=== PATIENT | female | born 1945 | race Caucasian/White ===

== ENCOUNTER 2021-01-12 16:28 | Outpatient (RCR) | payer MEDICARE, SELFPAY | END 2021-01-12 23:59 | LOC: IMMUN 16:28 | PROVIDERS: PCP Internal Medicine; Visit Provider Family Medicine | DX: Z23 Encounter for immunization (principal) | CPT/HCPCS: 0011A; 0012A ==

== ENCOUNTER 2022-02-02 10:30 | Outpatient (RCR) | payer MEDICARE, SELFPAY ==
--- NOTE | 2022-01-05 12:20 | HP.PTEVAL_ITS ---
Patient's Visit Information REGI BARILLAS is a 76 year old F referred to Physical Therapy by Dr. Brittney Kothari MD with a diagnosis of Lumbar Pain. Date of Evaluation: 01/05/22 Physical Therapist: Vandana Kahn DPT - Visit Plan Frequency: 2x /Week Duration: 4 Weeks Plan: Aquatic Therapy- focus on LE and core strength/stabilization - Subjective Patient reports that her MD wants her to come to PT. Her back has been bothering her for a long time- Herniated discs and arthritis. Has had x-rays and MRI. Declined injections- has had PT- aquatic therapy helped for a little while- did not keep up on the exercises- that was about a year ago. Patient reports that her back aches. If she does housework the pain is more burning. Pain is located in the lower spine and radiates to the middle of the back- no radiating pain down either lower extremity. Describes the upper back as more burning and lower back is more sharp. Agg: sitting to long, housework, walking long distances. Eases: sitting down takes a few min then goes away. Worst: 8/10 Best: 0/10. Has been to pain mgmt and they suggested PT- has not been back to see them. Sleep: not disturbed- back and side sleeper- has a knee pillow that she uses on her side. No loss or change in bowel or bladder. She feels the pain in her back is staying the same just gets really annoying. Work: doesn't work- lives in an apt so she is not very active. [place] not exercise. PMHx/Meds: no changes- see scanned in chart. - Objective Posture: poor throughout- FH, RS- can correct but is unable to maintain. Gait: no deviation noted- good arm swing and trunk rotation. HR/TR: able with UE A. SLS: weight shift but unable to SLS. ROM: Lumbar: flexion: diminished by 50%, Extn: neutral, SB: decreased by 50% bilateral Rotation: WFL does report pain in all directions. Hip: WFL in all planes. Strength: Core: poor, Hip: 4/5 throughout, Knee: 4+/5, Ankle: 5/5. Flex: HS: severe, Gastroc: moderate. Special Test: Pelvic Alignment: WFL, LLD: negative - Special Tests L/S Slump test right side: Positive L/S Left Straight Leg Raise: Positive L/S Right Straight Leg Raise: Positive R Hip Scour: Negative R Hip Quadrant - Intraarticular Pathology: Negative R Hip ROMY - Intraarticular Pathology: Negative R Hip FADDIR - Labrum: Negative L Hip Scour: Negative L Hip Quadrant - Intraarticular Pathology: Negative L Hip ROMY - Intraarticular Pathology: Negative L Hip FADDIR - Labrum: Negative - Balance/Special Test Scores Oswestry Low Back Score: 12 - Goals Goal 1:: Patient will be I with HEP and progression Goal Time Frame: 4-6 Weeks Goal 2:: Patient will maintain proper posture t/o tx session Goal Time Frame: 4-6 Weeks Goal 3:: Patient will report 80% improvement in symptoms Goal Time Frame: 4-6 Weeks - Rehabilitation Potential Physical Therapy Diagnosis: Patient presents with hypomobility- she had decreased LE and core strength/stabilization and muscular endurance due to inactivity leading to poor posture and increased pain. Rehabilitation Potential: Fair - Anticipated Interventions Patient/Client Instruction: Educate patient on: Benefits of Fitness Program Therapeutic Exercise to Include: Strength training, Endurance training, Balance training, Coordination, Agility training, Body mechanics, Postural training, Flexibilty training, Gait and locomotor training, Neuromotor development, In an aquatic setting, Dynamic Lumbar Stabilization, Scapular Strength/Stabilization For the Purpose of:: To improve muscle performance and motor function Thank you for the opportunity to evaluate your patient. For Medicare and Medicare HMO plans, please review the plan of care and approve it. It will need to be FAXED BACK to us at [phone] for Medicare purposes. For Medicare only, by signing this I certify the plan of care. Please let me know if there are questions or concerns regarding this plan of care. Physician Signature: Date:
--- NOTE | 2022-02-02 11:01 | HP.PTDCSUM ---
It has been my pleasure to treat REGI BARILLAS referred by Dr. Brittney Kothari MD, with the diagnosis of Lumbar Pain for a total of 9 visit(s). Discharge Date: Please see the following information for a summary of their discharge status. Subjective: She feels that the pain comes and goes. The PT has helped her with less pain in the lumbar spine- and she is more aware of what she needs to do. She feels that she would like to continue exercises indep, and come back to therapy if she needs. She usually is around a 6/10- if she does housework than the back hurts and she sits (10 min) and then can go again. Lumbar Spine Pain Intensity (Out of 10): 6 Thoracic Spine Pain Intensity (Out of 10): 6 LLE Pain Intensity (Out of 10): 7 % Improvement: 70 Objective/Function: Posture: fair throughout in hard back chair. Gait: no deviation noted- good arm swing and trunk rotation. HR/TR: able with UE A. SLS: 3 sec. ROM: Lumbar: flexion: hands to toes with bent knees, Extn: neutral, SB: decreased by 50% pain to the right Rotation: WFL does report pain in all directions. Hip: WFL in all planes. Strength: Core: fair, Hip: 4+/5 throughout, Knee: 5/5, Ankle: 5/5. Flex: HS: severe, Gastroc: moderate. Special Test: Pelvic Alignment: WFL, LLD: negative. - Special Tests. L/S Slump test right side: Positive. L/S Left Straight Leg Raise: Positive. L/S Right Straight Leg Raise: Positive. R Hip Scour: Negative. R Hip Quadrant - Intraarticular Pathology: Negative. R Hip ROMY - Intraarticular Pathology: Negative. R Hip FADDIR - Labrum: Negative. L Hip Scour: Negative. L Hip Quadrant - Intraarticular Pathology: Negative. L Hip ROMY - Intraarticular Pathology: Negative. L Hip FADDIR - Labrum: Negative Goal 1:: Patient will be I with HEP and progression Goal Progress: Goal Met Goal 2:: Patient will maintain proper posture t/o tx session Goal Progress: Progressing Goal 3:: Patient will report 80% improvement in symptoms Goal Progress: Progressing Plan: 02/02/22: Discharge to home exercise program per pt request. Encouraged her to continue HEP. *f/u with supervising PT next. Would recommend either: 1. Continued AT or 2. Progression to I pool program at facility of choice. Aquatic Therapy- focus on LE and core strength/stabilization If there are questions or concerns regarding this patient's physical therapy, please feel free to call me at [phone]. Thank you for the referral of this patient. Sincerely, Vandana Kahn, DPT Balance/Gait/Functional tests - Balance/Special Test Scores Oswestry Low Back Score: 10
== END 2022-02-02 11:05 | disposition home or self-care (01) ==
LOC: PT 10:30
PROVIDERS: PCP Internal Medicine; Referring Provider Internal Medicine; Visit Provider Internal Medicine
DX: M51.26 Other intervertebral disc displacement, lumbar region (principal); M54.50 Low back pain, unspecified
CPT/HCPCS: 97113; 97162; 97164

== ENCOUNTER → 2025-08-13 | Outpatient (CLI) | payer MEDICARE, SELFPAY ==
--- OUTSIDE RECORDS SUMMARY | 2025-07-30 14:56 | XMS RPT_ITS ---
Author Name Auto Generated Organization [facility] Support Name Relationship Address Phone NONE Next of Kin Unknown Unavailable JULIETH ESCOBEDO Next of Kin Unknown [phone] NONE Next of Kin Unknown Unavailable JULIETH ESCOBEDO Next of Kin Unknown [phone] NONE Next of Kin Unknown Unavailable JULIETH ESCOBEDO Next of Kin Unknown [phone] NONE Next of Kin Unknown Unavailable JULIETH ESCOBEDO Next of Kin Unknown [phone] NONE Next of Kin Unknown Unavailable JULIETH ESCOBEDO Next of Kin Unknown [phone] NONE Next of Kin Unknown Unavailable JULIETH ESCOBEDO Next of Kin Unknown [phone] NONE Next of Kin Unknown Unavailable JULIETH ESCOBEDO Next of Kin Unknown [phone] NONE Next of Kin Unknown Unavailable JULIETH ESCOBEDO Next of Kin Unknown [phone] NONE Next of Kin Unknown Unavailable TODD ESCOBEDOTI Next of Kin Unknown [phone] NONE Next of Kin Unknown Unavailable JULIETH ESCOBEDO Next of Kin Unknown [phone] NONE Next of Kin Unknown Unavailable JULIETH ESCOBEDO Next of Kin Unknown [phone] NONE Next of Kin Unknown Unavailable TODD ESCOBEDOTI Next of Kin Unknown [phone] NONE Next of Kin Unknown Unavailable JULIETH ESCOBEDO Next of Kin Unknown [phone] Care Team Providers Care Extrusion Manager Name Role Phone RAVINDER MANTILLA S Attending Unavailable ROYAL, RAVINDER S Referring Unavailable ROYAL, RAVINDER S Primary Care Unavailable MAAME GARNER Attending Unavailable ROYAL, RAVINDER S Primary Care Unavailable ROYAL, RAVINDER S Attending Unavailable ROYAL, RAVINDER S Referring Unavailable ROYAL, RAVINDER S Primary Care Unavailable ROYAL, RAVINDER S Attending Unavailable ROYAL, RAVINDER S Primary Care Unavailable ROYAL, RAVINDER S Referring Unavailable ROYAL, RAVINDER S Primary Care Unavailable ROYAL, RAVINDER S Primary Care Unavailable FRANCIS ARCINIEGA Consulting Unava NBA Villarreal Admitting Unavailable PANTHAM, HEIDE T Attending Unavailable ROYAL, RAVINDER S Referring Unavailable ROYAL, RAVINDER S Primary Care Unavailable PANTHAM, HEIDE T Referring Unavailable ROYAL, RAVINDER S Primary Care Unavailable PANTHAM, HEIDE T Referring Unavailable ROYAL, RAVINDER S Primary Care Unavailable PANTHAM, HEIDE T Referring Unavailable ROYAL, RAVINDER S Primary Care Unavailable PANTHAM, HEIDE T Referring Unavailable ROYAL, RAVINDER S Primary Care Unavailable PANTHAM, HEIDE T Referring Unavailable ROYAL, RAVINDER S Primary Care Unavailable PANTHAM, HEIDE T Referring Unavailable ROYAL, RAVINDER S Primary Care Unavailable PROBLEMS DATE TYPE CONDITION / CODE ATTENDING STATUS [facility] 07/16/2025 Admitting Diagnosis Paroxysmal atrial fibrillation (Multi) / I48.0(ICD-10) [facility] 07/16/2025 Admitting Diagnosis Hypo-osmolality and hyponatremia / E87.1(ICD-10) [facility] 07/01/2025 Admitting Diagnosis Unspecified atrial fibrillation (Multi) / I48.91(ICD-10) [facility] 07/01/2025 Admitting Diagnosis Abnormal electrocardiogram (ECG) (EKG) / R94.31(ICD-10) [facility] Admitting Diagnosis Other constipation / K59.09(ICD-10) [facility] 06/27/2025 Admitting Diagnosis Palpitations / R00.2(ICD-10) [facility] 06/27/2025 Admitting Diagnosis Encounter for general adult medical examination without abnormal findings / Z00.00(ICD-10) [facility] 06/28/2023 Admitting Diagnosis Vitamin D deficiency, unspecified / E55.9(ICD-10) [facility] 06/28/2023 Admitting Diagnosis 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) MAAME GARNER [facility] 06/26/2024 Admitting Diagnosis Essential (primary) hypertension / I10(ICD-10) [facility] 06/28/2023 Admitting Diagnosis Hyperglycemia, unspecified / R73.9(ICD-10) [facility] 06/28/2023 Admitting Diagnosis Other specified hypothyroidism / E03.8(ICD-10) [facility] 06/28/2023 Admitting Diagnosis Mixed hyperlipidemia / E78.2(ICD-10) [facility] 06/28/2023 Admitting Diagnosis Low back pain, unspecified / M54.50(ICD-10) [facility] 06/28/2023 Admitting Diagnosis Other chronic pain / G89.29(ICD-10) [facility] PROCEDURES No Procedure Records Found RESULTS BASIC METABOLIC PANEL WITH ANION GAP Collected: 07/17/2025 9:56 AM Status: F Source: [employer] Order Comment: FASTING:YES FASTING: YES TYPE CODE TESTS RESULT OUT OF RANGE REFERENCE UNITS LAB [id number] GLUCOSE 102 High 65-99 mg/dL Result Comment: Fasting reference interval For someone without known diabetes, a glucose value between 100 and 125 mg/dL is consistent with prediabetes and should be confirmed with a follow-up test. LAB [id number] UREA NITROGEN (BUN) 10 Normal 7-25 mg/dL LAB 05603582 CREATININE 0.59 Low 0.60-0.95 mg/dL LAB 81330683 EGFR 91 Normal > OR = 60 mL/min/1 .73m2 LAB 71335132 BUN/CREATININE RATIO 17 Normal 6-22 (calc) LAB 77489360 SODIUM 135 Normal 135-146 mmol/L LAB 77468363 POTASSIUM 4.5 Normal 3.5-5.3 mmol/L LAB 43926141 CHLORIDE 100 Normal 98-110 mmol/L LAB 44556478 CARBON DIOXIDE 26 Normal 20-32 mmol/L LAB 80380957 ELECTROLYTE BALANCE 9 Normal 7-17 mmol/L (calc) LAB 09311302 CALCIUM 9.3 Normal 8.6-10.4 mg/dL Performed By: #### [id number] ### # [employer] [address], [address] [place] [address] Dianeticist: Joe Braga MD COAGULATION TISSUE FACTOR INDUCED Collected: 07/02/2025 2:02 PM Status: F Source: [facility] TYPE CODE TESTS RESULT OUT OF RANGE REFERENCE UNITS LAB 5902-2(LOINC) Coagulation tissue factor induced 20.1 High 9.8-12.4 seconds LAB 6301-6(LOINC) Coagulation tissue factor induced.INR 1.8 High 0.9-1.1 NA Performed By: #### 5902-2 ## ## ABDI MIKE ([id number]) [facility] ([facility]) [address] [place] [address] BASIC METABOLIC 2000 PANEL Collected: 0 07/02/2025 2:02 PM Status: F Source: [facility] TYPE CODE TESTS RESULT OUT OF RANGE REFERENCE UNITS LAB 2345-7(LOINC) Glucose 184 High 74-99 mg/dL LAB 2951-2(LOINC) Sodium 132 Low 136-145 mmol/L LAB 2823-3(LOINC) Potassium 4.1 3.5-5.3 mmol/L LAB 2075-0(LOINC) Chloride 101 98-107 mmol/L LAB 2028-9(LOINC) Carbon dioxide 22 21-32 mmo l/L LAB 71746-9(LOINC) Anion gap 13 10-20 mmol/L LAB 3094-0(LOINC) Urea nitrogen 13 6-23 mg/d L LAB 2160-0(LOINC) Creatinine 0.70 0.50-1.05 mg/dL LAB 38247-5(LOINC) Glomerular filtration rate 88 >60 mL/min/1 .73m*2 Result Comment: Calculations of estimated GFR are performed using the 2020 CKD- EPI Study Refit equation without the race variable for the IDMS-Traceable creatinine methods. https://jasn.asnjournals.org/content/early//ASN.6724471068 LAB 47601-9(LOINC) Calcium 8.9 8.6-10.3 mg/dL Performed By: #### 63943-3 # ### ABDI MIKE ([id number]) [facility] ([facility]) [address] [place] [address] ECG 12-LEAD Observed: 07/02/2025 10:51 AM Status: F Source: [facility]3] Ventricular Rate 64 Atrial Rate 64 P-R Interval 162 QRS Duration 86 Q-T Interval 378 QTC Calculation(Bazett) 389 P [place] 38 R [place] 107 T [place] 48 QRS Count 10 Q Onset 227 P Onset 146 P Offset 211 T Offset 416 QTC Fredericia 386 Diagnosis Normal sinus rhythm Rightward axis Low voltage QRS Cannot rule out Anterior infarct , age undetermined Abnormal ECG Confirmed by Francis Arciniega ([id number]) on 07/02/2025 12:11:14 PM BASIC METABOLIC 2000 PANEL Collected: 0 07/02/2025 4:29 AM Status: F Source: [facility] TYPE CODE TESTS RESULT OUT OF RANGE REFERENCE UNITS LAB 2345-7(LOINC) Glucose 110 High 74-99 mg/dL LAB 2951-2(LOINC) Sodium 137 136-145 mmol/L LAB 2823-3(LOINC) Potassium 3.4 Low 3.5-5.3 mmol/L LAB 2075-0(LOINC) Chloride 104 98-107 mmol/L LAB 2028-9(LOINC) Carbon dioxide 24 21-32 mmo l/L LAB 59362-9(LOINC) Anion gap 12 10-20 mmol/L LAB 3094-0(LOINC) Urea nitrogen 12 6-23 mg/d L LAB 2160-0(LOINC) Creatinine 0.71 0.50-1.05 mg/dL LAB 29133-5(LOINC) Glomerular filtration rate 86 >60 mL/min/1 .73m*2 Result Comment: Calculations of estimated GFR are performed using the 2020 CKD- EPI Study Refit equation without the race variable for the IDMS-Traceable creatinine methods. https://jasn.asnjournals.org/content///ASN.2207298733 LAB 74887-7(LOINC) Calcium 9.2 8.6-10.3 mg/dL Performed By: #### 65013-3 # ### PATTON CEE ([id number]) [facility] ([facility]) [address] [place] [address]96 MAGNESIUM Collected: 4:29 AM Status: F Source: [facility] TYPE CODE TESTS RESULT OUT OF RANGE REFERENCE UNITS LAB 37147-1(LOINC) Magnesium 2.04 1.60-2.40 mg/dL Performed By: #### 32121-8 # ### ABDI MIKE ([id number]) [facility] ([facility]) [address] [place] [address] COMPLETE BLOOD COUNT PANEL Collected: 07/02/2025 4:29 AM Status: F Source: [facility] TYPE CODE TESTS RESULT OUT OF RANGE REFERENCE UNITS LAB 6690-2(LOINC) Leukocytes 8.8 4.4-11.3 x10*3/ uL LAB 06620-5(LOINC) Erythrocytes.nuc leated/Leukocyte s 0.0 0.0-0.0 /100 WBCs LAB 789-8(LOINC) Erythrocytes 3.68 Low 4.00-5.20 x10* 6/uL LAB 718-7(LOINC) Hemoglobin 12.8 12.0-16.0 g/dL LAB 4544-3(LOINC) Erythrocyte/Bloo d 36.4 36.0-46.0 % LAB 787-2(LOINC) Observation 99 80-100 fL LAB 785-6(LOINC) Hemoglobin 34.8 High 26.0-34.0 pg LAB 786-4(LOINC) Hemoglobin 35.2 32.0-36.0 g/dL LAB 788-0(LOINC) Observation 13.2 11.5-14.5 % LAB 777-3(LOINC) Platelets 323 150-450 x10*3/uL Performed By: #### 38165-9 # ### ABDI MIKE ([id number]) [facility] ([facility]) [address] [place] [address] TRANSTHORACIC ECHO (TTE) COMPLETE Observed: 07/01/2025 1:25 PM Status: F Source: [place] [address] ext-2528, TRANSTHORACIC ECHOCARDIOGRAM REPORT Patient Name: REGI Wheeler Physician: [id number] Thony Waite MD Study Date: 07/01/2025 Ordering Provider: [id number] FRANCIS ZAMBRANO MRN/PID: [id number] Fellow: Nurse: Date of /Age: 11 1945 / 79 years Substation Operator Chief: Roman Fishman RDCS Gender Assigned at F Additional Staff: : Height: 152.40 cm Admit Date: Weight: 72.58 kg Admission Status: Inpatient - Routine BSA / BMI: 1.70 m2 / 31.25 [address] Blood Pressure: 130 /84 mmHg Study Type: TRANSTHORACIC ECHO (TTE) COMPLETE Diagnosis/ICD: Paroxysmal atrial fibrillation-I48.0 CPT Codes: Echo Complete w Full Doppler-67240 Study Detail: The following Echo studies were performed: 2D, M-Mode, Doppler and color flow. Definity used as a contrast agent for endocardial border definition. Total contrast used for this procedure was 2.50cc mL via IV push. PHYSICIAN INTERPRETATION: Left Ventricle: Left ventricular ejection fraction is normal by visual estimate at 65%. There are no regional wall motion abnormalities. The left ventricular cavity size is normal. There is mild increased septal and mildly increased posterior left ventricular wall thickness. There is left ventricular concentric remodeling. Spectral Doppler shows a Grade I (impaired relaxation pattern) of left ventricular diastolic filling with normal left atrial filling pressure. Left Atrium: The left atrial size is mildly dilated. Right Ventricle: The right ventricle is mildly enlarged. There is normal right ventricular global systolic function. Right Atrium: The right atrial size is normal. Aortic Valve: The aortic valve is trileaflet. The aortic valve area by VTI is 2.25 cm?? with a peak velocity of 1.02 m/s. The peak and mean gradients are 4 mmHg and 2 mmHg, respectively, with a dimensionless index of 0.79. There is no evidence of aortic valve regurgitation. Mitral Valve: The mitral valve is normal in structure. There is no evidence of mitral valve regurgitation. Tricuspid Valve: The tricuspid valve is structurally normal. No evidence of tricuspid regurgitation. Pulmonic Valve: The pulmonic valve is not well visualized. There is no indication of pulmonic valve regurgitation. Pericardium: No pericardial effusion noted. Aorta: The aortic root is normal. CONCLUSIONS: 1. Left ventricular ejection fraction is normal by visual estimate at 65%. 2. Spectral Doppler shows a Grade I (impaired relaxation pattern) of left ventricular diastolic filling with normal left atrial filling pressure. 3. Mildly enlarged right ventricle. QUANTITATIVE DATA SUMMARY: 2D MEASUREMENTS: Normal Ranges: Ao Root d: 3.00 cm (2.0-3.7cm) IVSd: 1.06 cm (0.6-1.1cm) LVPWd: 1.13 cm (0.6-1.1cm) LVIDd: 3.96 cm (3.9-5.9cm) LVIDs: 2.40 cm LV Mass Index: 83.9 g/m2 LVEDV Index: 34.65 ml/m2 LV % FS 39.4 % LEFT ATRIUM: Normal Ranges: LA Vol A4C: 24.1 ml (22+/-6mL/m2) LA Vol A2C: 20.8 ml LA Vol BP: 23.8 ml LA Vol Index A4C: 14.2ml/m2 LA Vol Index A2C: 12.3 ml/m2 LA Vol Index BP: 14.0 ml/m2 LA Area A4C: 12.0 cm2 LA Area A2C: 10.5 cm2 LA Major [place] A4C: 5.1 cm LA Major [place] A2C: 4.5 cm LA Volume Index: 16.2 ml/m2 LA Vol A4C: 27.6 ml LA Vol A2C: 20.1 ml LA Vol Index BSA: 14.0 ml/m2 LV SYSTOLIC FUNCTION: Normal Ranges: EF-A4C View: 61 % (>=55%) EF-A2C View: 50 % EF-Biplane: 55 % EF-Visual: 65 % LV EF Reported: 65 % AORTIC VALVE: Normal Ranges: AoV Vmax: 1.02 m/s (<=1.7m/s) AoV Peak P.2 mmHg (<20mmHg) AoV Mean P.0 mmHg (1.7-11.5mmHg) LVOT Max Jesse: 0.80 m/s (<=1.1m/s) AoV VTI: 19.50 cm (18-25cm) LVOT VTI: 15.50 cm LVOT Diameter: 1.90 cm (1.8-2.4cm) AoV Area, VTI: 2.25 cm2 (2.5-5.5cm2) AoV Area,Vmax: 2.23 cm2 (2.5-4.5cm2) AoV Dimensionless Index: 0.79 [id number] Thony Waite MD Electronically signed on 07/01/2025 at 4:03:44 PM Final LACTATE Collected: 12:28 PM Status: F Source: [facility] Order Comment: Venipuncture immediately after or during the administration of Metamizole may lead to falsely low results. Testing should be performed immediately prior to Metamizole dosing. TYPE CODE TESTS RESULT OUT OF RANGE REFERENCE UNITS LAB 2524-7(LOINC) Lactate 1.3 0.4-2.0 mmol/L Performed By: #### 2524-7 ## ## PATTON CEE ([id number]) [facility] ([facility]) [address] [place] [address] CT PRE WATCHMAN FULL CONTRAST Observed: 07/01/2025 12:27 PM Status: F Source: [facility] Interpreted By: Shaw Mckeon and Praful Thomas STUDY: CT PRE WATCHMAN FULL CONTRAST; 07/01/2025 1:34 pm INDICATION: Signs/Symptoms:AFib RVR - rule out thrombus. COMPARISON: CT abdomen and pelvis done on 07/25/2019, CT cardiac scoring done on 01/01/2019. ACCESSION NUMBER(S): [id number] ORDERING CLINICIAN: FRANCIS ZAMBRANO TECHNIQUE: Using multi-detector CT technology, axial, sequential imaging (at 45% phase of cardiac size) with prospective gating was performed of the chest following the intravenous administration of 70 ML Omnipaque 350. Additional delayed axial, sequential imaging with prospective gating of chest was performed for better evaluation of left atrial appendage thrombus. For optimization of anatomic evaluation, multiplanar reconstruction, maximum intensity projections, and advanced 3-D off-line postprocessing were performed on a dedicated stand-alone workstation under the direct supervision of the interpreting physician. FINDINGS: POTENTIAL STUDY LIMITATIONS: None CORONARY ARTERIES: CORONARY ANATOMY: There is normal origin of the coronary arteries. Right dominant system. Mild coronary artery calcifications are seen. Please note,the study is not optimized for evaluation of coronary arteries. CARDIAC CHAMBERS: The cardiac chambers demonstrate normal atrioventricular and ventriculoarterial concordance, and systemic and pulmonary venous return. LEFT ATRIUM: Normal (25-cm2). There is no evidence of left atrium or left atrial appendage thrombus. The left atrial appendage orifice is oval in shape, measuring 2.3 cm x 1.7 cm in orthogonal dimensions and with an area of 3.4 cm. sq. Left atrial appendage depth is 3.2 cm. RIGHT ATRIUM: Dilated (26-cm2) VENTRICLES: The left and right ventricles appear normal in appearance, although accurate size measurements are not possible on systolic phase imaging. INTERATRIAL SEPTUM: Intact. INTERVENTRICULAR SEPTUM: Intact. AORTIC VALVE: The aortic valve is trileaflet in morphology. No valvular thickening or calcifications. MITRAL VALVE: Mild mitral annular calcification. THORACIC AORTA: The thoracic aorta normal in course and caliber.There is no evidence for acute aortic pathology, such as dissection, intramural hematoma, or contained rupture. The aortic arch is not included on this examination. Mildly calcified and noncalcified aorta atherosclerosis. PERICARDIUM: There is no pericardial effusion seen. CHEST: The trachea and central airways are patent. No endobronchial lesion is seen. There is collapse consolidation of the left lower lobe. No evidence of lymphadenopathy within included mediastinum. Visualized esophagus appears within normal limits as seen. UPPER ABDOMEN: The visualized subdiaphragmatic structures demonstrate no remarkable findings. CHEST WALL AND OSSEOUS STRUCTURES: Visualized chest wall is within normal limits. No acute osseous pathology.There are no suspicious osseous lesions within included chest. IMPRESSION: 1. No definite evidence of left atrial/left atrial appendage thrombus. 2. Normal left atrial size. 3. Mild mitral annular calcification. 4. Mild coronary artery calcifications are seen. Please note,the study is not optimized for evaluation of coronary arteries. 5. Left lower lobe atelectasis/consolidation. Clinical correlation recommended. 6. MACRO: None Signed by: Tameka Mckeon 07/08/2025 1:30 AM Dictation workstation: [id number] TROPONIN I.CARDIAC PANEL Collected: 11:36 AM Status: F Source: [facility] Order Comment: Less than 99t h percentile of normal range cutoff- Female and children under 18 years old <14 ng/L; Male <21 ng/L: Negative Repeat testing should be performed if clinically indicated. Female and children under 18 years old 14-50 ng/L; Male 21-50 ng/L: Consistent with possible cardiac damage and possible increased clinical risk. Serial measurements may help to assess extent of myocardial damage. >50 ng/L: Consistent with cardiac damage, increased clinical risk and myocardial infarction. Serial measurements may help assess extent of myocardial damage. NOTE: Children less than 1 year old may have higher baseline troponin levels and results should be interpreted in conjunction with the overall clinical context. NOTE: Troponin I testing is performed using a different testing methodology at [facility] than at other [facility]. Direct result comparisons should only be made within the same method. TYPE CODE TESTS RESULT OUT OF RANGE REFERENCE UNITS LAB 71909-5(LOINC) Troponin I.cardiac panel 6 0-13 ng/L Performed By: #### 06235-1 # ### ABDI MIKE ([id number]) [facility] ([facility]) [address] [place] [address] URINALYSIS COMPLETE W REFLEX CULTURE PANEL Collected: 07/01/2025 10:31 AM Status: F Source: [facility] TYPE CODE TESTS RESULT OUT OF RANGE REFERENCE UNITS LAB 5778-6(LOINC) Observation Colorless Normal Ligh t-Yellow , Yellow, Dark-Yellow LAB 5767-9(LOINC) Observation Clear Clear LAB 76520-9(LOINC) Observation 1.007 1.005-1.035 LAB 06594-5(LOINC) pH 6.5 5.0, 5.5, 6.0, 6.5, 7.0, 7.5, 8.0 LAB 65657-5(LOINC) Protein NEGATIVE NEGAT KLEBER, 10 (TRACE), 20 (TRACE) mg/dL LAB 67842-8(LOINC) Glucose Normal Normal mg/dL LAB 64377-7(LOINC) Erythrocytes 0.03 (TRACE) Abnormal NEGATI VE mg/dL LAB 45988-3(LOINC) Ketones NEGATIVE NEGATIVE mg/dL LAB 23861-6(LOINC) Bilirubin NEGATIVE NEGATIVE mg/dL LAB 36727-8(LOINC) Urobilinogen Normal Normal mg/d L LAB 36925-8(LOINC) Nitrite NEGATIVE NEGATIVE LAB 86927-4(LOINC) Leukocyte esterase 250 Yancy/uL Abnormal NEGATIVE Performed By: #### 98933-2 # ### ABDI MIKE ([id number]) [facility] ([facility]) [address] [place], [place] [address] URINALYSIS MICROSCOPIC PANEL Collected: 07/01/2025 10:31 AM Status: F Source: [facility] TYPE CODE TESTS RESULT OUT OF RANGE REFERENCE UNITS LAB 38384-5(LOINC) Leukocytes 1-5 1-5, NONE /HPF LAB 51506-0(LOINC) Erythrocytes 3-5 NO NE, 1-2, 3-5 /HPF LAB 70483-2(LOINC) Bacteria 1+ Abnormal NONE SEEN /HPF LAB 64919-7(LOINC) Hyaline casts 1+ Abnormal NONE /L PF Performed By: #### 62518-1 # ### PATTON CEE ([id number]) [facility] ([facility]) [address] [place] [address] BACTERIA Observed: 07/01/2025 10:31 AM Status: F Source: [facility] Test: Urine Culture Specimen Source: Clean Catch/Voided Specimen Type: Urine Specimen Date: 07/01/2025 1031 Result Date: 07/03/2025 1011 Result Status: Final result Abnormal: Yes Resulting Lab: [facility] [address] [place] [id number] CULTURE >=100,000 CFU/mL Escherichia coli (Abnormal) SUSCEPTIBILITY Escherichia coli METHOD MICROSCAN AMPICILLIN <=8.000 ug/ml Susceptible CEFAZOLIN <=2 ug/ml Susceptible CEFAZOLIN (UNCOMPLICATED UTIS ONLY) <=2 ug/ml Susceptible CIPROFLOXACIN <=0.250 ug/ml Susceptible GENTAMICIN <=2.000 ug/ml Susceptible LEVOFLOXACIN <=0.500 ug/ml Susceptible NITROFURANTOIN <=32 ug/ml Susceptible PIPERACILLIN/TAZOBACTAM <=8.000 ug/ml Susceptible TRIMETHOPRIM/SULFAMETHOXAZOLE <=0.5/9.5 ug/ml Susceptible Performed By: #### 630-4 ### # KETURAH Jimenez ([id number]) [facility] ([facility]) [address] [place] [id number] COMPLETE BLOOD COUNT W AUTO DIFFERENTIAL PANEL Collected: 07/01/2025 10:27 AM Status: F Source: [facility] TYPE CODE TESTS RESULT OUT OF RANGE REFERENCE UNITS LAB 6690-2(LOINC) Leukocytes 9.1 4.4-11.3 x10*3/ uL LAB 06732-8(LOINC ) Erythrocytes.nu cleated/Leukocy johan 0.0 0.0-0.0 /100 WBCs LAB 789-8(LOINC) Erythrocytes 4.32 4.00-5.20 x10* 6/uL LAB 718-7(LOINC) Hemoglobin 13.7 12.0-16.0 g/dL LAB 4544-3(LOINC) Erythrocyte/Blo od 40.5 36.0-46.0 % LAB 787-2(LOINC) Observation 94 80-100 fL LAB 785-6(LOINC) Hemoglobin 31.7 26.0-34.0 pg LAB 786-4(LOINC) Hemoglobin 33.8 32.0-36.0 g/dL LAB 788-0(LOINC) Observation 12.9 11.5-14.5 % LAB 777-3(LOINC) Platelets 366 150-450 x10*3/uL LAB 770-8(LOINC) Neutrophils/Yancy kocytes 68.3 40.0-80.0 % LAB 75340-6(LOINC ) Granulocytes.im mature/Leukocyt es 0.4 0.0-0.9 % Result Comment: Immature Gra nulocyte Count (IG) includes promyelocytes, myelocytes and metamyelocytes but does not include bands. Percent differential counts (%) should be interpreted in the context of the absolute cell counts (cells/UL). LAB 736-9(LOINC) Lymphocytes/Yancy kocytes 21.8 13.0-44.0 % LAB 5905-5(LOINC) Monocytes/Leuko cytes 8.0 2.0-10.0 % LAB 713-8(LOINC) Eosinophils/Yancy kocytes 1.0 0.0-6.0 % LAB 706-2(LOINC) Basophils/Leuko cytes 0.5 0.0-2.0 % LAB 751-8(LOINC) Neutrophils 6.22 High 1.60-5.50 x10*3 /uL Result Comment: Percent diff erential counts (%) should be interpreted in the context of the absolute cell counts (cells/uL). LAB 65621-7(LOINC ) Granulocytes.im mature 0.04 0.00-0.50 x10*3/uL LAB 731-0(LOINC) Lymphocytes 1.99 0.80-3.00 x10*3 /uL LAB 742-7(LOINC) Monocytes 0.73 0.05-0.80 x10*3/u L LAB 711-2(LOINC) Eosinophils 0.09 0.00-0.40 x10*3 /uL LAB 704-7(LOINC) Basophils 0.05 0.00-0.10 x10*3/u L Performed By: #### 71036-6 # ### ABDI MIKE ([id number]) [facility] ([facility]) [address] [place] [address] LACTATE Collected: 10:27 AM Status: F Source: [facility] Order Comment: Venipuncture immediately after or during the administration of Metamizole may lead to falsely low results. Testing should be performed immediately prior to Metamizole dosing. TYPE CODE TESTS RESULT OUT OF RANGE REFERENCE UNITS LAB 2524-7(LOINC) Lactate 2.2 High 0.4-2.0 mmol/L Performed By: #### 2524-7 ## ## ABDI MIKE ([id number]) [facility] ([facility]) [address] [place], [place] [address] COMPREHENSIVE METABOLIC 2000 PANEL Collected: 07/01/2025 10:27 AM Status: F Source: [facility] TYPE CODE TESTS RESULT OUT OF RANGE REFERENCE UNITS LAB 2345-7(LOINC) Glucose 186 High 74-99 mg/dL LAB 2951-2(LOINC) Sodium 134 Low 136-145 mmol/L LAB 2823-3(LOINC) Potassium 3.7 3.5-5.3 mmol/L LAB 2075-0(LOINC) Chloride 99 98-107 mmol/L LAB 2028-9(LOINC) Carbon dioxide 25 21-32 mmo l/L LAB 28255-6(LOINC ) Anion gap 14 10-20 mmol/L LAB 3094-0(LOINC) Urea nitrogen 10 6-23 mg/d L LAB 2160-0(LOINC) Creatinine 0.69 0.50-1.05 mg/dL LAB 60253-5(LOINC ) Glomerular filtration rate 88 >60 mL/min/ 1.73m*2 Result Comment: Calculations of estimated GFR are performed using the 2020 CKD- EPI Study Refit equation without the race variable for the IDMS-Traceable creatinine methods. https://jasn.asnjournals.org/content/early//ASN.1310373770 LAB 53964-5(LOINC ) Calcium 9.9 8.6-10.3 mg/dL LAB 17455-8(LOINC ) Albumin 4.7 3.4-5.0 g/dL LAB 6768-6(LOINC) Alkaline phosphatase 74 33-136 U/L LAB 2885-2(LOINC) Protein 7.9 6.4-8.2 g/dL LAB 11144-9(LOINC ) Aspartate aminotransferase 18 9-39 U/L LAB 1975-2(LOINC) Bilirubin 0.7 0.0-1.2 mg/dL LAB 1743-4(LOINC) Alanine aminotransferase 16 7-45 U/L Result Comment: Patients juanpablo ated with Sulfasalazine may generate falsely decreased results for ALT. Performed By: #### 11508-9 # ### PATTON CEE ([id number]) [facility] ([facility]) [address] [place] [address] FIBRIN D-DIMER Collected: 5 10:27 AM Status: F Source: [facility] Order Comment: The VTE Exclu omi D-Dimer assay is reported in ng/mL Fibrinogen Equivalent Units (FEU). Per patient service technician pst's instructions for use, a value of less than 500 ng/mL (FEU) may help to exclude DVT or PE in outpatients when the assay is used with a clinical pretest probability assessment.(AEMR must utilize and document eCalc 'Wells Score Deep Vein Thrombosis Risk' for DVT exclusion only. Emergency Department should utilize [facility] Guidelines for Emergency Department Use of the VTE Exclusion D-Dimer and Clinical Pretest probability assessment model for DVT or PE exclusion.) TYPE CODE TESTS RESULT OUT OF RANGE REFERENCE UNITS LAB 89710-0(LOINC) Fibrin D-dimer 698 High <=500 ng/mL FEU Performed By: #### 73291-8 # ### ABDI MIKE ([id number]) [facility] ([facility]) [address] [place], [place] [address] TROPONIN I.CARDIAC PANEL Collected: 10:27 AM Status: F Source: [facility] Order Comment: Less than 99t h percentile of normal range cutoff- Female and children under 18 years old <14 ng/L; Male <21 ng/L: Negative Repeat testing should be performed if clinically indicated. Female and children under 18 years old 14-50 ng/L; Male 21-50 ng/L: Consistent with possible cardiac damage and possible increased clinical risk. Serial measurements may help to assess extent of myocardial damage. >50 ng/L: Consistent with cardiac damage, increased clinical risk and myocardial infarction. Serial measurements may help assess extent of myocardial damage. NOTE: Children less than 1 year old may have higher baseline troponin levels and results should be interpreted in conjunction with the overall clinical context. NOTE: Troponin I testing is performed using a different testing methodology at [facility] than at other [facility]. Direct result comparisons should only be made within the same method. TYPE CODE TESTS RESULT OUT OF RANGE REFERENCE UNITS LAB 34359-8(LOINC) Troponin I.cardiac panel 7 0-13 ng/L Performed By: #### 63297-4 # ### ABDI MIKE ([id number]) [facility] ([facility]) [address] [place] [address] THYROTROPIN Collected: 10:27 AM Status: F Source: [facility] Order Comment: TSH testing i s performed using different testing methodology at [facility] than at other [facility]. Direct result comparisons should only be made within the same method. TYPE CODE TESTS RESULT OUT OF RANGE REFERENCE UNITS LAB 3016-3(LOINC) Thyrotropin 1.25 0.44-3.98 mIU/ L Performed By: #### 3016-3 ## ## ABDI MIKE ([id number]) [facility] ([facility]) [address] [place] [id number] MAGNESIUM Collected: 10:27 AM Status: F Source: [facility] TYPE CODE TESTS RESULT OUT OF RANGE REFERENCE UNITS LAB 07170-9(INC) Magnesium 1.88 1.60-2.40 mg/dL Performed By: #### 15306-5 # ### PATTON ROBYNANGEL ([id number]) [facility] ([facility]) [facility] [place] [id number] XR CHEST 1 VIEW Observed: 07/01/2025 10:16 AM Status: F Source: [facility] Interpreted By: Jorge Neri, STUDY: XR CHEST 1 VIEW; 07/01/2025 10:30 am INDICATION: Signs/Symptoms:Palpitations. COMPARISON: CT scan abdomen and pelvis from 07/25/2019. Chest x-ray from 02/08/2012. ACCESSION NUMBER(S): [id number] ORDERING CLINICIAN: ALEXANDER MORILLO TECHNIQUE: Single AP portable view of the chest was obtained. FINDINGS: MEDIASTINUM/ LUNGS/ BERYL: Mild cardiomegaly, currently without vascular congestion, or pleural effusion. No abnormal opacity in either lung worrisome for tumor or pneumonia. No pneumothorax. No tracheal deviation. No abnormal hilar fullness or gross mass on either side. BONES: No lytic or blastic destructive bone lesion. There is vecd-il-xvqhxqeq disc space narrowing and endplate osteophytosis throughout the thoracic spine. UPPER ABDOMEN: Grossly intact. IMPRESSION: Thoracic spine DJD as described. Mild cardiomegaly. Currently without radiographic evidence of CHF or pneumonia. MACRO: None Signed by: Odin Neri 07/01/2025 10:34 AM Dictation workstation: [id number] ECG 12-LEAD Observed: 07/01/2025 10:13 AM Status: F Source: [facility]3] Ventricular Rate 123 QRS Duration 80 Q-T Interval 316 QTC Calculation(Bazett) 452 R [place] -21 T [place] 159 QRS Count 19 Q Onset 219 T Offset 377 QTC Fredericia 401 Diagnosis Atrial fibrillation with rapid ventricular response with premature ventricular or aberrantly conducted complexes Low voltage QRS Anterior infarct , age undetermined Abnormal ECG When compared with ECG of 01-JUL-2025 09:51, (unconfirmed) Anterior infarct is now Present No significant change was found See ED provider note for full interpretation and clinical correlation Confirmed by Ana Wheat ([id number]) on 07/05/2025 3:05:04 PM ECG 12-LEAD Observed: 07/01/2025 9:50 AM Status: F Source: [facility]3] Ventricular Rate 107 QRS Duration 86 Q-T Interval 322 QTC Calculation(Bazett) 429 R [place] -28 T [place] 79 QRS Count 18 Q Onset 216 T Offset 377 QTC Fredericia 390 Diagnosis Atrial fibrillation with rapid ventricular response with premature ventricular or aberrantly conducted complexes Inferior infarct , age undetermined Abnormal ECG When compared with ECG of 29-FEB-2000 13:15, Atrial fibrillation has replaced Sinus rhythm QRS axis Shifted left Inferior infarct is now Present Nonspecific T wave abnormality now evident in Lateral leads Confirmed by Francis Arciniega ([id number]) on 07/02/2025 10:28:27 AM TSH Collected: 11:09 AM Status: F Source: [facility] Order Comment: FASTING:NO FASTING: NO TYPE CODE TESTS RESULT OUT OF RANGE REFERENCE UNITS LAB [id number] TSH 1.15 Normal 0.40-4.50 mIU/L Performed By: #### 899 #### [facility] [address], [address] [place] [address] Dianeticist: Joe Braga MD LIPID PANEL, STANDARD Collected: 06/20/2025 9:39 AM Status: F Source: [facility] Order Comment: FASTING:YES FASTING: YES TYPE CODE TESTS RESULT OUT OF RANGE REFERENCE UNITS LAB 29446813 CHOLESTEROL, TOTAL 199 Normal <200 mg/dL LAB 19039693 HDL CHOLESTEROL 66 Normal > OR = 50 mg/dL LAB 20498642 TRIGLYCERIDES 103 Normal <150 mg/dL LAB 35235088 LDL-CHOLESTEROL 112 High mg/dL (calc) Result Comment: Reference ra nge: <100 Desirable range <100 mg/dL for primary prevention; <70 mg/dL for patients with CHD or diabetic patients with > or = 2 CHD risk factors. LDL-C is now calculated using the Mel calculation, which is a validated novel method providing better accuracy than the Friedewald equation in the estimation of LDL-C. Dexter CHÁVEZ et al. OSCAR. 2013;310(19): 2206-9194 (http://education.ShareWithU.BusyFlow/faq/UYS431) LAB 59955251 CHOL/HDLC RATIO 3.0 Normal <5.0 (calc) LAB 60441422 NON HDL CHOLESTEROL 133 High <130 mg/dL (calc) Result Comment: For patients with diabetes plus 1 major ASCVD risk factor, treating to a non-HDL-C goal of <100 mg/dL (LDL-C of <70 mg/dL) is considered a therapeutic option. Performed By: #### 05125, 00 254, 9291 #### [facility] [address] [facility], [address] [place] [address] Dianeticist: Joe Braga MD BASIC METABOLIC PANEL WITH ANION GAP Collected: 06/20/2025 9:39 AM Status: F Source: [employer] [facility] TYPE CODE TESTS RESULT OUT OF RANGE REFERENCE UNITS LAB 77781828 GLUCOSE 108 High 65-99 mg/dL Result Comment: Fasting reference interval For someone without known diabetes, a glucose value between 100 and 125 mg/dL is consistent with prediabetes and should be confirmed with a follow-up test. LAB 18596330 UREA NITROGEN (BUN) 11 Normal 7-25 mg/dL LAB 17709350 CREATININE 0.67 Normal 0.60-0.95 mg/dL LAB 45770922 EGFR 88 Normal > OR = 60 mL/min/1 .73m2 LAB 23426918 BUN/CREATININE RATIO SEE NOTE: 6-22 (calc) Result Comment: Not Reported : BUN and Creatinine are within reference range. LAB 42095423 SODIUM 136 Normal 135-146 mmol/L LAB 06837929 POTASSIUM 4.5 Normal 3.5-5.3 mmol/L LAB 04055853 CHLORIDE 99 Normal 98-110 mmol/L LAB 78974408 CARBON DIOXIDE 26 Normal 20-32 mmol/L LAB 83968981 ELECTROLYTE BALANCE 11 Normal 7-17 mmol/L (calc) LAB 56065856 CALCIUM 10.1 Normal 8.6-10.4 mg/dL Performed By: #### 29594, 47 692, 4281 #### [facility] [address] [facility], [address] [place] [address] Dianeticist: Joe Braga MD HEMOGLOBIN A1C WITH EAG Collected: 05/2025 9:39 AM Status: F Source: [email or web address] TYPE CODE TESTS RESULT OUT OF RANGE REFERENCE UNITS LAB 12455231 HEMOGLOBIN A1c 5.8 High <5.7 % Result Comment: For someone without known diabetes, a hemoglobin A1c value between 5.7% and 6.4% is consistent with prediabetes and should be confirmed with a follow-up test. For someone with known diabetes, a value <7% indicates that their diabetes is well controlled. A1c targets should be individualized based on duration of diabetes, age, comorbid conditions, and other considerations. This assay result is consistent with an increased risk of diabetes. Currently, no consensus exists regarding use of hemoglobin A1c for diagnosis of diabetes for children. LAB 51176140 eAG (mg/dL) 120 mg/dL LAB 19422117 eAG (mmol/L) 6.6 mmol/L Performed By: #### 72052, 92 498, 7600 #### [facility] [address], [address] [place] [address] Dianeticist: Joe Braga MD BASIC METABOLIC PANEL WITH ANION GAP Collected: 03/11/2025 12:56 PM Status: F Source: [facility] Order Comment: FASTING:YES FASTING: YES TYPE CODE TESTS RESULT OUT OF RANGE REFERENCE UNITS LAB 31184944 GLUCOSE 131 High 65-99 mg/dL Result Comment: Fasting reference interval For someone without known diabetes, a glucose value >125 mg/dL indicates that they may have diabetes and this should be confirmed with a follow-up test. LAB 56079009 UREA NITROGEN (BUN) 12 Normal 7-25 mg/dL LAB 53674595 CREATININE 0.78 Normal 0.60-0.95 mg/dL LAB 25292570 EGFR 77 Normal > OR = 60 mL/min/1 .73m2 LAB 44860564 BUN/CREATININE RATIO SEE NOTE: 6 (calc) Result Comment: Not Reported : BUN and Creatinine are within reference range. LAB 47144075 SODIUM 137 Normal 135-146 mmol/L LAB 22776469 POTASSIUM 4.7 Normal 3.5-5.3 mmol/L LAB 04645760 CHLORIDE 99 Normal 98-110 mmol/L LAB 11722286 CARBON DIOXIDE 23 Normal 20-32 mmol/L LAB 78904743 ELECTROLYTE BALANCE 15 Normal 7-17 mmol/L (calc) LAB 20193966 CALCIUM 9.8 Normal 8.6-10.4 mg/dL Performed By: #### 68742 ### # [facility] [address], [address] [place] [address] Dianeticist: Joe Braga MD BASIC METABOLIC PANEL WITH ANION GAP Collected: 12/17/2024 9:58 AM Status: F Source: [facility] Order Comment: FASTING:YES FASTING: YES TYPE CODE TESTS RESULT OUT OF RANGE REFERENCE UNITS LAB [id number] GLUCOSE 114 High 65-99 mg/dL Result Comment: Fasting reference interval For someone without known diabetes, a glucose value between 100 and 125 mg/dL is consistent with prediabetes and should be confirmed with a follow-up test. LAB 82102148 UREA NITROGEN (BUN) 8 Normal 7-25 mg/dL LAB 12023954 CREATININE 0.64 Normal 0.60-0.95 mg/dL LAB 88189584 EGFR 89 Normal > OR = 60 mL/min/1 .73m2 LAB 05442799 BUN/CREATININE RATIO SEE NOTE: 6 (calc) Result Comment: Not Reported : BUN and Creatinine are within reference range. LAB 39910617 SODIUM 136 Normal 135-146 mmol/L LAB 28323877 POTASSIUM 4.1 Normal 3.5-5.3 mmol/L LAB 06577862 CHLORIDE 100 Normal 98-110 mmol/L LAB 93508286 CARBON DIOXIDE 28 Normal 20-32 mmol/L LAB 32871978 ELECTROLYTE BALANCE 8 Normal 7-17 mmol/L (calc) LAB 15106145 CALCIUM 9.9 Normal 8.6-10.4 mg/dL Performed By: #### 63004, 17 306, 76756, 899 #### [facility] [address], [address] [place] [address] Dianeticist: Joe Braga MD TSH Collected: 9:58 AM Status: F Source: [facility] TYPE CODE TESTS RESULT OUT OF RANGE REFERENCE UNITS LAB 63490935 TSH 1.60 Normal 0.40-4.50 mIU/L Performed By: #### 04545, 17 306, 59350, 899 #### [facility] [address], [address] [place] [address] Dianeticist: Joe Braga MD VITAMIN D,25-OH,TOTAL,IA Collected: 01/2025 9:58 AM Status: F Source: [facility] TYPE CODE TESTS RESULT OUT OF RANGE REFERENCE UNITS LAB 16126898 VITAMIN D,25-OH,TOT AL,IA 70 Normal 30-100 ng/mL Result Comment: Vitamin D St atus 25-OH Vitamin D: Deficiency: <20 ng/mL Insufficiency: 20 - 29 ng/mL Optimal: > or = 30 ng/mL For 25-OH Vitamin D testing on patients on D2-supplementation and patients for whom quantitation of D2 and D3 fractions is required, the QuestAssure[facility](TM) 25-OH VIT D, (D2,D3), LC/MS/MS is recommended: order code 91201 (patients >2yrs). See Note 1 Note 1 For additional information, please refer to http://education.ELDR Media/faq/CWY566 (This link is being provided for informational/ educational purposes only.) Performed By: #### 36604, 17 306, 90943, 354 #### [facility] [address], [address] [place] [address] Dianeticist: Joe Braga MD HEMOGLOBIN A1C WITH EAG Collected: 01/2025 9:58 AM Status: F Source: [facility] TYPE CODE TESTS RESULT OUT OF RANGE REFERENCE UNITS LAB 13346618 HEMOGLOBIN A1c 5.9 High <5.7 % of total Hgb Result Comment: For someone without known diabetes, a hemoglobin A1c value between 5.7% and 6.4% is consistent with prediabetes and should be confirmed with a follow-up test. For someone with known diabetes, a value <7% indicates that their diabetes is well controlled. A1c targets should be individualized based on duration of diabetes, age, comorbid conditions, and other considerations. This assay result is consistent with an increased risk of diabetes. Currently, no consensus exists regarding use of hemoglobin A1c for diagnosis of diabetes for children. LAB 98264010 eAG (mg/dL) 123 mg/dL LAB 49840913 eAG (mmol/L) 6.8 mmol/L Performed By: #### 76551, 17 306, 68508, 899 #### [facility] [address], [address] [place], [place] [address] Dianeticist: Joe Braga MD ALLERGIES DATE TYPE / CODE NAME / CODE REACTION SEVERITY SOURCE SYSTEMIC/[id number]( SNOMED CT) NO KNOWN ALLERGIES [facility] Ambulatory ENCOUNTERS ADMIT/DISCHARGE ACCOUNT NUMBER ADMITTING ENCOUNTER CLASS LOCATION SOURCE 07/30/2025/07/30/20 [id number] Ambulatory Building:[address] 07/16/2025/07/16/20 [id number] Ambulatory Building:[facility] [id number] Ambulatory 07/16/2025/07/16/20 [id number] Ambulatory Building:[address] 07/10/2025/07/10/20 [id number] Ambulatory Building:[address] 07/08/2025/07/08/20 [id number] Ambulatory Building:[address] 07/05/2025/07/05/20 [id number] Ambulatory Building:[address] 07/02/2025/07/02/20 [id number] Ambulatory Building:[address] 07/01/2025/07/02/20 25 [id number] NBA SAXENA Ambulatory Building:[facility] ICURoom: [id number] : 332-A [facility] 07/01/2025/07/01/20 25 [id number] Ambulatory Building:[address] 07/01/2025/07/01/20 25 [id number] Ambulatory Building:[address] 06/27/2025/06/27/20 25 [id number] Ambulatory Building:[facility] [id number] Ambulatory 03/20/2025/03/20/20 25 [id number] Ambulatory Building:[facility] [id number] [facility] Ambulatory 12/27/2024/12/27/19 [id number] Ambulatory Building:[facility] [id number] Ambulatory PAYERS ENCOUNTER GUARANTOR PAYER SUBSCRIBER SOURCE 07/30/2025 REGI GARNETT: [id number], [place] [address]Knu: () Primary Insurance:MEDICAR EPolicy Number: [id number] kleber Date:2011-05-14 REGI E TIMARDOB: [id number], [place] [address]Ioo: () [facility] 07/16/2025 REGI E TIMARDOB: [id number], [place] [address]Znr: () Primary Insurance:MEDICAR EPolicy Number: [id number] kleber Date:2011-05-14 REGI E TIMARDOB: [id number], [place] [address]Ley: () [facility] 07/16/2025 REGI E TIMARDOB: [id number], [place] [address]Ria: () Primary Insurance:MEDICAR EPolicy Number: [id number] kleber Date:2011-05-14 REGI E TIMARDOB: [id number], [place] [address]Bjv: () [facility] 07/10/2025 REGI E TIMARDOB: [id number], [place] [address]Mvd: () Primary Insurance:MEDICAR EPolicy Number: [id number] kleber Date:2011-05-14 REGI E TIMARDOB: [id number], [place] [address]Ptt: () [facility] 07/08/2025 REGI E TIMARDOB: [id number], [place] [address]Tst: () Primary Insurance:MEDICAR EPolicy Number: [id number] kleber Date:2011-05-14 REGI E TIMARDOB: [id number], [place] [address]Vet: () [facility] 07/05/2025 REGI E TIMARDOB: [id number], [place] [address]Oyw: () Primary Insurance:MEDICAR EPolicy Number: [id number] kleber Date:2011-05-14 REGI E TIMARDOB: [id number], [place] [address]Cwm: () [facility] 07/02/2025 REGI E TIMARDOB: [id number], [place] [address]Tay: () Primary Insurance:MEDICAR EPolicy Number: [id number] kleber Date:2011-05-14 REGI E TIMARDOB: [id number], [place] [address]Zwq: () [facility] 07/01/2025 REGI E TIMARDOB: [id number], [place] [address]Dkp: () Primary Insurance:MEDICAR EPolicy Number: [id number] kleber Date:2011-05-14 REGI E TIMARDOB: [id number] [id number], [place] [address]Kkp: () [facility] 07/01/2025 REGI E TIMARDOB: [address]EPRMEPG, [place] [address]Ssh: () Primary Insurance:MEDICAR EPolicy Number: [id number] kleber Date:2011-05-14 REGI E TIMARDOB: [id number]ZOCVHOW, [place] [address]Jdd: (HP) [facility] 07/01/2025 REGI E TIMARDOB: [id number], [place] [address]Sxx: () Primary Insurance:MEDICAR EPolicy Number: [id number] kleber Date:2011-05-14 REGI E TIMARDOB: [id number], [place] [address]Spg: () [facility] 06/27/2025 REGI E TIMARDOB: [id number], [place] [address]Fie: () Primary Insurance:MEDICAR EPolicy Number: [id number] kleber Date:2011-05-14 REGI E TIMARDOB: [id number], [place] [address]Jso: () [facility] 03/20/2025 REGI E TIMARDOB: [id number], [place] [address]Vaw: () Primary Insurance:MEDICAR EPolicy Number: [id number] kleber Date:2011-05-14 REGI E TIMARDOB: [id number]IFQ[place], [place] [address]Akl: () [facility] 12/27/2024 REGI GARNETT: [id number] [facility] [id number], [place] [address]Iui: () Primary Insurance:MEDICAR EPolicy Number: [id number] kleber Date:2011-05-14 REGI GARNETT: [id number] [address] [facility] [address] [place] [address]Rmi: () [facility]
[2025-08-13 14:28] LABS: Prothrombin Time (Protime)PT. 18.8 SECONDS (11.7-14.9)
== END | disposition home or self-care (01) ==
LOC: LAB 13:17
PROVIDERS: PCP Internal Medicine; Referring Provider Internal Medicine Cardiovascular Disease; Visit Provider Internal Medicine Cardiovascular Disease
DX: I48.0 Paroxysmal atrial fibrillation (principal)
CPT/HCPCS: 36415; 85610

== ENCOUNTER 2025-09-03 12:17 | Outpatient (RCR) | payer MEDICARE, SELFPAY ==
[2025-08-20 10:18] LABS: Prothrombin Time (Protime)PT. 23.1 SECONDS (11.7-14.9)
[2025-09-03 13:16] LABS: Prothrombin Time (Protime)PT. 25.5 SECONDS (11.7-14.9)
== END 2025-09-03 18:00 | disposition home or self-care (01) ==
LOC: LAB 12:17
PROVIDERS: PCP Internal Medicine; Referring Provider Internal Medicine Cardiovascular Disease; Visit Provider Internal Medicine Cardiovascular Disease
DX: I48.0 Paroxysmal atrial fibrillation (principal)
CPT/HCPCS: 36415; 85610

== ENCOUNTER → 2025-09-04 | Outpatient (CLI) | payer MEDICARE, SELFPAY ==
--- OUTSIDE RECORDS SUMMARY | 2025-09-04 06:02 | XMS RPT_ITS | CCD ---
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 Name Role Phone FAITH MAYS Unavailable Unavailable YoungDc Unavailable Unavailable [place], Brittney Unavailable Unavailable [place], Brittney S Unavailable Unavailable Young Johanna Unavailable Unavailable [place], Brittney S Unavailable Unavailable Unavailable [place] DO, Brittney S Primary Care Provider [phone] [place] DO, Brittney S Unavailable [phone] ROYAL, BRITTNEY S Primary Care Unavailable ROYAL, BRITTNEY S Primary Care Unavailable ROYAL, BRITTNEY S Primary Care Unavailable [place] DO, Brittney S Primary Care Provider [place] DO, Brittney S Unavailable [phone] [place] DO, Brittney S Unavailable Marilyn Garcia LPN Unavailable ROYAL, BRITTNEY S Attending Unavailable ROYAL, BRITTNEY S Referring Unavailable ROYAL, BRITTNEY S Primary Care Unavailable ROYAL, BRITTNEY S Attending Unavailable ROYAL, BRITTNEY S Primary Care Unavailable ROYAL, BRITTNEY S Attending Unavailable ROYAL, BRITTNEY S Referring Unavailable ROYAL, BRITTNEY S Primary Care Unavailable JOHANNA GARNER Attending Unavailable ROYAL, BRITTNEY S Primary Care Unavailable ROYAL, BRITTNEY S Referring Unavailable ROYAL, BRITTNEY S Primary Care Unavailable ROYAL, BRITTNEY S Primary Care Unavailable FRANCIS MARTINS Consulting Unava ilNBA Kumar Admitting Unavailable PANTHAM, HEIDE T Attending Unavailable ROYAL, BRITTNEY S Referring Unavailable ROYAL, BRITTNEY S Primary Care Unavailable PANTHAM, HEIDE T Referring Unavailable ROYAL, BRITTNEY S Primary Care Unavailable PANTHAM, HEIDE T Referring Unavailable ROYAL, BRITTNEY S Primary Care Unavailable PANTHAM, HEIDE T Referring Unavailable BRITTNEY KOTHARI S Primary Care Unavailable PANTHAM, HEIDE T Referring Unavailable BRITTNEY KOTHARI S Primary Care Unavailable PANTHAM, HEIDE T Referring Unavailable BRITTNEY KOTHARI S Primary Care Unavailable PANTHAM, HEIDE T Referring Unavailable BRITTNEY KOTHARI S Primary Care Unavailable Royal JAIME, Dr. Lugo Primary Care Physician [phone] Dr. Brittney Kothari MD Referring Provider Larry JAIME, Dr. Saenz Attending Physician Dr. Dany Juarez MD Referring Provider Dany Juarez Attending Unavailable Brittney Kothari Referring Unavailable Brittney Kothari Primary Care Unavailable LarryDany Referring Unavailable LarryDany loaiza Attending Unavailable Brittney Kothari Primary Care Unavailable LarryDany loaiza Referring Unavailable LarryDany loaiza Attending Unavailable Brittney Kothari Primary Care Unavailable LarryDany Referring Unavailable LarryDany loaiza Attending Unavailable Brittney Kothari Primary Care Unavailable Medications Current Medications Medication Drug Class(es) Dates Sig (Normalized) Sig (Original) Acetaminophen (1 source) Start: 07-01-2025 take 1 tablet by mouth every four hours as needed acetaminophen (Tylenol) tablet 650 mg cholecalciferol 0.075 mg oral tablet (20 sources) Vitamin D Start: 08-13-2025 take 1 tablet by mouth once daily Start: 07-01-2025 take 75 ug by mouth once daily 75 mcg, oral, Daily, First dose on Tue07/01/25 at 1430 take 3 tablets by mo ut once daily cholecalciferol (Vitamin D-3) 25 MCG (1000 UT) tablet Take 3 tablets (75 mcg) by mouth once daily. Active flecainide acetate 50 mg oral tablet (5 sources) Antiarrhythmic Start: 07-22-2025 take 1 tablet by ele th twice daily Start: 07-02-2025 End: 08-01-2025 take 1 tablet by mouth every twelve hours in the evening flecainide (Tambocor) 50 mg tablet Indications: Paroxysmal atrial fibrillation (Multi) Take 1 tablet (50 mg) by mouth every 12 hours. 60 tablet 2 07/02/2025 4:13 PM EDT 07/02/2025 08/01/2025 Active levothyroxine sodium 0.088 m g oral capsule (20 sources) l-Thyroxine Start: 07-22-2025 take 1 capsule by mo uth once daily in the morning Start: 06-26-2024 End: 06-27-2026 take 1 tablet by mouth once daily in the morning levothyroxine (Synthroid, Levoxyl) 88 mcg tablet Indications: Secondary hypothyroidism Take 1 tablet (88 mcg) by mouth early in the morning.. Take on an empty stomach at the same time each day, either 30 to 60 minutes prior to breakfast 100 tablet 1 06/27/2025 06/27/2026 Active Start: 12-27-2023 End: 06-26-2024 levothyroxine (Synthroid, Le voxyl) 75 mcg tablet Indications: Other specified hypothyroidism TAKE 1 TABLET BY MOUTH EVERY DAY EXCEPT ON SUNDAYS TAKE 2 TABLETS 102 tablet 1 12/27/2023 06/26/2024 Discontinued (Ineffective) Start: 03-18-2020 Levothyroxine Sodium 75 MCG Oral Tablet TAKE 1 TABLET BY MOUTH EVERY DAYEXCEPT ON SUNDAYS TAKE 2 Quantity: 102 Refills: 1 Ordered: 28-Dec-2022 Brittney Kothari DO Start : 18-Mar-2020 Active losartan potassium 100 mg oral tablet (20 sources) Angiotensin 2 Receptor Amado Start: 07-22-2025 take 1 tablet by mouth once daily Start: 12-27-2023 End: 06-27-2025 take 1 tablet by mouth once daily losartan (Cozaar) 100 mg tablet Indications: Essential (primary) hypertension Take 1 tablet (100 mg) by mouth once daily. 100 tablet 1 06/27/2025 Active Start: 11-03-2021 take 1 tablet by ele once daily Losartan Potassium 100 MG Oral Tablet TAKE 1 TABLET BY MOUTH DAILY Quantity: 90 Refills: 3 Ordered: 27-Oct-2022 Dc Garner DO Start : 03-Nov-2021 Active melatonin 5 mg oral tablet (1 source) Start: 07-01-2025 metoprolol tartrate 50 mg oral tablet (20 sources) beta-Adrenergic Amado Start: 08-13-2025 take 1 tablet by mouth twice daily Start: 07-22-2025 End: 08-13-2025 take 1 tablet by mouth twice daily Metoprolol Tartrate 100 mg tablet Discontinued 100 mg PO TWICE A DAY July 22, 2025 12:00am August 13, 2025 12:22pm Start: 07-02-2025 take 1 tablet by ele th twice daily in the evening metoprolol tartrate (Lopressor) 50 mg tablet Indications: Atrial fibrillation with RVR (Multi) Take 1 tablet by mouth 2 times a day. 60 tablet 2 07/02/2025 4:13 PM EDT 07/02/2025 Active Start: 12-27-2023 End: 07-02-2025 take 100 mg by mouth twice daily 100 mg, oral, 2 times daily, First dose on Tue07/01/25 at 1230 Start: 05-31-2023 take 1 tablet by ele th twice daily metoprolol tartrate (Lopressor) 100 mg tablet Indications: Hypertension, unspecified type Take 1 tablet (100 mg) by mouth 2 times a day. 180 tablet 0 05/31/2023 Active Start: 09-12-2019 take 1 tablet by ele th twice daily Metoprolol Tartrate 100 MG Oral Tablet TAKE 1 TABLET BY MOUTH TWICE DAILY. Quantity: 180 Refills: 1 Ordered: 06-Dec-2022 Royal SORENSON Brittney Start : 12-Sep-2019 Active 1 ml morphine sulfate 2 mg/ml prefilled syringe (1 source) Opioid Agonist Start: 07-01-2025 24 hr NIFEdipine 30 mg extended release oral tablet (20 sources) Dihydropyridine Calcium Channel Amado Start: 08-13-2025 take 1 tablet by mouth once daily Start: 07-22-2025 End: 08-13-2025 take 2 tablets by mouth once daily Nifedipine 30 mg tablet extended release Discontinued 60 mg PO daily July 22, 2025 12:00am August 13, 2025 12:27pm Start: 07-02-2025 take 60 mg by mouth once daily 60 mg, oral, Daily, First dose on Tue07/02/25 at 0900, Give on an empty stomach. Do not crush, chew, or split. Start: 12-27-2023 End: 06-27-2025 take 2 tablets by mouth once daily NIFEdipine ER (NIFEdipine CC) 30 mg 24 hr tablet Indications: Essential (primary) hypertension Take 2 tablets (60 mg) by mouth once daily. 200 tablet 1 06/27/2025 Active Start: 05-10-2022 take 2 tablets by mo [facility] once daily NIFEdipine ER 30 MG Oral Tablet Extended Release 24 Hour TAKE 2 TABLETS BY MOUTH DAILY Quantity: 180 Refills: 1 Ordered: 10-May-2023 Dc Garner DO Start : 10-May-2022 Active take 2 tablets by mo [facility] once daily NIFEdipine CC 30 mg 24 hr tablet Take 2 tablets (60 mg) by mouth once daily. 0 Active take 2 tablets by mo [facility] once daily NIFEdipine ER 30 MG Oral Tablet Extended Release 24 Hour TAKE 2 TABLET Daily Quantity: 180 Refills: 1 Ordered: 16-Nov-2021 Santhosh JIANG, AIRPLANE PATROLLER-[employer]URITY, Johanna Active take 1 tablet by ele once daily NIFEdipine ER 30 MG Oral Tablet Extended Release 24 Hour TAKE 1 TABLET DAILY. Quantity: 90 Refills: 3 Santhosh JIANG, AIRPLANE PATROLLER-W[employer] LAYER, Johanna Active 2 ml ondansetron 2 mg/ml injection (1 source) Serotonin-3 Receptor Antagonist Start: 07-01-2025 take 4 mg intravenously every eight hours as needed polyethylene glycol [id number] mg powder for oral solution (1 source) Osmotic Laxative Start: 07-01-2025 17 g, oral, Daily, First dose on Tue07/01/25 at 1445 psyllium 400 mg oral capsule (5 sources) Start: 08-13-2025 take 1 capsule by mouth once serena ly psyllium (Metamucil) 0.52 gram capsule Take 1 capsule (520 mg) by mouth once daily. Active simvastatin 20 mg oral tablet (20 sources) HMG-CoA Reductase Inhibitor Start: 08-13-2025 take 1 tablet by mouth at bedtime Start: 12-27-2023 End: 06-27-2025 take 1 tablet by mouth once daily at bedtime simvastatin (Zocor) 20 mg tablet Indications: Mixed hyperlipidemia Take 1 tablet (20 mg) by mouth once daily at bedtime. 100 tablet 1 12/27/2024 06/27/2025 Discontinued (Med List Cleanup) Start: 02-11-2020 take 1 tablet by ele once daily at bedtime simvastatin (Zocor) 20 mg tablet Take 1 tablet (20 mg) by mouth once daily at bedtime. 0 02/11/2020 Active warfarin sodium 5 mg oral tablet (5 sources) Vitamin K Antagonist Start: 08-13-2025 take 1 tablet by mouth once daily Start: 07-05-2025 End: 07-05-2026 take 1.5 tablets by mouth once daily warfarin (Coumadin) 5 mg tablet Indications: Paroxysmal atrial fibrillation (Multi) Take 1.5 tablets by mouth daily or as directed by INR. 45 tablet 5 07/06/2025 10:58 AM EDT 07/05/2025 07/05/2026 Active Start: 07-02-2025 End: 07-05-2025 warfarin (Coumadin) 5 mg tab let Indications: Paroxysmal atrial fibrillation (Multi) Take 1 tablet daily starting 07/03/2025. Check the INR on 07/05/2025, then follow dose as per coumadin clinic instructions. 7 tablet 07/02/2025 4:13 PM EDT 07/02/2025 Active Completed/Discontinued Medications Medication Drug Class(es) Dates Sig (Normalized) Sig (Original) apixaban 5 mg oral tablet (3 sources) Factor Xa Inhibitor Start: 07-01-2025 End: 07-02-2025 take 1 tablet by mouth twice daily apixaban (Eliquis) 5 mg tablet Indications: Paroxysmal atrial fibrillation (Multi) Take 1 tablet (5 mg) by mouth 2 times a day. 60 tablet 2 07/02/2025 07/02/2025 Discontinued (Cost of medication) Start: 07-01-2025 End: 07-01-2025 take 5 mg by mouth once 5 mg, oral, Once, On 06/14 at 1020, For 1 dose atorvastatin 20 mg oral tablet (7 sources) HMG-CoA Reductase Inhibitor Start: 06-27-2025 End: 08-01-2026 take 1 tablet by mouth once daily Atorvastatin (Lipitor) 20 mg tablet Discontinued 20 mg PO daily July 22, 2025 12:00am August 13, 2025 12:23pm betamethasone 0.5 mg/ml / clotrimazole 10 mg/ml topical cream (8 sources) Azole Antifungal, Corticosteroid Start: 07-01-2020 Clotrimazole-Betam ethasone 1-0.05 % External Cream APPLY SPARINGLY TO THE AFFECTED AREA(S) TWICE DAILY. Quantity: 1 Refills: 1 Ordered: 01-Jul-2020 Brittney Kothari DO Start : 01-Jul-2020 Active Start: 07-01-2020 Clotrimazole-B etamethasone 1-0.05 % External Cream APPLY SPARINGLY TO THE AFFECTED AREA(S) TWICE DAILY. Quantity: 1 Refills: 1 Brittney Kothari DO Start : 01-Jul-2020 Active 45 GM Tube 25 ml dilTIAZem hydrochloride 5 mg/ml injection (1 source) Calcium Channel Amado Start: 07-01-2025 End: 07-01-2025 10 mg, intravenous, Once, On Tue07/01/25 at 1020, For 1 dose furosemide 20 mg oral tablet (20 sources) Loop Diuretic Start: 07-22-2025 End: 08-13-2025 take 1 tablet by mouth once daily Furosemide (Lasix) 20 mg tablet Discontinued 20 mg PO daily July 22, 2025 12:00am August 13, 2025 12:25pm Start: 12-27-2023 End: 07-02-2025 take 1 tablet by mouth once daily furosemide (Lasix) 20 mg tablet Indications: Essential (primary) hypertension Take 1 tablet (20 mg) by mouth once daily. 100 tablet 1 06/27/2025 07/02/2025 Discontinued (Stop Taking at Discharge) Start: 11-17-2021 take 1 tablet by ele th once daily Furosemide 20 MG Oral Tablet TAKE 1 TALBET DAILY Quantity: 90 Refills: 3 Ordered: 22-Nov-2022 Dc Garner DO Start : 17-Nov-2021 Active iohexol (OMNIPaque) 350 mg iodine/mL solution 70 mL (1 source) Start: 07-01-2025 End: 07-01-2025 70 mL, intravenous, Once in imaging, Starting on Tue07/01/25 at 1259, For 1 dose perflutren lipid microsphere s (Definity) injection 2.5 mL of dilution (1 source) Start: 07-01-2025 End: 07-01-2025 2.5 mL of dilution, intravenous, Once in imaging, Starting on Tue07/01/25 at 1450, For 1 dose, Contrast - for use by imaging provider only. Prior to administration, Definity product must be activated. First, bring vial to room temperature. Then, shake vial for 45 seconds. Do not use if the 45 second activation cycle has not been completed. Following activation, the product will appear as a milky white suspension and may be used immediately. If not used within 5 minutes of activation, re-suspend by inverting and shaking the vial for 10 seconds. Discard unused product. Administration: Dilute 1.3 mL of activated DEFINITY with 8.7 mL of normal saline in a 10 mL syringe. Inject 0.5 mL of diluted DEFINITY when notified the images/film are unclear to enhance view of Left Ventricular borders. Repeat 0.5 mL of DEFINITY until clear images are obtained, not to exceed 10 mLs. Once images are obtained or limit of medication is reached, flush line with 10 mL of Normal Saline. microencapsulated potassium chloride 20 meq extended release oral tablet (20 sources) Start: 07-02-2025 End: 07-02-2025 40 mEq, oral, Once, On Tue07/02/25 at 1145, For 1 dose, Best given with food and plenty of water to minimize gastric irritation. Do not crush or chew. Start: 12-29-2021 End: 06-28-2023 take 1 tablet by mouth once daily potassium chloride CR (Klor-Con M20) 20 mEq ER tablet Indications: Essential (primary) hypertension TAKE 1 TABLET BY MOUTH EVERY DAY 90 tablet 1 06/20/2023 06/28/2023 Discontinued (Therapy completed) Start: 12-29-2021 take 1 tablet by ele th once daily Potassium Chloride Marjan ER 20 MEQ Oral Tablet Extended Release Take 1 tablet daily Quantity: 90 Refills: 1 Ordered: 29-Dec-2021 Brittney Kothari DO Start : 29-Dec-2021 Active Start: 10-05-2019 take 1 tablet by ele th once daily Klor-Con M20 20 MEQ Oral Tablet Extended Release Take 1 tablet daily Quantity: 90 Refills: 3 Ordered: 08-Jan-2021 Brittney oKthari DO Start : 05-Oct-2019 Active 1000 ml sodium chloride 9 mg/ml injection (1 source) Start: 07-01-2025 End: 07-01-2025 500 mL, intravenous, at 500 mL/hr, Administer over 1 Hours, Once, On Tue07/01/25 at 1250, For 1 dose Problems Active Problems Problem Classification Problem Date Documented Da te Episodic/Chronic Cardiac dysrhythmias (20 sources) Atrial fibrillation with rapid ventricular response; Translations: [Unspecified atrial fibrillation] Onset: 07-01-2025 Resolved: 07-16-2025 07-01-2025 Chronic Cardiac dysrhythmias (16 sources) Palpitations; Translations: [Palpitations] Onset: 06-27-2025 Resolved: 07-16-2025 06-27-2025 Episodic Coronary atherosclerosis and other heart disease (4 sources) Coronary arteriosclerosis; Translations: [Atherosclerotic heart disease of [place] coronary artery without angina pectoris] Onset: 08-13-2025 08-13-2025 Chronic Diabetes mellitus without complication (20 sources) Hyperglycemia; Translations: [Other abnormal glucose] Onset: 06-28-2023 06-28-2023 Episodic Disorders of lipid metabolism (20 sources) Mixed hyperlipidemia; Translations: [Mixed hyperlipidemia] Onset: 06-28-2023 06-28-2023 Chronic Essential hypertension (20 sources) Benign essential hypertension; Translations: [Benign essential hypertension] Onset: 06-28-2023 06-28-2023 Chronic Fluid and electrolyte disorders (12 sources) Hyponatremia; Translations: [Hyposmolality and/or hyponatremia] Onset: 07-16-2025 07-16-2025 Episodic Genitourinary symptoms and ill-defined conditions (5 sources) Dysuria; Translations: [Dysuria] Episodic Inflammation; infection of eye (except that caused by tuberculosis or sexually transmitteddisease) (20 sources) External hordeolum; Translations: [Hordeolum externum] Episodic Nutritional deficiencies (20 sources) Vitamin D deficiency; Translations: [Unspecified vitamin D deficiency] Onset: 06-28-2023 06-28-2023 Chronic Other aftercare (1 source) Long-term current use of anticoagulant; Translations: [extermination supervisor (current) use of anticoagulants] 08-13-2025 Episodic Other aftercare (1 source) extermination supervisor (current) use of anticoagulants; Translations: [nursing home (current) use of anticoagulants] Onset: 08-20-2025 Episodic Other connective tissue disease (20 sources) Other shoulder lesions, left shoulder; Translations: [Other enthesopathies, not elsewhere classified] Episodic Other endocrine disorders (20 sources) Syndrome of inappropriate vasopressin secretion; Translations: [Other disorders of neurohypophysis] Onset: 06-28-2023 06-28-2023 Chronic Other endocrine disorders (4 sources) Syndrome of inappropriate secretion of antidiuretic hormone; Translations: [Syndrome of inappropriate secretion of antidiuretic hormone (CMS/HCC)] Onset: 06-28-2023 Chronic Other gastrointestinal disorders (8 sources) Constipation; Translations: [Other constipation] Onset: 06-27-2025 06-27-2025 Episodic Other gastrointestinal disorders (1 source) Other constipation; Translations: [Other constipation] Onset: 06-27-2025 Episodic Other hereditary and degenerative nervous system conditions (20 sources) Restless legs; Translations: [Restless legs syndrome (RLS)] Onset: 06-28-2023 06-28-2023 Chronic Other nervous system disorders (2 sources) Other chronic pain; Translations: [Other chronic pain] Onset: 06-28-2023 Chronic Other non-traumatic joint disorders (15 sources) Shoulder pain; Translations: [Pain in joint, shoulder region] Episodic Other nutritional; endocrine; and metabolic disorders (20 sources) Body mass index 30+ - obesity; Translations: [Body Mass Index 32.0-32.9, adult] Chronic Other nutritional; endocrine; and metabolic disorders (20 sources) Obese class I; Translations: [Obesity, unspecified] Onset: 06-28-2023 06-28-2023 Chronic Other nutritional; endocrine; and metabolic disorders (20 sources) History of hypercholesterolemia ; Translations: [Personal history of other endocrine, metabolic, and immunity disorders] Episodic Other screening for suspected conditions (not mental disorders or infectious disease) (20 sources) Patient encounter status; Translations: [Breast screening, unspecified] Onset: 07-01-2025 07-01-2025 Episodic Residual codes; unclassified (20 sources) H/O: ; Translations: [Personal history of other genital system and obstetric disorders] Episodic Residual codes; unclassified (20 sources) History of clinical finding in subject; Translations: [Asymptomatic postmenopausal status (age-related) (natural)] Episodic Thyroid disorders (20 sources) Hypothyroidism; Translations: [Secondary hypothyroidism] Onset: 06-28-2023 06-28-2023 Chronic Unclassified (1 source) Low back pain, unspecified; Translations: [Low back pain, unspecified] Onset: 06-28-2023 Unclassified (1 source) R00.2 - Palpitations,I48.0 - Paroxysmal atrial fibrillation Urinary tract infections (5 sources) Urinary tract infectious disease; Translations: [UTI (urinary tract infection)] Episodic Past or Other Problems Problem Classification Problem Date Documented Date Episodic/Chronic Other ear and sense organ disorders (9 sources) Impacted cerumen in right ear; Translations: [Impacted cerumen, right ear] Onset: 06-26-2024 Resolved: 12-27-2024 06-26-2024 Episodic Other non-traumatic joint disorders (20 sources) Hip pain; Translations: [Pain in joint, pelvic region and thigh] Onset: 06-28-2023 Resolved: 12-27-2023 06-28-2023 Episodic Other skin disorders (17 sources) Inflammatory dermatosis; Translations: [Contact dermatitis and other eczema, unspecified cause] Onset: 12-27-2023 Resolved: 12-27-2023 12-27-2023 Episodic Spondylosis; intervertebral disc disorders; other back problems (20 sources) Prolapsed lumbar intervertebral disc; Translations: [Thoracic spondylosis] Onset: 06-28-2023 Resolved: 06-26-2024 06-28-2023 Chronic Spondylosis; intervertebral disc disorders; other back problems (20 sources) Disorder of lumbar disc; Translations: [Chronic low back pain] Onset: 06-28-2023 06-28-2023 Episodic Unclassified (6 sources) History of clinical finding in subject; Translations: [History of menopause] Unclassified (12 sources) Patient encounter status; Translations: [Screening for breast cancer] Unclassified (10 sources) Onset: 06-28-2023 Resolved: 07-16-2025 06-28-2023 Unclassified (1 source) Low back pain, unspecified; Translations: [Low back pain, unspecified] Onset: 12-27-2024 NEGATED: Highlighted row has not occurred!Residual codes; unclassified (20 sources) Disease Episodic Results Test Name Value Interpretation Reference Range Facility Prothrombin Time w/INRon INR Coag (PPP) [Relative time] 2.0 {INR} Normal [facility] Comment on above: Performed By: #### L [id number] #### [facility] [place], [address] PT Coag (PPP) [Time] 23.1 s High 11.7-14.9 [facility] Comment on above: Performed By: #### L [id number] #### [facility] [address] [place], [address] Cardiology Visit Reporton Cardiology Visit Report [facility] [address] [place] [address] OFFICE VISIT Date of Service: 08/13/25 MR#: [id number] Acct: [id number] Name: DIANA ALMONTE Rep #: [id number] : 1945 Provider: Dr. Dany Juarez MD Age/Sex: 79/F Location: [facility] [place] Status: Signed HPI HPI History of Present Illness Details: This lady with past medical history significant for hypertension and dyslipidemia was admitted to an outside hospital with atrial fibrillation with rapid ventricular response. She has had an echocardiogram done. It showed normal LV systolic function. With her paroxysms of atrial fibrillation, she was started on flecainide. Also started on anticoagulation with warfarin. She is here to establish cardiac care with us. Denies any chest pains or shortness of breath either at rest or with exertion. No palpitations since her hospitalization last month. Denies any lightheadedness or dizziness. No syncope or presyncope. No orthopnea or PND. No ankle edema. Patient has been tolerating her warfarin well and denies any abnormal bleeding. No history of CVA or TIA. Patient has had a CT scan of her chest done which showed coronary calcifications as an incidental finding. Intake Vital Signs 08/13/25 12:32 Height 4 ft 11 in Weight: 159 lb BMI 32.1 BP 130/83 H Blood Pressure Location Lt brachial Position Sitting Respiration 16 Pulse 54 L Pulse Source Monitor Intake Visit Reasons: AFIB, SOB, HI BP, LT HEADED Tax Analyst Required: No Accompanied by: Daughter Is patient in pain?: No Allergies No Known Allergies Allergy (Unverified 08/13/25 12:21) Medications ???Medication ???Instructions ???Recorded ???Confirmed ???Type flecainide 50 mg tablet 50 mg PO BID 07/22/25 08/13/25 His tory levothyroxine 88 mcg capsule 88 mcg PO QDAY 07/22/25 08/13/25 H istory losartan 100 mg tablet 100 mg PO QDAY 07/22/25 08/13/25 H istory cholecalciferol (vitamin D3) 75 75 mcg PO QDAY 08/13/25 08/13/25 H istory mcg (3,000 unit) tablet metoprolol tartrate 50 mg tablet 50 mg PO BID 08/13/25 08/13/25 His tory nifedipine 30 mg tablet,extended 30 mg PO QDAY 08/13/25 08/13/25 Hi story release psyllium husk 0.4 gram capsule 0.4 g PO QDAY 08/13/25 08/13/25 Hi story (Metamucil) simvastatin 20 mg tablet 20 mg PO QHS 08/13/25 08/13/25 His tory warfarin 5 mg tablet 2.5 mg PO QDAY 08/13/25 08/13/25 H istory Ejection fraction %: 65 Have you fallen in the past year?: No [facility] Medical History (Updated 08/13/25 @ 13:[address] Dany Juarez MD) Atrial fibrillation with RVR Hyperglycemia Vitamin D deficiency Mixed hyperlipidemia Secondary hypothyroidism Essential hypertension Constipation Palpitations Family History (Updated 08/13/25 @ 12:29 by Brittney Kaufman LPN) Father Myocardial infarction Brother Myocardial infarction Social History (Updated 08/13/25 @ 12:21 by Brittney Kaufman LPN) Smoking Status: Never smoker ROS Const Const: Negative for fatigue or weakness Eyes Eyes: Negative for change in vision ENT ENT: Negative for dizziness or balance problems Cardio Chest Pain: No Palpitations: Yes (history of feeling palpitations in june, has resolved) feels like its: irregular Edema: None Resp Respiratory: Negative for SOB with activity, SOB at rest or SOB orthopnea SOB lying down GI GI: Negative nausea or heartburn Musc Musc: Negative for balance problems Neuro Neuro: Negative for dizziness, lightheadedness, near syncope, syncope or weakness Endo Endo: Negative for fatigue Cardiology Exam Const Appearance: comfortable and no acute distress Nutritional Appearance: well nourished Neck Neck: no JVD Carotids: Negative bruit Chest Auscultation: Bilateral: Clear to Auscultation Cardio Rate: regular rate Rhythm: regular rhythm Heart sounds: S1 normal and S2 normal Neuro General: patient alert, patient awake and patient oriented x3 Extremities Lower Extremity Edema: None: Bilateral Supplemental Info Supplemental Information Past Visits: Cardiology Visit Today Assessment and Plan Assessment and Plan (1) Paroxysmal atrial fibrillation: Status: Acute Plan: CHADS2???VASc score is 4. Recommend continuing warfarin. Risks benefits explained to the patient in detail. She understands these and wishes to proceed. Enroll in the warfarin clinic. On flecainide. Sinus rhythm on ECG today. 4 beat run of NSVT noted on Holter monitoring. Ideally I would want her off flecainide. Refer to EP for consideration for A-fib ablation. (2) Coronary artery disease: Status: Chronic Plan: Coronary artery calcifications noted as incidental finding on CT of chest. Check Lexiscan stress Myoview to evaluate physiological significanc (more content not included)... Normal [facility] International normalized rat io (INR) calculationOrdered By: Dany Juarez on 08-13-2025 INR Coag (Bld) [Relative time] 1.5 {INR} [facility] Prothrombin Time w/INRon INR Coag (PPP) [Relative time] 1.5 {INR} Normal [facility] Comment on above: Order Comment: Commsilvia nts: STANDING ORDER: Fax to [phone] Performed By: #### L [id number] #### [facility] [address] [place], [address] PT Coag (PPP) [Time] 18.8 s High 11.7-14.9 [facility] Comment on above: Order Comment: Comme nts: STANDING ORDER: Fax to 0937 Performed By: #### L [id number] #### [facility] [address] [place], [address] Prothrombin timeOrdered By: Dany Juarez on 08-13-2025 PT Coag (PPP) [Time] 18.8 s High 11.7-14.9 [facility] BASIC METABOLIC PANEL WITH A NION GAPon 07-18-2025 Calcium [Mass/Vol] 9.3 mg/dL Normal 8.6-10.4 [facility] Comment on above: Order Comment: FASTI NG:YES FASTING: YES Performed By: #### 9 1328 #### [facility] [place] [address] Accountant Manager: Joe Braga MD Chloride [Moles/Vol] 100 mmol/L Normal 98-110 [facility] Comment on above: Order Comment: FASTI NG:YES FASTING: YES Performed By: #### 9 3528 #### [facility] [place] [address] Accountant Manager: Joe Braga MD CO2 [Moles/Vol] 26 mmol/L Normal 20-32 [facility] Comment on above: Order Comment: FASTI NG:YES FASTING: YES Performed By: #### 9 6668 #### [facility] [place] [address] Accountant Manager: Joe Braga MD Creatinine [Mass/Vol] 0.59 mg/dL Low 0.60-0.[address] [facility] Comment on above: Order Comment: FASTI NG:YES FASTING: YES Performed By: #### 9 3938 #### [facility] [place] [address] Accountant Manager: Joe Braga MD ELECTROLYTE BALANCE 9 mmol/L (calc) Normal 7-17 [facility] Comment on above: Order Comment: FASTI NG:YES FASTING: YES Performed By: #### 9 8978 #### [facility] [place] [address] Accountant Manager: Joe Braga MD GFR/1.73 sq M.predicted among non-blacks MDRD (S/P/Bld) [Vol rate/Area] 91 mL/min/{1.73_m2} Normal > OR = 60 [facility] Comment on above: Order Comment: FASTI NG:YES FASTING: YES Performed By: #### 9 6947 #### [facility] [place] [address] Accountant Manager: Joe Braga MD Glucose [Mass/Vol] 102 mg/dL High 65-99 [facility] Comment on above: Order Comment: FASTI NG:YES FASTING: YES Result Comment: Fasting reference interval For someone without known diabetes, a glucose value between 100 and 125 mg/dL is consistent with prediabetes and should be confirmed with a follow-up test. Performed By: #### 9 2498 #### [facility] [address], [address] [place] [address] Accountant Manager: Joe Braga MD Potassium [Moles/Vol] 4.5 mmol/L Normal 3.5-5.3 [facility] Comment on above: Order Comment: FASTI NG:YES FASTING: YES Performed By: #### 9 3808 #### [facility] [place] [address] Accountant Manager: Joe Braga MD Sodium [Moles/Vol] 135 mmol/L Normal 135-146 [facility] Comment on above: Order Comment: FASTI NG:YES FASTING: YES Performed By: #### 9 6668 #### [facility] [place] [address] Accountant Manager: Joe Braga MD Urea nitrogen [Mass/Vol] 10 mg/dL Normal 7-25 [facility] Comment on above: Order Comment: FASTI NG:YES FASTING: YES Performed By: #### 9 7878 #### [facility] [place] [address] Accountant Manager: Joe Braga MD Urea nitrogen/Creatinine [Mass ratio] 17 mg/mg Normal 6-22 [facility] Comment on above: Order Comment: FASTI NG:YES FASTING: YES Performed By: #### 9 3188 #### [facility] [place] [address] Accountant Manager: Joe Braga MD Basic metabolic 2000 panelon 07-02-2025 Anion gap [Moles/Vol] 13 mmol/L 10 - 2 0 mmol/L [facility] Calcium [Mass/Vol] 8.9 mg/dL 8.6 - 10. 3 mg/dL [facility] Chloride [Moles/Vol] 101 mmol/L 98 - 10 7 mmol/L [facility] CO2 [Moles/Vol] 22 mmol/L 21 - 32 mmol/L [facility] Creatinine [Mass/Vol] 0.70 mg/dL 0.50 - 1.05 mg/dL [facility] GFR/1.73 sq M.predicted among non-blacks MDRD (S/P/Bld) [Vol rate/Area] 88 mL/min/{1.73_m2} - PINF [facility] Comment on above: Calculations of teresa mated GFR are performed using the 2020 CKD-EPI Study Refit equation without the race variable for the IDMS-Traceable creatinine methods. https://jasn.asnjournals.org/content/early//ASN.914398 8734 Glucose [Mass/Vol] 184 mg/dL High 74 - 99 mg/dL [facility] Interpretation and review of laboratory results Abnormal [facility] Potassium [Moles/Vol] 4.1 mmol/L 3.5 - 5.3 mmol/L [facility] Sodium [Moles/Vol] 132 mmol/L Low 136 - 145 mmol/L [facility] Urea nitrogen [Mass/Vol] 13 mg/dL 6 - 23 mg/dL [facility] Anion gap [Moles/Vol] 13 mmol/L Normal 10-20 [facility] Comment on above: Performed By: #### 5 7021-8 #### ABDI MIKE ([id number]) [facility] ([facility]) [facility] [place] [address] Calcium [Mass/Vol] 8.9 mg/dL Normal 8.6-10.3 [facility] Comment on above: Performed By: #### 5 7021-8 #### ABDI MIKE ([id number]) [facility] ([facility]) [facility] [place] [address] Chloride [Moles/Vol] 101 mmol/L Normal 98-107 [facility] Comment on above: Performed By: #### 5 7021-8 #### ABDI MIKE ([id number]) [facility] ([facility]) [address] [place] [address] CO2 [Moles/Vol] 22 mmol/L Normal 21-32 [facility] Comment on above: Performed By: #### 5 7021-8 #### ABDI MIKE ([id number]) [facility] ([facility]) [facility] [place] [address] Creatinine [Mass/Vol] 0.70 mg/dL Normal 0.50-1.05 [facility] Comment on above: Performed By: #### 5 7021-8 #### ABDI MIKE ([id number]) [facility] ([facility]) [address] [place] [address] Glomerular filtration rate 88 mL/min/1.73m*2 Normal >60 [facility] Comment on above: Result Comment: Calc ulations of estimated GFR are performed using the 2020 CKD-EPI Study Refit equation without the race variable for the IDMS-Traceable creatinine methods. https://jasn.asnjournals.org/content/early//ASN.253053 2772 Performed By: #### 5 7021-8 #### ABDI MIKE ([id number]) [facility] ([facility]) [address] [place] [address] Glucose [Mass/Vol] 184 mg/dL High 74-99 [facility] Comment on above: Performed By: #### 5 7021-8 #### ABDI MIKE ([id number]) [facility] ([facility]) [address] [place] [address] Potassium [Moles/Vol] 4.1 mmol/L Normal 3.5-5.3 [facility] Comment on above: Performed By: #### 5 7021-8 #### ABDI MIKE ([id number]) [facility] ([facility]) [facility] [place] [address] Sodium [Moles/Vol] 132 mmol/L Low 136-145 [facility] Comment on above: Performed By: #### 5 7021-8 #### ABDI MIKE ([id number]) [facility] ([facility]) [facility] [place] [address] Urea nitrogen [Mass/Vol] 13 mg/dL Normal 6-23 [facility] Comment on above: Performed By: #### 5 7021-8 #### PATTON CEE ([id number]) [facility] ([facility]) [facility] [place] [address] Anion gap [Moles/Vol] 12 mmol/L 10 - 2 0 mmol/L [facility] Calcium [Mass/Vol] 9.2 mg/dL 8.6 - 10. 3 mg/dL [facility] Chloride [Moles/Vol] 104 mmol/L 98 - 10 7 mmol/L [facility] CO2 [Moles/Vol] 24 mmol/L 21 - 32 mmol/L [facility] Creatinine [Mass/Vol] 0.71 mg/dL 0.50 - 1.05 mg/dL [facility] GFR/1.73 sq M.predicted among non-blacks MDRD (S/P/Bld) [Vol rate/Area] 86 mL/min/{1.73_m2} - PINF [facility] Comment on above: Calculations of teresa mated GFR are performed using the 2020 CKD-EPI Study Refit equation without the race variable for the IDMS-Traceable creatinine methods. https://jasn.asnjournals.org/content//ASN.708674 7053 Glucose [Mass/Vol] 110 mg/dL High 74 - 99 mg/dL [facility] Interpretation and review of laboratory results Abnormal [facility] Potassium [Moles/Vol] 3.4 mmol/L Low 3.5 - 5.3 mmol/L [facility] Sodium [Moles/Vol] 137 mmol/L 136 - 145 mmol/L [facility] Urea nitrogen [Mass/Vol] 12 mg/dL 6 - 23 mg/dL [facility] Anion gap [Moles/Vol] 12 mmol/L Normal 10-20 [facility] Comment on above: Performed By: #### 5 7021-8 #### ABDI MIKE ([id number]) [facility] ([facility]) [facility] [place] [address] Calcium [Mass/Vol] 9.2 mg/dL Normal 8.6-10.3 [facility] Comment on above: Performed By: #### 5 7021-8 #### ABDI MIKE ([id number]) [facility] ([facility]) [address] [place] [address] Chloride [Moles/Vol] 104 mmol/L Normal 98-107 [facility] Comment on above: Performed By: #### 5 7021-8 #### ABDI MIKE ([id number]) [facility] ([facility]) [address] [place] [address] CO2 [Moles/Vol] 24 mmol/L Normal 21-32 [facility] Comment on above: Performed By: #### 5 7021-8 #### ABDI MIKE ([id number]) [facility] ([facility]) [address] [place] [address] Creatinine [Mass/Vol] 0.71 mg/dL Normal 0.50-1.05 [facility] Comment on above: Performed By: #### 5 7021-8 #### ABDI MIKE ([id number]) [facility] ([facility]) [address] [place] [address] Glomerular filtration rate 86 mL/min/1.73m*2 Normal >60 [facility] Comment on above: Result Comment: Calc ulations of estimated GFR are performed using the 2020 CKD-EPI Study Refit equation without the race variable for the IDMS-Traceable creatinine methods. https://jasn.asnjournals.org/content//ASN.430433 2762 Performed By: #### 5 7021-8 #### ABDI MIKE ([id number]) [facility] ([facility]) [address] [place] [address] Glucose [Mass/Vol] 110 mg/dL High 74-99 [facility] Comment on above: Performed By: #### 5 7021-8 #### ABDI MIKE ([id number]) [facility] ([facility]) [facility] [place] [address] Potassium [Moles/Vol] 3.4 mmol/L Low 3.5-5.3 [facility] Comment on above: Performed By: #### 5 7021-8 #### ABDI MIKE ([id number]) [facility] ([facility]) [address] [place] [address] Sodium [Moles/Vol] 137 mmol/L Normal 136-145 [facility] Comment on above: Performed By: #### 5 7021-8 #### ABDI MIKE ([id number]) [facility] ([facility]) [address] [place] [address] Urea nitrogen [Mass/Vol] 12 mg/dL Normal 6-23 [facility] Comment on above: Performed By: #### 5 7021-8 #### ABDI MIKE ([id number]) [facility] ([facility]) [address] [place] [address] CBC panel Auto (Bld)on 07-02 Erythrocyte distribution width (RBC) [Ratio] 13.2 % 11.5 - 14.5 % [facility] Hematocrit (Bld) [Volume fraction] 36.4 % 36.0 - 46.0 % [facility] Hemoglobin (Bld) [Mass/Vol] 12.8 g/dL 12.0 - 16.0 g/dL [facility] Interpretation and review of laboratory results Abnormal [facility] MCH (RBC) [Entitic mass] 34.8 pg High 26.0 - 34.0 pg [facility] MCHC (RBC) [Mass/Vol] 35.2 g/dL 32.0 - 36.0 g/dL [facility] MCV (RBC) [Entitic vol] 99 fL 80 - 100 fL [facility] Nucleated RBC/100 WBC (Bld) [Ratio] 0.0 % [facility] Platelets (Bld) [#/Vol] 323 10*3/uL [facility] RBC (Bld) [#/Vol] 3.68 10*6/uL [facility] WBC (Bld) [#/Vol] 8.8 10*3/uL [facility] Erythrocyte distribution width (RBC) [Ratio] 13.2 % Normal 11.5-14.5 [facility] Comment on above: Performed By: #### 5 7021-8 #### ABDI MIKE ([id number]) [facility] ([facility]) [address] [place] [address] Hematocrit (Bld) [Volume fraction] 36.4 % Normal 36.0-46.0 [facility] Comment on above: Performed By: #### 5 7021-8 #### ABDI MIKE ([id number]) [facility] ([facility]) [address] [place] [address] Hemoglobin (Bld) [Mass/Vol] 12.8 g/dL Normal 12.0-16.0 [facility] Comment on above: Performed By: #### 5 7021-8 #### ABDI MIKE ([id number]) [facility] ([facility]) [address] [place] [address] 99147 MCH (RBC) [Entitic mass] 34.8 pg High 26.0-34.0 [facility] Comment on above: Performed By: #### 5 7021-8 #### ABDI MIKE ([id number]) [facility] ([facility]) [address] [place] [address] 74551 MCHC (RBC) [Mass/Vol] 35.2 g/dL Normal 32.0-36.0 [facility] Comment on above: Performed By: #### 5 7021-8 #### ABDI MIKE ([id number]) [facility] ([facility]) [address] [place] [address] 15545 MCV (RBC) [Entitic vol] 99 fL Normal 80-100 [facility] Comment on above: Performed By: #### 5 7021-8 #### ABDI MIKE ([id number]) [facility] ([facility]) [address] [place] [address] 82414 Nucleated RBC/100 WBC (Bld) [Ratio] 0.0 /100 WBCs Normal 0.0-0.0 [facility] Comment on above: Performed By: #### 5 7021-8 #### ABDI MIKE ([id number]) [facility] ([facility]) [address] [place] [address]76 Platelets (Bld) [#/Vol] 323 x10*3/uL Normal 150-450 [facility] Comment on above: Performed By: #### 5 7021-8 #### ABDI MIKE ([id number]) [facility] ([facility]) [address] [place] [address]161 RBC (Bld) [#/Vol] 3.68 x10*6/uL Low 4.00-5.20 [facility] Comment on above: Performed By: #### 5 7021-8 #### ABDI MIKE ([id number]) [facility] ([facility]) [address] [place] [address]337 WBC (Bld) [#/Vol] 8.8 x10*3/uL Normal 4.4-11.3 [facility] Comment on above: Performed By: #### 5 7021-8 #### ABDI MIKE ([id number]) [facility] ([facility]) [address] [place] [address]806 Coagulation tissue factor in ducedon 07-02-2025 PT Coag (PPP) [Time] 20.1 s High 9.8-12.4 [facility] Comment on above: Performed By: #### 5 7021-8 #### ABDI MIKE ([id number]) [facility] ([facility]) [address] [place] [address] 62016 ECG 12 Leadon 07-02-2025 Atrial Rate 64 BPM [facility] Work Phone: P North 38 degrees [facility] Work Phone: P Offset 211 ms [facility] Work Phone: [phone] P Onset 146 ms [facility] Work Phone: [phone] GA Interval 162 ms [facility] Work Phone: [phone] Q Onset 227 ms [facility] Work Phone: [phone] QRS Count 10 beats [facility] Work Phone: [phone] QRS Duration 86 ms [facility] Work Phone: [phone] QT Interval 378 ms [facility] Work Phone: [phone] QTC Calculation(Bazett) 389 ms [facility] Work Phone: [phone] QTC Fredericia 386 ms [facility] Work Phone: [phone] R North 107 degrees [facility] Work Phone: [phone] T North 48 degrees [facility] Work Phone: [phone] T Offset 416 ms [facility] Work Phone: [phone] Ventricular Rate 64 BPM [facility] Work Phone: [phone] Normal sinus rhythm Rightward axis Low voltage QRS Cannot rule out Anterior infarct , age undetermined Abnormal ECG Confirmed by Francis Martins ([id number]) on 07/02/2025 12:11:14 PM Francis Johnson MD - 07/02/2025 Normal sinus rhythm Rightward axis Low voltage QRS Cannot rule out Anterior infarct , age undetermined Abnormal ECG Confirmed by Francis Martins ([id number]) on 07/02/2025 12:11:14 PM [facility] Work Phone: [phone] [facility] Work Phone: [phone] ECG 12-LEADon 07-02-2025 ECG 12-LEAD Ventricular Rate 64 Atrial Rate 64 P-R Interval 162 QRS Duration 86 Q-T Interval 378 QTC Calculation(Bazett) 389 P North 38 R North 107 T North 48 QRS Count 10 Q Onset 227 P Onset 146 P Offset 211 T Offset 416 QTC Fredericia 386 Diagnosis Normal sinus rhythm Rightward axis Low voltage QRS Cannot rule out Anterior infarct , age undetermined Abnormal ECG Confirmed by Francis Martins ([id number]) on 07/02/2025 12:11:14 PM Normal [facility] Extra Urine Frank TubeOrdered By: Roney Howard on 07-02-2025 Extra Tube [facility] Work Phone: [facility] Work Phone: Magnesiumon 07-02-2025 Magnesium [Mass/Vol] 2.04 mg/dL 1.60 - 2.40 mg/dL [facility] Magnesium [Mass/Vol] 2.04 mg/dL Normal 1.60-2.40 [facility] Comment on above: Performed By: #### 5 7021-8 #### ABDI MIKE ([id number]) [facility] ([facility]) [address] [place] [address] 03020 Magnesium [Mass/Vol] 1.88 mg/dL 1.60 - 2.40 mg/dL [facility] Magnesium [Mass/Vol]on 07-02 Interpretation and review of laboratory results Normal [facility] Interpretation and review of laboratory results Normal [facility] PT Coag (PPP) [Time]on 07-02 INR Coag (PPP) [Relative time] 1.8 {INR} High 0.9 - 1.1 [facility] Interpretation and review of laboratory results Abnormal [facility] INR Coag (PPP) [Relative time] 1.8 High 0.9-1.1 [facility] Comment on above: Performed By: #### 5 7021-8 #### ABDI MIKE ([id number]) [facility] ([facility]) [address] [place] [address]7095 Protime-INRon 07-02-2025 PT Coag (PPP) [Time] 20.1 s High [facility] SST TOPon 07-02-2025 Extra Tube Hold for add-ons. [facility] Work Phone: Comment on above: Auto resulted. [facility] Work Phone: Bacteriaon 07-01-2025 Bacteria identified Cx Nom (U) Test: Urine Culture Specimen Source: Clean Catch/Voided Specimen Type: Urine Specimen Date: 07/01/2025 1031 Result Date: 07/03/2025 1011 Result Status: Final result Abnormal: Yes Resulting Lab: [facility] [address] [place] [id number] CULTURE >=100,000 CFU/mL Escherichia coli (Abnormal) SUSCEPTIBILITY Escherichia coli METHOD MICROSCAN --- AMPICILLIN <=8.000 ug/ml Susceptible CEFAZOLIN <=2 ug/ml Susceptible CEFAZOLIN (UNCOMPLICATED UTIS ONLY) <=2 ug/ml Susceptible CIPROFLOXACIN <=0.250 ug/ml Susceptible GENTAMICIN <=2.000 ug/ml Susceptible LEVOFLOXACIN <=0.500 ug/ml Susceptible NITROFURANTOIN <=32 ug/ml Susceptible PIPERACILLIN/TAZOBACTAM <=8.000 ug/ml Susceptible TRIMETHOPRIM/SULFAMETHOXA ZOLE <=0.5/9.5 ug/ml Susceptible Abnormal [facility] Comment on above: Performed By: #### 5 7021-8 #### PATTON CEE ([id number]) [facility] ([facility]) [address] [place] [address] CBC W Auto Differential pane l (Bld)on 07-01-2025 Basophils (Bld) [#/Vol] 0.05 10*3/uL [facility] Basophils/100 WBC (Bld) 0.5 % 0.0 - 2.0 % [facility] Eosinophils (Bld) [#/Vol] 0.09 10*3/uL [facility] Eosinophils/100 WBC (Bld) 1.0 % 0.0 - 6.0 % [facility] Erythrocyte distribution width (RBC) [Ratio] 12.9 % 11.5 - 14.5 % [facility] Hematocrit (Bld) [Volume fraction] 40.5 % 36.0 - 46.0 % [facility] Hemoglobin (Bld) [Mass/Vol] 13.7 g/dL 12.0 - 16.0 g/dL [facility] Immature granulocytes (Bld) [#/Vol] 0.04 10*3/uL [facility] Immature granulocytes/100 WBC (Bld) 0.4 % 0.0 - 0.9 % [facility] Comment on above: Immature Granulocyte Count (IG) includes promyelocytes, myelocytes and metamyelocytes but does not include bands. Percent differential counts (%) should be interpreted in the context of the absolute cell counts (cells/UL). Interpretation and review of laboratory results Abnormal [facility] Lymphocytes (Bld) [#/Vol] 1.99 10*3/uL [facility] Lymphocytes/100 WBC (Bld) 21.8 % 13.0 - 44.0 % [facility] MCH (RBC) [Entitic mass] 31.7 pg 26.0 - 34.0 pg [facility] MCHC (RBC) [Mass/Vol] 33.8 g/dL 32.0 - 36.0 g/dL [facility] MCV (RBC) [Entitic vol] 94 fL 80 - 100 fL [facility] Monocytes (Bld) [#/Vol] 0.73 10*3/uL [facility] Monocytes/100 WBC (Bld) 8.0 % 2.0 - 10.0 % [facility] Neutrophils (Bld) [#/Vol] 6.22 10*3/uL High [facility] Comment on above: Percent differential counts (%) should be interpreted in the context of the absolute cell counts (cells/uL). Neutrophils/100 WBC (Bld) 68.3 % 40.0 - 80.0 % [facility] Nucleated RBC/100 WBC (Bld) [Ratio] 0.0 % [facility] Platelets (Bld) [#/Vol] 366 10*3/uL [facility] RBC (Bld) [#/Vol] 4.32 10*6/uL [facility] WBC (Bld) [#/Vol] 9.1 10*3/uL [facility] Basophils (Bld) [#/Vol] 0.05 x10*3/uL Normal 0.00-0.10 [facility] Comment on above: Performed By: #### 5 7021-8 #### ABDI MIKE ([id number]) [facility] ([facility]) [address] [place] [address]16 Basophils/100 WBC (Bld) 0.5 % Normal 0.0-2.0 [facility] Comment on above: Performed By: #### 7021-8 #### ABDI MIKE ([id number]) [facility] ([facility]) [address] [place] [address] 89585 Eosinophils (Bld) [#/Vol] 0.09 x10*3/uL Normal 0.00-0.40 [facility] Comment on above: Performed By: #### 7021-8 #### ABDI MIKE ([id number]) [facility] ([facility]) [address] [place] [address] 29285 Eosinophils/100 WBC (Bld) 1.0 % Normal 0.0-6.0 [facility] Comment on above: Performed By: #### 5 7021-8 #### ABDI MKIE ([id number]) [facility] ([facility]) [address] [place] [address] 97763 Erythrocyte distribution width (RBC) [Ratio] 12.9 % Normal 11.5-14.5 [facility] Comment on above: Performed By: #### 7021-8 #### ABDI MIKE ([id number]) [facility] ([facility]) [address] [place] [address] 83852 Hematocrit (Bld) [Volume fraction] 40.5 % Normal 36.0-46.0 [facility] Comment on above: Performed By: #### 5 7021-8 #### ABDI MIKE ([id number]) [facility] ([facility]) [facility] [place] [address] Hemoglobin (Bld) [Mass/Vol] 13.7 g/dL Normal 12.0-16.0 [facility] Comment on above: Performed By: #### 5 7021-8 #### ABDI MIKE ([id number]) [facility] ([facility]) [address] [place] [address] 49270 Immature granulocytes (Bld) [#/Vol] 0.04 x10*3/uL Normal 0.00-0.50 [facility] Comment on above: Performed By: #### 5 7021-8 #### ABDI MKIE ([id number]) [facility] ([facility]) [address] [place] [address] 96259 Immature granulocytes/100 WBC (Bld) 0.4 % Normal 0.0-0.9 [facility] Comment on above: Result Comment: Megan ture Granulocyte Count (IG) includes promyelocytes, myelocytes and metamyelocytes but does not include bands. Percent differential counts (%) should be interpreted in the context of the absolute cell counts (cells/UL). Performed By: #### 5 7021-8 #### ABDI MIKE ([id number]) [facility] ([facility]) [address] [place] [address] 66855 Lymphocytes (Bld) [#/Vol] 1.99 x10*3/uL Normal 0.80-3.00 [facility] Comment on above: Performed By: #### 5 7021-8 #### ABDI MIKE ([id number]) [facility] ([facility]) [address] [place] [address] 42793 Lymphocytes/100 WBC (Bld) 21.8 % Normal 13.0-44.0 [facility] Comment on above: Performed By: #### 5 7021-8 #### ABDI MIKE ([id number]) [facility] ([facility]) [address] [place] [address] 34753 MCH (RBC) [Entitic mass] 31.7 pg Normal 26.0-34.0 [facility] Comment on above: Performed By: #### 5 7021-8 #### ABDI MIKE ([id number]) [facility] ([facility]) [address] [place] [address] 38092 MCHC (RBC) [Mass/Vol] 33.8 g/dL Normal 32.0-36.0 [facility] Comment on above: Performed By: #### 5 7021-8 #### ABDI MIKE ([id number]) [facility] ([facility]) [address] [place] [address] 17602 MCV (RBC) [Entitic vol] 94 fL Normal 80-100 [facility] Comment on above: Performed By: #### 5 7021-8 #### ABDI MIKE ([id number]) [facility] ([facility]) [address] [place] [address] 53675 Monocytes (Bld) [#/Vol] 0.73 x10*3/uL Normal 0.05-0.80 [facility] Comment on above: Performed By: #### 5 7021-8 #### ABDI MIKE ([id number]) [facility] ([facility]) [address] [place] [address] 52622 Monocytes/100 WBC (Bld) 8.0 % Normal 2.0-10.0 [facility] Comment on above: Performed By: #### 5 7021-8 #### ABDI MIKE ([id number]) [facility] ([facility]) [address] [place] [address] 26061 Neutrophils (Bld) [#/Vol] 6.22 x10*3/uL High 1.60-5.50 [facility] Comment on above: Result Comment: Perc ent differential counts (%) should be interpreted in the context of the absolute cell counts (cells/uL). Performed By: #### 5 7021-8 #### ABDI MIKE ([id number]) [facility] ([facility]) [address] [place] [address] 37616 Neutrophils/100 WBC (Bld) 68.3 % Normal 40.0-80.0 [facility] Comment on above: Performed By: #### 5 7021-8 #### ABDI MIKE ([id number]) [facility] ([facility]) [address] [place] [address] 53974 Nucleated RBC/100 WBC (Bld) [Ratio] 0.0 /100 WBCs Normal 0.0-0.0 [facility] Comment on above: Performed By: #### 5 7021-8 #### ABDI MIKE ([id number]) [facility] ([facility]) [address] [place] [address] 91770 Platelets (Bld) [#/Vol] 366 x10*3/uL Normal 150-450 [facility] Comment on above: Performed By: #### 5 7021-8 #### ABDI MIKE ([id number]) [facility] ([facility]) [address] [place] [address] 31177 RBC (Bld) [#/Vol] 4.32 x10*6/uL Normal 4.00-5.20 [facility] Comment on above: Performed By: #### 5 7021-8 #### ABDI MIKE ([id number]) [facility] ([facility]) [address] [place] [address] 35105 WBC (Bld) [#/Vol] 9.1 x10*3/uL Normal 4.4-11.3 [facility] Comment on above: Performed By: #### 5 7021-8 #### ABDI MIKE ([id number]) [facility] ([facility]) [address] [place] [address] PRE WATCHMAN FULL CONTRAS Ton 07-01-2025 CT PRE WATCHMAN FULL CONTRAST Interpreted By: Tameka Mckeon and Amoah Joseph STUDY: CT PRE WATCHMAN FULL CONTRAST; 07/01/2025 1:34 pm INDICATION: Signs/Symptoms:AFib RVR - rule out thrombus. COMPARISON: CT abdomen and pelvis done on 07/25/2019, CT cardiac scoring done on 01/01/2019. ACCESSION NUMBER(S): [id number] ORDERING CLINICIAN: FRANCIS ZAMBRANO TECHNIQUE: Using multi-detector [...] of coronary arteries. 5. Left lower lobe atelectasis/consolidation . Clinical correlation recommended. 6. MACRO: None Signed by: Tameka Mckeon 07/08/2025 1:30 AM Dictation workstation: [id number] [facility] Comprehensive metabolic 2000 panelon 07-01-2025 Albumin BCP dye [Mass/Vol] 4.7 g/dL 3.4 - 5.0 g/dL [facility] ALP [Catalytic activity/Vol] 74 U/L 33 - 136 U/L [facility] ALT With P-5'-P [Catalytic activity/Vol] 16 U/L 7 - 45 U/L [facility] Comment on above: Patients treated wit h Sulfasalazine may generate falsely decreased results for ALT. Anion gap [Moles/Vol] 14 mmol/L 10 - 2 0 mmol/L [facility] AST With P-5'-P [Catalytic activity/Vol] 18 U/L 9 - 39 U/L [facility] Bilirubin [Mass/Vol] 0.7 mg/dL 0.0 - 1 .2 mg/dL [facility] Calcium [Mass/Vol] 9.9 mg/dL 8.6 - 10. 3 mg/dL [facility] Chloride [Moles/Vol] 99 mmol/L 98 - 10 7 mmol/L [facility] CO2 [Moles/Vol] 25 mmol/L 21 - 32 mmol/L [facility] Creatinine [Mass/Vol] 0.69 mg/dL 0.50 - 1.05 mg/dL [facility] GFR/1.73 sq M.predicted among non-blacks MDRD (S/P/Bld) [Vol rate/Area] 88 mL/min/{1.73_m2} - PINF [facility] Comment on above: Calculations of teresa mated GFR are performed using the 2020 CKD-EPI Study Refit equation without the race variable for the IDMS-Traceable creatinine methods. https://jasn.asnjournals.org/content//ASN.339333 9997 Glucose [Mass/Vol] 186 mg/dL High 74 - 99 mg/dL [facility] Potassium [Moles/Vol] 3.7 mmol/L 3.5 - 5.3 mmol/L [facility] Protein [Mass/Vol] 7.9 g/dL 6.4 - 8.2 g/dL [facility] Sodium [Moles/Vol] 134 mmol/L Low 136 - 145 mmol/L [facility] Urea nitrogen [Mass/Vol] 10 mg/dL 6 - 23 mg/dL [facility] Albumin BCP dye [Mass/Vol] 4.7 g/dL Normal 3.4-5.0 [facility] Comment on above: Performed By: #### 2 4323-8 #### ABDI MIKE ([id number]) [facility] ([facility]) [address] [place] [address] ALP [Catalytic activity/Vol] 74 U/L Normal 33-136 [facility] Comment on above: Performed By: #### 2 4323-8 #### ABDI MIKE ([id number]) [facility] ([facility]) [address] [place] [address] 23255 ALT With P-5'-P [Catalytic activity/Vol] 16 U/L Normal 7-45 [facility] Comment on above: Result Comment: Suzi ents treated with Sulfasalazine may generate falsely decreased results for ALT. Performed By: #### 2 4323-8 #### ABDI MIKE ([id number]) [facility] ([facility]) [address] [place] [address] 40763 Anion gap [Moles/Vol] 14 mmol/L Normal 10-20 [facility] Comment on above: Performed By: #### 2 4323-8 #### ABDI MIKE ([id number]) [facility] ([facility]) [address] [place] [address] 28299 AST With P-5'-P [Catalytic activity/Vol] 18 U/L Normal 9-39 [facility] Comment on above: Performed By: #### 2 4323-8 #### ABDI MIKE ([id number]) [facility] ([facility]) [address] [place] [address] 58906 Bilirubin [Mass/Vol] 0.7 mg/dL Normal 0.0-1.2 [facility] Comment on above: Performed By: #### 2 4323-8 #### ABDI MIKE ([id number]) [facility] ([facility]) [address] [place] [address] 78997 Calcium [Mass/Vol] 9.9 mg/dL Normal 8.6-10.3 [facility] Comment on above: Performed By: #### 2 4323-8 #### ABDI MIKE ([id number]) [facility] ([facility]) [address] [place] [address] 45887 Chloride [Moles/Vol] 99 mmol/L Normal 98-107 [facility] Comment on above: Performed By: #### 2 4323-8 #### ABDI MIKE ([id number]) [facility] ([facility]) [address] [place] [address] 88171 CO2 [Moles/Vol] 25 mmol/L Normal 21-32 [facility] Comment on above: Performed By: #### 2 4323-8 #### ABDI MIKE ([id number]) [facility] ([facility]) [address] [place] [address] 28254 Creatinine [Mass/Vol] 0.69 mg/dL Normal 0.50-1.05 [facility] Comment on above: Performed By: #### 2 4323-8 #### ABDI MIKE ([id number]) [facility] ([facility]) [address] [place] [address] 32262 Glomerular filtration rate 88 mL/min/1.73m*2 Normal >60 [facility] Comment on above: Result Comment: Calc ulations of estimated GFR are performed using the 2020 CKD-EPI Study Refit equation without the race variable for the IDMS-Traceable creatinine methods. https://jasn.asnjournals.org/content/early/ASN.839461 2983 Performed By: #### 2 4323-8 #### ABDI MIKE ([id number]) [facility] ([facility]) [address] [place] [address] Glucose [Mass/Vol] 186 mg/dL High 74-99 [facility] Comment on above: Performed By: #### 2 4323-8 #### ABDI MIKE ([id number]) [facility] ([facility]) [address] [place] [address] 36719 Potassium [Moles/Vol] 3.7 mmol/L Normal 3.5-5.3 [facility] Comment on above: Performed By: #### 2 4323-8 #### ABDI MIKE ([id number]) [facility] ([facility]) [address] [place] [address] 98978 Protein [Mass/Vol] 7.9 g/dL Normal 6.4-8.2 [facility] Comment on above: Performed By: #### 2 4323-8 #### ABDI MIKE ([id number]) [facility] ([facility]) [address] [place] [address] 15005 Sodium [Moles/Vol] 134 mmol/L Low 136-145 [facility] Comment on above: Performed By: #### 2 4323-8 #### ABDI MIKE ([id number]) [facility] ([facility]) [address] [place] [address] 25592 Urea nitrogen [Mass/Vol] 10 mg/dL Normal 6-23 [facility] Comment on above: Performed By: #### 2 4323-8 #### ABDI MIKE ([id number]) [facility] ([facility]) [address] [place] [address] 32110 D-Dimer, VTE Exclusionon Fibrin D-dimer FEU (PPP) [Mass/Vol] 698 High [facility] ECG 12-LEADon 07-01-2025 ECG 12-LEAD Ventricular Rate 123 QRS Duration 80 Q-T Interval 316 QTC Calculation(Bazett) 452 R North -21 T North 159 QRS Count 19 Q Onset 219 T Offset 377 QTC Fredericia 401 Diagnosis Atrial fibrillation with rapid ventricular response with premature ventricular or aberrantly conducted complexes Low voltage QRS Anterior infarct , age undetermined Abnormal ECG When compared with ECG of 18-AUG-2025 09:51, (unconfirmed) Anterior infarct is now Present No significant change was found See ED provider note for full interpretation and clinical correlation Confirmed by Ana Wheat ([id number]) on 07/05/2025 3:05:04 PM Normal [facility] ECG 12-LEAD Ventricular Rate 107 QRS Duration 86 Q-T Interval 322 QTC Calculation(Bazett) 429 R North -28 T North 79 QRS Count 18 Q Onset 216 [...] evident in Lateral leads Confirmed by Francis Martins ([id number]) on 07/02/2025 10:28:27 AM Normal [facility] Fibrin D-dimeron 07-01-2025 Fibrin D-dimer FEU (PPP) [Mass/Vol] 698 ng/mL FEU High <=500 [facility] Comment on above: Order Comment: The V TE Exclusion D-Dimer assay is reported in ng/mL Fibrinogen Equivalent Units (FEU). Per equipment cleaner's instructions for use, a value of less than 500 ng/mL (FEU) may help to exclude DVT or PE in outpatients when the assay is used with a clinical pretest probability assessment.(AEMR must utilize and document eCalc 'Wells Score Deep Vein Thrombosis Risk' for DVT exclusion only. Emergency Department should utilize Guidelines for Emergency Department Use of the VTE Exclusion D-Dimer and Clinical Pretest probability assessment model for DVT or PE exclusion.) Performed By: #### 4 8065-7 #### PATTON CEE ([id number]) [facility] ([facility]) [address] [place] [address] Fibrin D-dimer FEU (PPP) [Ma ss/Vol]on 07-01-2025 The VTE Exclusion D- Dimer assay is reported in ng/mL Fibrinogen Equivalent Units (FEU). Per equipment cleaner's instructions for use, a value of less than 500 ng/mL (FEU) may help to exclude DVT or PE in outpatients when the assay is used with a clinical pretest probability assessment.(AEMR must utilize and document eCalc 'Wells Score Deep Vein Thrombosis Risk' for DVT exclusion only. Emergency Department should utilize Guidelines for Emergency Department Use of the VTE Exclusion D-Dimer and Clinical Pretest probability assessment model for DVT or PE exclusion.) [facility] Lactateon 07-01-2025 Lactate [Moles/Vol] 1.3 mmol/L 0.4 - 2. 0 mmol/L [facility] Lactate [Moles/Vol] 1.3 mmol/L Normal 0.4-2.0 [facility] Comment on above: Order Comment: Venip uncture immediately after or during the administration of Metamizole may lead to falsely low results. Testing should be performed immediately prior to Metamizole dosing. Performed By: #### 5 7021-8 #### ABDI MIKE ([id number]) [facility] ([facility]) [address] [place] [address] 74966 Lactate [Moles/Vol] 2.2 mmol/L High 0.4 - 2. 0 mmol/L [facility] Lactate [Moles/Vol] 2.2 mmol/L High 0.4-2.0 [facility] Comment on above: Order Comment: Venip uncture immediately after or during the administration of Metamizole may lead to falsely low results. Testing should be performed immediately prior to Metamizole dosing. Performed By: #### 2 524-7 #### ABDI MIKE ([id number]) [facility] ([facility]) [address] [place] [address] 07881 Lactate [Moles/Vol]on 2024 Interpretation and review of laboratory results Normal [facility] Venipuncture immedia tely after or during the administration of Metamizole may lead to falsely low results. Testing should be performed immediately prior to Metamizole dosing. [facility] Interpretation and review of laboratory results Abnormal [facility] Venipuncture immedia tely after or during the administration of Metamizole may lead to falsely low results. Testing should be performed immediately prior to Metamizole dosing. [facility] Magnesiumon 07-01-2025 Magnesium [Mass/Vol] 1.88 mg/dL Normal 1.60-2.40 [facility] Comment on above: Performed By: #### 5 7021-8 #### PATTON CEE ([id number]) [facility] ([facility]) [address] [place] [address] No Panel Informationon 07-01 Interpretation and review of laboratory results Abnormal [facility] Interpretation and review of laboratory results Abnormal [facility] TRANSTHORACIC ECHO (TTE) COM PLETEon 07-01-2025 TRANSTHORACIC ECHO ([place]) [place] [address] ext-[phone], TRANSTHORACIC ECHOCARDIOGRAM REPORT Patient Name: DIANA Wheeler Physician: [id number] Thony Waite MD Study Date: 07/01/2025 Ordering Provider: [id number] FRANCIS ZAMBRANO MRN/PID: [id number] Fellow: Nurse: Date of /Age: 11 1945 / 79 years 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 Gender Assigned at F Additional Staff: : Height: 152.40 cm Admit Date: Weight: 72.58 kg Admission Status: Inpatient - Routine BSA / BMI: 1.70 m2 / 31.25 Department Location: [address]-ICU kg/m2 Blood Pressure: 130 /84 mmHg Study Type: TRANSTHORACIC ECHO (TTE) COMPLETE Diagnosis/ICD: Paroxysmal atrial fibrillation-I48.0 CPT Codes: Echo Complete w Full Doppler-65202 Study Detail: The following Echo studies were [...] LA Area A2C: 10.5 cm2 LA Major North A4C: 5.1 cm LA Major North A2C: 4.5 cm LA Volume Index: 16.2 [...] AoV Mean P.0 mmHg (1.7-11.5mmHg) LVOT Max Lauren: 0.80 m/s (<=1.1m/s) AoV VTI: 19.50 cm (18-25cm) LVOT VTI: 15.50 cm LVOT Diameter: 1.90 cm (1.8-2.4cm) AoV Area, VTI: 2.25 cm2 (2.5-5.5cm2) AoV Area,Vmax: 2.23 cm2 (2.5-4.5cm2) AoV Dimensionless Index: 0.79 [id number] Thony Waite MD Electronically signed on 07/01/2025 at 4:03:44 PM Final Normal [facility] TSH Qnon 07-01-2025 Interpretation and review of laboratory results Normal [facility] TSH testing is perfo rmed using different testing methodology at [facility] than at other system [facility]. Direct result comparisons should only be made within the same method. [facility] Thyroid Stimulating Hormoneo n 07-01-2025 TSH Qn 1.25 m[IU]/L [facility] Thyrotropinon 07-01-2025 TSH Qn 1.25 m[IU]/L Normal 0.44-3.98 [facility] Comment on above: Order Comment: TSH t esting is performed using different testing methodology at [facility] than at other system [facility]. Direct result comparisons should only be made within the same method. Performed By: #### 3 016-3 #### PATTON CEE ([id number]) [facility] ([facility]) [address] [place] [address] Tropinin I.cardiac panel Hig h sensitivity methodon 07-01-2025 Interpretation and review of laboratory results Normal [facility] Less than 99th perce ntile of normal range cutoff- Female and children [...] performed using a different testing methodology at [facility] than at other [facility]. Direct result comparisons should only be made within the same method. [facility] Interpretation and review of laboratory results Normal [facility] Less than 99th perce ntile of normal range cutoff- Female and children [...] performed using a different testing methodology at [facility] than at other [facility]. Direct result comparisons should only be made within the same method. [facility] Troponin I, High Sensitivity , Initialon 07-01-2025 Tropinin I.cardiac panel High sensitivity method 7 ng/L 0 - 13 ng/L [facility] Troponin I.cardiac panelon 0 07-01-2025 Tropinin I.cardiac panel High sensitivity method 6 ng/L Normal 0-13 [facility] Comment on above: Order Comment: Less than 99th percentile of normal range cutoff- Female and [...] performed using a different testing methodology at [facility] than at other [facility]. Direct result comparisons should only be made within the same method. Performed By: #### 8 9577-1 #### PATTON CEE ([id number]) [facility] ([facility]) [address] [place], [place] [address] Tropinin I.cardiac panel High sensitivity method 7 ng/L Normal 0-13 [facility] Comment on above: Order Comment: Less than 99th percentile of normal range cutoff- Female and [...] performed using a different testing methodology at [facility] than at other [facility]. Direct result comparisons should only be made within the same method. Performed By: #### 8 9577-1 #### PATTON CEE ([id number]) [facility] ([facility]) [address] [place], [place] [address] Troponin, High Sensitivity, 1 Houron 07-01-2025 Tropinin I.cardiac panel High sensitivity method 6 ng/L 0 - 13 ng/L [facility] US Heart TransthoracicOrdere d By: Thony Waite on 07-01-2025 Aortic Valve Area by Continuity of Peak Velocity 2.23 cm2 [facility] Work Phone: [phone] Aortic Valve Area by Continuity of VTI 2.25 cm2 [facility] Work Phone: [phone] AV mn grad 2 mmHg [facility] Work Phone: [phone] AV pk grad 4 mmHg [facility] Work Phone: [phone] AV pk aluren 1.02 m/s [facility] Work Phone: [phone] LA vol index A/L 14.0 ml/m2 [facility] Work Phone: [phone] LV A4C EF 60.8 [facility] Work Phone: [phone] LV Biplane EF 55 % [facility] Work Phone: [phone] LV EF 65 % [facility] Work Phone: [phone] LVIDd 3.96 cm [facility] Work Phone: [phone] LVOT diam 1.90 cm [facility] Work Phone: [phone] [facility] Work Phone: [phone] US [place] [address] ext-[phone], TRANSTHORACIC ECHOCARDIOGRAM REPORT Patient Name: DIANA Wheeler Physician: [id number] Thony Waite MD Study Date: 07/01/2025 Ordering Provider: [id number] FRANCIS ZAMBRANO MRN/PID: [id number] Fellow: Nurse: Date of /Age: 11 1945 / 79 years 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 [...] LA Area A2C: 10.5 cm2 LA Major North A4C: 5.1 cm LA Major North A2C: 4.5 cm LA Volume Index: 16.2 [...] AoV Mean P.0 mmHg (1.7-11.5mmHg) LVOT Max Lauren: 0.80 m/s (<=1.1m/s) AoV VTI: 19.50 cm (18-25cm) LVOT VTI: 15.50 cm LVOT Diameter: 1.90 cm (1.8-2.4cm) AoV Area, VTI: 2.25 cm2 (2.5-5.5cm2) AoV Area,Vmax: 2.23 cm2 (2.5-4.5cm2) AoV Dimensionless Index: 0.79 [id number] Thony Waite MD Electronically signed on 07/01/2025 at 4:03:44 PM Final Thony Reinoso MD - 07/01/2025 [place] [address] ext-[phone], TRANSTHORACIC ECHOCARDIOGRAM REPORT Patient Name: DIANA Wheeler Physician: [id number] Thony Waite MD Study Date: 07/01/2025 Ordering Provider: [id number] FRANCIS KENDRICKN/PID: [id number] Fellow: Nurse: Date of /Age: 11 1945 / 79 years 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 Gender Assigned at F Additional Staff: : Height: 152.40 cm Admit Date: Weight: 72.58 kg Admission Status: Inpatient - Routine BSA / BMI: 1.70 m2 / 31.25 [address] kg/m2 Blood Pressure: 130 /84 mmHg Study Type: TRANSTHORACIC ECHO (TTE) COMPLETE Diagnosis/ICD: Paroxysmal atrial fibrillation-I48.0 CPT Codes: Echo Complete w Full Doppler-24152 Study Detail: The following Echo studies were [...] aortic valve area by VTI is 2.25 cm with a peak velocity of 1.02 m/s. [...] LA Area A2C: 10.5 cm2 LA [place] A4C: 5.1 cm LA [place] A2C: 4.5 cm LA Volume Index: 16.2 [...] AoV Mean P.0 mmHg (1.7-11.5mmHg) LVOT Max Lauren: 0.80 m/s (<=1.1m/s) AoV VTI: 19.50 cm (18-25cm) LVOT VTI: 15.50 cm LVOT Diameter: 1.90 cm (1.8-2.4cm) AoV Area, VTI: 2.25 cm2 (2.5-5.5cm2) AoV Area,Vmax: 2.23 cm2 (2.5-4.5cm2) AoV Dimensionless Index: 0.79 [id number] Thony Waite MD Electronically signed on 07/01/2025 at 4:03:44 PM Final [facility] Work Phone: Urinalysis complete W Reflex Culture panel (U)on 07-01-2025 Appearance (U) Clear Clear [facility] Bilirubin (U) [Mass/Vol] Negative NEGATIVE mg/dL [facility] Color (U) Colorless Abnormal Light-Yellow , Yellow, Dark-Yellow [facility] Glucose Auto test strip (U) [Mass/Vol] Normal Normal mg/dL [facility] Ketones (U) [Mass/Vol] Negative NEGATIVE mg/dL [facility] Leukocyte esterase Auto test strip Ql (U) 250 Yancy/uL Abnormal NEGATIVE [facility] Nitrite Auto test strip Ql (U) Negative NEGATIVE [facility] pH (U) 6.5 [pH] 5.0, 5.5, 6.0, 6.5, 7.0, 7.5, 8.0 [facility] Protein (U) [Mass/Vol] Negative NEGATIVE, 10 (TRACE), 20 (TRACE) mg/dL [facility] RBC (U) [#/Vol] 0.03 (TRACE) Abnormal NEGATIVE mg/dL [facility] Specific gravity (U) [Rel density] 1.007 1.005 - 1.035 [facility] Urobilinogen (U) [Mass/Vol] Normal Normal mg/dL [facility] Appearance (U) Clear Normal Clear [facility] Comment on above: Performed By: #### 5 8077-9 #### ABDI MIKE ([id number]) [facility] ([facility]) [address] [place] [address] Bilirubin (U) [Mass/Vol] Negative Normal NEGATIVE [facility] Comment on above: Performed By: ###Fred 5 8077-9 #### ABDI MIKE ([id number]) [facility] ([facility]) [address] [place] [address] Color (U) Colorless Normal Light-Yellow , Yellow, Dark-Yellow [facility] Comment on above: Performed By: #### 5 8077-9 #### ABDI MIKE ([id number]) [facility] ([facility]) [address] [place] [address] Glucose Auto test strip (U) [Mass/Vol] Normal Normal Normal [facility] Comment on above: Performed By: #### 5 8077-9 #### ABDI MIKE ([id number]) [facility] ([facility]) [address] [place] [address]86 Ketones (U) [Mass/Vol] Negative Normal NEGATIVE [facility] Comment on above: Performed By: #### 5 8077-9 #### ABDI MIKE ([id number]) [facility] ([facility]) [address] [place] [address] Leukocyte esterase Auto test strip Ql (U) 250 Yancy/uL Abnormal NEGATIVE [facility] Comment on above: Performed By: #### 5 8077-9 #### ABDI MIKE ([id number]) [facility] ([facility]) [address] [place] [address] Nitrite Auto test strip Ql (U) Negative Normal NEGATIVE [facility] Comment on above: Performed By: #### 5 8077-9 #### ABDI MIKE ([id number]) [facility] ([facility]) [address] [place] [address]152 pH (U) 6.5 [pH] Normal 5.0, 5.5, 6.0, 6.5, 7.0, 7.5, 8.0 [facility] Comment on above: Performed By: #### 5 8077-9 #### ABDI MIKE ([id number]) [facility] ([facility]) [address] [place] [address]76 Protein (U) [Mass/Vol] Negative Normal NEGATIVE, 10 (TRACE), 20 (TRACE) [facility] Comment on above: Performed By: #### 5 8077-9 #### ABDI MIKE ([id number]) [facility] ([facility]) [address] [place] [address] 21741 RBC (U) [#/Vol] 0.03 (TRACE) Abnormal NEGATIVE [facility] Comment on above: Performed By: #### 5 8077-9 #### ABDI MIKE ([id number]) [facility] ([facility]) [address] [place] [address] Specific gravity (U) [Rel density] 1.007 Normal 1.005-1.035 [facility] Comment on above: Performed By: #### 5 8077-9 #### ABDI MIKE ([id number]) [facility] ([facility]) [address] [place] [address] Urobilinogen (U) [Mass/Vol] Normal Normal Normal [facility] Comment on above: Performed By: #### 5 8077-9 #### ABDI MIKE ([id number]) [facility] ([facility]) [address] [place] [address] Urinalysis microscopic panel Auto Ql (U)on 07-01-2025 Bacteria Auto (Urine sed) [#/Area] 1+ Abnormal NONE SEEN /HPF [facility] Hyaline casts Auto (Urine sed) [#/Area] 1+ Abnormal NONE /LPF [facility] RBC Auto (Urine sed) [#/Area] 3-5 NONE, 1-2, 3-5 /HPF [facility] WBC Auto (Urine sed) [#/Area] 1-5 1-5, NONE /HPF [facility] Bacteria Auto (Urine sed) [#/Area] 1+ /HPF Abnormal NONE SEEN [facility] Comment on above: Performed By: #### 5 3315-8 #### ABDI MIKE ([id number]) [facility] ([facility]) [address] [place] [address] Hyaline casts Auto (Urine sed) [#/Area] 1+ /LPF Abnormal NONE [facility] Comment on above: Performed By: #### 5 3315-8 #### ABDI MIKE ([id number]) [facility] ([facility]) [address] [place] [address] RBC Auto (Urine sed) [#/Area] 3-5 Normal NONE, 1-2, 3-5 [facility] Comment on above: Performed By: #### 5 3315-8 #### PATTON CEE ([id number]) [facility] ([facility]) [facility] [place] [address] WBC Auto (Urine sed) [#/Area] 1-5 Normal 1-5, NONE [facility] Comment on above: Performed By: #### 5 3315-8 #### PATTON ROBYNANGEL ([id number]) [facility] ([facility]) [address] [place], [place] [id number] XR CHEST 1 VIEWon 07-01-2025 XR CHEST 1 VIEW Interpreted By: Odin Agarwal, STUDY: XR CHEST 1 VIEW; 07/01/2025 10:30 am INDICATION: Signs/Symptoms:Palpitatio ns. COMPARISON: CT scan abdomen and pelvis from 07/25/2019. Chest x-ray from 02/08/2012. ACCESSION NUMBER(S): [id number] ORDERING CLINICIAN: ALEXANDER CUMMINGS TECHNIQUE: Single AP portable view of the chest was obtained. FINDINGS: MEDIASTINUM/ LUNGS/ BERYL: Mild cardiomegaly, currently without vascular congestion, or pleural effusion. No abnormal opacity in either lung worrisome for tumor or pneumonia. No pneumothorax. No tracheal deviation. No abnormal hilar fullness or gross mass on either side. BONES: No lytic or blastic destructive bone lesion. There is wzex-xx-qehuzkuu disc space narrowing and endplate osteophytosis throughout the thoracic spine. UPPER ABDOMEN: Grossly intact. IMPRESSION: Thoracic spine DJD as described. Mild cardiomegaly. Currently without radiographic evidence of CHF or pneumonia. MACRO: None Signed by: Odin Neri 07/01/2025 10:34 AM Dictation workstation: [id number] Normal [facility] XR Chest Single viewon 07-01 Thoracic spine DJD a s described. Mild cardiomegaly. Currently without radiographic evidence of CHF or pneumonia. MACRO: None Signed by: Odin Neri 07/01/2025 10:34 AM Dictation workstation: [id number] MMODAL Interpreted By: Odin Agarwal, STUDY: XR CHEST 1 VIEW; 07/01/2025 10:30 am INDICATION: Signs/Symptoms:Palpitatio ns. COMPARISON: CT scan abdomen and pelvis from 07/25/2019. Chest x-ray from 02/08/2012. ACCESSION NUMBER(S): [id number] ORDERING CLINICIAN: ALEXANDER CUMMINGS TECHNIQUE: Single AP portable view of the chest was obtained. FINDINGS: MEDIASTINUM/ LUNGS/ BERYL: Mild cardiomegaly, currently without vascular congestion, or pleural effusion. No abnormal opacity in either lung worrisome for tumor or pneumonia. No pneumothorax. No tracheal deviation. No abnormal hilar fullness or gross mass on either side. BONES: No lytic or blastic destructive bone lesion. There is gsdj-sq-lrbifrih disc space narrowing and endplate osteophytosis throughout the thoracic spine. UPPER ABDOMEN: Grossly intact. MMODAL Odin Neri MD - 07/01/2025 Interpreted By: Odin Neri, STUDY: XR CHEST 1 VIEW; 07/01/2025 10:30 am INDICATION: Signs/Symptoms:Palpitatio ns. COMPARISON: CT scan abdomen and pelvis from 07/25/2019. Chest x-ray from 02/08/2012. ACCESSION NUMBER(S): [id number] ORDERING CLINICIAN: ALEXANDER CUMMINGS TECHNIQUE: Single AP portable view of the chest was obtained. FINDINGS: MEDIASTINUM/ LUNGS/ BERYL: Mild cardiomegaly, currently without vascular congestion, or pleural effusion. No abnormal opacity in either lung worrisome for tumor or pneumonia. No pneumothorax. No tracheal deviation. No abnormal hilar fullness or gross mass on either side. BONES: No lytic or blastic destructive bone lesion. There is ffab-pf-alcqwzml disc space narrowing and endplate osteophytosis throughout the thoracic spine. UPPER ABDOMEN: Grossly intact. IMPRESSION: Thoracic spine DJD as described. Mild cardiomegaly. Currently without radiographic evidence of CHF or pneumonia. MACRO: None Signed by: Odin Neri 07/01/2025 10:34 AM Dictation workstation: [id number] [facility] Work Phone: Radiology Study observation (narrative) [facility] Work Phone: XR Chest Single viewOrdered By: Odin Neri on 07-01-2025 [facility] Work Phone: TSHon 06-28-2025 TSH Qn 1.15 m[IU]/L Normal 0.40-4.50 [facility] Comment on above: Order Comment: FASTI NG:NO FASTING: NO Performed By: #### 8 99 #### [facility] of [address], [address] [place] [address] Accountant Manager: Joe Braga MD BASIC METABOLIC PANEL WITH A NION GAPon 06-21-2025 BUN/CREATININE RATIO SEE NOTE: Normal 6-22 [facility] Comment on above: Result Comment: Not Reported: BUN and Creatinine are within reference range. Performed By: #### 1 6802, 75660, 7600 #### [facility] [address], [address] [place] [address] Accountant Manager: Joe Braga MD Calcium [Mass/Vol] 10.1 mg/dL Normal 8.6-10.4 [facility] Comment on above: Performed By: #### 1 6802, 75055, 7600 #### [facility] of [address], [address] [place] [address] Accountant Manager: Joe Braga MD Chloride [Moles/Vol] 99 mmol/L Normal 98-110 [facility] Comment on above: Performed By: #### 1 6802, 77508, 7600 #### [facility] [place] [address] Accountant Manager: Joe Braga MD CO2 [Moles/Vol] 26 mmol/L Normal 20-32 [facility] Comment on above: Performed By: #### 1 6802, 42637, 7600 #### [facility] of [address], [address] [place] [address] Accountant Manager: Joe Braga MD Creatinine [Mass/Vol] 0.67 mg/dL Normal 0.60-0.[address] [facility] [address] [facility] Comment on above: Performed By: #### 1 6802, 21581, 7600 #### [facility] [address], [address] [place] [address] Accountant Manager: Joe Braga MD ELECTROLYTE BALANCE 11 mmol/L (calc) Normal 7-17 [facility] Comment on above: Performed By: #### 1 6802, 50182, 7600 #### [facility] [place] [address] Accountant Manager: Joe Braga MD GFR/1.73 sq M.predicted among non-blacks MDRD (S/P/Bld) [Vol rate/Area] 88 mL/min/{1.73_m2} Normal > OR = 60 [facility] Comment on above: Performed By: #### 1 680, 03461, 7600 #### [facility] [place] [address] Accountant Manager: Joe Braga MD Glucose [Mass/Vol] 108 mg/dL High 65-99 [facility] Comment on above: Result Comment: Fasting reference interval For someone without known diabetes, a glucose value between 100 and 125 mg/dL is consistent with prediabetes and should be confirmed with a follow-up test. Performed By: #### 1 680, 11134, 7600 #### [facility] [address], [address] [place] [address] Accountant Manager: Joe Braga MD Potassium [Moles/Vol] 4.5 mmol/L Normal 3.5-5.[address] [facility] Comment on above: Performed By: #### 1 680, 33710, 7600 #### [facility] [place] [address] Accountant Manager: Joe Braag MD Sodium [Moles/Vol] 136 mmol/L Normal 135-146 [facility] Comment on above: Performed By: #### 1 6802, 07824, 7600 #### [facility] [place] [address] Accountant Manager: Joe Braga MD Urea nitrogen [Mass/Vol] 11 mg/dL Normal 7-25 [facility] Comment on above: Performed By: #### 1 6802, 44488, 7600 #### [facility] [address], [address] [place] [address] Accountant Manager: Joe Braga MD HEMOGLOBIN A1c WITH eAGon eAG (mmol/L) 6.6 mmol/L Normal [facility] Comment on above: Performed By: #### 1 6802, 73579, 7600 #### [facility] [address], [address] [place] [address] Accountant Manager: Joe Braga MD HbA1c (Bld) [Mass fraction] 5.8 % High <5.7 [facility] Comment on above: Result Comment: For someone without known diabetes, [...] A1c for diagnosis of diabetes for children. Performed By: #### 1 6802, 76140, 7600 #### [facility] [address], [address] [place] [address] Accountant Manager: Joe Braga MD Magnesium [Mass/Vol] 120 mg/dL Normal [facility] Comment on above: Performed By: #### 1 6802, 63184, 7600 #### [facility] [place] [address] Accountant Manager: Joe Braga MD LIPID PANEL, STANDARD Cholesterol [Mass/Vol] 199 mg/dL Normal <200 [facility] Comment on above: Order Comment: FASTI NG:YES FASTING: YES Performed By: #### 1 6802, 09527, 7600 #### [facility] [address], [address] [place] [address] Accountant Manager: Joe Braga MD Cholesterol in HDL [Mass/Vol] 66 mg/dL Normal > OR = 50 [facility] Comment on above: Order Comment: FASTI NG:YES FASTING: YES Performed By: #### 1 6802, 69016, 7600 #### [facility] [address], [address] [place] [address] Accountant Manager: Joe Braga MD Cholesterol in LDL [Mass/Vol] 112 mg/dL High [facility] Comment on above: Order Comment: FASTI NG:YES FASTING: YES Result Comment: Refe rence range: <100 Desirable range <100 mg/dL for primary prevention; <70 mg/dL for patients with CHD or diabetic patients with > or = 2 CHD risk factors. LDL-C is now calculated using the Mel calculation, which is a validated novel method providing better accuracy than the Friedewald equation in the estimation of LDL-C. Dexter CHÁVEZ et al. OSCAR. 2013;310(19): 3661-7884 (http://education.[employer].MePIN / [employer]/faq/IVC304) Performed By: #### 1 6802, 56540, 7600 #### [facility] [address], [address] [place] [address] Accountant Manager: Joe Braga MD Cholesterol.total/Cho lesterol in HDL [Mass ratio] 3.0 {ratio} Normal <5.0 [facility] Comment on above: Order Comment: FASTI NG:YES FASTING: YES Performed By: #### 1 6802, 22268, 7600 #### [facility] [address], [address] [place] [address] Accountant Manager: Joe Braga MD NON HDL CHOLESTEROL 133 mg/dL (calc) High <130 [facility] Comment on above: Order Comment: FASTI NG:YES FASTING: YES Result Comment: For patients with diabetes plus 1 major ASCVD risk factor, treating to a non-HDL-C goal of <100 mg/dL (LDL-C of <70 mg/dL) is considered a therapeutic option. Performed By: #### 1 6802, 65648, 7600 #### [facility] [address], [address] [place] [address] Accountant Manager: Joe Braga MD Triglyceride [Mass/Vol] 103 mg/dL Normal <150 [facility] Comment on above: Order Comment: FASTI NG:YES FASTING: YES Performed By: #### 1 5792, 62056, 1590 #### [facility] [address], [address] [place] [address] Accountant Manager: Joe Braga MD BASIC METABOLIC PANEL WITH A CORNELIUS GAPon 03-12-2025 BUN/CREATININE RATIO SEE NOTE: Normal - [facility] Comment on above: Order Comment: FASTI NG:YES FASTING: YES Result Comment: Not Reported: BUN and Creatinine are within reference range. Performed By: #### 9 5724 #### [facility] [place] [address] Accountant Manager: Joe Braga MD Calcium [Mass/Vol] 9.8 mg/dL Normal 8.6-10.4 [facility] Comment on above: Order Comment: FASTI NG:YES FASTING: YES Performed By: #### 9 2378 #### [facility] [address], [address] [place] [address] Accountant Manager: Joe Braga MD Chloride [Moles/Vol] 99 mmol/L Normal 98-110 [facility] Comment on above: Order Comment: FASTI NG:YES FASTING: YES Performed By: #### 9 1568 #### [facility] [place] [address] Accountant Manager: Joe Braga MD CO2 [Moles/Vol] 23 mmol/L Normal 20-32 [facility] Comment on above: Order Comment: FASTI NG:YES FASTING: YES Performed By: #### 9 9473 #### [facility] [place] [address] Accountant Manager: Joe Braga MD Creatinine [Mass/Vol] 0.78 mg/dL Normal 0.60-0.[address] [facility] [address] [facility] Comment on above: Order Comment: FASTI NG:YES FASTING: YES Performed By: #### 9 8019 #### [facility] [address] [place] [address] Accountant Manager: Joe Braga MD ELECTROLYTE BALANCE 15 mmol/L (calc) Normal 7-17 [facility] Comment on above: Order Comment: FASTI NG:YES FASTING: YES Performed By: #### 9 3528 #### [facility] [address], [address] [place] [address] Accountant Manager: Joe Braga MD GFR/1.73 sq M.predicted among non-blacks MDRD (S/P/Bld) [Vol rate/Area] 77 mL/min/{1.73_m2} Normal > OR = 60 [facility] Comment on above: Order Comment: FASTI NG:YES FASTING: YES Performed By: #### 9 3148 #### [facility] [address], [address] [place] [address] Accountant Manager: Joe Braga MD Glucose [Mass/Vol] 131 mg/dL High 65-99 [facility] Comment on above: Order Comment: FASTI NG:YES FASTING: YES Result Comment: Fasting reference interval For someone without known diabetes, a glucose value >125 mg/dL indicates that they may have diabetes and this should be confirmed with a follow-up test. Performed By: #### 9 9978 #### [facility] [address], [address] [place] [address] Accountant Manager: Joe Braga MD Potassium [Moles/Vol] 4.7 mmol/L Normal 3.5-5.[address] [facility] Comment on above: Order Comment: FASTI NG:YES FASTING: YES Performed By: #### 9 3208 #### [facility] [address], [address] [place] [address] Accountant Manager: Joe Braga MD Sodium [Moles/Vol] 137 mmol/L Normal 135-146 [facility] Comment on above: Order Comment: FASTI NG:YES FASTING: YES Performed By: #### 9 1888 #### [facility] [address], [address] [place] [address] Accountant Manager: Joe Braga MD Urea nitrogen [Mass/Vol] 12 mg/dL Normal 7-25 [facility] Comment on above: Order Comment: FASTI NG:YES FASTING: YES Performed By: #### 9 2498 #### [facility] [place] [address] Accountant Manager: Joe Braga MD BASIC METABOLIC PANEL WITH A CORNELIUS COYNEon 12-18-2024 BUN/CREATININE RATIO SEE NOTE: Normal 6-22 [facility] Comment on above: Order Comment: FASTI NG:YES FASTING: YES Result Comment: Not Reported: BUN and Creatinine are within reference range. Performed By: #### 1 6802, 09656, 05079, 899 #### [facility] [address], [address] [place] [address] Accountant Manager: Joe Braga MD Calcium [Mass/Vol] 9.9 mg/dL Normal 8.6-10.4 [facility] Comment on above: Order Comment: FASTI NG:YES FASTING: YES Performed By: #### 1 6802, 11360, 48308, 899 #### [facility] [address], [address] [place] [address] Accountant Manager: Joe Braga MD Chloride [Moles/Vol] 100 mmol/L Normal 98-110 [facility] Comment on above: Order Comment: FASTI NG:YES FASTING: YES Performed By: #### 1 6802, 93116, 34344, 899 #### [facility] [place] [address] Accountant Manager: Joe Braga MD CO2 [Moles/Vol] 28 mmol/L Normal 20-32 [facility] Comment on above: Order Comment: FASTI NG:YES FASTING: YES Performed By: #### 1 6802, 98371, 34609, 899 #### [facility] [place] [address] Accountant Manager: Joe Braga MD Creatinine [Mass/Vol] 0.64 mg/dL Normal 0.60-0.95 [facility] Comment on above: Order Comment: FASTI NG:YES FASTING: YES Performed By: #### 1 6802, 66627, 94452, 899 #### [facility] [address], [address] [place] [address] Accountant Manager: Joe Braga MD ELECTROLYTE BALANCE 8 mmol/L (calc) Normal 7-17 [facility] Comment on above: Order Comment: FASTI NG:YES FASTING: YES Performed By: #### 1 6802, 63742, 48833, 899 #### [facility] [address], [address] [place] [address] Accountant Manager: Joe Braga MD GFR/1.73 sq M.predicted among non-blacks MDRD (S/P/Bld) [Vol rate/Area] 89 mL/min/{1.73_m2} Normal > OR = 60 [facility] Comment on above: Order Comment: FASTI NG:YES FASTING: YES Performed By: #### 1 6802, 06502, 71458, 899 #### [email or web address] [address], [address] [place] [address] Accountant Manager: Joe Braga MD Glucose [Mass/Vol] 114 mg/dL High 65-99 [email or web address] Comment on above: Order Comment: FASTI NG:YES FASTING: YES Result Comment: Fasting reference interval For someone without known diabetes, a glucose value between 100 and 125 mg/dL is consistent with prediabetes and should be confirmed with a follow-up test. Performed By: #### 1 6802, 34820, 89841, 899 #### [facility] [address], [address] [place] [address] Accountant Manager: Joe Braga MD Potassium [Moles/Vol] 4.1 mmol/L Normal 3.5-5.[address] [facility] [address] [facility] Comment on above: Order Comment: FASTI NG:YES FASTING: YES Performed By: #### 1 6802, 78419, 07233, 899 #### [facility] [address], [address] [place] [address] Accountant Manager: Joe Braga MD Sodium [Moles/Vol] 136 mmol/L Normal 135-146 [facility] Comment on above: Order Comment: FASTI NG:YES FASTING: YES Performed By: #### 1 6802, 20792, 80810, 899 #### [facility] [address], [address] [place] [address] Accountant Manager: Joe Braga MD Urea nitrogen [Mass/Vol] 8 mg/dL Normal 7-25 [facility] Comment on above: Order Comment: FASTI NG:YES FASTING: YES Performed By: #### 1 6802, 94258, 40640, 899 #### [facility] [address], [address] [place] [address] Accountant Manager: Joe Braga MD HEMOGLOBIN A1c WITH eAGon eAG (mmol/L) 6.8 mmol/L Normal [facility] Comment on above: Performed By: #### 1 6802, 96958, 65166, 899 #### [facility] [address], [address] [place] [address] Accountant Manager: Joe Braga MD HEMOGLOBIN A1c 5.9 % of total Hgb High <5.7 [facility] Comment on above: Result Comment: For someone without known diabetes, [...] A1c for diagnosis of diabetes for children. Performed By: #### 1 6802, 13442, 01854, 899 #### [facility] [address], [address] [place] [address] Accountant Manager: Joe Braga MD Magnesium [Mass/Vol] 123 mg/dL Normal Ques [facility] Comment on above: Performed By: #### 1 6802, 13282, 53317, 899 #### [facility] [address] [place] [address] [address], [address] Accountant Manager: Joe Braga MD TSHon 12-18-2024 TSH Qn 1.60 m[IU]/L Normal 0.40-4.50 [facility] Comment on above: Performed By: #### 1 6802, 83891, 84077, 899 #### [facility] [address], [address] [place] [address] Accountant Manager: Joe Braga MD VITAMIN D,25-OH,TOTAL,IAon 0 12-18-2024 VITAMIN D,25-OH,TOTAL,IA 70 ng/mL Normal 30-100 [facility] Comment on above: Result Comment: Kitty min D Status 25-OH Vitamin D: Deficiency: <20 ng/mL Insufficiency: 20 - 29 ng/mL Optimal: > or = 30 ng/mL For 25-OH Vitamin D testing on patients on D2-supplementation and patients for whom quantitation of D2 and D3 fractions is required, the QuestAssureD(TM) 25-OH VIT D, (D2,D3), LC/MS/MS is recommended: order code 20259 (patients >2yrs). See Note 1 Note 1 For additional information, please refer to http://education.Simple Lifeforms/faq/FYQ949 (This link is being provided for informational/ educational purposes only.) Performed By: #### 1 6802, 37928, 25690, 899 #### [facility] [address], [address] [place] [address] Accountant Manager: Joe Braga MD Basic metabolic 2000 panelon 06-18-2024 Anion gap [Moles/Vol] 13 mmol/L Normal 10-20 [facility] Comment on above: Performed By: #### 2 4321-2 #### ABDI MIKE ([id number]) [facility] ([facility]) [address] [place] [address] Calcium [Mass/Vol] 9.7 mg/dL Normal 8.6-10.3 [facility] Comment on above: Performed By: #### 2 4321-2 #### ABDI MIKE ([id number]) [facility] ([facility]) [facility] [place] [address] Chloride [Moles/Vol] 98 mmol/L Normal 98-107 [facility] Comment on above: Performed By: #### 2 4321-2 #### ABDI MIKE ([id number]) [facility] ([facility]) [facility] [place] [address] CO2 [Moles/Vol] 28 mmol/L Normal 21-32 [facility] Comment on above: Performed By: #### 2 4321-2 #### ABDI MIKE ([id number]) [facility] ([facility]) [address] [place] [address]881 Creatinine [Mass/Vol] 0.67 mg/dL Normal 0.50-1.05 [facility] Comment on above: Performed By: #### 2 4320-2 #### ABDI MIKE ([id number]) [facility] ([facility]) [address] [place] [address] 20614 Glomerular filtration rate/1.73 sq M.predicted 89 mL/min/1.73m*2 Normal >60 [facility] Comment on above: Result Comment: Calc ulations of estimated GFR are performed using the 2020 CKD-EPI Study Refit equation without the race variable for the IDMS-Traceable creatinine methods. https://jasn.asnjournals.org/content//ASN.650946 6391 Performed By: #### 2 4321-2 #### ABDI MIKE ([id number]) [facility] ([facility]) [address] [place] [address] 91287 Glucose [Mass/Vol] 107 mg/dL High 74-99 [facility] Comment on above: Performed By: #### 2 4321-2 #### ABDI MIKE ([id number]) [facility] ([facility]) [address] [place] [address] 93957 Potassium [Moles/Vol] 4.4 mmol/L Normal 3.5-5.3 [facility] Comment on above: Performed By: #### 2 4321-2 #### ABDI MIKE ([id number]) [facility] ([facility]) [address] [place] [address] 12659 Sodium [Moles/Vol] 135 mmol/L Low 136-145 [facility] Comment on above: Performed By: #### 2 4321-2 #### ABDI MIKE ([id number]) [facility] ([facility]) [address] [place] [address] 69655 Urea nitrogen [Mass/Vol] 8 mg/dL Normal 6-23 [facility] Comment on above: Performed By: #### 2 4321-2 #### ABDI MIKE ([id number]) [facility] ([facility]) [address] [place] [address] 49940 HbA1c (Bld) [Mass fraction]o n 06-18-2024 Average glucose Estimated from glycated hemoglobin (Bld) [Mass/Vol] 111 mg/dL Normal Not Established [facility] Comment on above: Order Comment: Diagn osis of Diabetes-Adults Non-Diabetic: < or = 5.6% Increased risk for developing diabetes: 5.7-6.4% Diagnostic of diabetes: > or = 6.5% Performed By: #### 4 548-4 #### KETURAH Jimenez ([id number]) [facility] ([facility]) [address] [place], [place] [id number] Hemoglobin A1c/Hemoglobin.to divine 06-18-2024 HbA1c (Bld) [Mass fraction] 5.5 % Normal see below [facility] Comment on above: Order Comment: Diagn osis of Diabetes-Adults Non-Diabetic: < or = 5.6% Increased risk for developing diabetes: 5.7-6.4% Diagnostic of diabetes: > or = 6.5% Performed By: #### 4 548-4 #### KETURAH Jimenez ([id number]) [facility] ([facility]) [address] [place] [address] 47795 Lipid 1996 panelon Cholesterol [Mass/Vol] 189 mg/dL Normal 0-199 [facility] Comment on above: Result Comment: Age Desirable Borderline High High 0-19 Y 0 - 169 170 - 199 >/= 200 20-24 Y 0 - 189 190 - 224 >/= 225 >24 Y 0 - 199 200 - 239 >/= 240 All ranges are based on fasting samples. Specific therapeutic targets will vary based on patient-specific cardiac risk. Pediatric guidelines reference:Pediatrics 2011, 128(S5).Adult guidelines reference: NCEP ATPIII Guidelines,OSCAR 2001, 258:2486-97 Venipuncture immediately after or during the administration of Metamizole may lead to falsely low results. Testing should be performed immediately prior to Metamizole dosing. Performed By: #### 2 4331-1 #### ABDI MIKE ([id number]) [facility] ([facility]) [address] [place] [address] 88446 Cholesterol in HDL [Mass/Vol] 67.0 mg/dL Normal [facility] Comment on above: Result Comment: Age Very Low Low Normal High 0-19 Y < 35 < 40 40-45 ---- 20-24 Y ---- < 40 >45 ---- >24 Y ---- < 40 40-60 >60 Performed By: #### 2 4331-1 #### ABDI MIKE ([id number]) [facility] ([facility]) [address] [place] [address] 86396 Cholesterol in LDL [Mass/Vol] 97 mg/dL Normal <=99 [facility] Comment on above: Result Comment: Near Borderline AGE Desirable Optimal High High Very High 0-19 Y 0 - 109 --- 110-129 >/= 130 ---- 20-24 Y 0 - 119 --- 120-159 >/= 160 ---- >24 Y 0 - 99 100-129 130-159 160-189 >/=190 Performed By: #### 2 4331-1 #### ABDI MIKE ([id number]) [facility] ([facility]) [address] [place] [address] 06132 Cholesterol in VLDL [Mass/Vol] 25 mg/dL Normal 0-40 [facility] Comment on above: Performed By: #### 2 4331-1 #### ABDI MIKE ([id number]) [facility] ([facility]) [facility] [place] [address] CHOLESTEROL/HDL RATIO 2.8 Normal [facility] Comment on above: Result Comment: Ref Values Desirable < 3.4 High Risk > 5.0 Performed By: #### 2 4331-1 #### ABDI MIKE ([id number]) [facility] ([facility]) [address] [place] [address] 09048 NON HDL CHOLESTEROL 122 mg/dL Normal 0-149 [facility] Comment on above: Result Comment: Age Desirable Borderline High High Very High 0-19 Y 0 - 119 120 - 144 >/= 145 >/= 160 20-24 Y 0 - 149 150 - 189 >/= 190 ---- >24 Y 30 mg/dL above LDL Cholesterol goal Performed By: #### 2 4331-1 #### ABDI MIKE ([id number]) [facility] ([facility]) [address] [place] [address] 64388 Triglyceride [Mass/Vol] 127 mg/dL Normal 0-149 [facility] Comment on above: Result Comment: Age Desirable Borderline High High Very High 0 D-90 D 19 - 174 ---- ---- ---- 91 D- 9 Y 0 - 74 75 - 99 >/= 100 ---- 10-19 Y 0 - 89 90 - 129 >/= 130 ---- 20-24 Y 0 - 114 115 - 149 >/= 150 ---- >24 Y 0 - 149 150 - 199 200- 499 >/= 500 Venipuncture immediately after or during the administration of Metamizole may lead to falsely low results. Testing should be performed immediately prior to Metamizole dosing. Performed By: #### 2 4331-1 #### ABDI MIKE ([id number]) [facility] ([facility]) [address] [place] [address] 23745 Thyrotropinon 06-18-2024 TSH Qn 5.41 m[IU]/L High 0.44-3.98 [facility] Comment on above: Order Comment: TSH t esting is performed using different testing methodology at [facility] than at other [facility]. Direct result comparisons should only be made within the same method. Performed By: #### 3 016-3 #### ABDI MIKE ([id number]) [facility] ([facility]) [address] [place] [address] Comprehensive metabolic 2000 panelon 03-15-2024 Albumin BCP dye [Mass/Vol] 4.4 g/dL Normal 3.4-5.0 [facility] Comment on above: Performed By: #### 2 4323-8 #### ABDI MIKE ([id number]) [facility] ([facility]) [address] [place] [address] ALP [Catalytic activity/Vol] 72 U/L Normal 33-136 [facility] Comment on above: Performed By: #### 2 4323-8 #### ABDI MIKE ([id number]) [facility] ([facility]) [address] [place] [address] ALT With P-5'-P [Catalytic activity/Vol] 16 U/L Normal 7-45 [facility] Comment on above: Result Comment: Suzi ents treated with Sulfasalazine may generate falsely decreased results for ALT. Performed By: #### 2 4323-8 #### ABDI MIKE ([id number]) [facility] ([facility]) [address] [place] [address] 48149 Anion gap [Moles/Vol] 11 mmol/L Normal 10-20 [facility] Comment on above: Performed By: #### 2 4323-8 #### ABDI MIKE ([id number]) [facility] ([facility]) [address] [place] [address] 40842 AST With P-5'-P [Catalytic activity/Vol] 19 U/L Normal 9-39 [facility] Comment on above: Performed By: #### 2 4323-8 #### ABDI MIKE ([id number]) [facility] ([facility]) [address] [place] [address] Bilirubin [Mass/Vol] 0.7 mg/dL Normal 0.0-1.2 [facility] Comment on above: Performed By: #### 2 4323-8 #### ABDI MIKE ([id number]) [facility] ([facility]) [facility] [place] [address] Calcium [Mass/Vol] 9.8 mg/dL Normal 8.6-10.3 [facility] Comment on above: Performed By: #### 2 4323-8 #### ABDI MIKE ([id number]) [facility] ([facility]) [address] [place] [address] 86444 Chloride [Moles/Vol] 99 mmol/L Normal 98-107 [facility] Comment on above: Performed By: #### 2 4323-8 #### ABDI MIKE ([id number]) [facility] ([facility]) [address] [place] [address] 43679 CO2 [Moles/Vol] 28 mmol/L Normal 21-32 [facility] Comment on above: Performed By: #### 2 4323-8 #### ABDI MIKE ([id number]) [facility] ([facility]) [address] [place] [address] 55243 Creatinine [Mass/Vol] 0.64 mg/dL Normal 0.50-1.05 [facility] Comment on above: Performed By: #### 2 4323-8 #### ABDI MIKE ([id number]) [facility] ([facility]) [address] [place] [address] 49459 Glomerular filtration rate/1.73 sq M.predicted 90 mL/min/1.73m*2 Normal >60 [facility] Comment on above: Result Comment: Calc ulations of estimated GFR are performed using the 2020 CKD-EPI Study Refit equation without the race variable for the IDMS-Traceable creatinine methods. https://jasn.asnjournals.org/content/early//ASN.703159 4687 Performed By: #### 2 4323-8 #### ABDI MIKE ([id number]) [facility] ([facility]) [address] [place] [address] 98151 Glucose [Mass/Vol] 106 mg/dL High 74-99 [facility] Comment on above: Performed By: #### 2 4323-8 #### ABDI MIKE ([id number]) [facility] ([facility]) [address] [place] [address] 57447 Potassium [Moles/Vol] 4.2 mmol/L Normal 3.5-5.3 [facility] Comment on above: Performed By: #### 2 4322-8 #### ABDI MIKE ([id number]) [facility] ([facility]) [address] [place] [address] 52127 Protein [Mass/Vol] 7.3 g/dL Normal 6.4-8.2 [facility] Comment on above: Performed By: #### 2 3-8 #### ABDI MIKE ([id number]) [facility] ([facility]) [address] [place] [address] 49424 Sodium [Moles/Vol] 134 mmol/L Low 136-145 [facility] Comment on above: Performed By: #### 2 4322-8 #### ABDI MIKE ([id number]) [facility] ([facility]) [address] [place] [address] 35446 Urea nitrogen [Mass/Vol] 10 mg/dL Normal 6-23 [facility] Comment on above: Performed By: #### 2 4322-8 #### ABDI MIKE ([id number]) [facility] ([facility]) [address] [place] [address] 04839 Basic metabolic 2000 panelon 12-20-2023 Anion gap [Moles/Vol] 12 mmol/L Normal 10-20 [facility] Comment on above: Performed By: #### 2 1-2 #### ABDI MIKE ([id number]) [facility] ([facility]) [address] [place] [address] 05190 Calcium [Mass/Vol] 9.8 mg/dL Normal 8.6-10.3 [facility] Comment on above: Performed By: #### 2 1-2 #### ABDI MIKE ([id number]) [facility] ([facility]) [address] [place] [address] 78964 Chloride [Moles/Vol] 99 mmol/L Normal 98-107 [facility] Comment on above: Performed By: #### 2 4321-2 #### ABDI MIKE ([id number]) [facility] ([facility]) [address] [place] [address] 85598 CO2 [Moles/Vol] 30 mmol/L Normal 21-32 [facility] Comment on above: Performed By: #### 2 4321-2 #### ABDI MIKE ([id number]) [facility] ([facility]) [address] [place] [address] 81144 Creatinine [Mass/Vol] 0.72 mg/dL Normal 0.50-1.05 [facility] Comment on above: Performed By: #### 2 4321-2 #### ABDI MIKE ([id number]) [facility] ([facility]) [address] [place] [address] 77456 Glomerular filtration rate/1.73 sq M.predicted 85 mL/min/1.73m*2 Normal >60 [facility] Comment on above: Result Comment: Calc ulations of estimated GFR are performed using the 2020 CKD-EPI Study Refit equation without the race variable for the IDMS-Traceable creatinine methods. https://jasn.asnjournals.org/content//ASN.506502 5671 Performed By: #### 2 4321-2 #### ABDI MIKE ([id number]) [facility] ([facility]) [address] [place] [address] 96168 Glucose [Mass/Vol] 119 mg/dL High 74-99 [facility] Comment on above: Performed By: #### 2 4321-2 #### ABDI MIKE ([id number]) [facility] ([facility]) [address] [place] [address] 69817 Potassium [Moles/Vol] 4.1 mmol/L Normal 3.5-5.3 [facility] Comment on above: Performed By: #### 2 4321-2 #### ABDI MIKE ([id number]) [facility] ([facility]) [address] [place] [address] 69337 Sodium [Moles/Vol] 137 mmol/L Normal 136-145 [facility] Comment on above: Performed By: #### 2 4321-2 #### ABDI MIKE ([id number]) [facility] ([facility]) [facility] [place] [address] Urea nitrogen [Mass/Vol] 10 mg/dL Normal 6-23 [facility] Comment on above: Performed By: #### 2 4321-2 #### ABDI MIKE ([id number]) [facility] ([facility]) [address] [place] [address] 17270 HbA1c (Bld) [Mass fraction]o n 12-20-2023 Average glucose Estimated from glycated hemoglobin (Bld) [Mass/Vol] 114 mg/dL Normal Not Established [facility] Comment on above: Order Comment: Diagn osis of Diabetes-Adults Non-Diabetic: < or = 5.6% Increased risk for developing diabetes: 5.7-6.4% Diagnostic of diabetes: > or = 6.5% Monitoring of Diabetes Age (y)....................... Therapeutic Goal (%) Adults: >18.........................<7.0 Pediatrics: 13-18...................<7.5 Pediatrics: 7-12....................<8.0 Pediatrics: 0-6..................... 7.5-8.5 [place] [employer]. Diabetes Care 33(S1), Nov 2009 Performed By: #### 4 548-4 #### ABDI MIKE ([id number]) [facility] ([facility]) [address] [place] [address] 66134 Hemoglobin A1c/Hemoglobin.to divine 12-20-2023 HbA1c (Bld) [Mass fraction] 5.6 % Normal see below [facility] Comment on above: Order Comment: Diagn osis of Diabetes-Adults Non-Diabetic: < or = 5.6% Increased risk for developing diabetes: 5.7-6.4% Diagnostic of diabetes: > or = 6.5% Monitoring of Diabetes Age (y)....................... Therapeutic Goal (%) Adults: >18.........................<7.0 Pediatrics: 13-18...................<7.5 Pediatrics: 7-12....................<8.0 Pediatrics: 0-6..................... 7.5-8.5 [place] [employer]. Diabetes Care 33(S1), Nov 2009 Performed By: #### 4 548-4 #### ABDI MIKE ([id number]) [facility] ([facility]) [facility] [place] [address] Thyrotropinon 12-20-2023 TSH Qn 5.78 m[IU]/L High 0.44-3.98 [facility] Comment on above: Order Comment: TSH t esting is performed using different testing methodology at [facility] than at other [facility]. Direct result comparisons should only be made within the same method. Performed By: #### 3 016-3 #### ABDI MIKE ([id number]) 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 SIADH/hyponatremia her sodium level has decreased again and is down to 132, she is drinking a significant amount of fluid each day, she also has low protein intake, at this time she has agreed to 2 degree decrease to 6 cups of coffee per day from 8 and to decrease from 2 bottles of pop per day to 1, we will recheck her lab work in 2 weeks, at that time we will make further recommendations, I am hopeful that with decreasing her fluid her sodium will rise back to within normal limits 2. Hypertension-blood pressure is well controlled on her current medications including losartan, metoprolol, nifedipine 3. Vitamin D deficiency-on replacement No further changes are made at this time She will have repeat lab work in 2 weeks She will decrease her fluid intake She will follow-up in our office in 1 year Provider Impressions SIADH: Hypertension: On losartan, Nifedipine, and metoprolol-blood pressure increasing slightly Diverticulosis Hypothyroidism History of CHF Microscopic hematuria Vitamin D deficiency Hyperlipidemia Restless leg syndrome Low osmolar state Chief Complaint 1 YEAR FUV History of Present IllnessPatient being seen in follow-up for hyponatremia and SIADH Labs reviewed Glucose 109 Sodium 132, potassium 4.1, chloride 96, bicarb 29 Renal function with BUN of 10 and creatinine of 0.66 She is doing well She does not drink a significant amount of fluid each day She drinks approximately 8 cups of coffee every morning She also drinks 2 bottles of pop per day and she takes her pills with water She has no swelling Her blood pressure is well controlled She has no difficulties voiding She has had no confusion lightheadedness or dizziness Review of Systems Constitutional: no fever, no chills, no recent weight gain and no recent weight loss. Eyes: no blurred vision and no diplopia. ENT: no hearing loss, no earache, no sore throat, no swollen glands in the neck and no nasal discharge. Cardiovascular: no chest pain, no palpitations and no lower extremity edema. Respiratory: no shortness of breath, no chronic cough and no shortness of breath during exertion. Gastrointestinal: no abdominal pain, no constipation, no heartburn, no vomiting, no bloody stools and no change in bowel movements. Genitourinary: no dysuria and no hematuria. Musculoskeletal: no arthralgias and no myalgias. Skin: no rashes and no skin lesions. Neurological: no headaches and no dizziness. Psychiatric: no confusion, no depression and no anxiety. Endocrine: no heat intolerance, no cold intolerance, appetite not increased, no thyroid disorder, no increased urinary frequency and no dry skin. Hematologic/Lymphatic: does not bleed easily and does not bruise easily. All other systems have been reviewed and are negative for complaint. Active Problems Benign essential hypertension (401.1) (I10) BMI 32.0-32.9,adult (V85.32) (Z68.32) Bulging lumbar disc (722.52) (M51.36) Chronic low back pain (724.2,338.29) (M54.50,G89.29) Encounter for screening mammogram for malignant neoplasm of breast (V76.12) (Z12.31) Hip pain, left (719.45) (M25.552) Hyperglycemia (790.29) (R73.9) Lumbar herniated disc (722.10) (M51.26) Medicare annual wellness visit, subsequent (V70.0) (Z00.00) Mixed hyperlipidemia (272.2) (E78.2) Obesity (BMI 30.0-34.9) (278.00) (E66.9) Osteoarthritis of lumbar spine, unspecified spinal osteoarthritis complication status (721.3) (M47.816) Restless leg syndrome (333.94) (G25.81) Screening for breast cancer (V76.10) (Z12.39) 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) Thoracic spondylosis (721.2) (M47.814) Vitamin D deficiency (268.9) (E55.9) Past Medical History History of hypercholesterolemia (V12.29) (Z86.39) History of menopause (V49.81) (Z78.0) History of (V13.29) Surgical History History of Cholecystectomy History of Colonic polypectomy History of Colonoscopy History of Dilation and curettage History of Hernia repair Family History Family history of cardiac disorder (V17.49) (Z82.49) Family history of malignant neoplasm (V16.9) (Z80.9) Family history of liver disease (V18.59) (Z83.79) Family history of malignant neoplasm (V16.9) (Z80.9) Family history of malignant neoplasm of colon (V16.0) (Z80.0) Family history of malignant neoplasm of skin (V16.8) (Z80.8) Family history of cardiac disorder (V17.49) (Z82.49) Family history of kidney disease (V18.69) (Z84.1) Family history of lung c (more content not included)... Normal [facility] - Chemistry and C hemistry - challengeon 03-10-2023 Anion gap [Moles/Vol] 11 mmol/L 10 - 20 [facility]- Nephrolog [place] [address] DO Work Phone: Calcium [Mass/Vol] 9.3 mg/dL 8.6 - 10.3 [facility]-Nep [facility] [place] [address] DO Work Phone: Chloride [Moles/Vol] 96 mmol/L below low threshold 98 - 107 -Nephrolog [place] [address] DO Work Phone: CO2 [Moles/Vol] 29 mmol/L 21 - 32 [facility]-Nephro log [place] [address] DO Work Phone: Creatinine [Mass/Vol] 0.66 mg/dL See Below [facility] Nephrolog [place] [address] DO Work Phone: Comment on above: Reference Range: 0.5 0 - 1.05 Glucose [Mass/Vol] 109 mg/dL above high threshold 74 - 99 -Nephrolog [place] [address] DO Work Phone: Potassium [Moles/Vol] 4.1 mmol/L 3.5 - 5.3 - Nephrolog [place] [address] DO Work Phone: Sodium [Moles/Vol] 132 mmol/L below low threshold 136 - 145 -Nephrolog [place] [address] DO Work Phone: Urea nitrogen [Mass/Vol] 10 mg/dL 6 - [facility]-Nephrolog [facility] Yuri 3 DO Work Phone: No Panel Informationon 03-10 89 {mL/min/1.73m2} >90 [facility] Yuri 3 DO Work Phone: Comment on above: CALCULATIONS OF TERESA MATED GFR ARE PERFORMED USING THE 2020 CKD-EPI STUDY REFIT EQUATION WITHOUT THE RACE VARIABLE FOR THE IDMS-TRACEABLE CREATININE METHODS.https://jasn.asnjournals.org/content/early// N.2578776370 Office Visiton 12-28-2022 Follow-up visit Diagnoses/Problems Benign essential hypertension (401.1) (I10) Chronic low back pain (724.2,338.29) (M54.50,G89.29) SIADH (syndrome of inappropriate 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 As we discussed unfortunately the arthritis in your back is causing you some significant day-to-day impairment. Please remember that there are several options for treatment and I would recommend that you strongly consider doing a bout of physical therapy or we could refer you to the pain clinic. As we discussed please be careful with your back as far as lifting heavy objects and so forth. We also discussed [id number] options and I will list these for you here a. You can try topical liniments such as IcyHot or Bengay or a cream called capsaicin. Please follow the directions b. Because Voltaren gel is an NSAID you do have to exercise caution with its use and please follow the directions on the box c. You can take Tylenol pskf-kxn-dlouxon as directed but do not exceed 3000 mg in a 24-hour cycle d. You may also consider trying a TENS unit which are usually self-explanatory. You can get them online. e. There is a prescription medication called gabapentin which is also known as Neurontin. It is traditionally an antiseizure medication but these days we use it frequently for chronic pain control and it is a prescription so we would need to start it here and then gradually titrate the medication to its full effect. Please schedule a 6-month follow-up visit with 6-month lab to include fasting BMP with hemoglobin A1c and diagnosis of hypertension with hyperglycemia and also a lipid profile with diagnosis of hyperlipidemia Chief Complaint Pt is here today for a 6 month check up, review labs. C/O chronic LB pain. This note was generated by using webtide software. It may contain errors in wording, punctuate, or spelling. She is here today for her routine 6-month checkup. She is looking well and for the most part doing well with the exception of chronic low back pain. She states it feels like it is a little bit worse in recent times. We are reminded that she has been diagnosed with significant lumbar disc disease and is even had bulging disks and herniations in the past. She is also completed sessions of physical therapy back in December 2021 and even back in 2018. Unfortunately she indicates it was not all that helpful. She was also going to the pain clinic and there was discussion about doing cortisone injections but she did not want to try that. She is wondering what she can do on her own at home. We had a discussion about the danger of NSAIDs as far as long-term use. We talked about topical liniments and we talked about trying a TENS unit. I told her that there would be nothing wrong with trying physical therapy again if she would like to try it and we could always have her go back to the pain clinic. I will make a list of options for her so that when she leaves here today she can consider all of them. We did conduct a full review of systems and we also went over the results of recent lab work. Overall I am pleased with her numbers. Her hemoglobin A1c was borderline elevated at 5.7. We just remind her to eat a healthy diet, stay physically active, and try to get his close to ideal body weight as possible. We are making no changes in therapy and we are giving refills today. If everything goes according to plan we will see her back in approximately 6 months for reevaluation. Review of SystemsDenies fatigue. Denies shortness of breath, coughing, wheezing Denies chest pain, occ palpitations, denies leg edema Denies nausea, vomiting, diarrhea, heartburn, abdominal pain, or black or bloody stools Denies significant joint pain . No back pain Denies feelings of significant anxiety or depression Active Problems Benign essential hypertension (401.1) (I10) BMI 32.0-32.9,adult (V85.32) (Z68.32) Bulging lumbar disc (722.52) (M51.36) Chronic low back pain (724.2,338.29) (M54.50,G89.29) Encounter for screening mammogram for malignant neoplasm of breast (V76.12) (Z12.31) Hip pain, left (719.45) (M25.552) Hyperglycemia (790.29) (R73.9) Lumbar herniated disc (722.10) (M51.26) Medicare annual wellness visit, subsequent (V70.0) (Z00.00) Mixed hyperlipidemia (272.2) (E78.2) Obesity (BMI 30.0-34.9) (278.00) (E66.9) Osteoarthritis of lumbar spine, unspecified spinal osteoarthritis complication status (721.3) (M47.816) Restles (more content not included)... Normal [place] Tobacco Screening.on 023 Fall risk assessment a) No falls within the last year [facility] [employer] Phone: Tobacco use status CP b) No [facility] Phone: Hemoglobin A1Con 12-20-2022 Glucose [Mass/Vol] 117 mg/dL [facility] [employer] Phone: HbA1c (Bld) [Mass fraction] 5.7 % Abnormal [facility] [employer] Phone: Comment on above: Diagnosis of Diabete s-Adults Non-Diabetic: < or = 5.6% Increased risk for developing diabetes: 5.7-6.4% Diagnostic of diabetes: > or = 6.5%. Monitoring of Diabetes Age (y) Therapeutic Goal (%) Adults: >18 <7.0 Pediatrics: 13-18 <7.5 7-12 <8.0 0- 6 7.5-8.5 [place] [employer]. Diabetes Care 33(S1), Nov 2009. Laboratory - Chemistry and C hemistry - challengeon 12-20-2022 Anion gap [Moles/Vol] 11 mmol/L 10 - 20 [facility] Phone: Calcium [Mass/Vol] 10.0 mg/dL 8.6 - 10.3 [facility] Phone: Chloride [Moles/Vol] 96 mmol/L below low threshold 98 - 107 [facility] Phone: CO2 [Moles/Vol] 30 mmol/L 21 - 32 [facility] Phone: Creatinine [Mass/Vol] 0.70 mg/dL See Below [facility] Phone: Comment on above: Reference Range: 0.5 0 - 1.05 Glucose [Mass/Vol] 113 mg/dL above high threshold 74 - 99 [facility] Phone: Potassium [Moles/Vol] 3.7 mmol/L 3.5 - 5.3 [facility] Phone: Sodium [Moles/Vol] 133 mmol/L below low threshold 136 - 145 [place] [employer] [facility] Work Phone: Urea nitrogen [Mass/Vol] 9 mg/dL 6 - 23 [facility] [facility] [employer] [facility] Work Phone: No Panel Informationon 12-20 88 {mL/min/1.73m2} >90 [facility] [employer] [facility] Work Phone: Comment on above: CALCULATIONS OF TERESA MATED GFR ARE PERFORMED USING THE 2020 CKD-EPI STUDY REFIT EQUATION WITHOUT THE RACE VARIABLE FOR THE IDMS-TRACEABLE CREATININE METHODS.https://jasn.asnjournals.org/content/early/ N.2622006083 TSH - Thyroid Stimulating Ho kodi, Serumon 12-20-2022 TSH Qn 3.50 m[IU]/L See Below [place] [employer] [facility] Work Phone: Comment on above: Reference Range: 0.4 4 - 3.98 TSH testing is performed using different testing methodology at [facility] than at other [facility]. Direct result comparisons should only be made within the same method. Medicare Annual Wellness Vis iton 06-29-2022 Medicare Annual Wellness Visit *Chief Complaint Pt is here today for a 6 month check up, she is also due for her [facility] wellness exam. Review labs. This note was generated by using webtide software. It may contain errors in wording, punctuate, or spelling. She is here today for her 6-month checkup and we also completed her annual Medicare wellness visit. Overall she is looking well and reports feeling well. We did conduct a full review of systems and we went through the Medicare questionnaire. We also reviewed recent laboratory test results. Her sodium level was down slightly at 132. She does see Johanna Garner for her SIADH. Her thyroid blood test was also off slightly and we have decided to adjust her medication by having her take an additional dose on Sundays. We also discussed her blood sugar and her hemoglobin A1c of 5.6 which has improved from last time. We discussed the importance of eating a healthy diet along with routine exercise and trying to get his close to ideal body weight as possible. We also discussed fall prevention and likely she has had no falls in the last 6 months. She also has advanced directives including a living will and power of immigration attorney for healthcare. She has no signs or symptoms of depression at this time and she is highly independent and doing everything for herself. She lives alone and does her own finances and manages her own medications. Her memory and hearing appear to be good. We also discussed the shingles vaccine and I do encourage her to get this season's flu vaccine next month. Her blood pressure remains under good control. We are making no changes in therapy other than the thyroid and we will see her back in approximately 6 months. History of Present Illness The patient is being seen for the subsequent annual wellness visit. Past Medical, Surgical and Family History: reviewed and updated in chart. Medications and Supplements: Review of all medications by a prescribing practitioner or clinical pharmacist (such as prescriptions, OTCs, herbal therapies and supplements) documented in the medical record. No, the patient is not using opioids. Patient Self Assessment of Health Status: good. Tobacco use: Non-User Alcohol use: Non-User Illicit drug use: Non-User Current diet: well balanced diet, does consume adequate fluids and does not consume caffeine. Exercise Frequency: infrequently. Depression/Suicide Screening: . During the past 2 weeks, the patient has not felt down, depressed or hopeless. During the past 2 weeks, the patient has not felt little interest or pleasure in doing things. Hearing Impairment: none. Cognitive Impairment: No cognitive impairment observed. Bathing: performs independently. Dressing: performs independently. Walking: performs independently. Toileting: performs independently. Feeding: performs independently. Personal Hygiene: performs independently. Bowels: continent. Bladder: continent. Managing Finances: performs independently. Shopping: performs independently. Managing Medications: performs independently. Housework / Basic Home Maintenance: performs independently. Falls Risk Screening:. DIANA has not fallen in the last 6 months. Home safety risk factors: none. Advance directives:. Advanced Care Planning discussed and documented advance care plan or surrogate decision maker documented in the medical record. Patient has living will. Patient has healthcare POA. Review of Systems Denies fatigue. Denies shortness of breath, coughing, wheezing Denies chest pain, palpitations, leg edema Denies nausea, vomiting, diarrhea, heartburn, abdominal pain, or black or bloody stools Denies significant joint pain . Chronic low mild back pain Denies feelings of significant anxiety or depression *Active Problems Benign essential hypertension (401.1) (I10) BMI 32.0-32.9,adult (V85.32) (Z68.32) Bulging lumbar disc (722.52) (M51.36) Chronic low back pain (724.2,338.29) (M54.50,G89.29) Encounter for screening mammogram for malignant neoplasm of breast (V76.12) (Z12.31) Hip pain, left (719.45) (M25.552) Hordeolum of right upper eyelid, unspecified hordeolum type (373.11) (H00.011) Hyperglycemia (790.29) (R73.9) Lumbar herniated disc (722.10) (M51.26) Medicare annual wellness visit, subsequent (V70.0) (Z00.00) Mixed hyperlipidemia (272.2) (E78.2) Obesity (BMI 30.0-34.9) (278.00) (E66.9) Osteoarthritis of lumbar spine, unspecified spinal osteoarthritis complication status (721.3) (M47.816) Restless leg syndrome (333.94) (G25.81) Screening for breast cancer (V76.10) (Z12.39) 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 Normal [facility] DIGITAL MAMM SCREENING W/ TO Par[place] 06-25-2022 DIGITAL MAMM SCREENING W/ GENARO Patient Name: DIANA ALMONTE STUDY: DIGITAL MAMM SCREENING W/ GENARO; 06/25/2022 10:56 am ACCESSION NUMBER(S): [id number] ORDERING CLINICIAN: BRITTNEY KOTHARI INDICATION: Screening. COMPARISON: 06/20/2018, 06/24/2020 FINDINGS: 2D and tomosynthesis images were reviewed at 1 mm slice thickness. There are areas of scattered fibroglandular tissue. No suspicious masses or calcifications are identified. CAD was utilized. IMPRESSION: No mammographic evidence of malignancy. BI-RADS CATEGORY: Category: 1 - Negative. Recommendation: 1 Year Screening. For any future breast imaging appointments, please call [phone] ([phone]). Electronically signed by: JALYN TOWNSEND MD [facility] Mamm - Screening Mammogram w / Tomosynthesison 06-25-2022 MG Breast Screening Normal [facility] Phone: Hemoglobin A1Con 06-22-2022 Glucose [Mass/Vol] 114 mg/dL [facility] Phone: HbA1c (Bld) [Mass fraction] 5.6 % [facility] Phone: Comment on above: Diagnosis of Diabete s-Adults Non-Diabetic: < or = 5.6% Increased risk for developing diabetes: 5.7-6.4% Diagnostic of diabetes: > or = 6.5%. Monitoring of Diabetes Age (y) Therapeutic Goal (%) Adults: >18 <7.0 Pediatrics: 13-18 <7.5 7-12 <8.0 0- 6 7.5-8.5 [place] [employer]. Diabetes Care 33(S1), Nov 2009. Laboratory - Chemistry and C hemistry - challengeon 06-22-2022 Anion gap [Moles/Vol] 12 mmol/L 10 - 20 [facility] Phone: Calcium [Mass/Vol] 9.6 mg/dL 8.6 - 10.3 [facility] Work Phone: Chloride [Moles/Vol] 97 mmol/L below low threshold 98 - 107 [facility] Phone: CO2 [Moles/Vol] 27 mmol/L 21 - 32 [facility] Phone: Creatinine [Mass/Vol] 0.72 mg/dL See Below [facility] [place] [facility] [facility] Phone: Comment on above: Reference Range: 0.5 0 - 1.05 Glucose [Mass/Vol] 107 mg/dL above high threshold 74 - 99 [facility] [employer] [facility] Phone: Potassium [Moles/Vol] 4.0 mmol/L 3.5 - 5.3 [facility] Phone: Sodium [Moles/Vol] 132 mmol/L below low threshold 136 - 145 [facility] Phone: Urea nitrogen [Mass/Vol] 8 mg/dL 6 - 23 [facility] [facility] [employer] [facility] Phone: Lipid Panelon 06-22-2022 Cholesterol [Mass/Vol] 179 mg/dL 0 - 199 [facility] Phone: Comment on above: . AGE DESIRABLE BORD RAO HIGH HIGH 0-19 Y 0 - 169 170 - 199 >/= 200 20-24 Y 0 - 189 190 - 224 >/= 225 >24 Y 0 - 199 200 - 239 >/= 240 All ranges are based on fasting samples. Specific therapeutic targets will vary based on patient-specific cardiac risk.. Pediatric guidelines reference:Pediatrics 2011, 128(S5). Adult guidelines reference: NCEP ATPIII Guidelines, OSCAR 2001, 258:2486-97. Venipuncture immediately after or during the administration of Metamizole may lead to falsely low results. Testing should be performed immediately prior to Metamizole dosing. Cholesterol in HDL [Mass/Vol] 67.0 mg/dL [facility] Phone: Comment on above: . AGE VERY LOW LOW N ORMAL HIGH 0-19 Y < 35 < 40 40-45 ---- 20- 24 Y ---- < 40 >45 ---- >24 Y ---- < 40 40-60 >60. Cholesterol in LDL [Mass/Vol] 93 mg/dL 0 - 99 [facility] [employer] Phone: Comment on above: . NEAR BORD AGE FREDERICK RABLE OPTIMAL HIGH HIGH VERY HIGH 0-19 Y 0 - 109 --- 110-129 >/= 130 ---- 20-24 Y 0 - 119 --- 120-159 >/= 160 ---- >24 Y 0 - 99 100-129 130-159 160-189 >/=190. Cholesterol.total/Cho lesterol in HDL [Mass ratio] 2.7 {ratio} [facility] Phone: Comment on above: REF VALUESDESIRABLE < 3.4HIGH RISK > 5.0 Triglyceride [Mass/Vol] 96 mg/dL 0 - 149 [facility] Phone: Comment on above: . AGE DESIRABLE BORD RAO HIGH HIGH VERY HIGH 0 D-90 D 19 - 174 ---- ---- ----91 D- 9 Y 0 - 74 75 - 99 >/= 100 ---- 10-19 Y 0 - 89 90 - 129 >/= 130 ---- 20-24 Y 0 - 114 115 - 149 >/= 150 ---- >24 Y 0 - 149 150 - 199 200- 499 >/= 500. Venipuncture immediately after or during the administration of Metamizole may lead to falsely low results. Testing should be performed immediately prior to Metamizole dosing. Lipid Panel 19 mg/dL 0 - 40 [facility] [employer] Phone: No Panel Informationon 06-22 86 {mL/min/1.73m2} >90 [facility] [facility] Phone: Comment on above: CALCULATIONS OF TERESA MATED GFR ARE PERFORMED USING THE 2020 CKD-EPI STUDY REFIT EQUATION WITHOUT THE RACE VARIABLE FOR THE IDMS-TRACEABLE CREATININE METHODS.https://jasn.asnjournals.org/content// N.1623665074 TSH - Thyroid Stimulating Ho rmone, Serumon 08-09-2022 TSH Qn 6.72 m[IU]/L above high threshold See Below [facility] Work Phone: Comment on above: Reference Range: 0.4 4 - 3.98 TSH testing is performed using different testing methodology at [facility] than at other [facility]. Direct result comparisons should only be made within the same method. Tobacco Screening.on 022 Fall risk assessment a) No falls within the last year -Nephrolog [facility] Yuri 3 DO Work Phone: Tobacco use status [facility] b) No [facility] Yuri 3 DO Work Phone: Hemoglobin A1Con 12-22-2021 Glucose [Mass/Vol] 123 mg/dL [facility] Work Phone: HbA1c (Bld) [Mass fraction] 5.9 % Abnormal [facility] Work Phone: Comment on above: Diagnosis of Diabete s-Adults Non-Diabetic: < or = 5.6% Increased risk for developing diabetes: 5.7-6.4% Diagnostic of diabetes: > or = 6.5%. Monitoring of Diabetes Age (y) Therapeutic Goal (%) Adults: >18 <7.0 Pediatrics: 13-18 <7.5 7-12 <8.0 0- 6 7.5-8.5 [place] [employer]. Diabetes Care 33(S1), Nov 2009. Laboratory - Chemistry and C hemistry - challengeon 12-22-2021 Anion gap [Moles/Vol] 10 mmol/L 10 - 20 [facility] Work Phone: Calcium [Mass/Vol] 9.4 mg/dL 8.6 - 10.3 [facility] Work Phone: Chloride [Moles/Vol] 98 mmol/L 98 - 107 [facility] Phone: CO2 [Moles/Vol] 30 mmol/L 21 - 32 [facility] Phone: Creatinine [Mass/Vol] 0.64 mg/dL See Below [facility] Phone: Comment on above: Reference Range: 0.5 0 - 1.05 Glucose [Mass/Vol] 111 mg/dL above high threshold 74 - 99 [facility] Phone: Potassium [Moles/Vol] 4.0 mmol/L 3.5 - 5.3 [facility] Phone: Sodium [Moles/Vol] 134 mmol/L below low threshold 136 - 145 [facility] [employer] Phone: Urea nitrogen [Mass/Vol] 8 mg/dL 6 - 23 [facility] [employer] Phone: No Panel Informationon 12-22 >90 >90 [facility] Phone: Comment on above: CALCULATIONS OF TERESA MATED GFR ARE PERFORMED USING THE 2020 CKD-EPI STUDY REFIT EQUATION WITHOUT THE RACE VARIABLE FOR THE IDMS-TRACEABLE CREATININE METHODS.https://jasn.asnjournals.org/content// N.8227493377 Radiologyon 06-23-2021 XR Shoulder 2 Views Please click on the link to view the study images Normal [facility] [employer] Phone: XR Shoulder 2 Views Normal [facility] Phone: XR Pelvis and Hip - left 2 Views Normal [facility] [employer] Phone: XR Pelvis and Hip - left 2 Views Please click on the link to view the study images Normal [facility] [employer] Phone: Tobacco Screening.on 021 Fall risk assessment a) No falls within the last year [facility] Work Phone: Tobacco use status [facility] b) No [facility] [employer] Work Phone: Hemoglobin A1Con 06-16-2021 Glucose [Mass/Vol] 117 mg/dL [facility] [employer] Work Phone: HbA1c (Bld) [Mass fraction] 5.7 % [facility] [employer] Work Phone: Comment on above: Diagnosis of Diabete s-Adults Non-Diabetic: < or = 5.6% Increased risk for developing diabetes: 5.7-6.4% Diagnostic of diabetes: > or = 6.5%. Monitoring of Diabetes Age (y) Therapeutic Goal (%) Adults: >18 <7.0 Pediatrics: 13-18 <7.5 7-12 <8.0 0- 6 7.5-8.5 [place] [employer]. Diabetes Care 33(S1), Nov 2009. Laboratory - Chemistry and C hemistry - challengeon 06-16-2021 Anion gap [Moles/Vol] 12 mmol/L 10 - 20 [facility] Work Phone: Calcium [Mass/Vol] 9.8 mg/dL 8.6 - 10.3 [facility] Work Phone: Chloride [Moles/Vol] 100 mmol/L 98 - 107 [facility] [employer] Work Phone: CO2 [Moles/Vol] 28 mmol/L 21 - 32 [facility] Work Phone: Creatinine [Mass/Vol] 0.64 mg/dL See Below [facility] [employer] Phone: Comment on above: Reference Range: 0.5 0 - 1.05 Glucose [Mass/Vol] 111 mg/dL above high threshold 74 - 99 [facility] Work Phone: Potassium [Moles/Vol] 4.3 mmol/L 3.5 - 5.3 [facility] [employer] Work Phone: Sodium [Moles/Vol] 136 mmol/L 136 - 145 [facility] Phone: Urea nitrogen [Mass/Vol] 9 mg/dL 6 - 23 [facility] Phone: No Panel Informationon 06-16 >[address] [facility] Phone: Comment on above: CALCULATIONS OF TERESA MATED GFR ARE PERFORMED USING THE MDRD STUDY EQUATION FOR THE IDMS-TRACEABLE CREATININE METHODS. CLIN CHEM 2007;53:766-72 TSH - Thyroid Stimulating Ho kodi Serumon 06-16-2021 TSH Qn 2.98 m[IU]/L See Below [facility] Phone: Comment on above: Reference Range: 0.4 4 - 3.98 TSH testing is performed using different testing methodology at [facility] than at other [facility]. Direct result comparisons should only be made within the same method. Hemoglobin A1Con 12-17-2020 HbA1c (Bld) [Mass fraction] 117 {MG/DL} [facility] Phone: HbA1c (Bld) [Mass fraction] 5.7 % [facility] Phone: Comment on above: Diagnosis of Diabete s-Adults Non-Diabetic: < or = 5.6% Increased risk for developing diabetes: 5.7-6.4% Diagnostic of diabetes: > or = 6.5%. Monitoring of Diabetes Age (y) Therapeutic Goal (%) Adults: >18 <7.0 Pediatrics: 13-18 <7.5 7-12 <8.0 0- 6 7.5-8.5 [place] [employer]. Diabetes Care 33(S1), Nov 2009. Lipid Panelon 12-17-2020 Cholesterol [Mass/Vol] 172 mg/dL 0 - 199 [facility] Phone: Comment on above: . AGE DESIRABLE BORD RAO HIGH HIGH 0-19 Y 0 - 169 170 - 199 >/= 200 20-24 Y 0 - 189 190 - 224 >/= 225 >24 Y 0 - 199 200 - 239 >/= 240 All ranges are based on fasting samples. Specific therapeutic targets will vary based on patient-specific cardiac risk.. Pediatric guidelines reference:Pediatrics 2011, 128(S5). Adult guidelines reference: NCEP ATPIII Guidelines, OSCAR 2001, 258:2486-97. Venipuncture immediately after or during the administration of Metamizole may lead to falsely low results. Testing should be performed immediately prior to Metamizole dosing. Cholesterol in HDL [Mass/Vol] 65.0 mg/dL [facility] Phone: Comment on above: . AGE VERY LOW LOW N ORMAL HIGH 0-19 Y < 35 < 40 40-45 ---- 20- 24 Y ---- < 40 >45 ---- >24 Y ---- < 40 40-60 >60. Cholesterol in LDL [Mass/Vol] 86 mg/dL 0 - 99 [facility] Phone: Comment on above: . NEAR BORD AGE FREDERICK RABLE OPTIMAL HIGH HIGH VERY HIGH 0-19 Y 0 - 109 --- 110-129 >/= 130 ---- 20-24 Y 0 - 119 --- 120-159 >/= 160 ---- >24 Y 0 - 99 100-129 130-159 160-189 >/=190. Cholesterol.total/Cho lesterol in HDL [Mass ratio] 2.6 {ratio} [facility] Phone: Comment on above: REF VALUESDESIRABLE < 3.4HIGH RISK > 5.0 Triglyceride [Mass/Vol] 106 mg/dL 0 - 149 [facility] Phone: Comment on above: . AGE DESIRABLE BORD RAO HIGH HIGH VERY HIGH 0 D-90 D 19 - 174 ---- ---- ----91 D- 9 Y 0 - 74 75 - 99 >/= 100 ---- 10-19 Y 0 - 89 90 - 129 >/= 130 ---- 20-24 Y 0 - 114 115 - 149 >/= 150 ---- >24 Y 0 - 149 150 - 199 200- 499 >/= 500. Venipuncture immediately after or during the administration of Metamizole may lead to falsely low results. Testing should be performed immediately prior to Metamizole dosing. Lipid Panel 21 mg/dL 0 - 40 [facility] [employer] Phone: Metabolic Panelon 12-17-2020 Anion gap [Moles/Vol] 10 mmol/L 10 - 20 [facility] [employer] Phone: Calcium [Mass/Vol] 9.8 mg/dL 8.6 - 10.3 [facility] [employer] Work Phone: Chloride [Moles/Vol] 98 mmol/L 98 - 107 [facility] [employer] Work Phone: CO2 [Moles/Vol] 30 mmol/L 21 - 32 [facility] [employer] Phone: Creatinine [Mass/Vol] 0.68 mg/dL See Below [facility] [employer] Phone: Comment on above: Reference Range: 0.5 0 - 1.05 Glucose [Mass/Vol] 111 mg/dL above high threshold 74 - 99 [facility] [employer] Phone: Potassium [Moles/Vol] 4.3 mmol/L 3.5 - 5.3 [facility] [employer] Phone: Sodium [Moles/Vol] 134 mmol/L below low threshold 136 - 145 [facility] [employer] Phone: Urea nitrogen [Mass/Vol] 11 mg/dL 6 - 23 [facility] [employer] Phone: Otheron 12-17-2020 >60 >60 [facility] [employer] Phone: Comment on above: CALCULATIONS OF TERESA MATED GFR ARE PERFORMED USING THE MDRD STUDY EQUATION FOR THE IDMS-TRACEABLE CREATININE METHODS. CLIN CHEM 2007;53:766-72 Hemoglobin A1Con 10-28-2020 HbA1c (Bld) [Mass fraction] 5.6 % [facility] [employer] Phone: Comment on above: Diagnosis of Diabete s-Adults Non-Diabetic: < or = 5.6% Increased risk for developing diabetes: 5.7-6.4% Diagnostic of diabetes: > or = 6.5%. Monitoring of Diabetes Age (y) Therapeutic Goal (%) Adults: >18 <7.0 Pediatrics: 13-18 <7.5 7-12 <8.0 0- 6 7.5-8.5 [place] [employer]. Diabetes Care 33(S1), Nov 2009. HbA1c (Bld) [Mass fraction] 114 {MG/DL} [facility] [employer] Phone: Metabolic Panelon 10-28-2020 Anion gap [Moles/Vol] 13 mmol/L 10 - 20 [facility]: Calcium [Mass/Vol] 9.7 mg/dL 8.6 - 10.3 [facility] Phone: Chloride [Moles/Vol] 99 mmol/L [facility] - [facility]: CO2 [Moles/Vol] 29 mmol/L 21 - 32 [facility] [employer] Phone: Creatinine [Mass/Vol] 0.68 mg/dL See Below [facility] [employer] Phone: Comment on above: Reference Range: 0.5 0 - 1.05 Glucose [Mass/Vol] 129 mg/dL above high threshold 74 - 99 [facility] [employer] Phone: Potassium [Moles/Vol] 4.0 mmol/L 3.5 - 5.3 [facility] [employer] Phone: Sodium [Moles/Vol] 137 mmol/L 136 - 145 [facility] Work Phone: Urea nitrogen [Mass/Vol] 10 mg/dL 6 - 23 [facility] Work Phone: Otheron 10-28-2020 >[address] >60 [facility] [employer] Work Phone: Comment on above: CALCULATIONS OF TERESA MATED GFR ARE PERFORMED USING THE MDRD STUDY EQUATION FOR THE IDMS-TRACEABLE CREATININE METHODS. CLIN CHEM 2007;53:766-72 Mamm - Screening Mammogram w / Tomosynthesison 06-24-2020 MG Breast screening Interpreted by: SASCHA CRANDALL06/25/20 09:41MRN: [id number] Name: DIANA ALMONTE STUDY:Digital mammography screening with genaro; 06/24/2020 10:45 am ORDERING CLINICIAN:BRITTNEY KOTHARI INDICATION:Screening. COMPARISON:Comparison is made to prior digital mammograms dated06/20/2018 FINDINGS:CC and MLO 2D digital mammograms and digital breast tomosynthesisimages were obtained of the bilateral breasts. 3-D volume imageswere reconstructed in 4 views at an independent workstation as 1 mmslices through the breasts in both the CC and MLO projections. There are areas of scattered fibroglandular tissue. No discretemass or focal asymmetry is identified. No suspiciousmicrocalcificat ions or foci of architectural distortion are seen.There has been no significant change. This study was interpreted with CAD. IMPRESSION:No mammographic evidence of malignancy. BI-RADS CATEGORY: Category: 1 - Negative.Recommendation: 1 Year Screening.Electronically signed by: SASCHA CRANDALL 06/25/20 09:41 Normal [facility] [employer] Work Phone: Metabolic Panelon 06-24-2020 Anion gap [Moles/Vol] 11 mmol/L 10 - 20 [facility] Work Phone: Calcium [Mass/Vol] 10.0 mg/dL 8.6 - 10.3 [facility] Work Phone: Chloride [Moles/Vol] 98 mmol/L 98 - 107 [facility] Work Phone: CO2 [Moles/Vol] 29 mmol/L 21 - 32 [facility] Work Phone: Creatinine [Mass/Vol] 0.69 mg/dL See Below [facility] Work Phone: Comment on above: Reference Range: 0.5 0 - 1.05 Glucose [Mass/Vol] 119 mg/dL above high threshold 74 - 99 [facility] Work Phone: Potassium [Moles/Vol] 4.1 mmol/L 3.5 - 5.3 [facility] Work Phone: Sodium [Moles/Vol] 134 mmol/L below low threshold 136 - 145 [facility] Work Phone: Urea nitrogen [Mass/Vol] 10 mg/dL 6 - 23 [facility] Work Phone: Otheron 06-24-2020 >60 >60 [facility] Work Phone: Comment on above: CALCULATIONS OF TERESA MATED GFR ARE PERFORMED USING THE MDRD STUDY EQUATION FOR THE IDMS-TRACEABLE CREATININE METHODS. CLIN CHEM 2007;53:766-72 Vitamin D 25-Hydroxyon 06-24 Calcidiol [Mass/Vol] 76 ng/mL [facility] Work Phone: Comment on above: .DEFICIENCY: < 20 NG /MLINSUFFICIENCY: 20-29 NG/MLSUFFICIENCY: 30-100 NG/MLTHIS ASSAY ACCURATELY QUANTIFIES THE SUM OFVITAMIN D3, 25-HYDROXY AND VIT D2,25-HYDROXY. BMPon 08-06-2019 Anion gap [Moles/Vol] 13 mmol/L Normal 10-20 [facility] Comment on above: Performed By: #### 2 [id number] ####[facility] [address] [place] [address] Calcium [Mass/Vol] 9.9 mg/dL Normal 8.6-10.3 [facility] Comment on above: Performed By: #### 2 [id number] ####[facility] [address] [place] [address] Chloride [Moles/Vol] 100 mmol/L Normal 98-107 [facility] Comment on above: Performed By: #### 2 [id number] ####[facility] [address] [place] [address] CO2 [Moles/Vol] 26.0 mmol/L Normal 21.0-32.0 [facility] Comment on above: Performed By: #### 2 [id number] ####[facility] [address] [place] [address] Creatinine [Mass/Vol] 0.8 mg/dL Normal 0.5-1.1 [facility] Comment on above: Performed By: #### 2 [id number] ####[facility] [address] [place] [address] Glucose [Mass/Vol] 123 mg/dL High 70-99 [facility] Comment on above: Performed By: #### 2 [id number] ####[facility] [address] [place] [address] Potassium [Moles/Vol] 3.9 mmol/L Normal 3.5-5.3 [facility] Comment on above: Performed By: #### 2 [id number] ####[facility] [address] [place] [address] Sodium [Moles/Vol] 135 mmol/L Low 136-145 [facility] Comment on above: Performed By: #### 2 [id number] ####[facility] [address] [place] [address] Urea nitrogen [Mass/Vol] 17 mg/dL Normal 6-23 [facility] Comment on above: Performed By: #### 2 [id number] ####[facility] [address] [place] [address] Urea nitrogen/Creatinine [Mass ratio] 21.2 ratio Normal 5.4-30.0 [facility] Comment on above: Performed By: #### 2 [id number] ####[facility] [address] [place] [address] eGFRon 08-06-2019 GFR/1.73 sq M predicted among non-blacks MDRD (S/P/Bld) [Vol rate/Area] mL/min/{1.73_m2} Normal [facility] Comment on above: Order Comment: Order added by Discern Expert. Performed By: #### 1 [id number] ####[facility] [address]Rbad[address] [place] [address] BMPon 07-28-2019 Anion gap [Moles/Vol] 11 mmol/L Normal 10-20 [facility] Comment on above: Performed By: #### 2 [id number] ####[facility] [address]Ksdv[address] [place] [address] Calcium [Mass/Vol] 9.3 mg/dL Normal 8.6-10.3 [facility] Comment on above: Performed By: #### 2 [id number] ####[facility] [address] [place] [address] Chloride [Moles/Vol] 97 mmol/L Low 98-107 [facility] Comment on above: Performed By: #### 2 [id number] ####[facility] [address]of[address] [place] [address] CO2 [Moles/Vol] 29.0 mmol/L Normal 21.0-32.0 [facility] Comment on above: Performed By: #### 2 [id number] ####[facility] [address] [place] [address] Creatinine [Mass/Vol] 0.6 mg/dL Normal 0.5-1.1 [facility] Comment on above: Performed By: #### 2 [id number] ####FERMÍNMaria M [address]ung[address]bp[address]rd[address] [place] [address] Glucose [Mass/Vol] 105 mg/dL High 70-99 [facility] Comment on above: Performed By: #### 2 [id number] ####[facility] [address] [place] [address] Potassium [Moles/Vol] 3.5 mmol/L Normal 3.5-5.3 [facility] Comment on above: Performed By: #### 2 [id number] ####FERMÍNMaria M [address]ungFomMgkl[address] [place] [address] Sodium [Moles/Vol] 133 mmol/L Low 136-145 [facility] Comment on above: Performed By: #### 2 [id number] ####[facility] [address] [place] [address] Urea nitrogen [Mass/Vol] 9 mg/dL Normal 6-23 [facility] Comment on above: Performed By: #### 2 [id number] ####[facility] [address]Rmfc[address] [place] [address] Urea nitrogen/Creatinine [Mass ratio] 15.0 ratio Normal 5.4-30.0 [facility] Comment on above: Performed By: #### 2 [id number] ####[facility] [address]zz[address] [place] [address] Osmolalityon 07-28-2019 Osmolality [Osmolality] 260 mOsm/kg Low 280-301 [facility] Comment on above: Result Comment: Perf ormed At: [facility] [id number] Mauri Tompkins MD Ph:[phone] Performed By: #### 2 [id number] ####[facility] [employer] [address] [place] [address] U Osmolalityon 07-28-2019 U Osmolality 450 mOsm/kg Normal [facility] Comment on above: Result Comment: 24 h r : 300 - 900 Random: 50 - 1400 After 12hr fluid restriction: >850 Performed At: [facility] [id number] Mauri Tompkins MD Ph:[phone] Performed By: #### 2 [id number] ####[facility] [employer] [address] [place] [address] eGFRon 07-28-2019 GFR/1.73 sq M predicted among non-blacks MDRD (S/P/Bld) [Vol rate/Area] mL/min/{1.73_m2} Normal [facility] Comment on above: Order Comment: Order added by Discern Expert. Performed By: #### 1 [id number] ####[facility] [address]cko[address] [place] [address] BMPon 07-27-2019 Anion gap [Moles/Vol] 10 mmol/L Normal 10-20 [facility] Comment on above: Performed By: #### 3 [id number] #### [facility]ER[facility] Chemistry Manual [address] [place] [address] Calcium [Mass/Vol] 9.1 mg/dL Normal 8.6-10.3 [facility] Comment on above: Performed By: #### 3 [id number] #### [facility]ER[facility] Chemistry Manual [address] [place] [address] Chloride [Moles/Vol] 96 mmol/L Low 98-107 [facility] Comment on above: Performed By: #### 3 [id number] #### [facility] Chemistry Manual [address] [place] [address] CO2 [Moles/Vol] 29.0 mmol/L Normal 21.0-32.0 [facility] Comment on above: Performed By: #### 3 [id number] #### [facility] Chemistry Manual Subsection [facility] [place] [address] Creatinine [Mass/Vol] 0.6 mg/dL Normal 0.5-1.1 [facility] Comment on above: Performed By: #### 3 [id number] #### [facility]ER[facility] Chemistry Manual Subsection [facility] [place] [address] Glucose [Mass/Vol] 94 mg/dL Normal 70-99 [facility] Comment on above: Performed By: #### 3 [id number] #### [facility] Chemistry Manual Subsection [facility] [place] [address] Potassium [Moles/Vol] 4.0 mmol/L Normal 3.5-5.3 [facility] Comment on above: Performed By: #### 3 [id number] #### [facility] Chemistry Manual Subsection [facility] [place] [address] Sodium [Moles/Vol] 131 mmol/L Low 136-145 [facility] Comment on above: Performed By: #### 3 [id number] #### [facility] Chemistry Manual Subsection [facility] [place] [address] Urea nitrogen [Mass/Vol] 9 mg/dL Normal 6-23 [facility] Comment on above: Performed By: #### 3 [id number] #### [facility] Chemistry Manual Subsection [facility] [place] [address] Urea nitrogen/Creatinine [Mass ratio] 15.0 ratio Normal 5.4-30.0 [facility] Comment on above: Performed By: #### 3 [id number] #### [facility]ER[facility] Chemistry Manual [address] [place] [address] C Urineon 07-27-2019 C Urine Final Report: >100,0 00 cfu/ml Enterococcus faecalis ORGANISM: [employer] SUSCEPTIBILITY RESULTS Antibiotic ENRICO Dilutn ENRICO Interp ORGANISM: [employer] Amp : <=2 S Cipro : <=1 S Gent-Syn : <=500 S Levo : <=1 S Nitro : <=32 S Pen : 2 S Rif : <=1 S Strep-Syn : <=1000 S Tetra : >8 R Vanc : 1 S Normal [facility] Comment on above: Performed By: #### 3 [id number] #### [facility] Chemistry Manual Subsection [facility] [place] [address] MRI Spine Lumbar w/o Contras ton 07-27-2019 MRI Spine Lumbar w/o Contrast Exam Date/Time: 07/26/2019 18:53 EDT Reason for Exam: Pain Report STUDY: MRI Spine Lumbar w/o Contrast; 07/26/2019 6:53 pm INDICATION: Pain. COMPARISON: None. ACCESSION NUMBER(S): [id number] ORDERING CLINICIAN: Nawaf Villareal TECHNIQUE: The lumbar spine was studied in the sagital, axial and coronal planes utiliing T1 and T2 weighted images. FINDINGS: The marrow signal and vertebral body height are normal. The conus and sacrum are normal. Images at each interspace reveal the following: T12/L1 Asymmetrical bulging or herniation to the right best appreciated in the sagittal T2 weighted image 05/28. And confirmed on axial T2 weighted image . No measurable central canal stenosis or cord compression. L1/L2 Narrowing of the intervertebral disc space with discogenic marrow signal changes in the adjacent endplates. Anterior osteophyte formation. There is a midline disc herniation with free fragment in the epidural space measuring 5 mm x 5 mm mm by 25 mm in size ascending in the epidural space dorsal to the L1 vertebral body in the midline. There is slight flattening of the thecal sac without measurable canal stenosis. There is also asymmetrical bulging of the intervertebral disc to the left with minimal left-sided foraminal narrowing. L2/L3 Mild bulging disc and facet hypertrophy without canal or foraminal narrowing L3/L4 Mild bulging disc and facet hypertrophy without canal or foraminal narrowing L4/L5 Mild bulging disc and facet hypertrophy without canal or foraminal narrowing L5/S1 Mild bulging disc and facet hypertrophy without canal or foraminal new IMPRESSION: *Herniated nucleus polyposis at L1/L2 with free epidural fragment in the midline Exam Date/Time: 07/26/2019 18:53 EDT Report *Herniated nucleus polyposis to the right at T12/L1 The examination was interpreted [facility] FINAL REPORT Dictated: 07/27/2019 8:49 am Martin Garrido MD Signed (Electronic Signature): 07/27/2019 8:49 am Signed by: Martin Garrido MD Technologist: MAVIS Normal [facility] Magnesiumon 07-27-2019 Magnesium [Mass/Vol] 1.7 mg/dL Normal 1.6-2.4 [facility] Comment on above: Performed By: #### 2 [id number] ####FERM[facility]N [address] [place] [id number] eGFRon 07-27-2019 GFR/1.73 sq M predicted among non-blacks MDRD (S/P/Bld) [Vol rate/Area] mL/min/{1.73_m2} Normal [facility] Comment on above: Order Comment: Order added by Discern Expert. Performed By: #### 3 [id number] #### [facility] Chemistry Manual [address] [place] [address] BMPon 07-26-2019 Anion gap [Moles/Vol] 12 mmol/L Normal 10-20 [facility] Comment on above: Performed By: #### 3 [id number] #### [facility]ER[facility] Chemistry Manual [address] [place] [address] Calcium [Mass/Vol] 8.5 mg/dL Low 8.6-10.3 [facility] Comment on above: Performed By: #### 3 [id number] #### [facility] Chemistry Manual [address] [place] [address] Chloride [Moles/Vol] 90 mmol/L Low 98-107 [facility] Comment on above: Performed By: #### 3 [id number] #### [facility] Chemistry Manual Subsection [facility] [place] [address] CO2 [Moles/Vol] 25.0 mmol/L Normal 21.0-32.0 [facility] Comment on above: Performed By: #### 3 [id number] #### [facility] Chemistry Manual Subsection [facility] [place] [address] Creatinine [Mass/Vol] 0.6 mg/dL Normal 0.5-1.1 [facility] Comment on above: Performed By: #### 3 [id number] #### [facility] Chemistry Manual Subsection [facility] [place] [address] Glucose [Mass/Vol] 97 mg/dL Normal 70-99 [facility] Comment on above: Performed By: #### 3 [id number] #### [facility] Chemistry Manual Subsection [facility] [place] [address] Potassium [Moles/Vol] 3.1 mmol/L Low 3.5-5.3 [facility] Comment on above: Performed By: #### 3 [id number] #### [facility] Chemistry Manual Subsection [address] [place] [address] Sodium [Moles/Vol] 124 mmol/L Low 136-145 [facility] Comment on above: Performed By: #### 3 [id number] #### [facility] Chemistry Manual Subsection [facility] [place] [address] Urea nitrogen [Mass/Vol] 8 mg/dL Normal 6-23 [facility] Comment on above: Performed By: #### 3 [id number] #### [facility] Chemistry Manual Subsection [address] [place] [address] Urea nitrogen/Creatinine [Mass ratio] 13.3 ratio Normal 5.4-30.0 [facility] Comment on above: Performed By: #### 3 [id number] #### [facility] Chemistry Manual Subsection [facility] [place] [address] Anion gap [Moles/Vol] 13 mmol/L Normal 10-20 [facility] Comment on above: Performed By: #### 3 [id number] #### [facility] Chemistry Manual Subsection [facility] [place] [address] Calcium [Mass/Vol] 8.4 mg/dL Low 8.6-10.3 [facility] Comment on above: Performed By: #### 3 [id number] #### [facility] Chemistry Manual Subsection [facility] [place] [address] Chloride [Moles/Vol] 90 mmol/L Low 98-107 [facility] Comment on above: Performed By: #### 3 [id number] #### [facility] Chemistry Manual Subsection [facility] [place] [address] CO2 [Moles/Vol] 25.0 mmol/L Normal 21.0-32.0 [facility] Comment on above: Performed By: #### 3 [id number] #### [facility] Chemistry Manual Subsection [address] [place] [address] Creatinine [Mass/Vol] 0.6 mg/dL Normal 0.5-1.1 [facility] Comment on above: Performed By: #### 3 [id number] #### [facility] Chemistry Manual Subsection [address] [place] [address] Glucose [Mass/Vol] 132 mg/dL High 70-99 [facility] Comment on above: Performed By: #### 3 [id number] #### [facility] Chemistry Manual Subsection [facility] [place] [address] Potassium [Moles/Vol] 3.2 mmol/L Low 3.5-5.3 [facility] Comment on above: Performed By: #### 3 [id number] #### [facility] Chemistry Manual Subsection [address] [place] [address] Sodium [Moles/Vol] 124 mmol/L Low 136-145 [facility] Comment on above: Performed By: #### 3 [id number] #### [facility] Chemistry Manual Subsection [address] [place] [address] Urea nitrogen [Mass/Vol] 7 mg/dL Normal 6-23 [facility] Comment on above: Performed By: #### 3 [id number] #### [facility] Chemistry Manual Subsection [address] [place] [address] Urea nitrogen/Creatinine [Mass ratio] 11.7 ratio Normal 5.4-30.0 [facility] Comment on above: Performed By: #### 3 [id number] #### [facility] Chemistry Manual Subsection [facility] [place] [address] Free T4on 07-26-2019 Free T4 [Mass/Vol] 0.85 ng/dL Normal 0.58-1.64 [facility] Comment on above: Order Comment: Pleas e use previous blood sample if applicable Performed By: #### 3 [id number] #### [facility] Chemistry Manual Subsection [facility] [place] [address] TSHon 07-26-2019 TSH Qn 8.63 mcIU/mL High 0.30-5.60 [facility] Comment on above: Order Comment: Pleas e use previous blood sample if applicable Performed By: #### 3 [id number] #### [facility]ER[facility] Chemistry Manual Subsection [address] [place] [address] U Sodiumon 07-26-2019 Sodium [Moles/Vol] 107 mmol/L Normal [facility] Comment on above: Performed By: #### 1 [id number] #### [facility]ER[facility] [employer] [address] [place] [address] US Pelvis Non-OB Completeon 07-26-2019 US Pelvis Non-OB Complete Exam Date/Time: 07/26/2019 08:37 EDT Reason for Exam: Abnormal CT Report STUDY: US Pelvis Non-OB Complete; 07/26/2019 8:37 am INDICATION: Abnormal CT. Uterine and ovarian masses seen on CT scan. COMPARISON: CT 07/25/2019 ACCESSION NUMBER(S): [id number] ORDERING CLINICIAN: Nawaf Villareal TECHNIQUE: Multiple multiplanar static frank scale, color and spectral waveform sonographic images of the pelvis were obtained. Transabdominal and endovaginal ultrasound was performed. FINDINGS: UTERUS: Uterus is anteverted and normal in size. It measures 7 x 2 x 4.2 cm. There is a 19 x 16 x 18 mm right fundic fibroid which corresponds to the finding noted the recent CT scan. ENDOMETRIUM: There is a sliver of fluid in the endometrial canal. Endometrial stripe is normal in thickness. Combined endometrial thickness is 2 mm. RIGHT ADNEXA: Right ovary is not sonographically visible but no adnexal masses are seen. LEFT ADNEXA: Left ovary measures 3.4 x 3 x 3.4 cm. Vascular flow is present. It contains a 2.6 x 3 x 3 cm thin-walled cyst. No septations or soft tissue components. CUL DE SAC: No free fluid. IMPRESSION: 1. Approximately 2 cm right-sided fundic fibroid correspond to the finding noted on the CT scan. 2. There is a 3.4 cm thin-walled unilocular left ovarian cyst having a benign appearance. No soft tissue components. Suggest a six-month follow-up sonogram to ensure stability. Exam Date/Time: 07/26/2019 08:37 EDT Report 3. Minimal amount of fluid in the endometrial canal of uncertain significance. Endometrial stripe is otherwise unremarkable and normal in thickness for a postmenopausal patient. FINAL REPORT Dictated: 07/26/2019 11:52 am Blanca Burger MD Signed (Electronic Signature): 07/26/2019 11:52 am Signed by: Blanca Burger MD Technologist: CHARLI [facility] US Transvaginal Non-OBon US Transvaginal Non-OB Exam Date/Time: 07/26/2019 08:37 EDT Reason for Exam: Abnormal CT Report STUDY: US Pelvis Non-OB Complete; 07/26/2019 8:37 am INDICATION: Abnormal CT. Uterine and ovarian masses seen on CT scan. COMPARISON: CT 07/25/2019 ACCESSION NUMBER(S): [id number] ORDERING CLINICIAN: Nawaf Villareal TECHNIQUE: Multiple multiplanar static frank scale, color and spectral waveform sonographic images of the pelvis were obtained. Transabdominal and endovaginal ultrasound was performed. FINDINGS: UTERUS: Uterus is anteverted and normal in size. It measures 7 x 2 x 4.2 cm. There is a 19 x 16 x 18 mm right fundic fibroid which corresponds to the finding noted the recent CT scan. ENDOMETRIUM: There is a sliver of fluid in the endometrial canal. Endometrial stripe is normal in thickness. Combined endometrial thickness is 2 mm. RIGHT ADNEXA: Right ovary is not sonographically visible but no adnexal masses are seen. LEFT ADNEXA: Left ovary measures 3.4 x 3 x 3.4 cm. Vascular flow is present. It contains a 2.6 x 3 x 3 cm thin-walled cyst. No septations or soft tissue components. CUL DE SAC: No free fluid. IMPRESSION: 1. Approximately 2 cm right-sided fundic fibroid correspond to the finding noted on the CT scan. 2. There is a 3.4 cm thin-walled unilocular left ovarian cyst having a benign appearance. No soft tissue components. Suggest a six-month follow-up sonogram to ensure stability. Exam Date/Time: 07/26/2019 08:37 EDT Report 3. Minimal amount of fluid in the endometrial canal of uncertain significance. Endometrial stripe is otherwise unremarkable and normal in thickness for a postmenopausal patient. FINAL REPORT Dictated: 07/26/2019 11:52 am Blanca Burger MD Signed (Electronic Signature): 07/26/2019 11:52 am Signed by: Blanca Burger MD Technologist: BS Normal [facility] eGFRon 07-26-2019 GFR/1.73 sq M predicted among non-blacks MDRD (S/P/Bld) [Vol rate/Area] mL/min/{1.73_m2} Normal [facility] Comment on above: Order Comment: Order added by Discern Expert. Performed By: #### 3 [id number] #### FERMÍN Chemistry Manual Subsection [facility] [place] [address] GFR/1.73 sq M predicted among non-blacks MDRD (S/P/Bld) [Vol rate/Area] mL/min/{1.73_m2} Normal [facility] Comment on above: Order Comment: Order added by Discern Expert. Performed By: #### 3 [id number] #### FERMÍN Chemistry Manual Subsection [address] [place] [address] Auto Diffon 07-25-2019 Basophils (Bld) [#/Vol] 0.0 E3/mcL Normal 0.0-0.2 [facility] Comment on above: Order Comment: Order added by Discern Expert. Performed By: #### 1 [id number] #### FERMÍN RemChem [address] [place] [address] Basophils/100 WBC (Bld) 0.4 % Normal 0.0-2.0 [facility] Comment on above: Order Comment: Order added by Discern Expert. Performed By: #### 1 [id number] #### FERMÍN FungChem [address] [place] [address] Eos Absolute 0.0 E3/mcL Normal 0.0-0.7 [facility] Comment on above: Order Comment: Order added by Discern Expert. Performed By: #### 1 [id number] #### [facility] [address] [place] [address] Eosinophils/100 WBC (Bld) 0.2 % Normal 0.0-11.0 [facility] Comment on above: Order Comment: Order added by Lilliana Expert. Performed By: #### 1 [id number] #### FERMÍN [address] [address] Lymphocytes (Bld) [#/Vol] 1.3 E3/mcL Normal 1.2-3.4 [facility] Comment on above: Order Comment: Order added by Lilliana Expert. Performed By: #### 1 [id number] #### FERMÍN Fung[address] [address] Lymphocytes/100 WBC (Bld) 13.4 % Low 20.0-55.0 [facility] Comment on above: Order Comment: Order added by Lilliana Expert. Performed By: #### 1 [id number] #### FERMÍN Rem[address] [address] Ocean Absolute 0.4 E3/mcL Normal 0.0-0.7 [facility] Comment on above: Order Comment: Order added by Discern Expert. Performed By: #### 1 [id number] #### FERMÍN Rem[address] [address] Monocytes/100 WBC (Bld) 4.1 % Normal 0.0-10.0 [facility] Comment on above: Order Comment: Order added by Lilliana Expert. Performed By: #### 1 [id number] #### FERÍMN RemChem [address] [place] [address] Neutro Absolute 8.0 E3/mcL High 1.4-6.5 [facility] Comment on above: Order Comment: Order added by Discern Expert. Performed By: #### 1 [id number] #### FERMÍN RemChem [address] [place] [address] Neutro Auto 81.9 % High 37.0-75.0 [facility] Comment on above: Order Comment: Order added by Discern Expert. Performed By: #### 1 [id number] #### FERMÍN FungChem [address] [place] [address] CBC w/ Auto Diffon 9 Erythrocyte distribution width (RBC) [Ratio] 13.7 % Normal 11.5-14.5 [facility] Comment on above: Performed By: #### 1 [id number] #### FERMÍN FungChem [facility] [place] [address] Hematocrit (Bld) [Volume fraction] 37.6 % Normal 36.0-48.0 [facility] Comment on above: Performed By: #### 1 [id number] #### FERMÍN AntonietaChem [facility] [place] [address] Hemoglobin (Bld) [Mass/Vol] 13.0 g/dL Normal 12.0-16.0 [facility] Comment on above: Performed By: #### 1 [id number] #### FERMÍN FungChem [address] [place] [address] MCH (RBC) [Entitic mass] 32.5 pg High 27.0-31.0 [facility] Comment on above: Performed By: #### 1 [id number] #### FERMÍN AntonietaChem [facility]5 [place] [address] MCHC (RBC) [Mass/Vol] 34.6 g/dL Normal 33.0-37.0 [facility] Comment on above: Performed By: #### 1 [id number] #### FERMÍN RemChem [address] [place] [address] MCV (RBC) [Entitic vol] 93.8 fL Normal 78.0-100.0 [facility] Comment on above: Performed By: #### 1 [id number] #### FERMÍN RemChem [address] [place] [address] Platelet mean volume (Bld) [Entitic vol] 6.9 fL Low 7.4-11.0 [facility] Comment on above: Performed By: #### 1 [id number] #### FERMÍN Patterson [facility]5 [place] [address] Platelets (Bld) [#/Vol] 321 E3/mcL Normal 130-400 [facility] Comment on above: Performed By: #### 1 [id number] #### FERMÍN Patterson [facility]5 [place] [address] RBC (Bld) [#/Vol] 4.01 E6/mcL Normal 3.90-5.40 [facility] Comment on above: Performed By: #### 1 [id number] #### FERMÍN Patterson [facility]5 [place] [address] WBC (Bld) [#/Vol] 9.8 E3/mcL Normal 3.6-11.0 [facility] Comment on above: Performed By: #### 1 [id number] #### FERMÍN FungOddcast [facility]5 [place] [address] CMPon 07-25-2019 Albumin [Mass/Vol] 4.5 g/dL Normal 3.4-5.0 [facility] Comment on above: Performed By: #### 1 [id number] #### FERMÍN Patterson [address] [place] [address] Albumin/Globulin [Mass ratio] 1.4 {ratio} Normal 1.1-1.9 [facility] Comment on above: Performed By: #### 1 [id number] #### FERMÍN Patterson [facility]5 [place] [address] Alk Phos 60 Int._Unit/L Normal 33-136 [facility] Comment on above: Performed By: #### 1 [id number] #### FERMÍN FungChem [facility]5 [place] [address] ALT [Catalytic activity/Vol] 17 Int._Unit/L Normal 7-45 [facility] Comment on above: Performed By: #### 1 [id number] #### FERMÍN Patterson [facility]5 [place] [address] Anion gap [Moles/Vol] 13 mmol/L Normal 10-20 [facility] Comment on above: Performed By: #### 1 [id number] #### FERMÍNMaria M FungOddcast [facility]5 [place] [address] AST [Catalytic activity/Vol] 18 Int._Unit/L Normal 9-39 [facility] Comment on above: Performed By: #### 1 [id number] #### FERMÍN RemChem [address] [place] [address] Bili Total 0.93 mg/dL Normal 0.00-1.20 [facility] Comment on above: Performed By: #### 1 [id number] #### FERMÍN RemChem [address] [place] [address] Calcium [Mass/Vol] 9.5 mg/dL Normal 8.6-10.3 [facility] Comment on above: Performed By: #### 1 [id number] #### FERMÍN RemOddcast [address] [place] [address] Chloride [Moles/Vol] 87 mmol/L Low 98-107 [facility] Comment on above: Performed By: #### 1 [id number] #### FERMÍN RemChem [address] [place] [address] CO2 [Moles/Vol] 27.0 mmol/L Normal 21.0-32.0 [facility] Comment on above: Performed By: #### 1 [id number] #### FERMÍN RemChem [address] [place] [address] Creatinine [Mass/Vol] 0.6 mg/dL Normal 0.5-1.1 [facility] Comment on above: Performed By: #### 1 [id number] #### FERMÍN RemChem [address] [place] [address] Globulin (S) [Mass/Vol] 3.0 g/dL Normal 2.0-4.0 [facility] Comment on above: Performed By: #### 1 [id number] #### FERMÍN RemChem [address] [place] [address] Glucose [Mass/Vol] 148 mg/dL High 70-99 [facility] Comment on above: Performed By: #### 1 [id number] #### FERMÍN RemChem [address] [place] [address] Potassium [Moles/Vol] 3.2 mmol/L Low 3.5-5.3 [facility] Comment on above: Performed By: #### 1 [id number] #### FERMÍN RemChem [address] [place] [address] Protein [Mass/Vol] 7.7 g/dL Normal 6.4-8.2 [facility] Comment on above: Performed By: #### 1 [id number] #### FERMÍN FungChem [address] [place] [address] Sodium [Moles/Vol] 124 mmol/L Low 136-145 [facility] Comment on above: Performed By: #### 1 [id number] #### FERMÍN RemChem [address] [place] [address] Urea nitrogen [Mass/Vol] 8 mg/dL Normal 6-23 [facility] Comment on above: Performed By: #### 1 [id number] #### FERMÍN RemChem [address] [place] [address] Urea nitrogen/Creatinine [Mass ratio] 13.3 ratio Normal 5.4-30.0 [facility] Comment on above: Performed By: #### 1 [id number] #### FERMÍN FungOddcast [facility]5 [place] [address] CT Abdomen/Pelvis w/ Contras ton 07-25-2019 CT Abdomen/Pelvis w/ Contrast Exam Date/Time: 07/25/2019 13:30 EDT Reason for Exam: Pain Report STUDY: CT Abdomen/Pelvis w/ Contrast; 07/25/2019 1:30 pm INDICATION: Pain. Intermittent right flank pain x5 months. COMPARISON: 08/24/2013 ACCESSION NUMBER(S): [id number] ORDERING CLINICIAN: Palomo Garcia TECHNIQUE: CT of the abdomen and pelvis was performed. Sagittal and coronal reconstructions were generated. 96 cc unknown type of intravenous contrast given for the exam. FINDINGS: ABDOMINAL ORGANS: Subtle nodular hypodense presumed focal fatty infiltrate anteriorly in the left lobe of the liver near the falciform ligament. Stable cholecystectomy clips at the liver hilum. No focal lesion in the spleen, pancreas, or adrenal glands. No renal mass within limits of nephrogram phase images. Slightly dense presumed excreted contrast in nondilated bilateral intrarenal collecting systems. BOWEL: Possible laminated low-density distal gastric wall thickening versus poor distention. No abnormally dilated large or small bowel loops. Diffuse colonic diverticulosis. Questionable wall thickening or poor distention of the descending colon. No surrounding inflammatory fat stranding. PERITONEUM, RETROPERITONEUM, NODES: No free fluid. No free intraperitoneal air. No significant retroperitoneal lymphadenopathy. VESSELS:Scattered atherosclerotic calcifications. PELVIS: Urinary bladder is grossly normal in contour. Hypodense 2.8 cm mass in the left side of the uterus/adnexa is similar to the prior exam. slightly dense/enhancing 1.7 cm mass in the right side of the uterus or adnexa is not definitively seen on the previous, unenhanced exam. ABDOMINAL WALL: No sizable abdominal wall hernia. BONES: Multifocal osseous presumed degenerative changes. No definite focal concerning lytic or blastic osseous lesion identified. Exam Date/Time: 07/25/2019 13:30 EDT Report LOWER CHEST: Distal esophagus is distended with gas. Bibasilar reticular interstitial prominence. No basilar effusion. IMPRESSION: Possible gastric and descending colon wall thickening versus poor distention. Clinical correlation recommended. Diffuse colonic diverticulosis. Small rounded bilateral uterine or adnexal masses, possible fibroids. Further evaluation using pelvic ultrasound may be helpful as clinically warranted. Other findings as described above. FINAL REPORT Dictated: 07/25/2019 2:19 pm Anita Cobos MD Signed (Electronic Signature): 07/25/2019 2:19 pm Signed by: Anita Cobos MD Technologist: SLB Normal [facility] Lipase Levelon 07-25-2019 Lipase Lvl 11 Int._Unit/L Normal - [facility] Comment on above: Performed By: #### 1 [id number] #### FERMÍN RemChem [address] [place] [id number] UA Completeon 07-25-2019 Color (U) Yellow Normal Yellow [facility] Comment on above: Performed By: #### 1 [id number] #### FERMÍN RemChem [address] [place] [address] Glucose (U) [Mass/Vol] Negative Normal Negative [facility] Comment on above: Performed By: #### 1 [id number] #### FERMÍN RemChem [address] [place] [address] Ketones Ql (U) Trace Normal [facility] Comment on above: Performed By: #### 1 [id number] #### FERMÍN RemChem [address] [place] [id number] RBC (U) [#/Vol] 5-10 Abnormal 0-3 [facility] Comment on above: Performed By: #### 1 [id number] #### FERMÍN RemChem [address] [place] [address] UA Blood 1+ Abnormal Negative [facility] Comment on above: Performed By: #### 1 [id number] #### FERMÍN RemChem [address] [place] [address] UA Clarity Clear Normal Clear [facility] Comment on above: Performed By: #### 1 [id number] #### FERMÍN RemChem [address] [place] [address] UA Leuk Est Negative Normal Negative [facility] Comment on above: Performed By: #### 1 [id number] #### FERMÍN RemChem [address] [place] [address] UA Mucous Trace Abnormal Trace [facility] Comment on above: Performed By: #### 1 [id number] #### FERMÍN RemChem [address] [place] [address] UA Nitrite Negative Normal Negative [facility] Comment on above: Performed By: #### 1 [id number] #### FERMÍN RemChem [address] [place] [address] UA pH 7.0 Normal 4.6-8.0 [facility] Comment on above: Performed By: #### 1 [id number] #### FERMÍN RemChem [address] [place] [address] UA Protein Negative Normal Negative [facility] Comment on above: Performed By: #### 1 [id number] #### FERMÍN RemChem [address] [place] [address] UA Spec Grav 1.011 Normal 1.003-1.030 [facility] Comment on above: Performed By: #### 1 [id number] #### FERMÍN RemChem [address] [place] [address] UA Squam Epithelial 0-5 Normal 0-5 [facility] Comment on above: Performed By: #### 1 [id number] #### FERMÍN RemChem [address] [place] [address] UA Urobilinogen Negative Normal [facility] Comment on above: Result Comment: Due to a manufacturing issue, low positive urobilinogen results may be fasely positive. Correlate with urine bilirubin and additional clinical/laboratory findings to assess the risk of hemolytic anemia or liver disease. If clinically indicated, repeat testing with an alternate method is available by contacting the laboratory within 24 hours. Performed By: #### 1 [id number] #### FERMÍN RemOddcast [address] [place] [address] UA WBC 0-5 Normal 0-5 [facility] Comment on above: Performed By: #### 1 [id number] #### FERMÍN RemChem [address] [place] [address] Urobilinogen Qn (U) Negative Normal Negative [facility] Comment on above: Performed By: #### 1 [id number] #### FERMÍN RemOddcast [facility]5 [place] [address] Uric Acidon 07-25-2019 Urate [Mass/Vol] 3.1 mg/dL Normal 2.3-6.7 [facility] Comment on above: Order Comment: Order added by Discern Expert. Performed By: #### 1 [id number] #### FERMÍN GLSS [address] [place] [address] eGFRon 07-25-2019 GFR/1.73 sq M predicted among non-blacks MDRD (S/P/Bld) [Vol rate/Area] mL/min/{1.73_m2} Normal [facility] Comment on above: Order Comment: Order added by Discern Expert. Performed By: #### 1 [id number] #### FERMÍN RemOddcast [address] [place] [address] BMPon 07-04-2019 Anion gap [Moles/Vol] 10 mmol/L Normal 10-20 [facility] Comment on above: Performed By: #### 2 [id number] #### FERMÍN Tatango [address] [place] [address] Calcium [Mass/Vol] 9.7 mg/dL Normal 8.6-10.3 [facility] Comment on above: Performed By: #### 2 [id number] #### FERMÍN EZ4Ulink [address] [place] [address] Chloride [Moles/Vol] 96 mmol/L Low 98-107 [facility] Comment on above: Performed By: #### 2 [id number] #### FERMÍN Datalink [address] [place] [address] CO2 [Moles/Vol] 30.0 mmol/L Normal 21.0-32.0 [facility] Comment on above: Performed By: #### 2 [id number] #### FERMÍN Datalink [address] [place] [address] Creatinine [Mass/Vol] 0.7 mg/dL Normal 0.5-1.1 [facility] Comment on above: Performed By: #### 2 [id number] #### FERMÍN Datalink [address] [place] [address] Glucose [Mass/Vol] 107 mg/dL High 70-99 [facility] Comment on above: Performed By: #### 2 [id number] #### FERMÍN Datalink [address] [place] [address] Potassium [Moles/Vol] 4.3 mmol/L Normal 3.5-5.3 [facility] Comment on above: Performed By: #### 2 [id number] #### FERMÍN Datalink [address] [place] [address] Sodium [Moles/Vol] 132 mmol/L Low 136-145 [facility] Comment on above: Performed By: #### 2 [id number] #### FERMÍN Datalink [address] [place] [address] Urea nitrogen [Mass/Vol] 11 mg/dL Normal 6-23 [facility] Comment on above: Performed By: #### 2 [id number] #### FERMÍN Datalink [address] [place] [address] Urea nitrogen/Creatinine [Mass ratio] 15.7 ratio Normal 5.4-30.0 [facility] Comment on above: Performed By: #### 2 [id number] #### FERMÍN Datalink [address] [place] [address] [id number] 07-04-2019 HbA1c (Bld) [Mass fraction] 5.6 % Normal 4.0-6.3 [facility] Comment on above: Performed By: #### 1 [id number] #### FERMÍN RemChem [address] [place] [address] Lipid Profileon 07-04-2019 Cholesterol [Mass/Vol] 173 mg/dL Normal 0-199 [facility] Comment on above: Result Comment: TOTA L CHOLEESTEROL: <200 NORMAL 200 - 239 BORDERLINE HIGH >240 HIGH Performed By: #### 3 [id number] #### FERMÍN Datalink [address] [place] [address] Cholesterol in HDL [Mass/Vol] 66 mg/dL High 40-60 [facility] Comment on above: Performed By: #### 3 [id number] #### FERMÍN D[employer]ink [address] [place] [address] Cholesterol in LDL [Mass/Vol] 93 mg/dL Normal 0-130 [facility] Comment on above: Result Comment: <100 OPTIMAL 100-129 NEAR / ABOVE OPTIMAL 130-159 BORDERLINE HIGH 160-189 HIGH >190 VERY HIGH CALC LDL NOT VALID WHEN TRIGLYCERIDE IS >400 MG/DL Performed By: #### 3 [id number] #### FERMÍN Datalink [address] [place] [address] Cholesterol in VLDL [Mass/Vol] 14 mg/dL Normal 0-40 [facility] Comment on above: Performed By: #### 3 [id number] #### FERMÍN D[employer]ink [address] [place] [address] Triglyceride [Mass/Vol] 69 mg/dL Normal 0-149 [facility] Comment on above: Result Comment: AGE DESIRABLE BORDERLINE HIGH 91 D - 9 Y 0 - 74 75 - 99 > 100 10 - 19 Y 0 - 89 90 - 129 > 130 20 -24 Y 0 - 114 115 - 149 > 150 > 25 0 - 149 150 - 199 200 - 499 Performed By: #### 3 [id number] #### FERMÍN Datalink [address] [place] [address] eGFRon 07-04-2019 GFR/1.73 sq M predicted among non-blacks MDRD (S/P/Bld) [Vol rate/Area] mL/min/{1.73_m2} Normal [facility] Comment on above: Order Comment: Order added by Discern Expert. Performed By: #### 1 [id number] #### FERMÍN RemChem [address] [place] [address] Auto Diffon 01-01-2019 Basophils (Bld) [#/Vol] 0.1 E3/mcL Normal 0.0-0.2 [facility] Comment on above: Order Comment: Order Added by Discern Expert. Performed By: #### 2 [id number] #### FERMÍN RemHemo [address] [place] [address] Basophils/100 WBC (Bld) 0.6 % Normal 0.0-2.0 [facility] Comment on above: Order Comment: Order Added by Discern Expert. Performed By: #### 2 [id number] #### FERMÍN RemHemo [address] [place] [address] Eos Absolute 0.1 E3/mcL Normal 0.0-0.7 [facility] Comment on above: Order Comment: Order Added by Discern Expert. Performed By: #### 2 188052 #### FERMÍN RemHemo [address] [place] [address] Eosinophils/100 WBC (Bld) 1.5 % Normal 0.0-11.0 [facility] Comment on above: Order Comment: Order Added by Discern Expert. Performed By: #### 2 [id number] #### FERMÍN RemHemo [address] [place] [address] Lymphocytes (Bld) [#/Vol] 2.1 E3/mcL Normal 1.2-3.4 [facility] Comment on above: Order Comment: Order Added by Discern Expert. Performed By: #### 2 [id number] #### FERMÍN RemHemo [address] [place] [address] Lymphocytes/100 WBC (Bld) 21.5 % Normal 20.0-55.0 [facility] Comment on above: Order Comment: Order Added by Discern Expert. Performed By: #### 2 [id number] #### FERMÍN RemHemo [address] [place] [address] Ocean Absolute 0.9 E3/mcL High 0.0-0.7 [facility] Comment on above: Order Comment: Order Added by Discern Expert. Performed By: #### 2 [id number] #### FERMÍN RemHemo [address] [place] [address] Monocytes/100 WBC (Bld) 9.8 % Normal 0.0-10.0 [facility] Comment on above: Order Comment: Order Added by Discern Expert. Performed By: #### 2 [id number] #### FERMÍN Burriso [address] [place] [id number] Neutro Absolute 6.4 E3/mcL Normal 1.4-6.5 [facility] Comment on above: Order Comment: Order Added by Discern Expert. Performed By: #### 2 [id number] #### FERMÍN Burriso [address] [place], [place] [address] Neutro Auto 66.6 % Normal 37.0-75.0 [facility] Comment on above: Order Comment: Order Added by Discern Expert. Performed By: #### 2 [id number] #### FERMÍN Burriso [address] [place], [place] [address] CBC w/ Auto Diffon 9 Erythrocyte distribution width (RBC) [Ratio] 14.0 % Normal 11.5-14.5 [facility] Comment on above: Performed By: #### 2 [id number] #### FERMÍN Burriso [address] [place], [place] [address] Hematocrit (Bld) [Volume fraction] 38.1 % Normal 36.0-48.0 [facility] Comment on above: Performed By: #### 2 [id number] #### FERMÍN Burriso [address] [place] [address] Hemoglobin (Bld) [Mass/Vol] 12.8 g/dL Normal 12.0-16.0 [facility] Comment on above: Performed By: #### 2 213130 #### FERMÍN FungHemo [facility] [place] [id number] MCH (RBC) [Entitic mass] 32.3 pg High 27.0-31.0 [facility] Comment on above: Performed By: #### 2 [id number] #### FERMÍN FungHemo [address] [place], [place] [address] MCHC (RBC) [Mass/Vol] 33.5 g/dL Normal 33.0-37.0 [facility] Comment on above: Performed By: #### 2 248708 #### FERMÍN FungHemo [address] [place], [place] [address] MCV (RBC) [Entitic vol] 96.3 fL Normal 78.0-100.0 [facility] Comment on above: Performed By: #### 2 [id number] #### FERMÍN RemHemo [facility] [place] [address] Platelet mean volume (Bld) [Entitic vol] 8.1 fL Normal 7.4-11.0 [facility] Comment on above: Performed By: #### 2 958161 #### FERMÍN RemHemo [facility] [place] [address] Platelets (Bld) [#/Vol] 290 E3/mcL Normal 130-400 [facility] Comment on above: Performed By: #### 2 247073 #### FERMÍN RemHemo [facility] [place] [address] RBC (Bld) [#/Vol] 3.96 E6/mcL Normal 3.90-5.40 [facility] Comment on above: Performed By: #### 2 225870 #### FERMÍN RemHemo [facility] [place] [address] WBC (Bld) [#/Vol] 9.6 E3/mcL Normal 3.6-11.0 [facility] Comment on above: Performed By: #### 2 [id number] #### FERMÍN RemHemo [facility] [place] [address] TSHon 01-01-2019 TSH Qn 4.38 mcIU/mL Normal 0.30-5.60 [facility] Comment on above: Performed By: #### 2 [id number] #### FERMÍN Datalink [facility] [place] [address] CT Coronary Artery Calcium S core - SCREEon 12-22-2018 Calcium [Mass/Vol] Exam Date/Time: 12/22/2018 08:50 EST Reason for Exam: SCREENING FOR HEART DISEASE HTN HYPERGLYCEMIA PALPITATIONS;Screening Report STUDY: CT Coronary Artery Calcium Score - SCREE; 12/22/2018 8:50 am INDICATION: Screening. COMPARISON: None. ACCESSION NUMBER(S): [id number] ORDERING CLINICIAN: Brittney Kothari TECHNIQUE: Using prospective ECG gating, CT scan of the coronary arteries was performed without intravenous contrast. Coronary calcium scoring was performed according to the method of Agatston. FINDINGS: The score and distribution of calcium in the coronary arteries is as follows: LM 0, LAD 66,25 mm2 LCx 13,7 mm2 RCA 0, Total 79 The visualized mid/lower ascending thoracic aorta measures 4.0 cm in diameter. The visualized descending thoracic aorta is within normal limits for course and caliber. Scattered atherosclerotic calcifications are seen in the descending thoracic aorta. The heart is within normal limits for size. No pericardial effusion is present. No gross mediastinal lymphadenopathy is identified. There is no focal infiltrate, pleural effusion or pneumothorax identified. No discrete pulmonary nodules or masses are seen within the visualized lungs. IMPRESSION: 1. Coronary artery calcium score of 79, which places the patient in the low risk category, as below. Coronary artery calcium scoring may be helpful in predicting the risk for future coronary heart disease events. According to the [place] Clinical Expert Consensus Task Force, such testing provides important prognostic information in patients with Exam Date/Time: 12/22/2018 08:50 EST Report more than one coronary heart disease risk factor. The coronary artery calcium score correlates with the annual risk of a non-fatal myocardial infarction or coronary heart disease . Coronary artery score Annual Risk 0-99 0.4% 100-399 1.3% >400 2.4% These three breakpoints correspond to lower, intermediate and high risk states for future coronary events. Such information should be used, along with appropriate clinical judgment, to make decisions regarding the intensity of risk factor management strategies to treat blood lipids and to modify other non-lipid coronary risk factors. Reference: [place] P et al. Circulation. 2007; 115:402-426 FINAL REPORT Dictated: 12/22/2018 10:28 am Sascha Crandall MD Signed (Electronic Signature): 12/22/2018 10:28 am Signed by: Sascha Crandall MD Technologist: MM Normal [facility] BMPon 11-27-2018 Anion gap [Moles/Vol] 11 mmol/L Normal 10-20 [facility] Comment on above: Performed By: #### 2 [id number] #### [employer] [address] [place] [address] 26234 Calcium [Mass/Vol] 10.0 mg/dL Normal 8.6-10.3 [facility] Comment on above: Performed By: #### 2 [id number] #### [employer] [address] [place] [address] 50835 Chloride [Moles/Vol] 97 mmol/L Low 98-107 [facility] Comment on above: Performed By: #### 2 [id number] #### [employer] [address] [place] [address] 49330 CO2 [Moles/Vol] 29.0 mmol/L Normal 21.0-32.0 [facility] Comment on above: Performed By: #### 2 [id number] #### [employer] [address] [place] [address] 97567 Creatinine [Mass/Vol] 0.6 mg/dL Normal 0.5-1.1 [facility] Comment on above: Performed By: #### 2 [id number] #### [employer] [address] [place] [address] 94044 Glucose [Mass/Vol] 108 mg/dL High 70-99 [facility] Comment on above: Performed By: #### 2 [id number] #### [employer] [address] [place] [address] 61395 Potassium [Moles/Vol] 3.8 mmol/L Normal 3.5-5.3 [facility] Comment on above: Performed By: #### 2 [id number] #### [employer] [address] [place] [address] 22236 Sodium [Moles/Vol] 133 mmol/L Low 136-145 [facility] Comment on above: Performed By: #### 2 [id number] #### [employer] [address] [place] [address] 15296 Urea nitrogen [Mass/Vol] 14 mg/dL Normal 6-23 [facility] Comment on above: Performed By: #### 2 [id number] #### [employer] [address] [place] [address] 97775 Urea nitrogen/Creatinine [Mass ratio] 23.3 ratio Normal 5.4-30.0 [facility] Comment on above: Performed By: #### 2 [id number] #### [employer] [address] [place] [address] 46132 [id number] 11-27-2018 HbA1c (Bld) [Mass fraction] 5.6 % Normal 4.0-6.3 [facility] Comment on above: Performed By: #### 3 [id number] #### [employer] Chemistry Manual [address]section [address] [place] [address] eGFRon 11-27-2018 GFR/1.73 sq M predicted among non-blacks MDRD (S/P/Bld) [Vol rate/Area] mL/min/{1.73_m2} Normal [facility] Comment on above: Order Comment: Order added by Discern Expert. Performed By: #### 1 [id number] #### [employer] [address] [place] [address] ED NOTEon 02-05-2018 ED NOTE HNO ID: [id number] Author: Karen (Rn) GABRIELLA Sheikh Service: Emergency Medicine Author Type: Registered Nurse Type: ED Notes Filed: 02/04/2018 10:58 PM Note Text: D/C to home with daughter, instructed to follow up as directed and return prn [facility] ED NOTE HNO ID: [id number] Author: Karen (Rn) GABRIELLA Sheikh Service: Emergency Medicine Author Type: Registered Nurse Type: ED Notes Filed: 02/04/2018 10:50 PM Note Text: Sling and swath applied to right upper extremity, MSP's intact post application [facility] ED PROV NOTEon 02-05-2018 ED PROV NOTE HNO ID: [id number] thor: HUSSEIN Manleyervice: Emergency MedicineAuthor Type: PhysicianType: ED Provider NotesFiled: 02/04/2018 10:38 PMNote Text:ED Provider NotePatient Name: Diana LongoRN: [id number] DATE: 02/04/18HistoryPatient presents with:Pain (Shoulder Pain)Patient is a 72 year old female presenting with fall.History provided by: Relative and patientLanguage siderographer used: NoFallLocation: Right shoulder injuryQuality: Stumbled and fellSeverity: SevereOnset quality: SuddenDuration: just DRAFTER MARINE.Timing: ConstantProgression: UnchangedChronicity: NewContext: Right hand dominantRelieved by: NothingWorsened by: MovementAssociated symptoms: no chest pain, no fever, no rash and no shortness ofbreathPAST MEDICAL HISTORYDiagnosis Date- Hypercholesteremia- HypertensionNo past surgical history on file.No family history on file.Social HistorySocial History Main Topics- Smoking status: Never Smoker- Smokeless tobacco: Never Used- Alcohol use No- Drug use: No- Sexual activity: NoALLERGIESNo Known AllergiesReview of SystemsConstitutional: Negative. Negative for fever.Respiratory: Negative for shortness of breath.Cardiovascular: Negative for chest pain.Musculoskeletal: Negative for back pain, gait problem and neck pain.Skin: Negative for rash.Neurological: Negative.Physical ExamBP 192/104 Pulse 67 Temp (Src) 97.6 (Temporal Artery) Resp 16 Ht4' 11 (1.50m) Wt 146 lb (66.2kg) SpO2 97% BMI 29.47 kg/(m2).Physical ExamConstitutional: She is oriented to person, place, and time. She appearswell-developed and well-nourished. No distress.HENT:Head: Normocephalic and atraumatic.Eyes: Pupils are equal, round, and reactive to light. No scleral icterus.Neck: Normal range of motion.Pulmonary/Chest: Effort normal and breath sounds normal. No respiratorydistress.Abdom inal: Soft. There is no tenderness.Musculoskeleta l: Right shoulder: She exhibits decreased range of motion, tenderness,bony tenderness, swelling, deformity and pain. Left shoulder: Normal. Right elbow: No tenderness found. Right wrist: She exhibits normal range of motion, no tenderness andno bony tenderness.Neurological: She is alert and oriented to person, place, and time.Skin: Skin is warm and dry. She is not diaphoretic.Psychiatric: She has a normal mood and affect.Nursing note and vitals reviewed.Diagnostic TestingED Labs Ordered and Reviewed - No data to displayProceduresMedical Decision Making / ED CourseED Coursediscussed results when avialble. No dislocation only fracture of theright humeral headDiscussed she could try to take less than one norco if side effects are anissueEncounter Diagnosis ICD-10-CM1. Shoulder fracture, right, closed, initial encounter S42.91XAHYDROcodone-aceta minophen (NORCO) 5-325 mg per tabletPlanThe Patient was DISCHARGED: Counseled patient and daughter regardingradiology results AND suspected diagnosis AND need for follow-up. Dischargedhome with verbal and written instructions. They were instructed to returnas needed for persistent or worsening symptoms or any new concerns.Condition at time of disposition: stableSIGNATURE: Wayne Manley MD02/04/182237 [facility] ED NOTEon 02-04-2018 ED NOTE HNO ID: [id number] Author: Johanna ChangRnSloane Gutierrez RN Service: Emergency Medicine Author Type: Registered Nurse Type: ED Notes Filed: 02/04/2018 9:47 PM Note Text: Visitor at bedside. [facility] ED NOTE HNO ID: [id number] Author: Johanna Gutierrez RN Service: Emergency Medicine Author Type: Registered Nurse Type: ED Notes Filed: 02/04/2018 9:47 PM Note Text: Ice re-applied to right shoulder. Awaiting Xray report. [facility] ED NOTE HNO ID: [id number] Author: Johanna Gutierrez RN Service: Emergency Medicine Author Type: Registered Nurse Type: ED Notes Filed: 02/04/2018 9:21 PM Note Text: Patient returned to the Emergency Department. [facility] ED NOTE HNO ID: [id number] Author: Johanna Gutierrez RN Service: Emergency Medicine Author Type: Registered Nurse Type: ED Notes Filed: 02/04/2018 9:22 PM Note Text: Patient transported to xray with Tech. 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 APPROVED BY: FELI CASTILLO MD EXAMINATION: SHOULDER 3V OR MORE AP/TRUE AP/OTHER RIGHT CLINICAL HISTORY: ER adult presented with right shoulder injury and pain, the patient fell down while chasing after her dog approximately 1 hour ago. Technique: SHOULDER 3V OR MORE AP/TRUE AP/OTHER RIGHT -- DATE:02/04/2018 10:12 PM Comparison: No prior studies are available for comparison. RESULT: There is acute fracture involving the proximal right humerus, the fracture lucency is extending to the greater tuberosity with close to 1 cm displacement. There are degenerative changes at the glenohumeral joint with some osteophytosis. IMPRESSION: Acute intra-articular fracture involving the proximal right humerus with involvement of the greater humeral tuberosity. Normal [facility] Vital Signs Date Time Vital Sign Value Performing Clinician Facility 08-13-2025 12:32-0400 Body height 149.[address] Brittney Kothari MD Work Phone: [facility] 08-13-2025 12:32-0400 Body mass index (BMI) [Ratio] 32.1 kg/m2 Dr. Brittney Kothari MD Work Phone: [facility] 08-13-2025 12:32-0400 Body weight 72.[address] Brittney Kothari MD Work Phone: [facility] 08-13-2025 12:32-0400 Diastolic blood pressure 83 mm[Hg] Dr. Brittney Kothari MD Work Phone: [facility] 08-13-2025 12:32-0400 Heart rate 54 /min Dr. Brittney Kothari MD Work Phone: [facility] 08-13-2025 12:32-0400 Respiratory rate 16 /min Dr. Brittney Kothari MD Work Phone: [facility] 08-13-2025 12:32-0400 Systolic blood pressure 130 mm[Hg] Dr. Brittney Kothari MD Work Phone: [facility] 07-16-2025 16:46-0400 Diastolic blood pressure 72 mm[Hg] Brittney Kothari DO Work Phone: [facility] 07-16-2025 16:46-0400 Systolic blood pressure 138 mm[Hg] Brittney [place] DO Work Phone: [facility] 07-16-2025 16:24-0400 Body height 149.9 cm Brittney [place] DO Work Phone: [facility] 07-16-2025 16:24-0400 Body mass index (BMI) [Ratio] 32.26 kg/m2 Brittney [place] DO Work Phone: [facility] 07-16-2025 16:24-0400 Body weight 72.48 kg Brittney [place] DO Work Phone: [facility] 07-16-2025 16:24-0400 Heart rate 84 /min Brittney [place] DO Work Phone: [facility] 07-16-2025 16:24-0400 SaO2% (BldA) [Mass fraction] 94 % Brittney [place] DO Work Phone: [facility] 07-02-2025 16:00-0400 Diastolic blood pressure 66 mm[Hg] Alexander Sherersen DO Work Phone: [facility] 07-02-2025 16:00-0400 Heart rate 53 /min Alexander Sherersen DO Work Phone: [facility] 07-02-2025 16:00-0400 Respiratory rate 13 /min Alexander Sherersen DO Work Phone: [facility] 07-02-2025 16:00-0400 SaO2% (BldA) [Mass fraction] 98 % Alexander Sherersen DO Work Phone: [facility] 07-02-2025 16:00-0400 Systolic blood pressure 105 mm[Hg] Alexander Sherersen DO Work Phone: [facility] 07-02-2025 15:00-0400 Body temperature 97.3 [degF] Alexander Sherersen DO Work Phone: [facility] 07-01-2025 13:52-0400 Body height 149.9 cm Alexander Cummings DO Work Phone: [facility] 07-01-2025 13:52-0400 Body mass index (BMI) [Ratio] 29.42 kg/m2 Alexander Cummings DO Work Phone: [facility] 07-01-2025 13:52-0400 Body weight 66.1 kg Alexander Cummings DO Work Phone: [facility] 06-27-2025 10:12-0400 Body height 149.9 cm Brittney [place] DO Work Phone: [facility] 06-27-2025 10:12-0400 Body mass index (BMI) [Ratio] 31.94 kg/m2 Brittney [place] DO Work Phone: [facility] 06-27-2025 10:12-0400 Body weight 71.76 kg Brittney [place] DO Work Phone: [facility] 06-27-2025 10:12-0400 Diastolic blood pressure 74 mm[Hg] Brittney [place] DO Work Phone: [facility] 06-27-2025 10:12-0400 Heart rate 55 /min Brittney [place] DO Work Phone: [facility] 06-27-2025 10:12-0400 SaO2% (BldA) [Mass fraction] 95 % Brittney [place] DO Work Phone: [facility] 06-27-2025 10:12-0400 Systolic blood pressure 130 mm[Hg] Brittney [place] DO Work Phone: [facility] 03-20-2025 10:50-0400 Body height 149.9 cm Johanna KOVACS DNP Work Phone: [facility] 03-20-2025 10:50-0400 Body mass index (BMI) [Ratio] 32.19 kg/m2 Johanna KOVACS DNP Work Phone: [facility] 03-20-2025 10:50-0400 Body weight 72.3 kg Johanna Garner [employer] SECURITY, DNP Work Phone: [facility] 03-20-2025 10:50-0400 Diastolic blood pressure 68 mm[Hg] Johanna Garner [employer] SECURITY, DNP Work Phone: [facility] 03-20-2025 10:50-0400 Heart rate 64 /min Johanna Garner [employer] PAT[employer]ER-[employer] SECURITY, DNP Work Phone: [facility] 03-20-2025 10:50-0400 Systolic blood pressure 114 mm[Hg] Johanna Garner [employer] PAT[employer]ER[employer] SECURITY, DNP Work Phone: [facility] 12-27-2024 09:58-0500 Body height 149.9 cm Brittney [place] DO Work Phone: [facility] 12-27-2024 09:58-0500 Body mass index (BMI) [Ratio] 32.02 kg/m2 Brittney [place] DO Work Phone: [facility] 12-27-2024 09:58-0500 Body weight 71.94 kg Brittney [place] DO Work Phone: [facility] 12-27-2024 09:58-0500 Diastolic blood pressure 78 mm[Hg] Brittney [place] DO Work Phone: [facility] 12-27-2024 09:58-0500 Heart rate 65 /min Brittney [place] DO Work Phone: [facility] 12-27-2024 09:58-0500 SaO2% (BldA) [Mass fraction] 98 % Brittney [place] DO Work Phone: [facility] 12-27-2024 09:58-0500 Systolic blood pressure 126 mm[Hg] Brittney [place] DO Work Phone: [facility] 06-26-2024 11:05-0400 Body height 149.9 cm Brittney [place] DO Work Phone: [facility] 06-26-2024 11:05-0400 Body mass index (BMI) [Ratio] 32.52 kg/m2 Brittney [place] DO Work Phone: [facility] 06-26-2024 11:05-0400 Body weight 73.03 kg Brittney [place] DO Work Phone: [facility] 06-26-2024 11:05-0400 Diastolic blood pressure 80 mm[Hg] Brittney [place] DO Work Phone: [facility] 06-26-2024 11:05-0400 Heart rate 56 /min Brittney [place] DO Work Phone: [facility] 06-26-2024 11:05-0400 SaO2% (BldA) [Mass fraction] 98 % Brittney [place] DO Work Phone: [facility] 06-26-2024 11:05-0400 Systolic blood pressure 126 mm[Hg] Brittney [place] DO Work Phone: [facility] 03-19-2024 10:11-0400 Body height 149.9 cm Johanna Garner [employer]PL[employer] PATROLLER-[employer] SECURITY, DNP Work Phone: [facility] 03-19-2024 10:11-0400 Body mass index (BMI) [Ratio] 33.33 kg/m2 Johanna Garner [employer]MA[employer] SECURITY, DNP Work Phone: [facility] 03-19-2024 10:11-0400 Body weight 74.84 kg Johanna Garner [employer] SECURITY, DNP Work Phone: [facility] 03-19-2024 10:11-0400 Diastolic blood pressure 70 mm[Hg] Johanna Garner AIRPLANE PATROLLER-ELIOT, DNP Work Phone: [facility] 03-19-2024 10:11-0400 Heart rate 57 /min Johanna Garner APRN-ELIOT, DNP Work Phone: [facility] 03-19-2024 10:11-0400 Systolic blood pressure 122 mm[Hg] Johanna Young [employer] SECURITY, DNP Work Phone: [facility] 06-28-2023 11:00-0400 Body height 149.9 cm Brittney [place] DO Work Phone: [facility] 06-28-2023 11:00-0400 Body mass index (BMI) [Ratio] 32.46 kg/m2 Brittney [place] DO Work Phone: [facility] 06-28-2023 11:00-0400 Body weight 72.89 kg Brittney [place] DO Work Phone: [facility] 06-28-2023 11:00-0400 Diastolic blood pressure 78 mm[Hg] Brittney [place] DO Work Phone: [facility] 06-28-2023 11:00-0400 Heart rate 56 /min Brittney [place] DO Work Phone: [facility] 06-28-2023 11:00-0400 SaO2% (BldA) [Mass fraction] 97 % Brittney [place] DO Work Phone: [facility] 06-28-2023 11:00-0400 Systolic blood pressure 126 mm[Hg] Brittney [place] DO Work Phone: [facility] 03-18-2023 10:24-0400 Body height 149.86 cm Brittney S [place] Work Phone: [facility] Work Phone: 03-18-2023 10:24-0400 Body mass index (BMI) [Ratio] 32.6 kg/m2 Brittney S [place] Work Phone: [facility] DO Work Phone: 03-18-2023 10:24-0400 Body surface area Derived from formula 1.68 m2 Brittney S [place] Work Phone: [facility]pp[facility]wg[facility] 3 DO Work Phone: 03-18-2023 10:24-0400 Body weight 73.21 kg Brittney S [place] Work Phone: [facility] 3 DO Work Phone: 03-18-2023 10:24-0400 Diastolic blood pressure 78 mm[Hg] Brittney S [place] Work Phone: [facility] 3 DO Work Phone: 03-18-2023 10:24-0400 Heart rate 80 /min Brittney S [place] Work Phone: [facility] 3 DO Work Phone: 03-18-2023 10:24-0400 Systolic blood pressure 130 mm[Hg] Brittney S [place] Work Phone: [facility] 3 DO Work Phone: 12-28-2022 10:56-0500 Body height 149.86 cm Brittney S [place] Work Phone: [facility] Work Phone: 12-28-2022 10:56-0500 Body mass index (BMI) [Ratio] 32.11 kg/m2 Brittney S [place] Work Phone: [facility] Work Phone: 12-28-2022 10:56-0500 Body surface area Derived from formula 1.67 m2 Brittney S [place] Work Phone: [facility] Work Phone: 12-28-2022 10:56-0500 Body weight 72.12 kg Brittney S [place] Work Phone: [facility] Work Phone: 12-28-2022 10:56-0500 Diastolic blood pressure 76 mm[Hg] Brittney Kothari Work Phone: [facility] Work Phone: 12-28-2022 10:56-0500 Heart rate 71 /min Brittney Kothari Work Phone: [facility] Work Phone: 12-28-2022 10:56-0500 SaO2% (BldA) [Mass fraction] 99 % Brittney Alfredo [place] Work Phone: [facility] Work Phone: 12-28-2022 10:56-0500 Systolic blood pressure 128 mm[Hg] Brittney Alfredo [place] Work Phone: [facility] Work Phone: 03-19-2022 09:55-0400 Body height 149.86 cm Brittney Alfredo [place] Work Phone: [facility] 3 DO Work Phone: 03-19-2022 09:55-0400 Body mass index (BMI) [Ratio] 31.71 kg/m2 Brittney Kothari Work Phone: [facility] 3 DO Work Phone: 03-19-2022 09:55-0400 Body surface area Derived from formula 1.66 m2 Brittney Alfredo [place] Work Phone: [facility] 3 DO Work Phone: 03-19-2022 09:55-0400 Body weight 71.22 kg Brittney Kothari Work Phone: [facility] 3 DO Work Phone: 03-19-2022 09:55-0400 Diastolic blood pressure 77 mm[Hg] Brittney Alfredo [place] Work Phone: [facility] 3 DO Work Phone: 03-19-2022 09:55-0400 Heart rate 59 /min Brittney Alfredo [place] Work Phone: [facility] Yuri 3 DO Work Phone: 03-19-2022 09:55-0400 Systolic blood pressure 151 mm[Hg] Brittney Alfredo [place] Work Phone: [facility] 3 DO Work Phone: 06-23-2021 11:16-0400 Body height 149.86 cm Brittney Alfredo [place] Work Phone: [facility] Work Phone: 06-23-2021 11:16-0400 Body mass index (BMI) [Ratio] 32.11 kg/m2 Brittney Alfredo [place] Work Phone: [facility] Work Phone: 06-23-2021 11:16-0400 Body surface area Derived from formula 1.67 m2 Brittney Alfredo [place] Work Phone: [facility] Work Phone: 06-23-2021 11:16-0400 Body temperature 98.6 [degF] Brittney Alfredo [place] Work Phone: [facility] Work Phone: 06-23-2021 11:16-0400 Body weight 72.12 kg Brittney Alfredo [place] Work Phone: [facility] Work Phone: 06-23-2021 11:16-0400 Diastolic blood pressure 78 mm[Hg] Brittney Alfredo [place] Work Phone: [facility] Work Phone: 06-23-2021 11:16-0400 Heart rate 71 /min Brittney Kothari Work Phone: [facility] Work Phone: 06-23-2021 11:16-0400 SaO2% (BldA) [Mass fraction] 97 % Brittney Kothari Work Phone: [facility] Work Phone: 06-23-2021 11:16-0400 Systolic blood pressure 118 mm[Hg] Brittney Kothari Work Phone: [facility] Work Phone: 12-23-2020 13:17-0500 BMI (Body Mass Index) 31.39 kg/m2 Johanna Garner [facility] Work Phone: 12-23-2020 13:17-0500 Body Temperature 96.9 [degF] Johanna Garner [facility] Work Phone: 12-23-2020 13:17-0500 Body weight 70.51 kg Johanna Garner [facility] Work Phone: 12-23-2020 13:17-0500 BP Diastolic 70 mm[Hg] Johanna Garner [facility] Work Phone: 12-23-2020 13:17-0500 BP Systolic 132 mm[Hg] Johanna Garner [facility] Work Phone: 12-23-2020 13:17-0500 BSA (Body Surface Area) 1.66 m2 Johanna Garner [facility] Work Phone: 12-23-2020 13:17-0500 Height 149.86 cm Johanna Garner [facility] Work Phone: 12-23-2020 13:17-0500 Pulse (Heart Rate) 70 /min Johanna Garner [facility] Work Phone: 12-23-2020 13:17-0500 Pulse Oximetry 97 % Johanna Garner [facility] Work Phone: 11-19-2020 13:27-0500 BMI (Body Mass Index) 31.33 kg/m2 Johanna Garner [facility] Work Phone: 11-19-2020 13:27-0500 Body Temperature 95.7 [degF] Johanna Garner [facility] Work Phone: 11-19-2020 13:27-0500 Body weight 70.36 kg Johanna Garner [facility] Work Phone: 11-19-2020 13:27-0500 BP Diastolic 82 mm[Hg] Johanna Garner [facility] Work Phone: Comment on above: Location: LUE; Position: Sitting 11-19-2020 13:27-0500 BP Systolic 146 mm[Hg] Johanna Garner [facility] Work Phone: Comment on above: Location: LUE; Position: Sitting 11-19-2020 13:27-0500 BSA (Body Surface Area) 1.66 m2 Johanna Garner [facility] Work Phone: 11-19-2020 13:27-0500 Height 149.86 cm Johanna Garner [facility] Work Phone: 11-19-2020 13:27-0500 Pulse (Heart Rate) 68 /min Johanna Garner [facility] Work Phone: 07-01-2020 12:50-0400 BMI (Body Mass Index) 30.11 kg/m2 Dc Garner [facility] Work Phone: 07-01-2020 12:50-0400 Body Temperature 97.1 [degF] Dc Garner [facility] Work Phone: Comment on above: Method: Temporal 07-01-2020 12:50-0400 Body weight 67.61 kg Dc Garner [facility] Work Phone: 07-01-2020 12:50-0400 BP Diastolic 80 mm[Hg] Dc Garner [facility] Work Phone: 07-01-2020 12:50-0400 BP Systolic 122 mm[Hg] Dc Garner [facility] Work Phone: 07-01-2020 12:50-0400 BSA (Body Surface Area) 1.[address] [facility] Work Phone: 07-01-2020 12:50-0400 Height 149.[address] [facility] Work Phone: 07-01-2020 12:50-0400 Pulse (Heart Rate) 68 /min Dc Garner [facility] Work Phone: 07-01-2020 12:50-0400 Pulse Oximetry 97 % Dc Garner [facility] Work Phone: Comment on above: Source: RA Encounters Encounter Date Encounter Type Care Provider Facility Start: [facility] Start: 08-20-2025 ambulatory Dany Larry Facility:[facility] Start: 08-13-[address] Dany Juarez MD -Laboratory Work Phone: Start: 08-13-2025 ambulatory Dany Larry Facility:[facility] Start: 08-13-2025 End: 08-13-[address] Dany Juarez MD -[facility] Work Phone: Start: 08-13-2025 End: 08-13-[address] Brittney Kothari MD Work Phone: -[facility] Start: 07-30-2025 End: 07-30-2025 ambulatory [facility] Start: 07-16-2025 End: 07-16-2025 Transitional care manage srvc 14 day discharge Brittney Kothari DO Work Phone: [facility] Comment on above: Hyponatremia (Primar y Dx); Hyperglycemia; Atrial fibrillation with RVR (Multi); Paroxysmal atrial fibrillation (Multi) Start: 07-16-2025 End: 07-16-2025 ambulatory [facility] Start: 07-10-2025 End: 07-10-2025 ambulatory [facility] Start: 07-08-2025 End: 07-08-2025 ambulatory [facility] Start: 07-05-2025 End: 07-05-2025 ambulatory [facility] Start: 07-02-2025 End: 07-02-2025 [facility] Comment on above: Paroxysmal atrial fi brillation (Multi) Start: 07-02-2025 End: 07-02-2025 ambulatory [facility] Start: 07-01-2025 End: 07-02-2025 Evaluation and management of inpatient Alexander Cummings DO Work Phone: [facility] Comment on above: Atrial fibrillation with RVR (Multi) (Primary Dx); Abnormal EKG; Paroxysmal atrial fibrillation (Multi) Start: 07-01-2025 End: 07-01-2025 Subsequent hospital visit by physician Ray Gongv[facility] Comment on above: Palpitations Start: 07-01-2025 End: 07-02-2025 ambulatory [facility] Start: 07-01-2025 End: 07-01-2025 ambulatory [facility] Start: 06-27-2025 End: 06-27-2025 Office outpatient visit 25 minutes Brittney Alfredo [place] DO Work Phone: [facility] Comment on above: Medicare annual well ness visit, subsequent (Primary Dx); Palpitations; Other constipation; Essential (primary) hypertension; Secondary hypothyroidism; Hypertension, unspecified type; Mixed hyperlipidemia; Vitamin D deficiency; Hyperglycemia Start: 06-27-2025 End: 07-16-2025 Patient encounter procedure [employer] Work Phone: [facility] Work Phone: Start: 06-27-2025 End: 06-27-2025 ambulatory [facility] Start: 06-27-2025 End: 06-27-2025 Encounter for general adult medical examination without abnormal findings [facility] Start: 03-20-2025 End: 03-20-2025 Office outpatient visit 15 minutes Johanna Garner APRN-MASTER [employer] SECURITY, [facility] Work Phone: [facility] Comment on above: 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); Essential (primary) hypertension; Mixed hyperlipidemia Start: 03-20-2025 End: 03-20-2025 ambulatory JOHANNA M [facility] Start: 12-27-2024 End: 12-27-2024 Office outpatient visit 25 minutes [employer] Work Phone: [facility] Comment on above: Hyperglycemia (Prima ry Dx); Essential (primary) hypertension; Secondary hypothyroidism; Hypertension, unspecified type; Mixed hyperlipidemia; Chronic midline low back pain without sciatica Start: 12-27-2024 End: 12-27-2024 ambulatory [facility] Start: 06-26-2024 End: 06-26-2024 Office outpatient visit 25 minutes [employer] Work Phone: [facility] Comment on above: Medicare annual well ness visit, subsequent (Primary Dx); Essential (primary) hypertension; Hypertension, unspecified type; Mixed hyperlipidemia; Benign essential hypertension; Hyperglycemia; Secondary hypothyroidism; 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); Vitamin D deficiency; Impacted cerumen of right ear Start: 06-26-2024 End: 06-26-2024 Patient encounter procedure [employer] Work Phone: [facility] Work Phone: Start: 06-18-2024 End: 06-18-2024 ambulatory BRITTNEY [facility] Start: 03-19-2024 End: 03-19-2024 Office outpatient visit 15 minutes Johanna Garner APRN-MASTER [employer] SECURITY, [facility] Work Phone: [facility] Comment on above: Benign essential hyp ertension (Primary Dx); 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) Start: 03-15-2024 End: 03-15-2024 ambulatory [facility] Start: 12-20-2023 End: 12-20-2023 ambulatory [facility] Start: 06-28-2023 End: 06-28-2023 Office outpatient visit 25 minutes Brittney S [place] DO Work Phone: [facility] Comment on above: Healthcare hattie ce (Primary Dx); Hyperglycemia; SIADH (syndrome of inappropriate ADH production) (CMS/HCC); Benign essential hypertension; Mixed hyperlipidemia; Secondary hypothyroidism; Medicare annual wellness visit, subsequent Start: 06-28-2023 End: 12-27-2024 Patient encounter procedure Brittney Alfredo [place] DO Work Phone: [facility] Work Phone: Start: 06-28-2023 End: 06-28-2023 Patient encounter status Brittney S [place] DO Work Phone: [facility] Work Phone: Start: 05-09-2023 AUDIT Brittney Alfredo Geronimo al Work Phone: [facility] Work Phone: Start: 03-18-2023 Office outpatient vi sit 15 minutes Brittney S [place] Work Phone: [facility] DO Work Phone: Start: 03-10-2023 Chart Update Brittney S Geronimo al Work Phone: [facility] 3 [facility] Work Phone: Start: 12-28-2022 Office outpatient vi sit 25 minutes Brittney Kothari Work Phone: [facility] Work Phone: Start: 12-20-2022 Chart Update Brittney Melton al Work Phone: [facility] Work Phone: Start: 12-06-2022 Rx Renewal Brittney Kaury al Work Phone: [facility] Work Phone: Start: 11-22-2022 AUDIT Brittney Kaury al Work Phone: [facility] 3 DO Work Phone: Start: 10-27-2022 Rx Renewal Brittney Melton al Work Phone: [facility] 3 DO Work Phone: Start: 06-29-2022 EPV, Provider: Brittney Kothari, Status: Pen, Time: 11:00 AM Brittney Kothari Work Phone: [facility] Work Phone: Start: 06-28-2022 Rx Renewal Brittney Kaury al Work Phone: [facility] Work Phone: Start: 06-27-2022 Chart Update Brittney Alfredo Geronimo al Work Phone: [facility] Work Phone: Start: 06-22-2022 Chart Update Brittney Alfredo Geron[place] al Work Phone: [facility] Work Phone: Start: 06-01-2022 Rx Renewal Brittney Alfredo Geronimo al Work Phone: [facility] Work Phone: Start: 05-10-2022 Rx Renewal Brittney Alfredo Geron[place] al Work Phone: [facility] 3 DO Work Phone: Start: 04-14-2022 Telephone encounter Brittney Alfredo [place] Work Phone: [facility] 3 DO Work Phone: Start: 03-19-2022 Office outpatient vi sit 15 minutes Brittney Kothari Work Phone: [facility] 3 DO Work Phone: Start: 12-22-2021 Chart Update Brtitney S Geronimo al Work Phone: [facility] Work Phone: Start: 12-08-2021 Rx Renewal Brittney Alfredo Geronimo al Work Phone: [facility] Work Phone: Start: 11-17-2021 AUDIT Brittney S Geronimo al Work Phone: [facility] 3 DO Work Phone: Start: 11-16-2021 AUDIT Brittney S Geronimo al Work Phone: [facility] 3 DO Work Phone: Start: 11-03-2021 Rx Renewal Brittney S Geronimo al Work Phone: [facility] Yuri 3 DO Work Phone: Start: 07-23-2021 Rx Renewal Brittney S Geronimo al Work Phone: -[facility] Work Phone: Start: 07-02-2021 Chart Update Brittney Melton al Work Phone: -[facility] Work Phone: Start: 06-23-2021 Office outpatient vi sit 25 minutes Brittney Alfredo Work Phone: -[facility] Work Phone: Start: 06-16-2021 Chart Update Brittney Melton al Work Phone: -[facility] Work Phone: Start: 05-19-2021 AUDIT Brittney Melton al Work Phone: [facility] Work Phone: Start: 12-23-2020 Patient encounter procedure Johanna Garner -[facility] Work Phone: Start: 11-19-2020 Patient encounter procedure Johanna Garner -[facility] Work Phone: Start: 07-01-2020 Patient encounter procedure Dc Garner -[facility] Work Phone: Start: 05-06-2020 Patient encounter procedure Dc Garner -[facility] Work Phone: Start: 03-18-2020 Patient encounter procedure Dc Garner [facility] Work Phone: Start: 02-22-2020 Patient encounter procedure Dc Garner [facility] Work Phone: Start: 02-04-2020 Patient encounter procedure Dc Garner -[facility] Work Phone: Start: 01-01-2020 Patient encounter procedure Dc Garner [facility] Work Phone: Start: 11-05-2019 Patient encounter procedure Dc Garner [facility] Work Phone: Start: 10-18-2019 Patient encounter procedure Dc Garner [facility] Work Phone: Start: 09-14-2019 Patient encounter procedure Dc Garner [facility] Work Phone: Start: 09-12-2019 Patient encounter procedure Dc Garner [facility] Work Phone: Start: 09-10-2019 Patient encounter procedure Dc Garner [facility] Work Phone: Start: 09-05-2019 Patient encounter procedure Dc Garner [facility] Work Phone: Start: 09-03-2019 Patient encounter procedure Dc Garner [facility] Work Phone: Start: 08-29-2019 Patient encounter procedure Dc Garner [facility] Work Phone: Start: 08-27-2019 Patient encounter procedure Dc Garner [facility] Work Phone: Start: 08-24-2019 Patient encounter procedure Dc Garner [facility] Work Phone: Start: 02-04-2018 Emergency department patient visit [facility] Patient encounter procedure Brittney Kothari Work Phone: [facility] Work Phone: Procedures Date Procedure Procedure Detail Performing Clinician Start: 07-02-2025 Basic metabolic pane l calcium total Heide Barber MD Work Phone: Start: 07-02-2025 Ecg routine ecg w/le ast 12 lds trcg only w/o i&r Francis Zambrano MD Work Phone: Start: 07-02-2025 Basic metabolic pane l calcium total Nba Gomez MD Work Phone: Start: 07-01-2025 Echo tthrc r-t 2d w/ wom-mode compl spec&colr d Nba Gomez MD Work Phone: Start: 07-01-2025 RESPIRATORY CARE ANTWON LUATION ONLY Nba Gomez MD Work Phone: Start: 07-01-2025 Ct heart contrast ev al cardiac structure&morph Francis Brennon Zambrano MD Work Phone: Start: 07-01-2025 EXTRA TUBES Alexander Cummings DO Work Phone: Start: 07-01-2025 SST TOP Alexander Cummings DO Work Phone: Start: 07-01-2025 End: 07-01-2025 Assay of lactate Alexander Thornton O Work Phone: Start: 07-01-2025 Culture bacterial quanttative colony count urine Alexander Cummings DO Work Phone: Start: 07-01-2025 EXTRA URINE FRANK TUBE R ichbhavana Cummings DO Work Phone: Start: 07-01-2025 Urinalysis complete W Reflex Culture panel - Urine Aelxander Cummings DO Work Phone: Start: 07-01-2025 Urinalysis microscop ic panel - Urine Qualitative by Automated Alexander Cummings DO Work Phone: Start: 07-01-2025 Radiologic exam ches t single view Alexander Cummings DO Work Phone: Start: 07-01-2025 Comprehensive metabo lic panel Alexander Cummings DO Work Phone: Start: 07-01-2025 Troponin I.cardiac p luna - Serum or Plasma by High sensitivity method Alexander Cummings DO Work Phone: Start: 07-01-2025 End: 07-01-2025 Ecg routine ecg w/least 12 lds trcg only w/o i&r Brittney Kothari DO Work Phone: Start: 07-01-2025 Thyrotropin [Units/v olume] in Serum or Plasma [facility] Start: 06-20-2025 Lipid 1996 panel - S lucretia or Plasma Brittney [place] DO Work Phone: Start: 12-17-2024 Thyrotropin [Units/v olume] in Serum or Plasma Brittney [place] DO Work Phone: Start: 06-18-2024 Lipid 1996 panel - S lucretia or Plasma Brittney [place] DO Work Phone: Start: 06-18-2024 Thyrotropin [Units/v olume] in Serum or Plasma Brittney [place] DO Work Phone: Start: 03-15-2024 Comprehensive metabo lic 2000 panel - Serum or Plasma BRITTNEY ROYAL Start: 12-20-2023 Basic metabolic 1999 panel - Serum or Plasma BRITTNEY ROYAL Start: 12-20-2023 Hemoglobin A1c/Hemoglobin.total in Blood BRITTNEY ROYAL Start: 12-20-2023 Thyrotropin [Units/v olume] in Serum or Plasma Johanna Garner [employer]-MA[employer] SECURITY, DNP Work Phone: Start: 06-21-2023 Lipid 1996 panel - S lucretia or Plasma Birttney [place] DO Work Phone: Start: 12-20-2022 Thyrotropin [Units/v olume] in Serum or Plasma Brittney [place] DO Work Phone: Start: 12-23-2020 Assay of thyroid sti mulating hormone tsh Johanna Garner Start: 12-23-2020 Basic metabolic 1997 panel - Serum or Plasma Johanna Garner Start: 12-23-2020 Hemoglobin glycosylated a1c Johanna Garner Start: 11-19-2020 Basic metabolic 1997 panel - Serum or Plasma Johanna Garner Start: 07-01-2020 Basic metabolic 1997 panel - Serum or Plasma Dc Garner Start: 07-01-2020 Hemoglobin glycosylated a1c Dc Garner Start: 07-01-2020 Lipid panel Dc pinedo Cholecystectomy Dc Garner Colonic polypectomy Dc calix Colonoscopy Dc Garner Dilation and curettage Dc Garner Hernia repair Dc Garner Plan of Treatment Date Care Activity Detail Author Start: 06-20-2030 Lipid panel Lipid Panel [facility] Start: 06-18-2029 Lipid panel Lipid Panel [facility] Start: 06-21-2028 Lipid panel Lipid Panel [facility] Start: 07-02-2026 Diabetes mellitus screening Diabetes Screening [facility] Start: 07-01-2026 Diabetes mellitus screening Diabetes Screening [facility] Start: 07-01-2026 Thyroid stimulating hormone measurement TSH Level [facility] Start: 06-28-2026 Medicare Annual Wellness Visit Medicare Annual Wellness Visit (AWV) [facility] Start: 06-20-2026 Hemoglobin A1c measurement Diabetes: Hemoglobin A1C [facility] Start: 03-20-2026 End: 03-20-2026 Basic metabolic 2000 panel - Serum or Plasma Basic metabolic panel Lab Routine 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) Expected: 03/20/2026 (Approximate), Expires: 03/20/2026 [facility] Service Area Work Phone: Comment on above: Expected: 03/20/2026 (Approximate), Expires: 03/20/2026 Start: 03-20-2026 End: 03-20-2026 Patient encounter procedure 03/20/2026 11:00 AM EDT Office Visit [facility] [address] [place] [phone] Johanna Garner, AIRPLANE PATROLLER-MASTER [employer] SECURITY, DNP [address] [facility] 3 [place] [phone] [facility] Start: 12-28-2025 End: 06-27-2026 25-hydroxyvitamin D3 [Mass/volume] in Serum or Plasma Vitamin D 25-Hydroxy,Total (for eval of Vitamin D levels) Lab Routine Vitamin D deficiency Expected: 12/28/2025 (Approximate), Expires: 06/27/2026 [facility] Work Phone: Comment on above: Expected: 12/28/2025 (Approximate), Expires: 06/27/2026 Start: 12-28-2025 End: 06-27-2026 Basic metabolic 2000 panel - Serum or Plasma Basic Metabolic Panel Lab Routine Essential (primary) hypertension Expected: 12/28/2025 (Approximate), Expires: 06/27/2026 [facility] Work Phone: Comment on above: Expected: 12/28/2025 (Approximate), Expires: 06/27/2026 Start: 12-28-2025 End: 06-27-2026 Hemoglobin A1c/Hemoglobin.total in Blood Hemoglobin A1C Lab Routine Hyperglycemia Expected: 12/28/2025 (Approximate), Expires: 06/27/2026 [facility] Work Phone: Comment on above: Expected: 12/28/2025 (Approximate), Expires: 06/27/2026 Start: 12-26-2025 End: 12-26-2025 Patient encounter procedure 12/26/2025 11:20 AM EST Office Visit [facility] [address] [facility] [address] [place] [phone] Brittney Kothari DO [address] [facility] [address] [place] [address] [facility] Start: 12-17-2025 Thyroid stimulating hormone measurement TSH Level [facility] Start: 08-13-2025 End: 08-13-2025 Evaluation of diagnostic study results [facility] Start: 07-30-2025 End: 07-30-2025 Anticoagulant drug monitoring 07/30/2025 2:45 PM EDT Anticoagulation - Warfarin Visit [facility] [address] [facility] [address] [place] [address] [facility] Start: 07-16-2025 End: 07-16-2026 Basic metabolic 2000 panel - Serum or Plasma Basic Metabolic Panel Lab Routine Hyponatremia Expected: 07/16/2025 (Approximate), Expires: 07/16/2026 [facility] Service Area Work Phone: Comment on above: Expected: 07/16/2025 (Approximate), Expires: 07/16/2026 Start: 07-15-2025 COVID-19 Vaccine ( season) COVID-19 Vaccine ( season) [facility] Start: 07-15-2025 Influenza vaccination Influenza Vacc ine (#1) [facility] Start: 07-05-2025 End: 07-05-2025 Anticoagulant drug monitoring 07/05/2025 1:30 PM EDT Anticoagulation - Warfarin Visit [facility] [address] [facility] [address] [place] [address] [facility] Start: 07-02-2025 End: 07-02-2026 Holter monitor study [facility] Service Area Work Phone: Comment on above: Expected: 07/02/2025 , Expires: 07/02/2026 Once for 1 Occurrenc es starting 07/02/2025 until 07/02/2025 Start: 06-27-2025 End: 08-27-2025 Holter monitor study Holter Or Event [facility] Routine Palpitations Expected: 06/27/2025 (Approximate), Expires: 08/27/2025 [facility] Service Area Work Phone: Comment on above: Expected: 06/27/2025 (Approximate), Expires: 08/27/2025 Start: 06-27-2025 Medicare Annual Wellness Visit Medicare Annual Wellness Visit (AWV) [facility] Start: 06-27-2025 End: 06-27-2026 Thyrotropin [Units/volume] in Serum or Plasma TSH Lab Routine Secondary hypothyroidism Expected: 06/27/2025 (Approximate), Expires: 06/27/2026 [facility] Work Phone: Comment on above: Expected: 06/27/2025 (Approximate), Expires: 06/27/2026 Start: 06-27-2025 End: 06-27-2025 Patient encounter procedure 06/27/2025 10:20 AM EDT Office Visit [facility] [address] [facility] [address] [place] [phone] Brittney Kothari DO [address] [facility] [address] [place] [address] [facility] Start: 06-26-2025 End: 12-27-2025 Basic metabolic 2000 panel - Serum or Plasma Basic Metabolic Panel Lab Routine Essential (primary) hypertension Expected: 06/26/2025 (Approximate), Expires: 12/27/2025 [facility] Service Area Work Phone: Comment on above: Expected: 06/26/2025 (Approximate), Expires: 12/27/2025 Start: 06-26-2025 End: 12-27-2025 Hemoglobin A1c/Hemoglobin.total in Blood Hemoglobin A1C Lab Routine Hyperglycemia Expected: 06/26/2025 (Approximate), Expires: 12/27/2025 [facility] Work Phone: Comment on above: Expected: 06/26/2025 (Approximate), Expires: 12/27/2025 Start: 06-26-2025 End: 12-27-2025 Lipid 1996 panel - Serum or Plasma Lipid Panel Lab Routine Mixed hyperlipidemia Expected: 06/26/2025 (Approximate), Expires: 12/27/2025 [facility] Work Phone: Comment on above: Expected: 06/26/2025 (Approximate), Expires: 12/27/2025 Start: 06-18-2025 Thyroid stimulating hormone measurement TSH Level [facility] Start: 04-01-2025 End: 09-19-2025 Basic metabolic 2000 panel - Serum or Plasma Basic metabolic panel Lab Routine Benign essential hypertension 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) Expected: 04/01/2025 (Approximate), Expires: 09/19/2025 [facility] Area Work Phone: Comment on above: Expected: 04/01/2025 (Approximate), Expires: 09/19/2025 Start: 03-19-2025 End: 03-19-2025 Patient encounter procedure 03/19/2025 10:00 AM EDT Office Visit [facility] [address] [place] [phone] Johanna Garner, AIRPLANE PATROLLER-MASTER [employer] SECURITY, DNP [address] [place] [address] [facility] Start: 12-27-2024 End: 06-26-2025 25-hydroxyvitamin D3 [Mass/volume] in Serum or Plasma Vitamin D 25-Hydroxy,Total (for eval of Vitamin D levels) Lab Routine Vitamin D deficiency Expected: 12/27/2024 (Approximate), Expires: 06/26/2025 [facility] Work Phone: Comment on above: Expected: 12/27/2024 (Approximate), Expires: 06/26/2025 Start: 12-27-2024 End: 06-26-2025 Basic metabolic 2000 panel - Serum or Plasma Basic Metabolic Panel Lab Routine Hyperglycemia Expected: 12/27/2024 (Approximate), Expires: 06/26/2025 [facility] Service Area Work Phone: Comment on above: Expected: 12/27/2024 (Approximate), Expires: 06/26/2025 Start: 12-27-2024 End: 06-26-2025 Hemoglobin A1c/Hemoglobin.total in Blood Hemoglobin A1C Lab Routine Hyperglycemia Expected: 12/27/2024 (Approximate), Expires: 06/26/2025 [facility] Work Phone: Comment on above: Expected: 12/27/2024 (Approximate), Expires: 06/26/2025 Start: 12-27-2024 End: 06-26-2025 Thyrotropin [Units/volume] in Serum or Plasma TSH Lab Routine Secondary hypothyroidism Expected: 12/27/2024 (Approximate), Expires: 06/26/2025 [facility] Work Phone: Comment on above: Expected: 12/27/2024 (Approximate), Expires: 06/26/2025 Start: 12-20-2024 Thyroid stimulating hormone measurement TSH Level [facility] Start: 11-06-2024 COVID-19 Vaccine ( season) COVID-19 Vaccine ( season) [facility] Start: 07-15-2024 Influenza vaccination Influenza Vacc ine (#1) [facility] Start: 06-29-2024 Medicare Annual Wellness Visit Medicare Annual Wellness Visit (AWV) [facility] Start: 06-26-2024 End: 06-26-2024 Patient encounter procedure 06/26/2024 11:00 AM EDT Office Visit [facility] [address] [place] [phone] Brittney Kothari, DO [address] [facility] [place], [place] [phone] [facility] Start: 03-19-2024 FUV, Provider: Johanna Garner, Status: Pen, Time: 10:15 AM FUV, Provider: Johanna Garner, Status: Pen, Time: 10:15 AM [facility] Yuri 3 DO Work Phone: Start: 12-29-2023 End: 06-28-2024 Basic metabolic 2000 panel - Serum or Plasma Basic Metabolic Panel Lab Routine SIADH (syndrome of inappropriate ADH production) [facility] Expected: 12/29/2023 (Approximate), Expires: 06/28/2024 [facility] Work Phone: Comment on above: Expected: 12/29/2023 (Approximate), Expires: 06/28/2024 Start: 12-29-2023 End: 06-28-2024 Hemoglobin A1c/Hemoglobin.total in Blood Hemoglobin A1C Lab Routine Hyperglycemia Expected: 12/29/2023 (Approximate), Expires: 06/28/2024 [facility] Work Phone: Comment on above: Expected: 12/29/2023 (Approximate), Expires: 06/28/2024 Start: 12-29-2023 End: 06-28-2024 Thyrotropin [Units/volume] in Serum or Plasma TSH Lab Routine Secondary hypothyroidism Expected: 12/29/2023 (Approximate), Expires: 06/28/2024 [facility] Service Area Work Phone: Comment on above: Expected: 12/29/2023 (Approximate), Expires: 06/28/2024 Start: 12-27-2023 End: 12-27-2023 Patient encounter procedure 12/27/2023 11:00 AM EST Office Visit [facility] [address] [facility] [place] [id number] Brittney Kothari S, DO [address] [facility] [place] [address] [facility] Start: 12-20-2023 Thyroid stimulating hormone measurement TSH Level [facility] Start: 12-15-2023 COVID-19 Vaccine ( season) COVID-19 Vaccine () [facility] Start: 07-15-2023 Influenza vaccination Influenza Vacc ine (#1) [facility] Start: 06-30-2023 Medicare Annual Wellness Visit Medicare Annual Wellness Visit (AWV) [facility] Start: 06-28-2023 EPV, Provider: Brittney Kothari, Status: Pen, Time: 11:00 AM EPV, Provider: Brittney Kothari, Status: Pen, Time: 11:00 AM [facility] Work Phone: Start: 03-18-2023 FUV, Provider: Johanna Garner, Status: Pen, Time: 10:30 AM FUV, Provider: Johanna Garner, Status: Pen, Time: 10:30 AM [facility] Yuri 3 DO Work Phone: Start: 12-28-2022 EPV, Provider: Brittney Kothari, Status: Pen, Time: 11:00 AM EPV, Provider: Brittney Kothari, Status: Pen, Time: 11:00 AM [facility] Yuri 3 DO Work Phone: Start: 09-30-2022 COVID-19 Vaccine (5 - Booster for Moderna series) COVID-19 Vaccine (5 - Booster for Moderna series) [facility] Start: 06-29-2022 EPV, Provider: Brittney Kothari, Status: Pen, Time: 11:00 AM EPV, Provider: Brittney Kothari, Status: Pen, Time: 11:00 AM [facility] Work Phone: Start: 03-19-2022 FUV, Provider: Johanna Garner, Status: Pen, Time: 10:00 AM FUV, Provider: Johanna Garner, Status: Pen, Time: 10:00 AM [facility] 3 DO Work Phone: Start: 12-29-2021 EPV, Provider: Brittney Kothari, Status: Pen, Time: 11:20 AM EPV, Provider: Brittney Kothari, Status: Pen, Time: 11:[address] [facility] Work Phone: Start: 06-23-2021 EPV, Provider: Brittney Kothari, Status: Pen, Time: 11:20 AM EPV, Provider: Brittney Kothari, Status: Pen, Time: 11:20 AM [facility] 3 DO Work Phone: Start: 01-01-2021 Basic metabolic 1998 panel - Serum or Plasma Basic Metabolic Panel [facility] Work Phone: Start: 01-01-2021 HbA1c (Bld) [Mass fraction] Hemoglobin A1C [facility] Work Phone: Start: 01-01-2021 Lipid panel Lipid Panel [facility] Work Phone: Start: 2019 RSV High Risk: (Elderly (60+) or Population) (1 - 1-dose 75+ series) RSV High Risk: (Elderly (60+) or Population) (1 - 1-dose 75+ series) [facility] Start: 2009 Screening for osteoporosis Bone Density Scan [facility] Start: 2004 RSV patient s and/or patients aged 60+ years (1 - 1-dose 60+ series) RSV patients and/or patients aged 60+ years (1 - 1-dose 60+ series) [facility] Start: 1994 Zoster Vaccines (1 o f 2) Zoster Vaccines (1 of 2) [facility] Start: 1966 DTaP/Tdap/Td Vaccine s (1 - Tdap) DTaP/Tdap/Td Vaccines (1 - Tdap) [facility] Start: 1962 Hepatitis C screening Hepatitis C [facility] Start: 1945 Screening for osteoporosis Bone Density Scan [facility] Bacteria identified in Urine by Culture Urine Culture Microbiology STAT 07/01/2025 10:31 AM EDT [facility] Work Phone: Cardioversion electi ve arrhythmia external CARDIOVERSION, EXTERNAL Atrial fibrillation with RVR (Multi) Virtual [facility] Cardiac [employer] Clerk CT pre watchman full contrast CT pre watchman full contrast Imaging STAT 07/01/2025 1:34 PM EDT [facility] Work Phone: ECG 12 lead (Ancilla ry Performed) [facility] Work Phone: Electrocardiogram, 12-lead PRN ACS symptoms Electrocardiogram, 12-lead PRN ACS symptoms ECG Routine As needed until discontinued starting 07/01/2025 [facility] Work Phone: Comment on above: As needed until disc ontinued starting 07/01/2025 End: 07-01-2025 Incentive spirometry Instruct Incentive spirometry Instruct Respiratory Care Routine Once for 1 Occurrences starting 07/01/2025 until 07/01/2025 [facility] Work Phone: Comment on above: Once for 1 Occurrenc es starting 07/01/2025 until 07/01/2025 NM Heart Views W stress and W radionuclide IV [facility] [employer] Work Phone: NEGATED: Highlighted row has been ruled out! Planned Goals not documented [facility] Work Phone: Immunizations Immunization Date Immunization Notes Care Provider Ariela rendon 09-11-2024 Moderna SARS-CoV-2 Booster Brittney [place] DO Work Phone: [facility] Work Phone: 09-05-2024 influenza, seasonal, injectable Brittney [place] DO Work Phone: [facility] Work Phone: 09-05-2024 influenza virus vacc ine, unspecified formulation Brittney [place] DO Work Phone: [facility] Work Phone: 10-20-2023 Moderna SARS-CoV-2 Booster Johanna Garner [employer] SECURITY, DNP Work Phone: [facility] 09-16-2023 Flu vaccine, quadrivalent, high-dose, preservative free, age 65y+ (FLUZONE) Johanna Garner [employer] SECURITY, DNP Work Phone: [facility] 09-16-2023 influenza virus vacc ine, unspecified formulation Brittney [place] DO Work Phone: [facility] Work Phone: 06-28-2023 Pneumococcal conjuga te vaccine, 20-valent, adult (PREVNAR 20) Idiro DO Work Phone: [facility] Work Phone: 08-24-2022 Fluzone High-Dose Quadrivalent 0.7 ML Intramuscular Suspension Prefilled Syringe NBO TV S [employer] Work Phone: [facility] 3 DO Work Phone: Comment on above: Series: 08-24-2022 influenza virus vacc ine, unspecified formulation Brittney [place] DO Work Phone: [facility] Work Phone: 08-05-2022 Moderna COVID-19 Biv al Booster 50 MCG/0.5ML Intramuscular Suspension Brittney S [place] Work Phone: [facility] Work Phone: 02-12-2022 Moderna COVID-19 Vac cine 100 MCG/0.5ML Intramuscular Suspension Brittney S [place] Work Phone: [facility] DO Work Phone: 09-09-2021 Moderna COVID-19 Vac cine 100 MCG/0.5ML Intramuscular Suspension Brittney S [place] Work Phone: [facility]bcd[facility]wo[facility] Yuri 3 DO Work Phone: 07-30-2021 influenza, injectabl e, quadrivalent, contains preservative Brittney S [place] Work Phone: MU[facility]inmvhxtbn[facility] Yuri 3 DO Work Phone: Comment on above: Series: 02-09-2021 Moderna COVID-19 Vac cine 100 MCG/0.5ML Intramuscular Suspension Brittney S [place] Work Phone: [facility] 01-12-2021 Moderna COVID-19 Vac cine 100 MCG/0.5ML Intramuscular Suspension Brittney S [place] Work Phone: [facility] 07-29-2020 influenza, high dose seasonal, preservative-free Dc Garner [facility] Work Phone: Comment on above: Series: 08-06-2019 influenza, high dose seasonal, preservative-free; Translations: [Influenza, high dose seasonal, preservative-free] cD Garner [facility] Work Phone: Comment on above: Series: 07-24-2018 influenza, high dose seasonal, preservative-free; Translations: [Influenza, high dose seasonal, preservative-free] Dc Garner [facility] Work Phone: Comment on above: Series: 07-19-2017 influenza, high dose seasonal, preservative-free Brittney S [place] Work Phone: [facility] Work Phone: 07-08-2016 influenza, high dose seasonal, preservative-free Brittney S [place] Work Phone: [facility] Work Phone: 09-24-2015 pneumococcal conjuga te vaccine, 13 valent Brittney S [place] Work Phone: [facility] Yuri 3 DO Work Phone: Comment on above: Series: 09-14-2015 pneumococcal conjuga te vaccine, [address] [facility] Work Phone: 09-13-2012 pneumococcal polysaccharide vaccine, [address] [facility] Work Phone: Comment on above: Series: 09-19-2007 influenza virus vacc ine, whole virus Brittney Alfredo [place] Work Phone: [facility] Work Phone: Payers Date Payer Category Payer Self-pay 2011 Medicare [id number] 2011 Medicare [id number] 1945 Unknown [id number] 2.16.8 [id number] 1944 Unknown [id number] 2.16.8 [id number] 1944 Unknown [id number] 2.16.8 [id number] 1944 Unknown [id number] 2.16. [id number] 1944 Unknown [id number] 2.16. [id number] 1944 Unknown [id number] 2.16. [id number] 1944 Unknown [id number] 2.16. [id number] 1944 Unknown [id number] 2.16.8 [id number] 1944 Unknown [id number] 2.16.8 40.1.329116.3.579.2.1243 1944 Unknown [id number] 2.16.8 40.1.631055.3.579.2.1243 1944 Unknown [id number] 2.16.8 40.1.652594.3.579.2.1243 1944 Unknown [id number] 2.16.8 40.1.112732.3.579.2.1243 1944 Unknown [id number] 2.16.8 40.1.418510.3.579.2.124 1944 Unknown [id number] 2.16.8 40.1.315468.3.579.2.1243 1944 Unknown [id number] 2.16.8 [id number] 1944 Unknown [id number] 2.16.8 40.1.732510.3.579.2.1243 Unknown Unknown [id number] 2.16.8 [id number] Unknown [id number] 2.16.8 [id number] Unknown [id number] 2.16.8 [id number] Unknown [id number] 2.16.8 [id number] Social History Date Type Detail Facility Assertion Tobacco smoking consumption unknown (finding) [facility] Work Phone: Start: 12-27-2023 End: 07-01-2025 No illicit drug use No illicit drug use [facility] 3 [facility] Work Phone: Start: 06-28-2023 End: 08-13-2025 Tobacco smoking status NHIS Never smoked tobacco [facility] Work Phone: Start: 06-28-2023 Tobacco use and exposure Smokeless tobacco non-user [facility] Work Phone: Start: 06-28-2023 End: 07-02-2025 Alcohol intake Ex-drinker (finding) [facility] Work Phone: Start: 1945 [facility] Start: 12-27-2023 End: 07-01-2025 Gender identity Not on file [facility] Work Phone: Start: 06-18-2023 End: 03-20-2025 Exposure to SARS-CoV-2 (event) Not sure [facility] Start: 10-09-2022 Sex Female [facility] Within the last year , have you been afraid of your partner or ex-partner? No [facility] Work Phone: How often to you hav e a drink containing alcohol? Never [facility] Work Phone: (I/We) worried whedanielle er (my/our) food would run out before (I/we) got money to buy more. Never true [facility] Work Phone: Start: 1945 Sex Assigned At Female [facility] Functional Status Date Assessment Result Facility 07-16-2025 Patient Health Questionnaire 2 item (PHQ-2) [Reported] [facility] Work Phone: 07-01-2025 Total score [AUDIT-C] 0 07/01/20 25 1:45 PM EDT Johanna Daniels, GABRIELLA [facility] Work Phone: 07-01-2025 Patient Health Questionnaire 2 item (PHQ-2) [Reported] [facility] Work Phone: 07-01-2025 [place] - suicide severity rating scale screener - recent [C-SSRS] [facility] Work Phone: 06-27-2025 Patient Health Questionnaire 2 item (PHQ-2) [Reported] [facility] Work Phone: [facility] Work Phone: NEGATED: Highlighted row Functional performance Functional status health issues are not documented Disease [facility] Work Phone: Mental Status Date Assessment Result Facility NEGATED: Highlighted row Cognitive function [Interpretation] Cognitive status health issues are not documented Disease [facility] Work Phone: Clinical Notes 12-15-2021 to 08-13-2025 Assessment & Plan Note - Brittney Kothari DO - 07/16/2025 4:51 PM EDTAssessment & Plan Note - Brittney Kothari DO - 07/16/2025 4:51 PM EDTBrittney Kothari DO - 07/16/2025 4:20 PM EDT Note Date & Type Note Facility 08-13-2025 Progress note [facility] 07-16-2025 Evaluation + Plan note Associated Problem(s): Hyperglycemia - Her most recent hemoglobin A1c was satisfactory and we will monitor periodically [facility] Work Phone: 07-16-2025 Evaluation + Plan note Associated Problem(s): Hyponatremia - She will go back to the lab tomorrow for a sodium check and we will contact her with the results [facility] Work Phone: 07-16-2025 Evaluation + Plan note Associated Problem(s): Atrial fibrillation with RVR (Multi) - Newly diagnosed with her recent hospitalization from July 01 through the -She will be following up with store protection specialist in [place] on the of this month -Her medication regimen will remain the same for now and she will call with any questions or concerns between now and her cardiology visit [facility] Work Phone: 07-16-2025 Miscellaneous Notes Associated Problem(s): Hyperglycemia - Her most recent hemoglobin A1c was satisfactory and we will monitor periodically Associated Problem(s): Hyponatremia - She will go back to the lab tomorrow for a sodium check and we will contact her with the results Associated Problem(s): Atrial fibrillation with RVR (Multi) - Newly diagnosed with her recent hospitalization from July 01 through the -She will be following up with store protection specialist in [place] on the of this month -Her medication regimen will remain the same for now and she will call with any questions or concerns between now and her cardiology visit documented in this encounter [facility] Work Phone: 07-16-2025 History of Present illness Narrative Patient: Diana Almonte : 1945 PCP: Brittney Kothari DO Program: Transitional Care Management Status: Enrolled Effective Dates: 07/03/2025 - present Responsible Staff: Marilyn Garcia LPN Social Drivers to be Addressed: Physical Activity, Social Connections, Stress Diana Almonte is a 79 y.o. female presenting today for follow-up after being discharged from the hospital 14 days ago. The main problem requiring admission was atrial fibrillation with RVR. The discharge summary and/or Transitional Care Management documentation was reviewed. Medication reconciliation was performed as indicated via the Tone as Reviewed timestamp. Diana Almonte was contacted by Transitional Care Management services two days after her discharge. This encounter and supporting documentation was reviewed. She is here today for follow-up after a brief hospitalization for atrial fibrillation with RVR. She started experiencing significant palpitations and appropriately went to the emergency department on July 01. She was admitted overnight and was successfully discharged on the . She was given medication for atrial fibrillation and she had several tests including lab work. She actually has an appointment to see a braided rug maker in [place], Dr. Rolly Juarez. This provider will be closer to home for her and more convenient. We discussed checking another sodium level because she had hyponatremia during her stay and she was advised to stop taking her furosemide. So far she has had no evidence of fluid retention so we will have her stay off of it indefinitely if possible. Her blood pressure was a bit generous when she arrived but after sitting for a while it came down a few points. I am asking that she check it regularly and give us an update after couple of weeks. Review of Systems Constitutional: Negative for fatigue. Respiratory: Negative for cough, shortness of breath and wheezing. Cardiovascular: Positive for palpitations. Negative for chest pain and leg swelling. Gastrointestinal: Negative for abdominal pain, blood in stool, diarrhea, nausea and vomiting. Musculoskeletal: Negative for arthralgias and back pain. BP 142/82 Pulse 84 Ht 1.499 m (4' 11.02) Wt 72.5 kg (159 lb 12.8 oz) SpO2 94% BMI 32.26 kg/m Physical Exam Vitals and nursing note reviewed. Constitutional: General: She is not in acute distress. Appearance: Normal appearance. HENT: Head: Normocephalic and atraumatic. Eyes: Conjunctiva/sclera: Conjunctivae normal. Cardiovascular: Rate and Rhythm: Normal rate and regular rhythm. Heart sounds: Normal heart sounds. Pulmonary: Effort: No respiratory distress. Breath sounds: No wheezing. Abdominal: Palpations: Abdomen is soft. Tenderness: There is no abdominal tenderness. There is no guarding. Musculoskeletal: General: No swelling. Normal range of motion. Skin: General: Skin is warm and dry. Neurological: General: No focal deficit present. Mental Status: She is alert and oriented to person, place, and time. Psychiatric: Behavior: Behavior normal. The complexity of medical decision making for this patient's transitional care is moderate. Assessment/Plan Problem List Items Addressed This Visit ICD-10-CM Hyperglycemia R73.9 - Her most recent hemoglobin A1c was satisfactory and we will monitor periodically Atrial fibrillation with RVR (Multi) I48.91 - Newly diagnosed with her recent hospitalization from July 01 through the -She will be following up with store protection specialist in [place] on the of this month -Her medication regimen will remain the same for now and she will call with any questions or concerns between now and her cardiology visit RESOLVED: Paroxysmal atrial fibrillation (Multi) I48.0 Hyponatremia - Primary E87.1 - She will go back to the lab tomorrow for a sodium check and we will contact her with the results Relevant Orders Basic Metabolic Panel Patient instructions As we discussed I would like for you to get the labs sometime this week when you have the opportunity to fast so we can check your sodium level. When the results come back I will contact you. Please check your blood pressures periodically throughout the next week and give me an update We will have you stay off the Lasix or furosemide for now because you do not show any signs of fluid retention Please call with any concerns and we will otherwise see you back as previously planned documented in this encounter [facility] Work Phone: 07-16-2025 Instructions Brittney Kothari DO - 07/16/2025 4:20 PM EDT Patient instructions As we discussed I would like for you to get the labs sometime this week when you have the opportunity to fast so we can check your sodium level. When the results come back I will contact you. Please check your blood pressures periodically throughout the next week and give me an update We will have you stay off the Lasix or furosemide for now because you do not show any signs of fluid retention Please call with any concerns and we will otherwise see you back as previously planned documented in this encounter [facility] Work Phone: 07-02-2025 Hospital course Narrative Discharge Diagnosis Atrial fibrillation with RVR (Multi) Issues Requiring Follow-Up Cardiology clinic follow up. Discharge Meds Medication List START taking these medications apixaban 5 mg tablet; Commonly known as: Eliquis; Take 1 tablet (5 mg) by mouth 2 times a day. flecainide 50 mg tablet; Commonly known as: Tambocor; Take 1 tablet (50 mg) by mouth every 12 hours. CONTINUE taking these medications atorvastatin 20 mg tablet; Commonly known as: Lipitor; Take 1 tablet (20 mg) by mouth once daily. cholecalciferol 25 mcg (1,000 units) tablet; Commonly known as: Vitamin D-3 levothyroxine 88 mcg tablet; Commonly known as: Synthroid, Levoxyl; Take 1 tablet (88 mcg) by mouth early in the morning.. Take on an empty stomach at the same time each day, either 30 to 60 minutes prior to breakfast losartan 100 mg tablet; Commonly known as: Cozaar; Take 1 tablet (100 mg) by mouth once daily. metoprolol tartrate 100 mg tablet; Commonly known as: Lopressor; Take 1 tablet (100 mg) by mouth 2 times a day. NIFEdipine ER 30 mg 24 hr tablet; Commonly known as: Adalat CC; Take 2 tablets (60 mg) by mouth once daily. psyllium 0.52 gram capsule; Commonly known as: Metamucil STOP taking these medications furosemide 20 mg tablet; Commonly known as: Lasix Test Results Pending At Discharge Pending Labs Order Current Status Urine Culture In process Hospital Course Patient is a 79 year old lady with PMH of hypertension, dyslipidemia, and hypothyroidism who was presented to [facility] with c/o Intermittent palpitations (approximately 2 episodes every 2 weeks, lasting 30 minutes in duration) for the past several months. Associated symptoms included lightheadedness and cough. No c/o chest pain, dyspnea, lower extremity swelling, diaphoresis. Ms. Almonte reported the symptoms to PCP, who ordered Holter; she presented today to obtain Holter monitor, at which time EKG was obtained revealing atrial fibrillation. She was advised to present to ED for further evaluation. ED course: Tachycardic (EKG atrial fibrillation at 123 bpm) with low-normal blood pressures (98-130/73-93) with other vital signs largely within normal limits. Laboratory studies notable for initially elevated lactate (2.2, improved to 1.3 mmol/L on repeat), negative troponin, UA with bacteria (1+), LE, hyaline casts. Chest x-ray with mild cardiomegaly; no evidence of CHF. CT watchman without evidence of left atrial thrombus, mild coronary artery calcifications. Given diltiazem 10 mg IV x 1, NS 500 mL x 1, apixaban 5 mg p.o. x 1. ICU course: She was treated with IV diltiazem with conversion to NSR. She was seen by cardiology, advised to reduce Metoprolol to 50 mg BID, and star Flecainide 50 mg BID. Her INR was elevated at 1.8 on 07/02 due to Eliquis. Eliquis was discontinued due to lack of prescription coverage. She was also started on Anticoagulation with coumadin 5 mg daily. Advised to continue 5 mg daily and check INR in coumadin clinic on 07/05. ( She has no prescription coverage for DOAC). ECHO showed normal EF of 65%. She was treated with potassium supplements for potassium of 3.4 with improvement to 4.1. Magnesium was normal at 2.04. She was discharged home with holter monitor and advised follow up with coumadin clinic on 07/[address] Zambrano. Discharged home in a stable condition. Discharge day management time > 30 minutes. Pertinent Physical Exam At Time of Discharge: Vitals: 07/02/25 1100 BP: Pulse: 61 Resp: 19 Temp: SpO2: 97% Physical Exam Constitutional: Appearance: Normal appearance. HENT: Head: Normocephalic. Nose: Nose normal. Mouth/Throat: Mouth: Mucous membranes are moist. Eyes: Extraocular Movements: Extraocular movements intact. Pupils: Pupils are equal, round, and reactive to light. Cardiovascular: Rate and Rhythm: Normal rate and regular rhythm. Heart sounds: Normal heart sounds. No murmur heard. Pulmonary: Effort: Pulmonary effort is normal. No respiratory distress. Breath sounds: Normal breath sounds. No wheezing. Abdominal: General: There is no distension. Palpations: Abdomen is soft. Tenderness: There is no abdominal tenderness. There is no guarding. Musculoskeletal: General: Normal range of motion. Cervical back: Normal range of motion. Skin: General: Skin is warm. Neurological: General: No focal deficit present. Mental Status: She is alert and oriented to person, place, and time. Mental status is at baseline. Psychiatric: Mood and Affect: Mood normal. Outpatient Follow-Up Future Appointments Date Time Provider Department Center 12/26/2025 11:20 AM Brittney Kothari, DO [id number] [facility] 03/20/2026 11:00 AM Johanna Garner, AIRPLANE PATRO[employer]ER-[employer] SECURITY, DNP [id number] [facility] Heide Barber MD documented in this encounter [facility] Work Phone: 07-02-2025 application architect manager Note Cardiology Patient back to sinus rhythm. No prior history of coronary artery disease, normal echocardiogram. Mg 2.04. Case discussed with Dr. Sin, due to multiple episodes of Afib overnight, we will start her on Flecainide 50mg BID. Follow up in Cardiology clinic in 1 week with new EKG for follow up. [facility] Work Phone: 07-02-2025 Miscellaneous Notes Cardiology Patient back to sinus rhythm. No prior history of coronary artery disease, normal echocardiogram. Mg 2.04. Case discussed with Dr. Sin, due to multiple episodes of Afib overnight, we will start her on Flecainide 50mg BID. Follow up in Cardiology clinic in 1 week with new EKG for follow up. Problem: Pain - Adult Goal: Verbalizes/displays adequate comfort level or baseline comfort level Outcome: Progressing Problem: Safety - Adult Goal: Free from fall injury Outcome: Progressing Problem: Discharge Planning Goal: Discharge to home or other facility with appropriate resources Outcome: Progressing Problem: Chronic Conditions and Co-morbidities Goal: Patient's chronic conditions and co-morbidity symptoms are monitored and maintained or improved Outcome: Progressing Problem: Nutrition Goal: Nutrient intake appropriate for maintaining nutritional needs Outcome: Progressing Problem: Arrythmia/Dysrhythmia Goal: Lab values return to normal range Outcome: Progressing Goal: No evidence of post procedure complications Outcome: Progressing Goal: Promote self management Outcome: Progressing Goal: Serial ECG will return to baseline Outcome: Progressing Goal: Verbalize understanding of procedures/devices Outcome: Progressing Goal: Vital signs return to baseline Outcome: Progressing Goal: Care and maintenance of device (specify) Outcome: Progressing Problem: Pain - Adult Goal: Verbalizes/displays adequate comfort level or baseline comfort level Outcome: Progressing Problem: Safety - Adult Goal: Free from fall injury Outcome: Progressing Problem: Discharge Planning Goal: Discharge to home or other facility with appropriate resources Outcome: Progressing Problem: Chronic Conditions and Co-morbidities Goal: Patient's chronic conditions and co-morbidity symptoms are monitored and maintained or improved Outcome: Progressing Problem: Nutrition Goal: Nutrient intake appropriate for maintaining nutritional needs Outcome: Progressing The patient's goals for the shift include go home The clinical goals for the shift include maintain heart rate control Over the shift, the patient did make progress toward the following goals. documented in this encounter [facility] Work Phone: 07-02-2025 History of Present illness Narrative 07/02/25 1456 Discharge Planning Living Arrangements Alone Support Systems Children Assistance Needed None Type of Residence Private residence Number of Stairs to Enter Residence 0 (1 story condo) Number of Stairs Within Residence 0 Do you have animals or pets at home? No Who is requesting discharge planning? Provider Home or Post Acute Services None Expected Discharge Disposition Home Does the patient need discharge transport arranged? No Financial Resource Strain How hard is it for you to pay for the very basics like food, housing, medical care, and heating? Not hard Housing Stability In the last 12 months, was there a time when you were not able to pay the mortgage or rent on time? N In the past 12 months, how many times have you moved where you were living? 0 At any time in the past 12 months, were you homeless or living in a jail (including now)? N Transportation Needs In the past 12 months, has lack of transportation kept you from medical appointments or from getting medications? no In the past 12 months, has lack of transportation kept you from meetings, work, or from getting things needed for daily living? No Stroke Family Assessment Stroke Family Assessment Needed No Intensity of Service Intensity of Service 0-30 min Care Transitions: Patient reviewed in care round meeting this AM and is medically ready for discharge today. Met with patient and mery Ceballos @ Bedside. Role of TCC explained. Demographics and contacts verified. PCP is Dr. Kothari. Preferred pharmacy is [facility] in [place]. Denies any difficulty obtaining/affording medications. She is independent at home with ADL's and drives self. She has a cane at home but does not currently use. [facility] per nursing. Discharge plan is return home, denies any needs or in home services. Care team available upon request. Radha Bob RN/TCC Subjective Data: Patient reports feeling well, no new adverse events overnight. Patient denies chest pain, shortness of breath, palpitations, dizziness or syncope. Patient is hemodynamically stable. Overnight Events: Afib and back to sinus rhythm Objective Data: Last Recorded Vitals: Vitals: 07/02/25 0700 07/02/25 0800 07/02/25 0900 07/02/25 1000 BP: 115/82 113/72 Pulse: 69 59 56 59 Resp: 23 13 13 15 Temp: 36.4 C (97.5 F) TempSrc: SpO2: 97% 96% 97% 96% Weight: Height: Last Labs: CBC - 07/02/2025: 4:29 AM 8.8 12.8 323 36.4 CMP - 07/02/2025: 4:29 AM 9.2 7.9 18 --- 0.7 _ 4.7 16 74 PTT - No results in last year. _ _ _ TROPHS Date/Time Value Ref Range Status 07/01/2025 11:36 AM 6 0 - 13 ng/L Final 07/01/2025 10:27 AM 7 0 - 13 ng/L Final HGBA1C Date/Time Value Ref Range Status 06/20/2025 09:39 AM 5.8 <5.7 % Final Comment: For someone without known diabetes, a [...] A1c for diagnosis of diabetes for children. 12/17/2024 09:58 AM 5.9 <5.7 % of total Hgb Final Comment: For someone without known diabetes, a [...] A1c for diagnosis of diabetes for children. LDLCALC Date/Time Value Ref Range Status 06/20/2025 09:39 AM 112 mg/dL (calc) Final Comment: Reference range: <100 Desirable range <100 mg/dL for primary prevention; <70 mg/dL for patients with CHD or diabetic patients with > or = 2 CHD risk factors. LDL-C is now calculated using the Mel calculation, which is a validated novel method providing better accuracy than the Friedewald equation in the estimation of LDL-C. Dexter CHÁVEZ et al. OSCAR. 2013;310(19): 5635-6830 (http://education.[employer].com/faq/OVV315) 06/18/2024 09:49 AM 97 <=99 mg/dL Final Comment: Near Borderline AGE Desirable Optimal High High Very High 0-19 Y 0 - 109 --- 110-129 >/= 130 ---- 20-24 Y 0 - 119 --- 120-159 >/= 160 ---- >24 Y 0 - 99 100-129 130-159 160-189 >/=190 VLDL Date/Time Value Ref Range Status 06/18/2024 09:49 AM 25 0 - 40 mg/dL Final 06/21/2023 10:00 AM 23 0 - 40 mg/dL Final 06/22/2022 09:25 AM 19 0 - 40 mg/dL Final 12/17/2020 03:30 AM 21 0 - 40 mg/dL Final Last I/O: I/O last 3 completed shifts: In: 383.3 (5.8 mL/kg) [IV Piggyback:383.3] Out: - (0 mL/kg) Weight: 66.1 kg Past Cardiology Tests (Last 3 Years): EKG: ECG 12 Lead (Preliminary) ECG 12 lead (Ancillary Performed) 07/01/2025 (Preliminary) Echo: Transthoracic Echo Complete 07/01/2025 Ejection Fractions: EF Date/Time Value Ref Range Status 07/01/2025 03:13 PM 65 % Cath: No results found for this or any previous visit from the past 1095 days. Stress Test: No results found for this or any previous visit from the past 1095 days. Cardiac Imaging: No results found for this or any previous visit from the past 1095 days. Inpatient Medications: Scheduled Medications[1] PRN Medications[2] Continuous Medications[3] Physical Exam: General: alert, oriented and in no acute distress HEENT: NC/AT; EOMI; PERRLA, external ear is normal Neck: supple; trachea midline; no masses; no JVD Chest: clear breath sounds bilaterally; no wheezing Cardio: Regular rhythm, S1S2 normal, no murmurs Abdomen: Soft, non-tender, non-distension, no organomegaly Extremities: no clubbing/cyanosis/edema Neuro: Grossly intact Psychiatric: Normal mood and affect Assessment/Plan Mrs. Diana Almonte is an 79 y.o. non-smoker female being consulted by the Cardiology team for New Onset Atrial Fibrillation. Patient with past medical history significant for SIADH, hypertension, hyperglycemia, morbid obesity (BMI 31.9), secondary hypothyroidism, restless leg syndrome. She presented to ED [facility] on 07/01/2025 complaining of palpitations. She endorsed palpitations for the past couple of months. Came to be put on a Holter monitor, EKG showing A-fib with RVR with a heart rate ~120s. D-dimer was elevated at 698 but age corrected was normal. Glucose was 186 and sodium was 134. Lactate 2.2 TSH was normal. Trp - 7. Chest x-ray showed mild cardiomegaly. She was started on Eliquis and Diltiazem IV bolus, with some improvement in her heart rate. She has been admitted for clinical compensation. Assessment # New Onset Atrial Fibrillation - Elevated [id number] score which implies higher risk for thromboembolic events yearly, therefore should be started on stroke prophylaxis with DOAC. - Initial EKG showing atrial fibrillation. - New EKG showing sinus rhythm. - We had a thorough conversation about the importance of controlling risk factors for Afib such as weight loss, obesity, physical activity, avoid smoking, alcohol moderation, hypertension, and other comorbidities. - Counseled to exercise for better conditioning, for losing weight and to lower the baseline heart rate. - Would suggest to keep DOAC - Eliquis. - Would suggest to keep Metoprolol tartrate 100mg BID. - Echocardiogram (07/01/2025): 1. Left ventricular ejection fraction is normal by visual estimate at 65%. 2. Spectral Doppler shows a Grade I (impaired relaxation pattern) of left ventricular diastolic filling with normal left atrial filling pressure. 3. Mildly enlarged right ventricle. - CTA Watchman hsa ruled out BRYCE thrombus. - Patient back to sinus rhythm, therefore no need for DCCV at this point. - Due to new episodes of Afib overnight, would suggest to start her on Flecainide 50mg BID. - Would suggest electrolyte repletion including K (3.4) and Mg. - Follow up in Cardiology clinic with 7-day holter monitor. # Hypertension - Crea 0.69. - Controlled blood pressure. - Keep current medications including Losartan 100mg daily. - Patient counseled to keep a healthy lifestyle including regular exercise and low-sodium diet. - Recommended home blood pressure monitoring. - Goal of BP < 130/80mmHg. # Hyperlipidemia - LdL 112, HDL 66. - Keep home medication with Atorvastatin 20mg daily. - Counseled on healthy diet and regular exercise. # Hypothyroidism - TSH 1.15. - Keep Levothyroxine 88mcg daily. I have personally identified and managed all complex critical care issues to prevent aforementioned clinical deterioration. Critical care time is spent at bedside and/or the immediate area and has included, but is not limited to, the review of diagnostic tests, labs, radiographs, serial assessments of hemodynamics, respiratory status, ventilatory management, and family updates. Time spent in procedures and teaching are reported separately. Critical care time: 32 minutes Peripheral IV 07/01/25 20 G Left Antecubital (Active) Site Assessment Clean;Dry;Intact 07/02/25 08 Dressing Type Transparent 07/02/25 08 Line Status Saline locked 07/02/25 08 Dressing Status Clean;Dry;Occlusive 07/02/25 08 Number of days: 1 Code Status: Full Code Francis Zambrano MD Cardiology [1] Scheduled medications Medication Dose Route Frequency apixaban 5 mg oral BID atorvastatin 20 mg oral Nightly cholecalciferol 75 mcg oral Daily furosemide 20 mg oral Daily [Held by provider] levothyroxine 88 mcg oral Daily losartan 100 mg oral Daily metoprolol tartrate 100 mg oral BID NIFEdipine ER 60 mg oral Daily polyethylene glycol 17 g oral Daily [2] PRN medications Medication acetaminophen Or acetaminophen Or acetaminophen melatonin morphine ondansetron [3] Continuous Medications Medication Dose Last Rate dilTIAZem 5-15 mg/hr documented in this encounter [facility] Work Phone: 07-01-2025 Plan of care note Problem: Pain - Adult Goal: Verbalizes/displays adequate comfort level or baseline comfort level Outcome: Progressing Problem: Safety - Adult Goal: Free from fall injury Outcome: Progressing Problem: Discharge Planning Goal: Discharge to home or other facility with appropriate resources Outcome: Progressing Problem: Chronic Conditions and Co-morbidities Goal: Patient's chronic conditions and co-morbidity symptoms are monitored and maintained or improved Outcome: Progressing Problem: Nutrition Goal: Nutrient intake appropriate for maintaining nutritional needs Outcome: Progressing Problem: Arrythmia/Dysrhythmia Goal: Lab values return to normal range Outcome: Progressing Goal: No evidence of post procedure complications Outcome: Progressing Goal: Promote self management Outcome: Progressing Goal: Serial ECG will return to baseline Outcome: Progressing Goal: Verbalize understanding of procedures/devices Outcome: Progressing Goal: Vital signs return to baseline Outcome: Progressing Goal: Care and maintenance of device (specify) Outcome: Progressing [facility] 07-01-2025 Plan of care note Problem: Pain - Adult Goal: Verbalizes/displays adequate comfort level or baseline comfort level Outcome: Progressing Problem: Safety - Adult Goal: Free from fall injury Outcome: Progressing Problem: Discharge Planning Goal: Discharge to home or other facility with appropriate resources Outcome: Progressing Problem: Chronic Conditions and Co-morbidities Goal: Patient's chronic conditions and co-morbidity symptoms are monitored and maintained or improved Outcome: Progressing Problem: Nutrition Goal: Nutrient intake appropriate for maintaining nutritional needs Outcome: Progressing The patient's goals for the shift include go home The clinical goals for the shift include maintain heart rate control Over the shift, the patient did make progress toward the following goals. [facility] Work Phone: 07-01-2025 History and physical note History and Physical Examination Patient Name: Diana Almonte Date of : 1945 Date of Service: 07/01/25 Time of Dictation: 2:27 PM Chief Complaint: Palpitations History of Present Illness Intermittent episodes of palpitations (approximately 2 episodes every 2 weeks, lasting 30 minutes in duration) for the past several months. Associated symptoms included lightheadedness and cough. No chest pain, dyspnea, lower extremity swelling, diaphoresis. Ms. Almonte reported the symptoms to PCP, who ordered Holter; she presented today to obtain Holter monitor, at which time EKG was obtained revealing atrial fibrillation. She was advised to present to ED for further evaluation. In the ED, Tachycardic (EKG atrial fibrillation at 123 bpm) with low-normal blood pressures (98-130/73-93) with other vital signs largely within normal limits. Laboratory studies notable for initially elevated lactate (2.2, improved to 1.3 mmol/L on repeat), negative troponin, UA with bacteria (1+), LE, hyaline casts. Chest x-ray with mild cardiomegaly; no evidence of CHF. CT watchman without evidence of left atrial thrombus, mild coronary artery calcifications. Given diltiazem 10 mg IV x 1, NS 500 mL x 1, apixaban 5 mg p.o. x 1. Case discussed with cardiology, who ordered above Watchman with plans for cardioversion in AM. Presently, feels well. No chest pain or dyspnea. Medical History[1] Surgical History[2] Family History[3] Social History: Tobacco: Denies. Alcohol: Denies. Other: Denies. Living Situation: Lives at home alone. Independent with ADLs/IADLs. Does not require mobility assistive devices. Home Medications: Medications Ordered Prior to Encounter[4] Review of Systems Constitutional: Positive for appetite change (Slightly decreased appetite recently). Negative for chills and fever. HENT: Positive for sneezing (Occasional). Negative for congestion, rhinorrhea and sore throat. Respiratory: Positive for cough (Occasional). Negative for chest tightness and shortness of breath. Cardiovascular: Positive for palpitations. Negative for chest pain. Gastrointestinal: Negative for abdominal pain, constipation, diarrhea, nausea and vomiting. Genitourinary: Negative for difficulty urinating, dysuria, frequency and hematuria. Musculoskeletal: Negative for joint swelling. Skin: Negative for rash. Neurological: Positive for light-headedness. Negative for dizziness, weakness and numbness. Physical Examination Vital Signs Temp: [36.2 C (97.1 F)-36.3 C (97.4 F)] 36.2 C (97.1 F) Heart Rate: [80-111] 89 Resp: [16-18] 18 BP: (98-130)/(72-93) 129/93 General: Alert, resting with eyes open, semi-Reeves's in bed. No evident acute distress. Daughter present at bedside. Eyes: Pupils equal and round, with symmetric eye movements. Neck: Trachea midline. No JVD. Cardiovascular: Tachycardic, irregular rhythm. No murmurs, rubs, gallops. No peripheral edema. Pulmonary: Chest clear to auscultation bilaterally. Normal work of breathing. Abdominal: Soft, non-tender, non-distended. Bowel sounds present. Neurological: Moves all extremities. No evident focal neurological deficits. Mental Status: Alert and oriented x3. Follows commands. Speech fluent. Diagnostic Evaluation Laboratory Studies: Lab Results Component Value Date WBC 9.1 07/01/2025 HGB 13.7 07/01/2025 HCT 40.5 07/01/2025 MCV 94 07/01/2025 PLT 366 07/01/2025 Lab Results Component Value Date NA 134 (L) 07/01/2025 K 3.7 07/01/2025 CL 99 07/01/2025 CO2 25 07/01/2025 CREATININE 0.69 07/01/2025 BUN 10 07/01/2025 CALCIUM 9.9 07/01/2025 Lab Results Component Value Date AST 18 07/01/2025 ALT 16 07/01/2025 ALKPHOS 74 07/01/2025 BILITOT 0.7 07/01/2025 ALBUMIN 4.7 07/01/2025 Lab Results Component Value Date TROPHS 6 07/01/2025 Diagnostic Imaging: CXR (07/01/25): Thoracic spine DJD as described. Mild cardiomegaly. Currently without radiographic evidence of CHF or pneumonia. CT Pre-Watchman (07/01/25): No evidence of left atrial/left atrial appendage thrombus. Mild mitral annular calcification. Mild coronary artery calcifications are seen. Please note,the study is not optimized for evaluation of coronary arteries. Left lower lobe atelectatic changes noted. Assessment and Plan 1. Atrial fibrillation with RVR 2. Lactic acidosis: Resolved. Presented with intermittent episodes of palpitations with atrial fibrillation with RVR while getting Holter monitor fitted. Initial evaluation notable for EKG demonstrating the same; cardiac biomarkers and chest x-ray unrevealing. TSH within normal limits. No anemia. CT prewatchman without evidence of left atrial/appendage thrombus. Currently feels well; heart rate remains uncontrolled on metoprolol monotherapy. Admit to ICU with cardiac monitoring. Start diltiazem drip for rate control. Start apixaban 5 mg PO BID. Continue metoprolol 100 mg PO BID, furosemide 20 mg daily, losartan 100 mg daily. Follow-up echocardiogram. Monitor intake and output. Vital signs per unit standards. Cardiology consulted: Plan for cardioversion in AM. Continue medications as above. Medical Comorbidities: 1. SIADH: Prescribed furosemide 20 mg daily. 2. Hypertension 3. Hyperlipidemia: Prescribed atorvastatin 20 mg daily. 4. Restless leg syndrome 5. Secondary hypothyroidism 6. Vitamin D deficiency Malnutrition Assessment: Prophylaxis/General Management DVT Prophylaxis: Apixaban Diet: Cardiac; n.p.o. at midnight Bowel Regimen: Polyethylene glycol full code Code Status: Full code Nba Gomez MD Medical Decision Making/Disposition Patient is high risk for morbidity in light of: Acute and/or chronic illness and/or injury posing risk to life or bodily function Pharmacologic therapy requiring intensive monitoring for toxicity (e.g., antibiotics, infusions) Decision regarding hospitalization or escalation of care The above was typed using dictation software and may contain typographic errors. 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 [4] No current facility-administered medications on file prior to encounter. Current Outpatient Medications on File Prior to Encounter Medication Sig Dispense Refill atorvastatin (Lipitor) 20 mg tablet Take 1 tablet (20 mg) by mouth once daily. 100 tablet 1 cholecalciferol (Vitamin D-3) 25 MCG (1000 UT) tablet Take 3 tablets (75 mcg) by mouth once daily. furosemide (Lasix) 20 mg tablet Take 1 tablet (20 mg) by mouth once daily. 100 tablet 1 levothyroxine (Synthroid, Levoxyl) 88 mcg tablet Take 1 tablet (88 mcg) by mouth early in the morning.. Take on an empty stomach at the same time each day, either 30 to 60 minutes prior to breakfast 100 tablet 1 metoprolol tartrate (Lopressor) 100 mg tablet Take 1 tablet (100 mg) by mouth 2 times a day. 200 tablet 1 NIFEdipine ER (NIFEdipine CC) 30 mg 24 hr tablet Take 2 tablets (60 mg) by mouth once daily. 200 tablet 1 psyllium (Metamucil) 0.52 gram capsule Take 1 capsule (520 mg) by mouth once daily. losartan (Cozaar) 100 mg tablet Take 1 tablet (100 mg) by mouth once daily. 100 tablet 1 [DISCONTINUED] furosemide (Lasix) 20 mg tablet Take 1 tablet (20 mg) by mouth once daily. 100 tablet 1 [DISCONTINUED] levothyroxine (Synthroid, Levoxyl) 88 mcg tablet Take 1 tablet (88 mcg) by mouth early in the morning.. Take on an empty stomach at the same time each day, either 30 to 60 minutes prior to breakfast 100 tablet 1 [DISCONTINUED] losartan (Cozaar) 100 mg tablet Take 1 tablet (100 mg) by mouth once daily. 100 tablet 1 [DISCONTINUED] metoprolol tartrate (Lopressor) 100 mg tablet Take 1 tablet (100 mg) by mouth 2 times a day. 200 tablet 1 [DISCONTINUED] NIFEdipine ER (NIFEdipine CC) 30 mg 24 hr tablet Take 2 tablets (60 mg) by mouth once daily. 200 tablet 3 [DISCONTINUED] simvastatin (Zocor) 20 mg tablet Take 1 tablet (20 mg) by mouth once daily at bedtime. 100 tablet 1 [facility] Work Phone: 07-01-2025 History and physical note History and Physical Examination Patient Name: Diana Almonte Date of : 1945 Date of Service: 07/01/25 Time of Dictation: 2:27 PM Chief Complaint: Palpitations History of Present Illness Intermittent episodes of palpitations (approximately 2 episodes every 2 weeks, lasting 30 minutes in duration) for the past several months. Associated symptoms included lightheadedness and cough. No chest pain, dyspnea, lower extremity swelling, diaphoresis. Ms. Almonte reported the symptoms to PCP, who ordered Holter; she presented today to obtain Holter monitor, at which time EKG was obtained revealing atrial fibrillation. She was advised to present to ED for further evaluation. In the ED, Tachycardic (EKG atrial fibrillation at 123 bpm) with low-normal blood pressures (98-130/73-93) with other vital signs largely within normal limits. Laboratory studies notable for initially elevated lactate (2.2, improved to 1.3 mmol/L on repeat), negative troponin, UA with bacteria (1+), LE, hyaline casts. Chest x-ray with mild cardiomegaly; no evidence of CHF. CT watchman without evidence of left atrial thrombus, mild coronary artery calcifications. Given diltiazem 10 mg IV x 1, NS 500 mL x 1, apixaban 5 mg p.o. x 1. Case discussed with cardiology, who ordered above Watchman with plans for cardioversion in AM. Presently, feels well. No chest pain or dyspnea. Medical History[1] Surgical History[2] Family History[3] Social History: Tobacco: Denies. Alcohol: Denies. Other: Denies. Living Situation: Lives at home alone. Independent with ADLs/IADLs. Does not require mobility assistive devices. Home Medications: Medications Ordered Prior to Encounter[4] Review of Systems Constitutional: Positive for appetite change (Slightly decreased appetite recently). Negative for chills and fever. HENT: Positive for sneezing (Occasional). Negative for congestion, rhinorrhea and sore throat. Respiratory: Positive for cough (Occasional). Negative for chest tightness and shortness of breath. Cardiovascular: Positive for palpitations. Negative for chest pain. Gastrointestinal: Negative for abdominal pain, constipation, diarrhea, nausea and vomiting. Genitourinary: Negative for difficulty urinating, dysuria, frequency and hematuria. Musculoskeletal: Negative for joint swelling. Skin: Negative for rash. Neurological: Positive for light-headedness. Negative for dizziness, weakness and numbness. Physical Examination Vital Signs Temp: [36.2 C (97.1 F)-36.3 C (97.4 F)] 36.2 C (97.1 F) Heart Rate: [80-111] 89 Resp: [16-18] 18 BP: (98-130)/(72-93) 129/93 General: Alert, resting with eyes open, semi-Reeves's in bed. No evident acute distress. Daughter present at bedside. Eyes: Pupils equal and round, with symmetric eye movements. Neck: Trachea midline. No JVD. Cardiovascular: Tachycardic, irregular rhythm. No murmurs, rubs, gallops. No peripheral edema. Pulmonary: Chest clear to auscultation bilaterally. Normal work of breathing. Abdominal: Soft, non-tender, non-distended. Bowel sounds present. Neurological: Moves all extremities. No evident focal neurological deficits. Mental Status: Alert and oriented x3. Follows commands. Speech fluent. Diagnostic Evaluation Laboratory Studies: Lab Results Component Value Date WBC 9.1 07/01/2025 HGB 13.7 07/01/2025 HCT 40.5 07/01/2025 MCV 94 07/01/2025 PLT 366 07/01/2025 Lab Results Component Value Date NA 134 (L) 07/01/2025 K 3.7 07/01/2025 CL 99 07/01/2025 CO2 25 07/01/2025 CREATININE 0.69 07/01/2025 BUN 10 07/01/2025 CALCIUM 9.9 07/01/2025 Lab Results Component Value Date AST 18 07/01/2025 ALT 16 07/01/2025 ALKPHOS 74 07/01/2025 BILITOT 0.7 07/01/2025 ALBUMIN 4.7 07/01/2025 Lab Results Component Value Date TROPHS 6 07/01/2025 Diagnostic Imaging: CXR (07/01/25): Thoracic spine DJD as described. Mild cardiomegaly. Currently without radiographic evidence of CHF or pneumonia. CT Pre-Watchman (07/01/25): No evidence of left atrial/left atrial appendage thrombus. Mild mitral annular calcification. Mild coronary artery calcifications are seen. Please note,the study is not optimized for evaluation of coronary arteries. Left lower lobe atelectatic changes noted. Assessment and Plan 1. Atrial fibrillation with RVR 2. Lactic acidosis: Resolved. Presented with intermittent episodes of palpitations with atrial fibrillation with RVR while getting Holter monitor fitted. Initial evaluation notable for EKG demonstrating the same; cardiac biomarkers and chest x-ray unrevealing. TSH within normal limits. No anemia. CT prewatchman without evidence of left atrial/appendage thrombus. Currently feels well; heart rate remains uncontrolled on metoprolol monotherapy. Admit to ICU with cardiac monitoring. Start diltiazem drip for rate control. Start apixaban 5 mg PO BID. Continue metoprolol 100 mg PO BID, furosemide 20 mg daily, losartan 100 mg daily. Follow-up echocardiogram. Monitor intake and output. Vital signs per unit standards. Cardiology consulted: Plan for cardioversion in AM. Continue medications as above. Medical Comorbidities: 1. SIADH: Prescribed furosemide 20 mg daily. 2. Hypertension 3. Hyperlipidemia: Prescribed atorvastatin 20 mg daily. 4. Restless leg syndrome 5. Secondary hypothyroidism 6. Vitamin D deficiency Malnutrition Assessment: Prophylaxis/General Management DVT Prophylaxis: Apixaban Diet: Cardiac; n.p.o. at midnight Bowel Regimen: Polyethylene glycol full code Code Status: Full code Nba Gomez MD Medical Decision Making/Disposition Patient is high risk for morbidity in light of: Acute and/or chronic illness and/or injury posing risk to life or bodily function Pharmacologic therapy requiring intensive monitoring for toxicity (e.g., antibiotics, infusions) Decision regarding hospitalization or escalation of care The above was typed using dictation software and may contain typographic errors. 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 [4] No current facility-administered medications on file prior to encounter. Current Outpatient Medications on File Prior to Encounter Medication Sig Dispense Refill atorvastatin (Lipitor) 20 mg tablet Take 1 tablet (20 mg) by mouth once daily. 100 tablet 1 cholecalciferol (Vitamin D-3) 25 MCG (1000 UT) tablet Take 3 tablets (75 mcg) by mouth once daily. furosemide (Lasix) 20 mg tablet Take 1 tablet (20 mg) by mouth once daily. 100 tablet 1 levothyroxine (Synthroid, Levoxyl) 88 mcg tablet Take 1 tablet (88 mcg) by mouth early in the morning.. Take on an empty stomach at the same time each day, either 30 to 60 minutes prior to breakfast 100 tablet 1 metoprolol tartrate (Lopressor) 100 mg tablet Take 1 tablet (100 mg) by mouth 2 times a day. 200 tablet 1 NIFEdipine ER (NIFEdipine CC) 30 mg 24 hr tablet Take 2 tablets (60 mg) by mouth once daily. 200 tablet 1 psyllium (Metamucil) 0.52 gram capsule Take 1 capsule (520 mg) by mouth once daily. losartan (Cozaar) 100 mg tablet Take 1 tablet (100 mg) by mouth once daily. 100 tablet 1 [DISCONTINUED] furosemide (Lasix) 20 mg tablet Take 1 tablet (20 mg) by mouth once daily. 100 tablet 1 [DISCONTINUED] levothyroxine (Synthroid, Levoxyl) 88 mcg tablet Take 1 tablet (88 mcg) by mouth early in the morning.. Take on an empty stomach at the same time each day, either 30 to 60 minutes prior to breakfast 100 tablet 1 [DISCONTINUED] losartan (Cozaar) 100 mg tablet Take 1 tablet (100 mg) by mouth once daily. 100 tablet 1 [DISCONTINUED] metoprolol tartrate (Lopressor) 100 mg tablet Take 1 tablet (100 mg) by mouth 2 times a day. 200 tablet 1 [DISCONTINUED] NIFEdipine ER (NIFEdipine CC) 30 mg 24 hr tablet Take 2 tablets (60 mg) by mouth once daily. 200 tablet 3 [DISCONTINUED] simvastatin (Zocor) 20 mg tablet Take 1 tablet (20 mg) by mouth once daily at bedtime. 100 tablet 1 documented in this encounter [facility] Work Phone: 07-01-2025 Consult note Associated Order (s): Inpatient consult to Cardiology Inpatient consult to Cardiology Consult performed by: Francis Zambrano MD Consult ordered by: Alexander Cummings DO Reason for consult: New Onset Atrial Fibrillation RVR History Of Present Illness: Mrs. Diana Almonte is an 79 y.o. non-smoker female being consulted by the Cardiology team for New Onset Atrial Fibrillation. Patient with past medical history significant for SIADH, hypertension, hyperglycemia, morbid obesity (BMI 31.9), secondary hypothyroidism, restless leg syndrome. She presented to ED [facility] on 07/01/2025 complaining of palpitations. She endorsed palpitations for the past couple of months. Came to be put on a Holter monitor, EKG showing A-fib with RVR with a heart rate ~120s. D-dimer was elevated at 698 but age corrected was normal. Glucose was 186 and sodium was 134. Lactate 2.2 TSH was normal. Trp - 7. Chest x-ray showed mild cardiomegaly. She was started on Eliquis and Diltiazem IV bolus, with some improvement in her heart rate. She has been admitted for clinical compensation. Last Recorded Vitals: Vitals: 07/01/25 1013 07/01/25 1101 07/01/25 1201 BP: 130/84 98/73 116/75 Pulse: (!) 101 80 84 Resp: 18 16 16 Temp: 36.3 C (97.4 F) SpO2: (!) 92% 97% 97% Weight: 71.7 kg (158 lb) Height: (!) 1.499 m (4' 11) Last Labs: CBC - 07/01/2025: 10:27 AM 9.1 13.7 366 40.5 CMP - 07/01/2025: 10:27 AM 9.9 7.9 18 --- 0.7 _ 4.7 16 74 PTT - No results in last year. _ _ _ Troponin I, High Sensitivity Date/Time Value Ref Range Status 07/01/2025 11:36 AM 6 0 - 13 ng/L Final 07/01/2025 10:27 AM 7 0 - 13 ng/L Final HEMOGLOBIN A1c Date/Time Value Ref Range Status 06/20/2025 09:39 AM 5.8 (H) <5.7 % Final Comment: For someone without known diabetes, a [...] A1c for diagnosis of diabetes for children. 12/17/2024 09:58 AM 5.9 (H) <5.7 % of total Hgb Final Comment: For someone without known diabetes, a [...] A1c for diagnosis of diabetes for children. LDL-CHOLESTEROL Date/Time Value Ref Range Status 06/20/2025 09:39 AM 112 (H) mg/dL (calc) Final Comment: Reference range: <100 Desirable range <100 mg/dL for primary prevention; <70 mg/dL for patients with CHD or diabetic patients with > or = 2 CHD risk factors. LDL-C is now calculated using the Mel calculation, which is a validated novel method providing better accuracy than the Friedewald equation in the estimation of LDL-C. Dexter CHÁVEZ et al. OSCAR. 2013;310(63): 3491-7249 (http://Bozuko.Movista/faq/JSK806) LDL Calculated Date/Time Value Ref Range Status 06/18/2024 09:49 AM 97 <=99 mg/dL Final Comment: Near Borderline AGE Desirable Optimal High High Very High 0-19 Y 0 - 109 --- 110-129 >/= 130 ---- 20-24 Y 0 - 119 --- 120-159 >/= 160 ---- >24 Y 0 - 99 100-129 130-159 160-189 >/=190 VLDL Date/Time Value Ref Range Status 06/18/2024 09:49 AM 25 0 - 40 mg/dL Final 06/21/2023 10:00 AM 23 0 - 40 mg/dL Final 06/22/2022 09:25 AM 19 0 - 40 mg/dL Final 12/17/2020 03:30 AM 21 0 - 40 mg/dL Final Last I/O: No intake/output data recorded. Past Cardiology Tests (Last 3 Years): EKG: ECG 12 lead (Ancillary Performed) 07/01/2025 (Preliminary) Echo: No results found for this or any previous visit from the past 1095 days. Ejection Fractions: No results found for: EF Cath: No results found for this or any previous visit from the past 1095 days. Stress Test: No results found for this or any previous visit from the past 1095 days. Cardiac Imaging: No results found for this or any previous visit from the past 1095 days. 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 Past Surgical History: She has a past surgical history that includes Other surgical history (10/18/2019); Other surgical history (10/18/2019); Other surgical history (10/18/2019); Other surgical history (10/18/2019); and Other surgical history (10/18/2019). Social History: She reports that she has never smoked. She has never used smokeless tobacco. She reports that she does not currently use alcohol. She reports that she does not currently use drugs. Family History: Family History[1] Allergies: Patient has no known allergies. Inpatient Medications: Scheduled Medications[2] PRN Medications[3] Continuous Medications[4] Outpatient Medications: Current Outpatient Medications Medication Instructions atorvastatin (LIPITOR) 20 mg, oral, Daily cholecalciferol (Vitamin D-3) 25 MCG (1000 UT) tablet 3 tablets, Daily furosemide (LASIX) 20 mg, oral, Daily levothyroxine (SYNTHROID, LEVOXYL) 88 mcg, oral, Daily, Take on an empty stomach at the same time each day, either 30 to 60 minutes prior to breakfast losartan (COZAAR) 100 mg, oral, Daily metoprolol tartrate (LOPRESSOR) 100 mg, oral, 2 times daily NIFEdipine ER (ADALAT CC) 60 mg, oral, Daily psyllium (METAMUCIL) 520 mg, Daily Physical Exam: General: alert, oriented and in no acute distress HEENT: NC/AT; EOMI; PERRLA, external ear is normal Neck: supple; trachea midline; no masses; no JVD Chest: clear breath sounds bilaterally; no wheezing Cardio: Irregular rhythm, S1S2 normal, no murmurs Abdomen: Soft, non-tender, non-distension, no organomegaly Extremities: no clubbing/cyanosis/edema Neuro: Grossly intact Psychiatric: Normal mood and affect Assessment/Plan Mrs. Diana Almonte is an 79 y.o. non-smoker female being consulted by the Cardiology team for New Onset Atrial Fibrillation. Patient with past medical history significant for SIADH, hypertension, hyperglycemia, morbid obesity (BMI 31.9), secondary hypothyroidism, restless leg syndrome. She presented to ED [facility] on 07/01/2025 complaining of palpitations. She endorsed palpitations for the past couple of months. Came to be put on a Holter monitor, EKG showing A-fib with RVR with a heart rate ~120s. D-dimer was elevated at 698 but age corrected was normal. Glucose was 186 and sodium was 134. Lactate 2.2 TSH was normal. Trp - 7. Chest x-ray showed mild cardiomegaly. She was started on Eliquis and Diltiazem IV bolus, with some improvement in her heart rate. She has been admitted for clinical compensation. Assessment # New Onset Atrial Fibrillation - Elevated [id number] score which implies higher risk for thromboembolic events yearly, therefore should be started on stroke prophylaxis with DOAC. - EKG showing atrial fibrillation. - We had a thorough conversation about the importance of controlling risk factors for Afib such as weight loss, obesity, physical activity, avoid smoking, alcohol moderation, hypertension, and other comorbidities. - Counseled to exercise for better conditioning, for losing weight and to lower the baseline heart rate. - Would suggest to start her on DOAC - Eliquis. - Would suggest to keep Metoprolol tartrate 100mg BID. - Would suggest echocardiogram. - Would suggest CTA Watchman for assessment of BRYCE thrombus and discussion of DCCV - Electric Cardioversion. - Follow up in Cardiology clinic with 7-day holter monitor. # Hypertension - Crea 0.69. - Controlled blood pressure. - Keep current medications including Losartan 100mg daily. - Patient counseled to keep a healthy lifestyle including regular exercise and low-sodium diet. - Recommended home blood pressure monitoring. - Goal of BP < 130/80mmHg. # Hyperlipidemia - LdL 112, HDL 66. - Keep home medication with Atorvastatin 20mg daily. - Counseled on healthy diet and regular exercise. # Hypothyroidism - TSH 1.15. - Keep Levothyroxine 88mcg daily. This critically ill patient continues to be at-risk for clinically significant deterioration / failure due to the above mentioned dysfunctional, unstable organ systems. I have personally identified and managed all complex critical care issues to prevent aforementioned clinical deterioration. Critical care time is spent at bedside and/or the immediate area and has included, but is not limited to, the review of diagnostic tests, labs, radiographs, serial assessments of hemodynamics, respiratory status, ventilatory management, and family updates. Time spent in procedures and teaching are reported separately. Critical care time: 35 minutes Code Status: No Order Francis Zambrano MD Cardiology [1] No family history on file. [2] [3] [4] [facility] Work Phone: 07-01-2025 Consult note Associated Order (s): Inpatient consult to Cardiology Inpatient consult to Cardiology Consult performed by: Francis Zambrano MD Consult ordered by: Alexander Cummings DO Reason for consult: New Onset Atrial Fibrillation RVR History Of Present Illness: Mrs. Diana Almonte is an 79 y.o. non-smoker female being consulted by the Cardiology team for New Onset Atrial Fibrillation. Patient with past medical history significant for SIADH, hypertension, hyperglycemia, morbid obesity (BMI 31.9), secondary hypothyroidism, restless leg syndrome. She presented to ED [facility] on 07/01/2025 complaining of palpitations. She endorsed palpitations for the past couple of months. Came to be put on a Holter monitor, EKG showing A-fib with RVR with a heart rate ~120s. D-dimer was elevated at 698 but age corrected was normal. Glucose was 186 and sodium was 134. Lactate 2.2 TSH was normal. Trp - 7. Chest x-ray showed mild cardiomegaly. She was started on Eliquis and Diltiazem IV bolus, with some improvement in her heart rate. She has been admitted for clinical compensation. Last Recorded Vitals: Vitals: 07/01/25 1013 07/01/25 1101 07/01/25 1201 BP: 130/84 98/73 116/75 Pulse: (!) 101 80 84 Resp: 18 16 16 Temp: 36.3 C (97.4 F) SpO2: (!) 92% 97% 97% Weight: 71.7 kg (158 lb) Height: (!) 1.499 m (4' 11) Last Labs: CBC - 07/01/2025: 10:27 AM 9.1 13.7 366 40.5 CMP - 07/01/2025: 10:27 AM 9.9 7.9 18 --- 0.7 _ 4.7 16 74 PTT - No results in last year. _ _ _ Troponin I, High Sensitivity Date/Time Value Ref Range Status 07/01/2025 11:36 AM 6 0 - 13 ng/L Final 07/01/2025 10:27 AM 7 0 - 13 ng/L Final HEMOGLOBIN A1c Date/Time Value Ref Range Status 06/20/2025 09:39 AM 5.8 (H) <5.7 % Final Comment: For someone without known diabetes, a [...] A1c for diagnosis of diabetes for children. 12/17/2024 09:58 AM 5.9 (H) <5.7 % of total Hgb Final Comment: For someone without known diabetes, a [...] A1c for diagnosis of diabetes for children. LDL-CHOLESTEROL Date/Time Value Ref Range Status 06/20/2025 09:39 AM 112 (H) mg/dL (calc) Final Comment: Reference range: <100 Desirable range <100 mg/dL for primary prevention; <70 mg/dL for patients with CHD or diabetic patients with > or = 2 CHD risk factors. LDL-C is now calculated using the Dexter-Severo calculation, which is a validated novel method providing better accuracy than the Friedewald equation in the estimation of LDL-C. Dexter CHÁVEZ et al. OSCAR. 2013;310(19): 7492-7879 (http://education.Movista/faq/QOS738) LDL Calculated Date/Time Value Ref Range Status 06/18/2024 09:49 AM 97 <=99 mg/dL Final Comment: Near Borderline AGE Desirable Optimal High High Very High 0-19 Y 0 - 109 --- 110-129 >/= 130 ---- 20-24 Y 0 - 119 --- 120-159 >/= 160 ---- >24 Y 0 - 99 100-129 130-159 160-189 >/=190 VLDL Date/Time Value Ref Range Status 06/18/2024 09:49 AM 25 0 - 40 mg/dL Final 06/21/2023 10:00 AM 23 0 - 40 mg/dL Final 06/22/2022 09:25 AM 19 0 - 40 mg/dL Final 12/17/2020 03:30 AM 21 0 - 40 mg/dL Final Last I/O: No intake/output data recorded. Past Cardiology Tests (Last 3 Years): EKG: ECG 12 lead (Ancillary Performed) 07/01/2025 (Preliminary) Echo: No results found for this or any previous visit from the past 1095 days. Ejection Fractions: No results found for: EF Cath: No results found for this or any previous visit from the past 1095 days. Stress Test: No results found for this or any previous visit from the past 1095 days. Cardiac Imaging: No results found for this or any previous visit from the past 1095 days. 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 Past Surgical History: She has a past surgical history that includes Other surgical history (10/18/2019); Other surgical history (10/18/2019); Other surgical history (10/18/2019); Other surgical history (10/18/2019); and Other surgical history (10/18/2019). Social History: She reports that she has never smoked. She has never used smokeless tobacco. She reports that she does not currently use alcohol. She reports that she does not currently use drugs. Family History: Family History[1] Allergies: Patient has no known allergies. Inpatient Medications: Scheduled Medications[2] PRN Medications[3] Continuous Medications[4] Outpatient Medications: Current Outpatient Medications Medication Instructions atorvastatin (LIPITOR) 20 mg, oral, Daily cholecalciferol (Vitamin D-3) 25 MCG (1000 UT) tablet 3 tablets, Daily furosemide (LASIX) 20 mg, oral, Daily levothyroxine (SYNTHROID, LEVOXYL) 88 mcg, oral, Daily, Take on an empty stomach at the same time each day, either 30 to 60 minutes prior to breakfast losartan (COZAAR) 100 mg, oral, Daily metoprolol tartrate (LOPRESSOR) 100 mg, oral, 2 times daily NIFEdipine ER (ADALAT CC) 60 mg, oral, Daily psyllium (METAMUCIL) 520 mg, Daily Physical Exam: General: alert, oriented and in no acute distress HEENT: NC/AT; EOMI; PERRLA, external ear is normal Neck: supple; trachea midline; no masses; no JVD Chest: clear breath sounds bilaterally; no wheezing Cardio: Irregular rhythm, S1S2 normal, no murmurs Abdomen: Soft, non-tender, non-distension, no organomegaly Extremities: no clubbing/cyanosis/edema Neuro: Grossly intact Psychiatric: Normal mood and affect Assessment/Plan Mrs. Diana Almonte is an 79 y.o. non-smoker female being consulted by the Cardiology team for New Onset Atrial Fibrillation. Patient with past medical history significant for SIADH, hypertension, hyperglycemia, morbid obesity (BMI 31.9), secondary hypothyroidism, restless leg syndrome. She presented to ED [facility] on 07/01/2025 complaining of palpitations. She endorsed palpitations for the past couple of months. Came to be put on a Holter monitor, EKG showing A-fib with RVR with a heart rate ~120s. D-dimer was elevated at 698 but age corrected was normal. Glucose was 186 and sodium was 134. Lactate 2.2 TSH was normal. Trp - 7. Chest x-ray showed mild cardiomegaly. She was started on Eliquis and Diltiazem IV bolus, with some improvement in her heart rate. She has been admitted for clinical compensation. Assessment # New Onset Atrial Fibrillation - Elevated [id number] score which implies higher risk for thromboembolic events yearly, therefore should be started on stroke prophylaxis with DOAC. - EKG showing atrial fibrillation. - We had a thorough conversation about the importance of controlling risk factors for Afib such as weight loss, obesity, physical activity, avoid smoking, alcohol moderation, hypertension, and other comorbidities. - Counseled to exercise for better conditioning, for losing weight and to lower the baseline heart rate. - Would suggest to start her on DOAC - Eliquis. - Would suggest to keep Metoprolol tartrate 100mg BID. - Would suggest echocardiogram. - Would suggest CTA Watchman for assessment of BRYCE thrombus and discussion of DCCV - Electric Cardioversion. - Follow up in Cardiology clinic with 7-day holter monitor. # Hypertension - Crea 0.69. - Controlled blood pressure. - Keep current medications including Losartan 100mg daily. - Patient counseled to keep a healthy lifestyle including regular exercise and low-sodium diet. - Recommended home blood pressure monitoring. - Goal of BP < 130/80mmHg. # Hyperlipidemia - LdL 112, HDL 66. - Keep home medication with Atorvastatin 20mg daily. - Counseled on healthy diet and regular exercise. # Hypothyroidism - TSH 1.15. - Keep Levothyroxine 88mcg daily. This critically ill patient continues to be at-risk for clinically significant deterioration / failure due to the above mentioned dysfunctional, unstable organ systems. I have personally identified and managed all complex critical care issues to prevent aforementioned clinical deterioration. Critical care time is spent at bedside and/or the immediate area and has included, but is not limited to, the review of diagnostic tests, labs, radiographs, serial assessments of hemodynamics, respiratory status, ventilatory management, and family updates. Time spent in procedures and teaching are reported separately. Critical care time: 35 minutes Code Status: No Order Francis Zambrano MD Cardiology [1] No family history on file. [2] [3] [4] documented in this encounter [facility] Work Phone: 07-01-2025 Physician Emergency department Note Palpitations, lightheadedness, decreased appetite. This 79-year-old white female presents to the ED with complaint of palpitations she states that she has been experiencing these for at least 2 months now and was supposed to get a Holter monitor today and when they went to do an EKG they noted that she was in atrial fibrillation. She denies any history of atrial fibrillation. She denies any associated chest pain or shortness of breath she states that she does note that her heart is irregular and feels lightheaded at times. She denies any use of cigarettes, alcohol, illegal drugs or marijuana. History provided by: Patient therapist rrt used: No Physical Exam Vitals and nursing note reviewed. Constitutional: General: She is awake. Appearance: Normal appearance. She is normal weight. HENT: Head: Normocephalic and atraumatic. Right Ear: External ear normal. Decreased hearing noted. Left Ear: External ear normal. Decreased hearing noted. Nose: Nose normal. No congestion or rhinorrhea. Mouth/Throat: Lips: [place]. Mouth: Mucous membranes are moist. Pharynx: Oropharynx is clear. Uvula midline. No oropharyngeal exudate or posterior oropharyngeal erythema. Eyes: General: Lids are normal. Vision grossly intact. Right eye: No discharge. Left eye: No discharge. Extraocular Movements: Extraocular movements intact. Conjunctiva/sclera: Conjunctivae normal. Pupils: Pupils are equal, round, and reactive to light. Neck: Trachea: Trachea and phonation normal. Cardiovascular: Rate and Rhythm: Tachycardia present. Rhythm irregularly irregular. Pulses: Normal pulses. Heart sounds: Normal heart sounds. No murmur heard. No friction rub. No gallop. Pulmonary: Effort: Pulmonary effort is normal. No respiratory distress. Breath sounds: Normal breath sounds. No stridor. No wheezing, rhonchi or rales. Chest: Chest wall: No tenderness. Abdominal: General: Abdomen is protuberant. Bowel sounds are normal. There is no distension. Palpations: Abdomen is soft. There is no mass. Tenderness: There is no abdominal tenderness. There is no guarding or rebound. Hernia: No hernia is present. Comments: Patient has a benign abdominal exam. Musculoskeletal: General: No swelling, tenderness, deformity or signs of injury. Normal range of motion. Cervical back: Full passive range of motion without pain, normal range of motion and neck supple. Right lower leg: Normal. No edema. Left lower leg: Normal. No edema. Skin: General: Skin is warm and dry. Capillary Refill: Capillary refill takes less than 2 seconds. Coloration: Skin is not jaundiced or pale. Findings: No bruising, erythema, lesion or rash. Neurological: General: No focal deficit present. Mental Status: She is alert and oriented to person, place, and time. GCS: GCS eye subscore is 4. GCS verbal subscore is 5. GCS motor subscore is 6. Cranial Nerves: Cranial nerves 2-12 are intact. No cranial nerve deficit. Sensory: Sensation is intact. No sensory deficit. Motor: Motor function is intact. No weakness. Coordination: Coordination is intact. Coordination normal. Gait: Gait is intact. Deep Tendon Reflexes: Reflexes normal. Psychiatric: Attention and Perception: Attention and perception normal. Mood and Affect: Mood and affect normal. Speech: Speech normal. Behavior: Behavior normal. Behavior is cooperative. Thought Content: Thought content normal. Cognition and Memory: Cognition and memory normal. Judgment: Judgment normal. Labs Reviewed COMPREHENSIVE METABOLIC PANEL - Abnormal Result Value Glucose 186 (*) Sodium 134 (*) Potassium 3.7 Chloride 99 Bicarbonate 25 Anion Gap 14 Urea Nitrogen 10 Creatinine 0.69 eGFR 88 Calcium 9.9 Albumin 4.7 Alkaline Phosphatase 74 Total Protein 7.9 AST 18 Bilirubin, Total 0.7 ALT 16 CBC WITH AUTO DIFFERENTIAL - Abnormal WBC 9.1 nRBC 0.0 RBC 4.32 Hemoglobin 13.7 Hematocrit 40.5 MCV 94 MCH 31.7 MCHC 33.8 RDW 12.9 Platelets 366 Neutrophils % 68.3 Immature Granulocytes %, Automated 0.4 Lymphocytes % 21.8 Monocytes % 8.0 Eosinophils % 1.0 Basophils % 0.5 Neutrophils Absolute 6.22 (*) Immature Granulocytes Absolute, Automated 0.04 Lymphocytes Absolute 1.99 Monocytes Absolute 0.73 Eosinophils Absolute 0.09 Basophils Absolute 0.05 LACTATE - Abnormal Lactate 2.2 (*) Narrative: Venipuncture immediately after or during the administration of Metamizole may lead to falsely low results. Testing should be performed immediately prior to Metamizole dosing. D-DIMER, VTE EXCLUSION - Abnormal D-Dimer, Quantitative VTE Exclusion 698 (*) Narrative: The VTE Exclusion D-Dimer assay is reported in ng/mL Fibrinogen Equivalent Units (FEU). Per equipment cleaner's instructions for use, a value of less than 500 ng/mL (FEU) may help to exclude DVT or PE in outpatients when the assay is used with a clinical pretest probability assessment.([facility]EM[facility] must utilize and document eCalc 'Wells Score Deep Vein Thrombosis Risk' for DVT exclusion only. Emergency Department should utilize Guidelines for Emergency Department Use of the VTE Exclusion D-Dimer and Clinical Pretest probability assessment model for DVT or PE exclusion.) URINALYSIS WITH REFLEX CULTURE AND MICROSCOPIC - Abnormal Color, Urine Colorless (*) Appearance, Urine Clear Specific [place], Urine 1.007 pH, Urine 6.5 Protein, Urine NEGATIVE Glucose, Urine Normal Blood, Urine 0.03 (TRACE) (*) Ketones, Urine NEGATIVE Bilirubin, Urine NEGATIVE Urobilinogen, Urine Normal Nitrite, Urine NEGATIVE Leukocyte Esterase, Urine 250 Yancy/uL (*) MICROSCOPIC ONLY, URINE - Abnormal WBC, Urine 1-5 RBC, Urine 3-5 Bacteria, Urine 1+ (*) Hyaline Casts, Urine 1+ (*) CBC - Abnormal WBC 8.8 nRBC 0.0 RBC 3.68 (*) Hemoglobin 12.8 Hematocrit 36.4 MCV 99 MCH 34.8 (*) MCHC 35.2 RDW 13.2 Platelets 323 BASIC METABOLIC PANEL - Abnormal Glucose 110 (*) Sodium 137 Potassium 3.4 (*) Chloride 104 Bicarbonate 24 Anion Gap 12 Urea Nitrogen 12 Creatinine 0.71 eGFR 86 Calcium 9.2 TSH - Normal Thyroid Stimulating Hormone 1.25 Narrative: TSH testing is performed using different testing methodology at [facility] than at other [facility]. Direct result comparisons should only be made within the same method. SERIAL TROPONIN-INITIAL - Normal Troponin I, High Sensitivity 7 Narrative: Less than 99th percentile of normal range cutoff- Female and [...] performed using a different testing methodology at [facility] than at other [facility]. Direct result comparisons should only be made within the same method. SERIAL TROPONIN, 1 HOUR - Normal Troponin I, High Sensitivity 6 Narrative: Less than 99th percentile of normal range cutoff- Female and [...] performed using a different testing methodology at [facility] than at other [facility]. Direct result comparisons should only be made within the same method. LACTATE - Normal Lactate 1.3 Narrative: Venipuncture immediately after or during the administration of Metamizole may lead to falsely low results. Testing should be performed immediately prior to Metamizole dosing. MAGNESIUM - Normal Magnesium 2.04 MAGNESIUM - Normal Magnesium 1.88 URINE CULTURE TROPONIN SERIES- (INITIAL, 1 HR) Narrative: The following orders were created for panel order Troponin I Series, High Sensitivity (0, 1 HR). Procedure Abnormality Status --------- ------ Troponin I, High Sensiti...[[id number]] Normal Final result Troponin, High Sensitivi...[[id number]] Normal Final result Please view results for these tests on the individual orders. URINALYSIS WITH REFLEX CULTURE AND MICROSCOPIC Narrative: The following orders were created for panel order Urinalysis with Reflex Culture and Microscopic. Procedure Abnormality Status --------- ------ Urinalysis with Reflex C...[[id number]] Abnormal Final result Extra Urine Frank Tube[[id number]] In process Please view results for these tests on the individual orders. EXTRA URINE FRANK TUBE Transthoracic Echo Complete Final Result CT pre watchman full contrast Preliminary Result 1. No evidence of left atrial/left atrial appendage thrombus. 2. Mild mitral annular calcification 3. Mild coronary artery calcifications are seen. Please note,the study is not optimized for evaluation of coronary arteries. 4. Left lower lobe atelectatic changes noted MACRO: None Dictation workstation: [id number] XR chest 1 view Final Result Thoracic spine DJD as described. Mild cardiomegaly. Currently without radiographic evidence of CHF or pneumonia. MACRO: None Signed by: Odin Neri 07/01/2025 10:34 AM Dictation workstation: [id number] Procedures Medical Decision Making The patient is a 79-year-old female that has been having palpitations for a couple months and today went up to get a Holter monitor. Patient had an EKG performed that revealed A-fib with RVR with a heart rate in the 120s. Patient was brought to the ED for evaluation and treatment of new onset atrial fibrillation with RVR. Patient was ordered EKG and lab work. CBC was unremarkable. Her D-dimer was elevated at 698 but age corrected is normal. Her glucose is 186 and sodium is 134 urinalysis was negative for infection lactic acid was slightly elevated 2.2 TSH was normal and troponin was normal at 7 chest x-ray revealed mild cardiomegaly and thoracic spine DJD. No evidence of CHF or pneumonia. Patient was treated with 5 mg of Eliquis and 10 mg of IV diltiazem with improvement of her heart rate below 100 currently. Patient is still in atrial fibrillation. I talked to Dr. Zambrano towboat operator and he wanted the patient admitted to the hospital. Intact internal medicine and had the patient admitted. Amount and/or Complexity of Data Reviewed ECG/medicine tests: independent interpretation performed. Details: EKG was interpreted by myself at 10:13 AM reveals atrial fibrillation with RVR with PVCs. Low voltage QRS Q waves in anterior precordial leads. Heart rate is 123 bpm. The QRS durations 80 ms. The QTc is 452 ms North is -21 degrees. Diagnoses as of 07/02/25718 Atrial fibrillation with RVR (Multi) Alexander Cummings DO 07/02/25718 [facility] Work Phone: 07-01-2025 Emergency department Note Palpitations, lightheadedness, decreased appetite. This 79-year-old white female presents to the ED with complaint of palpitations she states that she has been experiencing these for at least 2 months now and was supposed to get a Holter monitor today and when they went to do an EKG they noted that she was in atrial fibrillation. She denies any history of atrial fibrillation. She denies any associated chest pain or shortness of breath she states that she does note that her heart is irregular and feels lightheaded at times. She denies any use of cigarettes, alcohol, illegal drugs or marijuana. History provided by: Patient therapist rrt used: No Physical Exam Vitals and nursing note reviewed. Constitutional: General: She is awake. Appearance: Normal appearance. She is normal weight. HENT: Head: Normocephalic and atraumatic. Right Ear: External ear normal. Decreased hearing noted. Left Ear: External ear normal. Decreased hearing noted. Nose: Nose normal. No congestion or rhinorrhea. Mouth/Throat: Lips: [place]. Mouth: Mucous membranes are moist. Pharynx: Oropharynx is clear. Uvula midline. No oropharyngeal exudate or posterior oropharyngeal erythema. Eyes: General: Lids are normal. Vision grossly intact. Right eye: No discharge. Left eye: No discharge. Extraocular Movements: Extraocular movements intact. Conjunctiva/sclera: Conjunctivae normal. Pupils: Pupils are equal, round, and reactive to light. Neck: Trachea: Trachea and phonation normal. Cardiovascular: Rate and Rhythm: Tachycardia present. Rhythm irregularly irregular. Pulses: Normal pulses. Heart sounds: Normal heart sounds. No murmur heard. No friction rub. No gallop. Pulmonary: Effort: Pulmonary effort is normal. No respiratory distress. Breath sounds: Normal breath sounds. No stridor. No wheezing, rhonchi or rales. Chest: Chest wall: No tenderness. Abdominal: General: Abdomen is protuberant. Bowel sounds are normal. There is no distension. Palpations: Abdomen is soft. There is no mass. Tenderness: There is no abdominal tenderness. There is no guarding or rebound. Hernia: No hernia is present. Comments: Patient has a benign abdominal exam. Musculoskeletal: General: No swelling, tenderness, deformity or signs of injury. Normal range of motion. Cervical back: Full passive range of motion without pain, normal range of motion and neck supple. Right lower leg: Normal. No edema. Left lower leg: Normal. No edema. Skin: General: Skin is warm and dry. Capillary Refill: Capillary refill takes less than 2 seconds. Coloration: Skin is not jaundiced or pale. Findings: No bruising, erythema, lesion or rash. Neurological: General: No focal deficit present. Mental Status: She is alert and oriented to person, place, and time. GCS: GCS eye subscore is 4. GCS verbal subscore is 5. GCS motor subscore is 6. Cranial Nerves: Cranial nerves 2-12 are intact. No cranial nerve deficit. Sensory: Sensation is intact. No sensory deficit. Motor: Motor function is intact. No weakness. Coordination: Coordination is intact. Coordination normal. Gait: Gait is intact. Deep Tendon Reflexes: Reflexes normal. Psychiatric: Attention and Perception: Attention and perception normal. Mood and Affect: Mood and affect normal. Speech: Speech normal. Behavior: Behavior normal. Behavior is cooperative. Thought Content: Thought content normal. Cognition and Memory: Cognition and memory normal. Judgment: Judgment normal. Labs Reviewed COMPREHENSIVE METABOLIC PANEL - Abnormal Result Value Glucose 186 (*) Sodium 134 (*) Potassium 3.7 Chloride 99 Bicarbonate 25 Anion Gap 14 Urea Nitrogen 10 Creatinine 0.69 eGFR 88 Calcium 9.9 Albumin 4.7 Alkaline Phosphatase 74 Total Protein 7.9 AST 18 Bilirubin, Total 0.7 ALT 16 CBC WITH AUTO DIFFERENTIAL - Abnormal WBC 9.1 nRBC 0.0 RBC 4.32 Hemoglobin 13.7 Hematocrit 40.5 MCV 94 MCH 31.7 MCHC 33.8 RDW 12.9 Platelets 366 Neutrophils % 68.3 Immature Granulocytes %, Automated 0.4 Lymphocytes % 21.8 Monocytes % 8.0 Eosinophils % 1.0 Basophils % 0.5 Neutrophils Absolute 6.22 (*) Immature Granulocytes Absolute, Automated 0.04 Lymphocytes Absolute 1.99 Monocytes Absolute 0.73 Eosinophils Absolute 0.09 Basophils Absolute 0.05 LACTATE - Abnormal Lactate 2.2 (*) Narrative: Venipuncture immediately after or during the administration of Metamizole may lead to falsely low results. Testing should be performed immediately prior to Metamizole dosing. D-DIMER, VTE EXCLUSION - Abnormal D-Dimer, Quantitative VTE Exclusion 698 (*) Narrative: The VTE Exclusion D-Dimer assay is reported in ng/mL Fibrinogen Equivalent Units (FEU). Per equipment cleaner's instructions for use, a value of less than 500 ng/mL (FEU) may help to exclude DVT or PE in outpatients when the assay is used with a clinical pretest probability assessment.([facility] must utilize and document eCalc 'Wells Score Deep Vein Thrombosis Risk' for DVT exclusion only. Emergency Department should utilize Guidelines for Emergency Department Use of the VTE Exclusion D-Dimer and Clinical Pretest probability assessment model for DVT or PE exclusion.) URINALYSIS WITH REFLEX CULTURE AND MICROSCOPIC - Abnormal Color, Urine Colorless (*) Appearance, Urine Clear Specific [place], Urine 1.007 pH, Urine 6.5 Protein, Urine NEGATIVE Glucose, Urine Normal Blood, Urine 0.03 (TRACE) (*) Ketones, Urine NEGATIVE Bilirubin, Urine NEGATIVE Urobilinogen, Urine Normal Nitrite, Urine NEGATIVE Leukocyte Esterase, Urine 250 Yancy/uL (*) MICROSCOPIC ONLY, URINE - Abnormal WBC, Urine 1-5 RBC, Urine 3-5 Bacteria, Urine 1+ (*) Hyaline Casts, Urine 1+ (*) CBC - Abnormal WBC 8.8 nRBC 0.0 RBC 3.68 (*) Hemoglobin 12.8 Hematocrit 36.4 MCV 99 MCH 34.8 (*) MCHC 35.2 RDW 13.2 Platelets 323 BASIC METABOLIC PANEL - Abnormal Glucose 110 (*) Sodium 137 Potassium 3.4 (*) Chloride 104 Bicarbonate 24 Anion Gap 12 Urea Nitrogen 12 Creatinine 0.71 eGFR 86 Calcium 9.2 TSH - Normal Thyroid Stimulating Hormone 1.25 Narrative: TSH testing is performed using different testing methodology at [facility] than at other [facility]. Direct result comparisons should only be made within the same method. SERIAL TROPONIN-INITIAL - Normal Troponin I, High Sensitivity 7 Narrative: Less than 99th percentile of normal range cutoff- Female and [...] performed using a different testing methodology at [facility] than at other [facility]. Direct result comparisons should only be made within the same method. SERIAL TROPONIN, 1 HOUR - Normal Troponin I, High Sensitivity 6 Narrative: Less than 99th percentile of normal range cutoff- Female and [...] performed using a different testing methodology at [facility] than at other [facility]. Direct result comparisons should only be made within the same method. LACTATE - Normal Lactate 1.3 Narrative: Venipuncture immediately after or during the administration of Metamizole may lead to falsely low results. Testing should be performed immediately prior to Metamizole dosing. MAGNESIUM - Normal Magnesium 2.04 MAGNESIUM - Normal Magnesium 1.88 URINE CULTURE TROPONIN SERIES- (INITIAL, 1 HR) Narrative: The following orders were created for panel order Troponin I Series, High Sensitivity (0, 1 HR). Procedure Abnormality Status --------- ------ Troponin I, High Sensiti...[[id number]] Normal Final result Troponin, High Sensitivi...[[id number]] Normal Final result Please view results for these tests on the individual orders. URINALYSIS WITH REFLEX CULTURE AND MICROSCOPIC Narrative: The following orders were created for panel order Urinalysis with Reflex Culture and Microscopic. Procedure Abnormality Status --------- ------ Urinalysis with Reflex C...[[id number]] Abnormal Final result Extra Urine Frank Tube[[id number]] In process Please view results for these tests on the individual orders. EXTRA URINE FRANK TUBE Transthoracic Echo Complete Final Result CT pre watchman full contrast Preliminary Result 1. No evidence of left atrial/left atrial appendage thrombus. 2. Mild mitral annular calcification 3. Mild coronary artery calcifications are seen. Please note,the study is not optimized for evaluation of coronary arteries. 4. Left lower lobe atelectatic changes noted MACRO: None Dictation workstation: [id number] XR chest 1 view Final Result Thoracic spine DJD as described. Mild cardiomegaly. Currently without radiographic evidence of CHF or pneumonia. MACRO: None Signed by: Odin Neri 07/01/2025 10:34 AM Dictation workstation: [id number] Procedures Medical Decision Making The patient is a 79-year-old female that has been having palpitations for a couple months and today went up to get a Holter monitor. Patient had an EKG performed that revealed A-fib with RVR with a heart rate in the 120s. Patient was brought to the ED for evaluation and treatment of new onset atrial fibrillation with RVR. Patient was ordered EKG and lab work. CBC was unremarkable. Her D-dimer was elevated at 698 but age corrected is normal. Her glucose is 186 and sodium is 134 urinalysis was negative for infection lactic acid was slightly elevated 2.2 TSH was normal and troponin was normal at 7 chest x-ray revealed mild cardiomegaly and thoracic spine DJD. No evidence of CHF or pneumonia. Patient was treated with 5 mg of Eliquis and 10 mg of IV diltiazem with improvement of her heart rate below 100 currently. Patient is still in atrial fibrillation. I talked to Dr. Zambrano towboat operator and he wanted the patient admitted to the hospital. Intact internal medicine and had the patient admitted. Amount and/or Complexity of Data Reviewed ECG/medicine tests: independent interpretation performed. Details: EKG was interpreted by myself at 10:13 AM reveals atrial fibrillation with RVR with PVCs. Low voltage QRS Q waves in anterior precordial leads. Heart rate is 123 bpm. The QRS durations 80 ms. The QTc is 452 ms North is -21 degrees. Diagnoses as of 07/02/25718 Atrial fibrillation with RVR (Multi) Alexander Cummings DO 07/02/25718 documented in this encounter [facility] Work Phone: 07-01-2025 Nurse Note Patient arrived for a holter monitor. When I was explaining to the patient when she would be pressing the button for symptoms, the patient stated That she was feeling fluttering right now and just felt tired. I message Dr. Kothari to see about getting an EKG before I put the heart monitor on. I did speak with Dr. Kothari's nurse who gave me a verbal order to go ahead with the EKG. EKG was performed and results were faxed and called to Dr. Kothari. Dr. Kothari requested that the patient be taken to the ER for further evaluation. Patient was taken to the ER via wheelchair. Patient's heart monitor was not placed on patient at this time. If patient gets discharged from the ER, the holter monitor can be placed on upon discharge from the ER. [facility] 07-01-2025 Nurse Note Patient arrived for a holter monitor. When I was explaining to the patient when she would be pressing the button for symptoms, the patient stated That she was feeling fluttering right now and just felt tired. I message Dr. Kothari to see about getting an EKG before I put the heart monitor on. I did speak with Dr. Kothari's nurse who gave me a verbal order to go ahead with the EKG. EKG was performed and results were faxed and called to Dr. Kothari. Dr. Kothari requested that the patient be taken to the ER for further evaluation. Patient was taken to the ER via wheelchair. Patient's heart monitor was not placed on patient at this time. If patient gets discharged from the ER, the holter monitor can be placed on upon discharge from the ER. documented in this encounter [facility] Work Phone: 06-27-2025 Evaluation + Plan note Associated Problem(s): Palpitations - Because of the nature of her palpitations I will have her wear a 2-week Holter monitor and I have agreed to contact her when the results return -I will also have her get a thyroid blood test today Orders: Holter Or Event [employer] Management; [facility] Work Phone: 06-27-2025 Evaluation + Plan note Associated Problem(s): Mixed hyperlipidemia - We discussed cholesterol and I will give her a handout that goes over cholesterol diet. -I am switching her simvastatin to atorvastatin Orders: atorvastatin (Lipitor) 20 mg tablet; Take 1 tablet (20 mg) by mouth once daily. [facility] Work Phone: 06-27-2025 Evaluation + Plan note Associated Problem(s): Essential (primary) hypertension Her blood pressure remains under good control so we will continue with her current antihypertensive regimen- Orders: furosemide (Lasix) 20 mg tablet; Take 1 tablet (20 mg) by mouth once daily. losartan (Cozaar) 100 mg tablet; Take 1 tablet (100 mg) by mouth once daily. NIFEdipine ER (NIFEdipine CC) 30 mg 24 hr tablet; Take 2 tablets (60 mg) by mouth once daily. Basic Metabolic Panel; Future [facility] Work Phone: 06-27-2025 Evaluation + Plan note Associated Problem(s): Vitamin D deficiency - She continues to take vitamin D supplementation and we will check a vitamin D level just prior to her next follow-up visit Orders: Vitamin D 25-Hydroxy,Total (for eval of Vitamin D levels); [facility] Work Phone: 06-27-2025 Evaluation + Plan note Associated Problem(s): Secondary hypothyroidism - We are refilling her thyroid medication but she will get a TSH today because of the palpitations Orders: levothyroxine (Synthroid, Levoxyl) 88 mcg tablet; Take 1 tablet (88 mcg) by mouth early in the morning.. Take on an empty stomach at the same time each day, either 30 to 60 minutes prior to breakfast TSH; [facility] Work Phone: 06-27-2025 Evaluation + Plan note Associated Problem(s): Hyperglycemia - Her hemoglobin A1c was slightly raised at 5.8. We remind her to eat a healthy diet, exercise regularly, and try to get as close to ideal body weight as possible Orders: Hemoglobin A1C; Future Patient instructions As we discussed because of your heart palpitations I am asking the staff to set you up to wear a quality assurance monitor final for 2 weeks. The idea is that you will hopefully have the symptoms during that monitoring time and we want to make sure you do not have any dangerous rhythm disturbances. Please also stop on your way out today to check a thyroid blood test because too much thyroid hormone can cause palpitations When these results come back we will contact you with further instructions etc. Please remember our discussion about constipation. I recommend that you purchase an [id number] fiber supplement such as Metamucil. You can get the powder that you mix in water but you can also get the capsules. Make sure you drink plenty of water with this supplement. Understand that dehydration can also contribute to constipation. Please give us an update after you have used this for a couple weeks Please read the handout I gave you today on cholesterol and fall prevention You can use up your simvastatin prescription that you have currently but when you go for refills you will get a new one called atorvastatin which works a little bit better than the simvastatin. It will be at the same dose. If it is too expensive please call [facility] Work Phone: 06-27-2025 Evaluation + Plan note Associated Problem(s): Other constipation - For her constipation I am recommending fiber therapy with plenty of water and she will call if this is not effective [facility] Work Phone: 06-27-2025 Evaluation + Plan note Associated Problem(s): Medicare annual wellness visit, subsequent - We discussed fall prevention -We discussed the importance of healthy diet and exercise -She has completed her advance directives [facility] Work Phone: 06-27-2025 History of Present illness Narrative Subjective Reason for Visit: Diana Almonte is an 79 y.o. female here for a Medicare Wellness visit. Past Medical, Surgical, and Family History reviewed and updated in chart. Reviewed all medications by prescribing practitioner or clinical pharmacist (such as prescriptions, OTCs, herbal therapies and supplements) and documented in the medical record. HPI She is here today for her routine checkup. We also took this opportunity to complete her annual Medicare wellness visit. She denies any symptoms of depression. She has had no falls in the last year and we talked about fall prevention. I have specifically recommended she put grab bars in the bathroom. We will give her a handout that goes over her list of things she can do to prevent falls. We also discussed her memory and determined that she is doing well. She understands and doing mind challenging tasks can help preserve her memory in the future. We also discussed the importance of healthy diet and exercise. She has completed her advance directives. We did conduct a review of systems and she explains that she has bouts of palpitations probably on the order of 2 episodes every 2 weeks. She states sometimes they can last 1/2-hour. We discussed doing a quality assurance monitor final to make sure that nothing of a serious nature is going on. She also has occasional constipation and we discussed the importance of fiber therapy. We also went over the results of lab work and overall I am very pleased with her numbers. Her hemoglobin A1c was slightly raised at 5.8 and we will continue to monitor. We are providing refills on her medications and her blood pressure remains under great control. Patient Care Team: Brittney Kothari DO as PCP - General Brittney Kothari DO as PCP - MSSP ACO Attributed Provider Review of Systems Constitutional: Negative for fatigue and unexpected weight change. Respiratory: Negative for chest tightness, shortness of breath and wheezing. Occ cough Cardiovascular: Positive for palpitations. Negative for chest pain and leg swelling. Gastrointestinal: Positive for constipation. Negative for abdominal pain, blood in stool, diarrhea, nausea and vomiting. Musculoskeletal: Negative for arthralgias and back pain. Objective Vitals: BP 130/74 Pulse 55 Ht (!) 1.499 m (4' 11.02) Wt 71.8 kg (158 lb 3.2 oz) SpO2 95% BMI 31.94 kg/m Physical Exam Vitals and nursing note reviewed. Constitutional: General: She is not in acute distress. Appearance: Normal appearance. HENT: Head: Normocephalic and atraumatic. Eyes: Conjunctiva/sclera: Conjunctivae normal. Cardiovascular: Rate and Rhythm: Normal rate and regular rhythm. Heart sounds: Normal heart sounds. Pulmonary: Effort: No respiratory distress. Breath sounds: No wheezing. Abdominal: Palpations: Abdomen is soft. Tenderness: There is no abdominal tenderness. There is no guarding. Musculoskeletal: General: No swelling. Normal range of motion. Skin: General: Skin is warm and dry. Neurological: General: No focal deficit present. Mental Status: She is alert and oriented to person, place, and time. Psychiatric: Behavior: Behavior normal. Recent Results (from the past 4 weeks) Basic Metabolic Panel Collection Time: 06/20/25 9:39 AM Result Value Ref Range GLUCOSE 108 (H) 65 - 99 mg/dL UREA NITROGEN (BUN) 11 7 - 25 mg/dL CREATININE 0.67 0.60 - 0.95 mg/dL EGFR 88 > OR = 60 mL/min/1.73m2 BUN/CREATININE RATIO SEE NOTE: 6 - 22 (calc) SODIUM 136 135 - 146 mmol/L POTASSIUM 4.5 3.5 - 5.3 mmol/L CHLORIDE 99 98 - 110 mmol/L CARBON DIOXIDE 26 20 - 32 mmol/L ELECTROLYTE BALANCE 11 7 - 17 mmol/L (calc) CALCIUM 10.1 8.6 - 10.4 mg/dL Hemoglobin A1C Collection Time: 06/20/25 9:39 AM Result Value Ref Range HEMOGLOBIN A1c 5.8 (H) <5.7 % eAG (mg/dL) 120 mg/dL eAG (mmol/L) 6.6 mmol/L Lipid Panel Collection Time: 06/20/25 9:39 AM Result Value Ref Range CHOLESTEROL, TOTAL 199 <200 mg/dL HDL CHOLESTEROL 66 > OR = 50 mg/dL TRIGLYCERIDES 103 <150 mg/dL LDL-CHOLESTEROL 112 (H) mg/dL (calc) CHOL/HDLC RATIO 3.0 <5.0 (calc) NON HDL CHOLESTEROL 133 (H) <130 mg/dL (calc) Assessment & Plan Medicare annual wellness visit, subsequent - We discussed fall prevention -We discussed the importance of healthy diet and exercise -She has completed her advance directives Palpitations - Because of the nature of her palpitations I will have her wear a 2-week Holter monitor and I have agreed to contact her when the results return -I will also have her get a thyroid blood test today Orders: Holter Or [employer]; Future Other constipation - For her constipation I am recommending fiber therapy with plenty of water and she will call if this is not effective Essential (primary) hypertension Her blood pressure remains under good control so we will continue with her current antihypertensive regimen- Orders: furosemide (Lasix) 20 mg tablet; Take 1 tablet (20 mg) by mouth once daily. losartan (Cozaar) 100 mg tablet; Take 1 tablet (100 mg) by mouth once daily. NIFEdipine ER (NIFEdipine CC) 30 mg 24 hr tablet; Take 2 tablets (60 mg) by mouth once daily. Basic Metabolic Panel; Future Secondary hypothyroidism - We are refilling her thyroid medication but she will get a TSH today because of the palpitations Orders: levothyroxine (Synthroid, Levoxyl) 88 mcg tablet; Take 1 tablet (88 mcg) by mouth early in the morning.. Take on an empty stomach at the same time each day, either 30 to 60 minutes prior to breakfast TSH; Future Hypertension, unspecified type Orders: metoprolol tartrate (Lopressor) 100 mg tablet; Take 1 tablet (100 mg) by mouth 2 times a day. Mixed hyperlipidemia - We discussed cholesterol and I will give her a handout that goes over cholesterol diet. -I am switching her simvastatin to atorvastatin Orders: atorvastatin (Lipitor) 20 mg tablet; Take 1 tablet (20 mg) by mouth once daily. Vitamin D deficiency - She continues to take vitamin D supplementation and we will check a vitamin D level just prior to her next follow-up visit Orders: Vitamin D 25-Hydroxy,Total (for eval of Vitamin D levels); Future Hyperglycemia - Her hemoglobin A1c was slightly raised at 5.8. We remind her to eat a healthy diet, exercise regularly, and try to get as close to ideal body weight as possible Orders: Hemoglobin A1C; Future Patient instructions As we discussed because of your heart palpitations I am asking the staff to set you up to wear a quality assurance monitor final for 2 weeks. The idea is that you will hopefully have the symptoms during that monitoring time and we want to make sure you do not have any dangerous rhythm disturbances. Please also stop on your way out today to check a thyroid blood test because too much thyroid hormone can cause palpitations When these results come back we will contact you with further instructions etc. Please remember our discussion about constipation. I recommend that you purchase an yiqx-gvl-hbqyais fiber supplement such as Metamucil. You can get the powder that you mix in water but you can also get the capsules. Make sure you drink plenty of water with this supplement. Understand that dehydration can also contribute to constipation. Please give us an update after you have used this for a couple weeks Please read the handout I gave you today on cholesterol and fall prevention You can use up your simvastatin prescription that you have currently but when you go for refills you will get a new one called atorvastatin which works a little bit better than the simvastatin. It will be at the same dose. If it is too expensive please call documented in this encounter [facility] Work Phone: 06-27-2025 Instructions Brittney Kothari DO - 06/27/2025 10:20 AM EDT Patient instructions As we discussed because of your heart palpitations I am asking the staff to set you up to wear a quality assurance monitor final for 2 weeks. The idea is that you will hopefully have the symptoms during that monitoring time and we want to make sure you do not have any dangerous rhythm disturbances. Please also stop on your way out today to check a thyroid blood test because too much thyroid hormone can cause palpitations When these results come back we will contact you with further instructions etc. Please remember our discussion about constipation. I recommend that you purchase an nztq-brv-xpgzdvr fiber supplement such as Metamucil. You can get the powder that you mix in water but you can also get the capsules. Make sure you drink plenty of water with this supplement. Understand that dehydration can also contribute to constipation. Please give us an update after you have used this for a couple weeks Please read the handout I gave you today on cholesterol and fall prevention You can use up your simvastatin prescription that you have currently but when you go for refills you will get a new one called atorvastatin which works a little bit better than the simvastatin. It will be at the same dose. If it is too expensive please call documented in this encounter [facility] Work Phone: 06-27-2025 Miscellaneous Notes Associated Problem(s): Palpitations - Because of the nature of her palpitations I will have her wear a 2-week Holter monitor and I have agreed to contact her when the results return -I will also have her get a thyroid blood test today Orders: Holter Or [employer]; Future Associated Problem(s): Mixed hyperlipidemia - We discussed cholesterol and I will give her a handout that goes over cholesterol diet. -I am switching her simvastatin to atorvastatin Orders: atorvastatin (Lipitor) 20 mg tablet; Take 1 tablet (20 mg) by mouth once daily. Associated Problem(s): Essential (primary) hypertension Her blood pressure remains under good control so we will continue with her current antihypertensive regimen- Orders: furosemide (Lasix) 20 mg tablet; Take 1 tablet (20 mg) by mouth once daily. losartan (Cozaar) 100 mg tablet; Take 1 tablet (100 mg) by mouth once daily. NIFEdipine ER (NIFEdipine CC) 30 mg 24 hr tablet; Take 2 tablets (60 mg) by mouth once daily. Basic Metabolic Panel; Future Associated Problem(s): Vitamin D deficiency - She continues to take vitamin D supplementation and we will check a vitamin D level just prior to her next follow-up visit Orders: Vitamin D 25-Hydroxy,Total (for eval of Vitamin D levels); Future Associated Problem(s): Secondary hypothyroidism - We are refilling her thyroid medication but she will get a TSH today because of the palpitations Orders: levothyroxine (Synthroid, Levoxyl) 88 mcg tablet; Take 1 tablet (88 mcg) by mouth early in the morning.. Take on an empty stomach at the same time each day, either 30 to 60 minutes prior to breakfast TSH; Future Associated Problem(s): Hyperglycemia - Her hemoglobin A1c was slightly raised at 5.8. We remind her to eat a healthy diet, exercise regularly, and try to get as close to ideal body weight as possible Orders: Hemoglobin A1C; Future Patient instructions As we discussed because of your heart palpitations I am asking the staff to set you up to wear a quality assurance monitor final for 2 weeks. The idea is that you will hopefully have the symptoms during that monitoring time and we want to make sure you do not have any dangerous rhythm disturbances. Please also stop on your way out today to check a thyroid blood test because too much thyroid hormone can cause palpitations When these results come back we will contact you with further instructions etc. Please remember our discussion about constipation. I recommend that you purchase an ndww-iuv-kebsrvy fiber supplement such as Metamucil. You can get the powder that you mix in water but you can also get the capsules. Make sure you drink plenty of water with this supplement. Understand that dehydration can also contribute to constipation. Please give us an update after you have used this for a couple weeks Please read the handout I gave you today on cholesterol and fall prevention You can use up your simvastatin prescription that you have currently but when you go for refills you will get a new one called atorvastatin which works a little bit better than the simvastatin. It will be at the same dose. If it is too expensive please call Associated Problem(s): Other constipation - For her constipation I am recommending fiber therapy with plenty of water and she will call if this is not effective Associated Problem(s): Medicare annual wellness visit, subsequent - We discussed fall prevention -We discussed the importance of healthy diet and exercise -She has completed her advance directives documented in this encounter [facility] Work Phone: 03-20-2025 Evaluation + Plan note Associated Problem(s): Essential (primary) hypertension Blood pressure is stable on nifedipine, losartan, metoprolol [facility] Work Phone: 03-20-2025 Evaluation + Plan note Associated Problem(s): 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) At this time her sodium level is stable at 137, no changes at this time [facility] Work Phone: 03-20-2025 Miscellaneous Notes Associated Problem(s): Essential (primary) hypertension Blood pressure is stable on nifedipine, losartan, metoprolol Associated Problem(s): 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) At this time her sodium level is stable at 137, no changes at this time documented in this encounter [facility] Work Phone: 03-20-2025 History of Present illness Narrative Subjective Patient ID: Diana Almonte is a 79 y.o. female who presents for Follow-up (1 year /Review labs ). Patient being seen in follow-up for SIADH and hypertension Labs reviewed Glucose 131 Renal function with a BUN of 12 and creatinine of 0.78, GFR is 77 Sodium 137, potassium 4.7, chloride 99, bicarb 23 Calcium 9.8 She is doing well Her blood pressure is well-controlled She does not have any lightheadedness or dizziness She does not feel like she watches her fluids extremely close however she is maintaining good sodium levels Review of Systems Constitutional: Negative. HENT: Negative. Eyes: Negative. Respiratory: Negative. Cardiovascular: Negative. Gastrointestinal: Negative. Endocrine: Negative. Genitourinary: Negative. Musculoskeletal: Negative. Skin: Negative. Allergic/Immunologic: Negative. Neurological: Negative. Hematological: Negative. Psychiatric/Behavioral: Negative. Objective Physical Exam Constitutional: Appearance: Normal appearance. HENT: Head: Normocephalic and atraumatic. Mouth/Throat: Mouth: Mucous membranes are moist. Eyes: Extraocular Movements: Extraocular movements intact. Cardiovascular: Rate and Rhythm: Normal rate and regular rhythm. Heart sounds: Normal heart sounds. Pulmonary: Effort: Pulmonary effort is normal. Breath sounds: Normal breath sounds. Abdominal: General: Bowel sounds are normal. Palpations: Abdomen is soft. Musculoskeletal: General: Normal range of motion. Skin: General: Skin is warm and dry. Neurological: Mental Status: She is alert. Psychiatric: Behavior: Behavior normal. Thought Content: Thought content normal. Assessment/Plan Problem List Items Addressed This Visit ICD-10-CM Essential (primary) hypertension I10 Blood pressure is stable on nifedipine, losartan, metoprolol 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) - Primary E22.2 At this time her sodium level is stable at 137, no changes at this time Relevant Orders Basic metabolic panel Follow Up In Nephrology Mixed hyperlipidemia E78.2 SIADH: Hypertension: On losartan, Nifedipine, and metoprolol-blood pressure increasing slightly Diverticulosis Hypothyroidism History of CHF Microscopic hematuria Vitamin D deficiency Hyperlipidemia Restless leg syndrome Low osmolar state BETHANIE Jones DNP 03/20/25 10:52 AM documented in this encounter [facility] Work Phone: 12-27-2024 Evaluation + Plan note Associated Problem(s): Chronic low back pain -We discussed her low back pain and she will let us know if she decides to go back to the pain clinic [facility] Work Phone: 12-27-2024 Evaluation + Plan note Associated Problem(s): Secondary hypothyroidism -Her TSH was perfect this time and we will check it again in 1 year [facility] Work Phone: 12-27-2024 Miscellaneous Notes Associated Problem(s): Chronic low back pain -We discussed her low back pain and she will let us know if she decides to go back to the pain clinic Associated Problem(s): Secondary hypothyroidism -Her TSH was perfect this time and we will check it again in 1 year Associated Problem(s): Hyperglycemia -Her hemoglobin A1c came back at 5.9 -We discussed the importance of eating a healthy diet and regular exercise Associated Problem(s): Mixed hyperlipidemia -We will check cholesterol just prior to her next follow-up visit Associated Problem(s): Essential (primary) hypertension -Blood pressure remains under excellent control and we will continue with her current antihypertensive regimen documented in this encounter [facility] Work Phone: 12-27-2024 Evaluation + Plan note Associated Problem(s): Hyperglycemia -Her hemoglobin A1c came back at 5.9 -We discussed the importance of eating a healthy diet and regular exercise [facility] Work Phone: 12-27-2024 Evaluation + Plan note Associated Problem(s): Mixed hyperlipidemia -We will check cholesterol just prior to her next follow-up visit [facility] Work Phone: 12-27-2024 Evaluation + Plan note Associated Problem(s): Essential (primary) hypertension -Blood pressure remains under excellent control and we will continue with her current antihypertensive regimen [facility] Work Phone: 12-27-2024 History of Present illness Narrative Subjective Patient ID: Diana Almonte is a 79 y.o. female who presents for Follow-up (6 MO CK). HPI She is here today for her general checkup. Her blood pressure was excellent. We did conduct a review of systems. She states that several weeks ago she thinks she had the whooping cough. She had cough and congestion but she states it is working its way out. She also states that on occasion when she goes to lying down she has a brief feeling of palpitations in her chest. She describes it is fleeting. I told her that this kind of symptom does not worry me. She states however 1 time she felt like her heart was beating erratically for about an hour. We talked about seeking medical attention should that happen again. She states is very infrequent. We discussed possibly doing a quality assurance monitor final especially if it becomes more of an issue. She expresses understanding and she will let us know if she is having issues. She also suffers from chronic low back pain and was going to the pain clinic. At one point they offered to do an injection but she declined. She still struggles with low back pain and I told her we could refer her back to the pain clinic if she has changed her mind about more aggressive treatment. In the meantime we talked about the importance of exercise and have recommended Silver sneakers swimming as this would be a great way for her to do healthy exercise. We also went over the results of recent lab work. Overall I am pleased with her numbers. Her thyroid blood test came back normal. Her hemoglobin A1c was 5.9. We have discussed the notion of a prediabetic state and we remind her to eat a healthy diet and exercise. We are providing refills on all medicines today and if everything goes according to plan we will see her back in 6 months for another checkup. I will summarize everything in a problem based format. Review of Systems Constitutional: Negative for fatigue. Respiratory: Negative for cough, shortness of breath and wheezing. Cardiovascular: Positive for palpitations. Negative for chest pain and leg swelling. Gastrointestinal: Negative for abdominal pain, blood in stool, diarrhea, nausea and vomiting. Musculoskeletal: Negative for arthralgias. CHRONIC LOW BACK PAIN Objective Physical Exam Vitals and nursing note reviewed. Constitutional: General: She is not in acute distress. Appearance: Normal appearance. HENT: Head: Normocephalic and atraumatic. Eyes: Conjunctiva/sclera: Conjunctivae normal. Cardiovascular: Rate and Rhythm: Normal rate and regular rhythm. Heart sounds: Normal heart sounds. Pulmonary: Effort: No respiratory distress. Breath sounds: No wheezing. Abdominal: Palpations: Abdomen is soft. Tenderness: There is no abdominal tenderness. There is no guarding. Musculoskeletal: General: No swelling. Normal range of motion. Skin: General: Skin is warm and dry. Neurological: General: No focal deficit present. Mental Status: She is alert and oriented to person, place, and time. Psychiatric: Behavior: Behavior normal. Recent Results (from the past 4 weeks) Basic Metabolic Panel Collection Time: 12/17/24 9:58 AM Result Value Ref Range GLUCOSE 114 (H) 65 - 99 mg/dL UREA NITROGEN (BUN) 8 7 - 25 mg/dL CREATININE 0.64 0.60 - 0.95 mg/dL EGFR 89 > OR = 60 mL/min/1.73m2 BUN/CREATININE RATIO SEE NOTE: 6 - 22 (calc) SODIUM 136 135 - 146 mmol/L POTASSIUM 4.1 3.5 - 5.3 mmol/L CHLORIDE 100 98 - 110 mmol/L CARBON DIOXIDE 28 20 - 32 mmol/L ELECTROLYTE BALANCE 8 7 - 17 mmol/L (calc) CALCIUM 9.9 8.6 - 10.4 mg/dL Thyroid Stimulating Hormone Collection Time: 12/17/24 9:58 AM Result Value Ref Range TSH 1.60 0.40 - 4.50 mIU/L Vitamin D 25-Hydroxy,Total (for eval of Vitamin D levels) Collection Time: 12/17/24 9:58 AM Result Value Ref Range VITAMIN D,25-OH,TOTAL,IA 70 30 - 100 ng/mL Hemoglobin A1C Collection Time: 12/17/24 9:58 AM Result Value Ref Range HEMOGLOBIN A1c 5.9 (H) <5.7 % of total Hgb eAG (mg/dL) 123 mg/dL eAG (mmol/L) 6.8 mmol/L Assessment/Plan Problem List Items Addressed This Visit ICD-10-CM Essential (primary) hypertension I10 -Blood pressure remains under excellent control and we will continue with her current antihypertensive regimen Relevant Medications furosemide (Lasix) 20 mg tablet losartan (Cozaar) 100 mg tablet NIFEdipine ER (NIFEdipine CC) 30 mg 24 hr tablet Other Relevant Orders Basic Metabolic Panel Secondary hypothyroidism E03.8 -Her TSH was perfect this time and we will check it again in 1 year Relevant Medications levothyroxine (Synthroid, Levoxyl) 88 mcg tablet Mixed hyperlipidemia E78.2 -We will check cholesterol just prior to her next follow-up visit Relevant Medications simvastatin (Zocor) 20 mg tablet Other Relevant Orders Lipid Panel Hyperglycemia - Primary R73.9 -Her hemoglobin A1c came back at 5.9 -We discussed the importance of eating a healthy diet and regular exercise Relevant Orders Hemoglobin A1C Chronic low back pain M54.50, G89.29 -We discussed her low back pain and she will let us know if she decides to go back to the pain clinic Other Visit Diagnoses Codes Hypertension, unspecified type I10 Relevant Medications metoprolol tartrate (Lopressor) 100 mg tablet Patient instructions As we discussed I am pleased with your checkup today. Please call if you change your mind about a referral to the pain clinic for your low back pain. We would send you back if you would be agreeable to having injections. Please contact us if you start experiencing more palpitations. If you get any irregular fast rhythm and your heart and it does not stop after a few minutes then you should seek medical attention We will see you back in 6 months and please remember to get lab work just prior to that visit Brittney Kothari DO documented in this encounter [facility] Work Phone: 12-27-2024 Instructions Brittney Kothari DO - 12/27/2024 10:00 AM EST Patient instructions As we discussed I am pleased with your checkup today. Please call if you change your mind about a referral to the pain clinic for your low back pain. We would send you back if you would be agreeable to having injections. Please contact us if you start experiencing more palpitations. If you get any irregular fast rhythm and your heart and it does not stop after a few minutes then you should seek medical attention We will see you back in 6 months and please remember to get lab work just prior to that visit documented in this encounter [facility] Work Phone: 06-26-2024 Evaluation + Plan note Associated Problem(s): Medicare annual wellness visit, subsequent -We discussed fall prevention and I will give her a handout that goes over ways to reduce her risk of falls -We discussed the importance of exercise -We discussed providing a copy of her advance directives [facility] Work Phone: 06-26-2024 Evaluation + Plan note Associated Problem(s): 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) -Sodium level is 1 point and we will continue to monitor -She knows to watch her water intake and to call with any unusual symptoms [facility] Work Phone: 06-26-2024 Evaluation + Plan note Associated Problem(s): Secondary hypothyroidism -We are increasing her thyroid medication to 88 mcg daily and we will recheck a TSH just prior to her next follow-up visit [facility] Work Phone: 06-26-2024 Miscellaneous Notes Associated Problem(s): Medicare annual wellness visit, subsequent -We discussed fall prevention and I will give her a handout that goes over ways to reduce her risk of falls -We discussed the importance of exercise -We discussed providing a copy of her advance directives Associated Problem(s): 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) -Sodium level is 1 point and we will continue to monitor -She knows to watch her water intake and to call with any unusual symptoms Associated Problem(s): Secondary hypothyroidism -We are increasing her thyroid medication to 88 mcg daily and we will recheck a TSH just prior to her next follow-up visit Associated Problem(s): Hyperglycemia -Her hemoglobin A1c was satisfactory at 5.5 and we will continue to monitor -I also remind her to try to exercise regularly and watch her diet closely Associated Problem(s): Impacted cerumen of right ear -She will arrange to come back another day to have her ear flushed Associated Problem(s): Mixed hyperlipidemia -Her cholesterol from bile is excellent and we will check it once a year per Medicare protocol Associated Problem(s): Essential (primary) hypertension -Her blood pressure control is excellent so we will continue with her current antihypertensive regimen documented in this encounter [facility] Work Phone: 06-26-2024 Evaluation + Plan note Associated Problem(s): Hyperglycemia -Her hemoglobin A1c was satisfactory at 5.5 and we will continue to monitor -I also remind her to try to exercise regularly and watch her diet closely [facility] Work Phone: 06-26-2024 Evaluation + Plan note Associated Problem(s): Impacted cerumen of right ear -She will arrange to come back another day to have her ear flushed [facility] Work Phone: 06-26-2024 Evaluation + Plan note Associated Problem(s): Mixed hyperlipidemia -Her cholesterol from bile is excellent and we will check it once a year per Medicare protocol [facility] Work Phone: 06-26-2024 Evaluation + Plan note Associated Problem(s): Essential (primary) hypertension -Her blood pressure control is excellent so we will continue with her current antihypertensive regimen [facility] Work Phone: 06-26-2024 History of Present illness Narrative Subjective Reason for Visit: Diana Almonte is an 78 y.o. female here for a Medicare Wellness visit. Reviewed all medications by prescribing practitioner or clinical pharmacist (such as prescriptions, OTCs, herbal therapies and supplements) and documented in the medical record. HPI She is here today for her general 6-month checkup. We also took this opportunity to complete her annual Medicare wellness visit. Overall she is looking well and also reports feeling well. She denies any symptoms of depression. She has had no falls in the last year and we talked about fall prevention. We talked about grab bars in the bathroom and avoiding loose rugs. I will give her a handout today that goes over checklist and she will go through her home to fall proof everything. Her memory appears to be very good as well as her hearing. She also tries to adhere to a healthy diet. We discussed the importance of exercise and trying to get 30 minutes of aerobic activity 5 days a week. We discussed joining [employer]. We also discussed providing a copy of her advance directives. We also conducted a full review of systems and she has been feeling some fullness in her right ear. Today I see evidence of a cerumen impaction so we will schedule a follow-up visit with nursing staff to have it flushed. We also went over the results of lab work and overall I am pleased with her numbers. Her hemoglobin A1c was satisfactory at 5.5 her her cholesterol profile is excellent. Her sodium level is just 1 point off and we talked about calling if she should have any unusual symptoms. She also knows to watch her water intake. Also her thyroid blood test remains out of the normal range so decided to increase her levothyroxine to the 88 mcg dose. We will recheck her TSH when she comes back for follow-up visit. Patient Care Team: Brittney Kothari DO as PCP - General Brittney Kothari DO as PCP - [facility] Attributed Provider Review of Systems Constitutional: Negative for fatigue. Respiratory: Negative for cough, chest tightness, shortness of breath and wheezing. Cardiovascular: Negative for chest pain, palpitations and leg swelling. Gastrointestinal: Negative for abdominal pain, blood in stool, diarrhea, nausea and vomiting. Musculoskeletal: Negative for back pain. Objective Vitals: BP 126/80 Pulse 56 Ht 1.499 m (4' 11) Wt 73 kg (161 lb) SpO2 98% BMI 32.52 kg/m Physical Exam Vitals and nursing note reviewed. Constitutional: General: She is not in acute distress. Appearance: Normal appearance. HENT: Head: Normocephalic and atraumatic. Eyes: Conjunctiva/sclera: Conjunctivae normal. Cardiovascular: Rate and Rhythm: Normal rate and regular rhythm. Heart sounds: Normal heart sounds. Pulmonary: Effort: No respiratory distress. Breath sounds: No wheezing. Abdominal: Palpations: Abdomen is soft. Tenderness: There is no abdominal tenderness. There is no guarding. Musculoskeletal: General: No swelling. Normal range of motion. Skin: General: Skin is warm and dry. Neurological: General: No focal deficit present. Mental Status: She is alert and oriented to person, place, and time. Psychiatric: Behavior: Behavior normal. Recent Results (from the past 672 hour(s)) Basic Metabolic Panel Collection Time: 06/18/24 9:49 AM Result Value Ref Range Glucose 107 (H) 74 - 99 mg/dL Sodium 135 (L) 136 - 145 mmol/L Potassium 4.4 3.5 - 5.3 mmol/L Chloride 98 98 - 107 mmol/L Bicarbonate 28 21 - 32 mmol/L Anion Gap 13 10 - 20 mmol/L Urea Nitrogen 8 6 - 23 mg/dL Creatinine 0.67 0.50 - 1.05 mg/dL eGFR 89 >60 mL/min/1.73m*2 Calcium 9.7 8.6 - 10.3 mg/dL Hemoglobin A1C Collection Time: 06/18/24 9:49 AM Result Value Ref Range Hemoglobin A1C 5.5 see below % Estimated Average Glucose 111 Not Established mg/dL Lipid Panel Collection Time: 06/18/24 9:49 AM Result Value Ref Range Cholesterol 189 0 - 199 mg/dL HDL-Cholesterol 67.0 mg/dL Cholesterol/HDL Ratio 2.8 LDL Calculated 97 <=99 mg/dL VLDL 25 0 - 40 mg/dL Triglycerides 127 0 - 149 mg/dL Non HDL Cholesterol 122 0 - 149 mg/dL TSH Collection Time: 06/18/24 9:49 AM Result Value Ref Range Thyroid Stimulating Hormone 5.41 (H) 0.44 - 3.98 mIU/L Assessment/Plan Problem List Items Addressed This Visit ICD-10-CM Essential (primary) hypertension I10 -Her blood pressure control is excellent so we will continue with her current antihypertensive regimen Relevant Medications furosemide (Lasix) 20 mg tablet losartan (Cozaar) 100 mg tablet NIFEdipine ER (NIFEdipine CC) 30 mg 24 hr tablet Vitamin D deficiency E55.9 Relevant Orders Vitamin D 25-Hydroxy,Total (for eval of Vitamin D levels) 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) 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 -Sodium level is 1 point and we will continue to monitor -She knows to watch her water intake and to call with any unusual symptoms Secondary hypothyroidism E03.8 -We are increasing her thyroid medication to 88 mcg daily and we will recheck a TSH just prior to her next follow-up visit Relevant Medications levothyroxine (Synthroid, Levoxyl) 88 mcg tablet Other Relevant Orders TSH Mixed hyperlipidemia E78.2 -Her cholesterol from bile is excellent and we will check it once a year per Medicare protocol Relevant Medications simvastatin (Zocor) 20 mg tablet Hyperglycemia R73.9 -Her hemoglobin A1c was satisfactory at 5.5 and we will continue to monitor -I also remind her to try to exercise regularly and watch her diet closely Relevant Orders Basic Metabolic Panel Hemoglobin A1C Medicare annual wellness visit, subsequent - Primary Z00.00 -We discussed fall prevention and I will give her a handout that goes over ways to reduce her risk of falls -We discussed the importance of exercise -We discussed providing a copy of her advance directives Impacted cerumen of right ear H61.21 -She will arrange to come back another day to have her ear flushed Other Visit Diagnoses Codes Hypertension, unspecified type I10 Relevant Medications metoprolol tartrate (Lopressor) 100 mg tablet documented in this encounter [facility] Work Phone: 06-26-2024 Instructions Brittney Kothari DO - 06/26/2024 11:00 AM EDT As we discussed the staff will be giving you a handout that goes over ways to reduce your risk of falls and please make sure you go to your home to address any fall hazards Also I recommend that you put either sweet oil or olive oil in your ear canal in the evening with a cottonball the night before you come back to have your ear flushed The staff will arrange for you to come back with nursing staff to get your ear flushed Please remember to bring in a copy of your living will and power of immigration attorney for healthcare Please remember that we changed the dose of your thyroid and now you will be taking an 88 mcg dose. If everything goes according to plan we will see you back in 6 months for another checkup and please remember to get fasting lab work done prior to that visit documented in this encounter [facility] Work Phone: 03-19-2024 Evaluation + Plan note Associated Problem(s): 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) Sodium level is 134, is slightly low but she is ranging from 1 34-1 37 on her lab work, will continue to monitor her fluid intake, she does try to stay within 1500 mL/day, continue Lasix 20 mg, currently not on salt tablets, I did tell her she could liberalize her salt intake, does have good protein intake [facility] Work Phone: 03-19-2024 Evaluation + Plan note Associated Problem(s): Benign essential hypertension Blood pressure is currently well-controlled on losartan, nifedipine, metoprolol [facility] Work Phone: 03-19-2024 Miscellaneous Notes Associated Problem(s): 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) Sodium level is 134, is slightly low but she is ranging from 1 34-1 37 on her lab work, will continue to monitor her fluid intake, she does try to stay within 1500 mL/day, continue Lasix 20 mg, currently not on salt tablets, I did tell her she could liberalize her salt intake, does have good protein intake Associated Problem(s): Benign essential hypertension Blood pressure is currently well-controlled on losartan, nifedipine, metoprolol documented in this encounter [facility] Work Phone: 03-19-2024 History of Present illness Narrative Subjective Patient ID: Diana Almonte is a 78 y.o. female who presents for Follow-up (1 year ck/Review labs 03/15). Patient being seen in follow-up for history of SIADH/hyponatremia with hypertension Labs reviewed Glucose 106 Sodium 134, potassium 4.2, chloride 99, bicarb 28 Renal functions BUN of 10 and creatinine of 0.64, albumin 4.4, total protein 7.3 She is doing well She has no complaints She is not routinely checking her blood pressure at home She does occasionally have some lower extremity edema usually at the end of her day that goes away when she gets up in the morning She is able to stay fairly active Review of Systems Constitutional: Negative. Respiratory: Negative. Cardiovascular: Negative. Gastrointestinal: Negative. Endocrine: Negative. Genitourinary: Negative. Musculoskeletal: Negative. Skin: Negative. Neurological: Negative. Psychiatric/Behavioral: Negative. Objective Physical Exam Vitals reviewed. Constitutional: Appearance: Normal appearance. HENT: Head: Normocephalic. Cardiovascular: Rate and Rhythm: Normal rate and regular rhythm. Pulmonary: Effort: Pulmonary effort is normal. Breath sounds: Normal breath sounds. Abdominal: Palpations: Abdomen is soft. Musculoskeletal: General: Normal range of motion. Skin: General: Skin is warm and dry. Neurological: Mental Status: She is alert and oriented to person, place, and time. Psychiatric: Mood and Affect: Mood normal. Behavior: Behavior normal. 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.2 Sodium level is 134, is slightly low but she is ranging from 1 34-1 37 on her lab work, will continue to monitor her fluid intake, she does try to stay within 1500 mL/day, continue Lasix 20 mg, currently not on salt tablets, I did tell her she could liberalize her salt intake, does have good protein intake Relevant Orders Follow Up In Nephrology Basic metabolic panel SIADH: Hypertension: On losartan, Nifedipine, and metoprolol-blood pressure increasing slightly Diverticulosis Hypothyroidism History of CHF Microscopic hematuria Vitamin D deficiency Hyperlipidemia Restless leg syndrome Low osmolar state BETHANIE Jones DNP 03/19/24 10:18 AM documented in this encounter [facility] Work Phone: 06-28-2023 Evaluation + Plan note Associated Problem(s): Hyperglycemia -Her most recent hemoglobin A1c was 5.6. -We will continue to monitor -We encourage her to eat a healthy diet, exercise regularly, and try to get his close to ideal body weight as [facility] Work Phone: 06-28-2023 Evaluation + Plan note Associated Problem(s): Secondary hypothyroidism -We will check a TSH just prior to next follow-up visit -She will continue with levothyroxine 75 mcg daily T [facility] Work Phone: 06-28-2023 Evaluation + Plan note Associated Problem(s): SIADH (syndrome of inappropriate ADH production) ([facility]) -It has been extremely stable and her sodium is at 135 [facility] Work Phone: 06-28-2023 Miscellaneous Notes Associated Problem(s): Hyperglycemia -Her most recent hemoglobin A1c was 5.6. -We will continue to monitor -We encourage her to eat a healthy diet, exercise regularly, and try to get his close to ideal body weight as Associated Problem(s): Secondary hypothyroidism -We will check a TSH just prior to next follow-up visit -She will continue with levothyroxine 75 mcg daily Associated Problem(s): SIADH (syndrome of inappropriate ADH production) ([facility]) -It has been extremely stable and her sodium is at 135 Associated Problem(s): Mixed hyperlipidemia -Her cholesterol profile is excellent and we will continue to check it once a year per Medicare protocol -She will remain on simvastatin 20 mg daily Associated Problem(s): Benign essential hypertension -Blood pressure is currently well controlled -She will continue with nifedipine CC 30 mg twice daily -Losartan 100 mg daily -Metoprolol tartrate 100 mg twice daily documented in this encounter [facility] Work Phone: 06-28-2023 Evaluation + Plan note Associated Problem(s): Mixed hyperlipidemia -Her cholesterol profile is excellent and we will continue to check it once a year per Medicare protocol -She will remain on simvastatin 20 mg daily [facility] Work Phone: 06-28-2023 Evaluation + Plan note Associated Problem(s): Benign essential hypertension -Blood pressure is currently well controlled -She will continue with nifedipine CC 30 mg twice daily -Losartan 100 mg daily -Metoprolol tartrate 100 mg twice daily [facility] Work Phone: 06-28-2023 History of Present illness Narrative Pt is here today for a 6 month check up, she is also due for a [facility] wellness exam. Review labs. Subjective Reason for Visit: Diana Almonte is an 77 y.o. female here for a Medicare Wellness visit. Past Medical, Surgical, and Family History reviewed and updated in chart. Reviewed all medications by prescribing practitioner or clinical pharmacist (such as prescriptions, OTCs, herbal therapies and supplements) and documented in the medical record. HPI She is here today for her routine 6-month checkup and we also completed her annual Medicare wellness visit. She is looking well and for the most part reports feeling well with the exception of her chronic low back pain. She still has had problems with her hip pain. We are reminded that she has had this condition for several years and in the past she has tried both physical therapy as well as the pain clinic. We talked about getting back into the pain clinic to see if there is something new that can help her including trying cortisone injections. She states she will think about it and let me know should she change her mind. We also discussed the importance of exercise and I have recommended she try chair exercises. Her blood pressure is good today and we also reviewed her most recent laboratory test results. Overall I am pleased with her numbers. Her hemoglobin A1c went down to 5.6 and her sodium remains very stable at 135. Her cholesterol profile is excellent. We also discussed fall prevention and she is done a great job in taking measures in her home to reduce her risk of falls. Her memory appears to be good as well as her hearing. Her diet is relatively good. We talked about trying to get more exercise. She does have advanced directives. She also expressed some concern about living at home alone should she have a fall and I have suggested that she might get peace of mind by getting 1 of those life alert button's just in case. Patient Care Team: Brittney Kothari DO as PCP - General Brittney Kothari DO as PCP - [facility] Attributed Provider Objective Vitals: BP 126/78 Pulse 56 Ht 1.499 m (4' 11) Wt 72.9 kg (160 lb 11.2 oz) SpO2 97% BMI 32.46 kg/m Physical Exam Vitals and nursing note reviewed. Constitutional: General: She is not in acute distress. Appearance: Normal appearance. HENT: Head: Normocephalic and atraumatic. Eyes: Conjunctiva/sclera: Conjunctivae normal. Cardiovascular: Rate and Rhythm: Normal rate and regular rhythm. Heart sounds: Normal heart sounds. Pulmonary: Effort: No respiratory distress. Breath sounds: No wheezing. Abdominal: Palpations: Abdomen is soft. Tenderness: There is no abdominal tenderness. There is no guarding. Musculoskeletal: General: No swelling. Normal range of motion. Skin: General: Skin is warm and dry. Neurological: General: No focal deficit present. Mental Status: She is alert and oriented to person, place, and time. Psychiatric: Behavior: Behavior normal. Recent Results (from the past 336 hour(s)) Hemoglobin A1C Collection Time: 06/21/23 10:00 AM Result Value Ref Range Hemoglobin A1C 5.6 % Estimated Average Glucose 114 MG/DL Lipid Panel Collection Time: 06/21/23 10:00 AM Result Value Ref Range Cholesterol 188 0 - 199 mg/dL HDL 64.0 mg/dL Cholesterol/HDL Ratio 2.9 LDL 101 (H) 0 - 99 mg/dL VLDL 23 0 - 40 mg/dL Triglycerides 117 0 - 149 mg/dL Basic Metabolic Panel Collection Time: 06/21/23 10:00 AM Result Value Ref Range Glucose 110 (H) 74 - 99 mg/dL Sodium 135 (L) 136 - 145 mmol/L Potassium 4.5 3.5 - 5.3 mmol/L Chloride 99 98 - 107 mmol/L Bicarbonate 29 21 - 32 mmol/L Anion Gap 12 10 - 20 mmol/L Urea Nitrogen 12 6 - 23 mg/dL Creatinine 0.80 0.50 - 1.05 mg/dL GFR Female 75 >90 mL/min/1.73m2 Calcium 10.0 8.6 - 10.3 mg/dL Assessment/Plan Problem List Items Addressed This Visit Benign essential hypertension Current Assessment & Plan -Blood pressure is currently well controlled -She will continue with nifedipine CC 30 mg twice daily -Losartan 100 mg daily -Metoprolol tartrate 100 mg twice daily SIADH (syndrome of inappropriate ADH production) ([facility]) Current Assessment & Plan -It has been extremely stable and her sodium is at 135 Relevant Orders Basic Metabolic Panel Secondary hypothyroidism Current Assessment & Plan -We will check a TSH just prior to next follow-up visit -She will continue with levothyroxine 75 mcg daily Relevant Orders TSH Mixed hyperlipidemia Current Assessment & Plan -Her cholesterol profile is excellent and we will continue to check it once a year per Medicare protocol -She will remain on simvastatin 20 mg daily Hyperglycemia Current Assessment & Plan -Her most recent hemoglobin A1c was 5.6. -We will continue to monitor -We encourage her to eat a healthy diet, exercise regularly, and try to get his close to ideal body weight as Relevant Orders Hemoglobin A1C Medicare annual wellness visit, subsequent - Primary documented in this encounter [facility] Work Phone: 06-28-2023 Instructions Brittney Kothari DO - 06/28/2023 11:00 AM EDT As we discussed we will be giving you a pneumonia vaccine called pneumococcal 20 today The flu vaccine will become available next month so we do encourage you to get that As far as your COVID-19 vaccine you could talk to your local pharmacist to see what the latest recommendation is next month If you change your mind about getting evaluated for your back pain to the pain clinic please call us and we can help facilitate a referral Overall I am pleased with all of your laboratory test results Please try to remember to do some chair exercises every day We will see you back in approximately 6 months and please remember to get your fasting lab work done prior to that visit documented in this encounter [facility] Work Phone: 12-15-2021 History of Present illness Narrative Patient being seen in follow-up for hyponatremia and SIADH.Labs reviewedLabs in December showed a glucose of 111,Electrolytes with a sodium of 134, potassium 4.0, chloride 98, bicarb 30Renal function with a BUN of 8 and creatinine of 0.64She is doing wellShe occasionally has some lower extremity edema specifically at nightShe has no complaints of shortness of breathHer blood pressure at home and she states that usually is in the 140sTrends in the office have been less than 130/80 [id number] Yuri 3 DO Work Phone: Evaluation note Diagnosis Healthcare maintenance- Primary Hyperglycemia Other abnormal glucose SIADH (syndrome of inappropriate ADH production) ([facility]) Other disorders of neurohypophysis Benign essential hypertension Essential hypertension, benign Mixed hyperlipidemia Secondary hypothyroidism Other specified acquired hypothyroidism Medicare annual wellness visit, subsequent documented in this encounter [facility] Work Phone: Evaluation note* Diagnosis Benign essential hypertension- Primary Essential hypertension, benign 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 documented in this encounter [facility] Work Phone: Evaluation note* Diagnosis Healthcare maintenance- Primary Hyperglycemia Other abnormal glucose 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 Benign essential hypertension Essential hypertension, benign Mixed hyperlipidemia Secondary hypothyroidism Other specified acquired hypothyroidism Medicare annual wellness visit, subsequent Secondary hypothyroidism- Primary Other specified acquired hypothyroidism Mixed hyperlipidemia Hypertension, unspecified type Other specified hypothyroidism Essential (primary) hypertension Unspecified essential hypertension 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 Benign essential hypertension Essential hypertension, benign Hyperglycemia Other abnormal glucose Benign essential hypertension- Primary Essential hypertension, benign 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 Medicare annual wellness visit, subsequent- Primary Essential (primary) hypertension Unspecified essential hypertension Hypertension, unspecified type Mixed hyperlipidemia Benign essential hypertension Essential hypertension, benign Hyperglycemia Other abnormal glucose Secondary hypothyroidism Other specified acquired hypothyroidism 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 Vitamin D deficiency Impacted cerumen of right ear Impacted cerumen documented in this encounter [facility] Work Phone: Evaluation note* Diagnosis Healthcare maintenance- Primary Hyperglycemia Other abnormal glucose 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 Benign essential hypertension Essential hypertension, benign Mixed hyperlipidemia Secondary hypothyroidism Other specified acquired hypothyroidism Medicare annual wellness visit, subsequent Secondary hypothyroidism- Primary Other specified acquired hypothyroidism Mixed hyperlipidemia Hypertension, unspecified type Other specified hypothyroidism Essential (primary) hypertension Unspecified essential hypertension 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 Benign essential hypertension Essential hypertension, benign Hyperglycemia Other abnormal glucose Benign essential hypertension- Primary Essential hypertension, benign 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 Medicare annual wellness visit, subsequent- Primary Essential (primary) hypertension Unspecified essential hypertension Hypertension, unspecified type Mixed hyperlipidemia Benign essential hypertension Essential hypertension, benign Hyperglycemia Other abnormal glucose Secondary hypothyroidism Other specified acquired hypothyroidism 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 Vitamin D deficiency Impacted cerumen of right ear Impacted cerumen Hyperglycemia- Primary Other abnormal glucose Essential (primary) hypertension Unspecified essential hypertension Secondary hypothyroidism Other specified acquired hypothyroidism Hypertension, unspecified type Mixed hyperlipidemia Chronic midline low back pain without sciatica documented in this encounter [facility] Work Phone: Evaluation note* Diagnosis Healthcare maintenance- Primary Hyperglycemia Other abnormal glucose 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 Benign essential hypertension Essential hypertension, benign Mixed hyperlipidemia Secondary hypothyroidism Other specified acquired hypothyroidism Medicare annual wellness visit, subsequent Secondary hypothyroidism- Primary Other specified acquired hypothyroidism Mixed hyperlipidemia Hypertension, unspecified type Other specified hypothyroidism Essential (primary) hypertension Unspecified essential hypertension 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 Benign essential hypertension Essential hypertension, benign Hyperglycemia Other abnormal glucose Benign essential hypertension- Primary Essential hypertension, benign 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 Medicare annual wellness visit, subsequent- Primary Essential (primary) hypertension Unspecified essential hypertension Hypertension, unspecified type Mixed hyperlipidemia Benign essential hypertension Essential hypertension, benign Hyperglycemia Other abnormal glucose Secondary hypothyroidism Other specified acquired hypothyroidism 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 Vitamin D deficiency Impacted cerumen of right ear Impacted cerumen Hyperglycemia- Primary Other abnormal glucose Essential (primary) hypertension Unspecified essential hypertension Secondary hypothyroidism Other specified acquired hypothyroidism Hypertension, unspecified type Mixed hyperlipidemia Chronic midline low back pain without sciatica 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)- Primary Other disorders of neurohypophysis Essential (primary) hypertension Unspecified essential hypertension Mixed hyperlipidemia documented in this encounter [facility] Work Phone: Evaluation note* Diagnosis Healthcare maintenance- Primary Hyperglycemia Other abnormal glucose 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 Benign essential hypertension Essential hypertension, benign Mixed hyperlipidemia Secondary hypothyroidism Other specified acquired hypothyroidism Medicare annual wellness visit, subsequent Secondary hypothyroidism- Primary Other specified acquired hypothyroidism Mixed hyperlipidemia Hypertension, unspecified type Other specified hypothyroidism Essential (primary) hypertension Unspecified essential hypertension 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 Benign essential hypertension Essential hypertension, benign Hyperglycemia Other abnormal glucose Benign essential hypertension- Primary Essential hypertension, benign 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 Medicare annual wellness visit, subsequent- Primary Essential (primary) hypertension Unspecified essential hypertension Hypertension, unspecified type Mixed hyperlipidemia Benign essential hypertension Essential hypertension, benign Hyperglycemia Other abnormal glucose Secondary hypothyroidism Other specified acquired hypothyroidism 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 Vitamin D deficiency Impacted cerumen of right ear Impacted cerumen Hyperglycemia- Primary Other abnormal glucose Essential (primary) hypertension Unspecified essential hypertension Secondary hypothyroidism Other specified acquired hypothyroidism Hypertension, unspecified type Mixed hyperlipidemia Chronic midline low back pain without sciatica 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)- Primary Other disorders of neurohypophysis Essential (primary) hypertension Unspecified essential hypertension Mixed hyperlipidemia Medicare annual wellness visit, subsequent- Primary Palpitations Other constipation Essential (primary) hypertension Unspecified essential hypertension Secondary hypothyroidism Other specified acquired hypothyroidism Hypertension, unspecified type Mixed hyperlipidemia Vitamin D deficiency Hyperglycemia Other abnormal glucose documented in this encounter [facility] Work Phone: Evaluation note* Diagnosis Healthcare maintenance- Primary Hyperglycemia Other abnormal glucose 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 Benign essential hypertension Essential hypertension, benign Mixed hyperlipidemia Secondary hypothyroidism Other specified acquired hypothyroidism Medicare annual wellness visit, subsequent Secondary hypothyroidism- Primary Other specified acquired hypothyroidism Mixed hyperlipidemia Hypertension, unspecified type Other specified hypothyroidism Essential (primary) hypertension Unspecified essential hypertension 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 Benign essential hypertension Essential hypertension, benign Hyperglycemia Other abnormal glucose Benign essential hypertension- Primary Essential hypertension, benign 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 Medicare annual wellness visit, subsequent- Primary Essential (primary) hypertension Unspecified essential hypertension Hypertension, unspecified type Mixed hyperlipidemia Benign essential hypertension Essential hypertension, benign Hyperglycemia Other abnormal glucose Secondary hypothyroidism Other specified acquired hypothyroidism 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 Vitamin D deficiency Impacted cerumen of right ear Impacted cerumen Hyperglycemia- Primary Other abnormal glucose Essential (primary) hypertension Unspecified essential hypertension Secondary hypothyroidism Other specified acquired hypothyroidism Hypertension, unspecified type Mixed hyperlipidemia Chronic midline low back pain without sciatica 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)- Primary Other disorders of neurohypophysis Essential (primary) hypertension Unspecified essential hypertension Mixed hyperlipidemia Medicare annual wellness visit, subsequent- Primary Palpitations Other constipation Essential (primary) hypertension Unspecified essential hypertension Secondary hypothyroidism Other specified acquired hypothyroidism Hypertension, unspecified type Mixed hyperlipidemia Vitamin D deficiency Hyperglycemia Other abnormal glucose Palpitations documented in this encounter [facility] Work Phone: Evaluation note* Diagnosis Healthcare maintenance- Primary Hyperglycemia Other abnormal glucose 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 Benign essential hypertension Essential hypertension, benign Mixed hyperlipidemia Secondary hypothyroidism Other specified acquired hypothyroidism Medicare annual wellness visit, subsequent Secondary hypothyroidism- Primary Other specified acquired hypothyroidism Mixed hyperlipidemia Hypertension, unspecified type Other specified hypothyroidism Essential (primary) hypertension Unspecified essential hypertension 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 Benign essential hypertension Essential hypertension, benign Hyperglycemia Other abnormal glucose Benign essential hypertension- Primary Essential hypertension, benign 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 Medicare annual wellness visit, subsequent- Primary Essential (primary) hypertension Unspecified essential hypertension Hypertension, unspecified type Mixed hyperlipidemia Benign essential hypertension Essential hypertension, benign Hyperglycemia Other abnormal glucose Secondary hypothyroidism Other specified acquired hypothyroidism 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 Vitamin D deficiency Impacted cerumen of right ear Impacted cerumen Hyperglycemia- Primary Other abnormal glucose Essential (primary) hypertension Unspecified essential hypertension Secondary hypothyroidism Other specified acquired hypothyroidism Hypertension, unspecified type Mixed hyperlipidemia Chronic midline low back pain without sciatica 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)- Primary Other disorders of neurohypophysis Essential (primary) hypertension Unspecified essential hypertension Mixed hyperlipidemia Medicare annual wellness visit, subsequent- Primary Palpitations Other constipation Essential (primary) hypertension Unspecified essential hypertension Secondary hypothyroidism Other specified acquired hypothyroidism Hypertension, unspecified type Mixed hyperlipidemia Vitamin D deficiency Hyperglycemia Other abnormal glucose Atrial fibrillation with RVR (Multi)- Primary Atrial fibrillation with RVR (Multi) Abnormal EKG Nonspecific abnormal electrocardiogram (ECG) (EKG) Paroxysmal atrial fibrillation (Multi) Atrial fibrillation documented in this encounter [facility] Work Phone: Evaluation note* Diagnosis Healthcare maintenance- Primary Hyperglycemia Other abnormal glucose 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 Benign essential hypertension Essential hypertension, benign Mixed hyperlipidemia Secondary hypothyroidism Other specified acquired hypothyroidism Medicare annual wellness visit, subsequent Secondary hypothyroidism- Primary Other specified acquired hypothyroidism Mixed hyperlipidemia Hypertension, unspecified type Other specified hypothyroidism Essential (primary) hypertension Unspecified essential hypertension 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 Benign essential hypertension Essential hypertension, benign Hyperglycemia Other abnormal glucose Benign essential hypertension- Primary Essential hypertension, benign 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 Medicare annual wellness visit, subsequent- Primary Essential (primary) hypertension Unspecified essential hypertension Hypertension, unspecified type Mixed hyperlipidemia Benign essential hypertension Essential hypertension, benign Hyperglycemia Other abnormal glucose Secondary hypothyroidism Other specified acquired hypothyroidism 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 Vitamin D deficiency Impacted cerumen of right ear Impacted cerumen Hyperglycemia- Primary Other abnormal glucose Essential (primary) hypertension Unspecified essential hypertension Secondary hypothyroidism Other specified acquired hypothyroidism Hypertension, unspecified type Mixed hyperlipidemia Chronic midline low back pain without sciatica 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)- Primary Other disorders of neurohypophysis Essential (primary) hypertension Unspecified essential hypertension Mixed hyperlipidemia Medicare annual wellness visit, subsequent- Primary Palpitations Other constipation Essential (primary) hypertension Unspecified essential hypertension Secondary hypothyroidism Other specified acquired hypothyroidism Hypertension, unspecified type Mixed hyperlipidemia Vitamin D deficiency Hyperglycemia Other abnormal glucose Paroxysmal atrial fibrillation (Multi) Atrial fibrillation documented in this encounter [facility] Work Phone: Evaluation note* Diagnosis Healthcare maintenance- Primary Hyperglycemia Other abnormal glucose 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 Benign essential hypertension Essential hypertension, benign Mixed hyperlipidemia Secondary hypothyroidism Other specified acquired hypothyroidism Medicare annual wellness visit, subsequent Secondary hypothyroidism- Primary Other specified acquired hypothyroidism Mixed hyperlipidemia Hypertension, unspecified type Other specified hypothyroidism Essential (primary) hypertension Unspecified essential hypertension 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 Benign essential hypertension Essential hypertension, benign Hyperglycemia Other abnormal glucose Benign essential hypertension- Primary Essential hypertension, benign 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 Medicare annual wellness visit, subsequent- Primary Essential (primary) hypertension Unspecified essential hypertension Hypertension, unspecified type Mixed hyperlipidemia Benign essential hypertension Essential hypertension, benign Hyperglycemia Other abnormal glucose Secondary hypothyroidism Other specified acquired hypothyroidism 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 Vitamin D deficiency Impacted cerumen of right ear Impacted cerumen Hyperglycemia- Primary Other abnormal glucose Essential (primary) hypertension Unspecified essential hypertension Secondary hypothyroidism Other specified acquired hypothyroidism Hypertension, unspecified type Mixed hyperlipidemia Chronic midline low back pain without sciatica 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)- Primary Other disorders of neurohypophysis Essential (primary) hypertension Unspecified essential hypertension Mixed hyperlipidemia Medicare annual wellness visit, subsequent- Primary Palpitations Other constipation Essential (primary) hypertension Unspecified essential hypertension Secondary hypothyroidism Other specified acquired hypothyroidism Hypertension, unspecified type Mixed hyperlipidemia Vitamin D deficiency Hyperglycemia Other abnormal glucose Hyponatremia- Primary Hyposmolality and/or hyponatremia Hyperglycemia Other abnormal glucose Atrial fibrillation with RVR (Multi) Paroxysmal atrial fibrillation (Multi) Atrial fibrillation documented in this encounter [facility] Work Phone: Evaluation note* Diagnosis Onset Date Resolution Status Admit Date Paroxysmal atrial fibrillation acute August 13, 2025 12:14pm Coronary artery disease chronic S eptember 2024 12:14pm Dyslipidemia chronic August 132024 12:14pm Hypertension chronic August 132024 12:14pm [facility] Work Phone: History of Present illness Narrative* The patient is being seen for the subsequent annual wellness visit. * Past Medical, Surgical and Family History: reviewed and updated in chart. * Medications and Supplements: Medications and supplements, including calcium and vitamins reviewed and updated in chart. * No, the patient is not using opioids. * Patient Self Assessment of Health Status: good. * Tobacco use: Non-User * Alcohol use: Non-User * Illicit drug use: Non-User * Current diet: well balanced diet, does consume adequate fluids and does not consume caffeine. * Exercise Frequency: infrequently. * Depression/Suicide Screening: . * During the past 2 weeks, the patient has not felt down, depressed or hopeless. * During the past 2 weeks, the patient has not felt little interest or pleasure in doing things. * Hearing Impairment: none. * Cognitive Impairment: No cognitive impairment observed. * Bathing: performs independently. * Dressing: performs independently. * Walking: performs independently. * Toileting: performs independently. * Feeding: performs independently. * Personal Hygiene: performs independently. * Bowels: continent. * Bladder: continent. * Managing Finances: performs independently. * Shopping: performs independently. * Managing Medications: performs independently. * Housework / Basic Home Maintenance: performs independently. * Falls Risk Screening:. DIANA has not fallen in the last 6 months. * Home safety risk factors: none. * Advance directives:. Patient has living will. Patient has healthcare POA. [facility] Work Phone: History of Present illness Narrative* Patient being seen in follow-up for hyponatremia and SIADH * Labs reviewed * Glucose 109 * Sodium 132, potassium 4.1, chloride 96, bicarb 29 * Renal function with BUN of 10 and creatinine of 0.66 * She is doing well * She does not drink a significant amount of fluid each day * She drinks approximately 8 cups of coffee every morning * She also drinks 2 bottles of pop per day and she takes her pills with water * She has no swelling * Her blood pressure is well controlled * She has no difficulties voiding * She has had no confusion lightheadedness or dizziness [id number] [place] [facility] [address] DO Work Phone: Hospital Discharge instructionsAmbulatory Orders* Electrophysiology Location: None Selected [facility] Work Phone: Progress note Author Dany Juarez [facility] Note Date/Time August 13, 2025 1:04pm [facility] [address] [place] [address] OFFICE VISIT Date of Service: 08/13/25 MR#: [id number] Acct: [id number] Name: DIANA ALMONTE Rep #: [id number] : 1945 Provider: Dr. Carter Juarez MD Age/Sex: 79/F Location: [facility] Status: Signed HPI HPI History of Present Illness Details: This lady with past medical history significant for hypertension and dyslipidemia was admitted to an outside hospital with atrial fibrillation with rapid ventricular response. She has had an echocardiogram done. It showed normal LV systolic function. With her paroxysms of atrial fibrillation, she wasstarted on flecainide. Also started on anticoagulation with warfarin. She is here to establish cardiac care with us. Denies any chest pains or shortness of breath either at rest or with exertion. No palpitations since her hospitalization last month. Denies any lightheadedness or dizziness. No syncope or presyncope. No orthopnea or PND. No ankle edema. Patient has been tolerating her warfarin well and denies any abnormal bleeding. No history of CVA or TIA. Patient has had a CT scan of her chest done which showed coronary calcificationsas an incidental finding. Intake Vital Signs 08/13/25 12:32 Height 4 ft 11 in Weight: 159 lb BMI 32.1 BP 130/83 H Blood Pressure Location Lt brachial Position Sitting Respiration 16 Pulse 54 L Pulse Source Monitor Intake Visit Reasons: AFIB, SOB, HI BP, LT HEADED Tax Analyst Required: No Accompanied by: Daughter Is patient in pain?: No Allergies No Known Allergies Allergy (Unverified 08/13/25 12:21) Medications ?Medication ?Instructions ?Recorded ?Confirmed ?Type flecainide 50 mg tablet 50 mg PO BID 07/22/25 History levothyroxine 88 mcg capsule 88 mcg PO QDAY 07/22/25 0 08/13/25 History losartan 100 mg tablet 100 mg PO QDAY 07/22/2507/17 History cholecalciferol (vitamin D3) 75 75 mcg PO QDAY 5 08/13/25 History mcg (3,000 unit) tablet metoprolol tartrate 50 mg tablet 50 mg PO BID 08/13/25 08/13/25 History nifedipine 30 mg tablet,extended 30 mg PO QDAY 5 08/13/25 History release psyllium husk 0.4 gram capsule 0.4 g PO QDAY 08/13/25 08/13/25 History (Metamucil) simvastatin 20 mg tablet 20 mg PO QHS 08/13/25 History warfarin 5 mg tablet 2.5 mg PO QDAY 08/13/2507/17 History Ejection fraction %: 65 Have you fallen in the past year?: No PFSH Medical History (Updated 08/13/25 @ 13:[address] Dany Juarez MD) Atrial fibrillation with RVR Hyperglycemia Vitamin D deficiency Mixed hyperlipidemia Secondary hypothyroidism Essential hypertension Constipation Palpitations Family History (Updated 08/13/25 @ 12:29 by Brittney Kaufman LPN) Father Myocardial infarction Brother Myocardial infarction Social History (Updated 08/13/25 @ 12:21 by Brittney Kaufman LPN) Smoking Status: Never smoker ROS Const Const: Negative for fatigue or weakness Eyes Eyes: Negative for change in vision ENT ENT: Negative for dizziness or balance problems Cardio Chest Pain: No Palpitations: Yes (history of feeling palpitations in june, has resolved) feels like its: irregular Edema: None Resp Respiratory: Negative for SOB with activity, SOB at rest or SOB orthopnea\SOB lying down GI GI: Negative nausea or heartburn Musc Musc: Negative for balance problems Neuro Neuro: Negative for dizziness, lightheadedness, near syncope, syncope or weakness Endo Endo: Negative for fatigue Cardiology Exam Const Appearance: comfortable and no acute distress Nutritional Appearance: well nourished Neck Neck: no JVD Carotids: Negative bruit Chest Auscultation: Bilateral: Clear to Auscultation Cardio Rate: regular rate Rhythm: regular rhythm Heart sounds: S1 normal and S2 normal Neuro General: patient alert, patient awake and patient oriented x3 Extremities Lower Extremity Edema: None: Bilateral Supplemental Info Supplemental Information Past Visits: Cardiology Visit Today Assessment and Plan Assessment and Plan (1) Paroxysmal atrial fibrillation: Status: Acute Plan: CHADS2?VASc score is 4. Recommend continuing warfarin. Risks benefits explained to the patient in detail. She understands these and wishes to proceed. Enroll in the warfarin clinic. On flecainide. Sinus rhythm on ECG today. 4 beat run of NSVT noted on Holter monitoring. Ideally I would want her off flecainide. Refer to EP for consideration for A-fib ablation. (2) Coronary artery disease: Status: Chronic Plan: Coronary artery calcifications noted as incidental finding on CT of chest. Check Lexiscan stress Myoview to evaluate physiological significance. Risk factor modification. (3) Hypertension: Status: Chronic Plan: Metoprolol, losartan and nifedipine. (4) Dyslipidemia: Status: Chronic Plan: On simvastatin. Continue to manage as per PCP. Orders: Orders 12 Lead EKG performed by [facility] Today I10 - Essential (primary) hypertension, I48.91 - Unspecified atrial fibrillation, R00.2 - Palpitations Plan Details Follow Up: 3 Months Coding Level of Care Code Off vis,new,level 4 Diagnoses Paroxysmal atrial fibrillation I48.0 Coronary artery disease I25.10 Hypertension I10 Dyslipidemia E78.5 Coding Level of Care Code Off vis,new,level 4 Diagnoses Paroxysmal atrial fibrillation I48.0 Coronary artery disease I25.10 Hypertension I10 Dyslipidemia E78.5 Clinical Quality Measures Falls Risk Screening/Assistive Devices Have you fallen in the past year?: No Cardiac Ejection fraction %: 65 08/13/25 1304 <Electronically signed by Dany Juarez MD> Date _ Dany Juarez MD Cosigner Signature: Date (if applicable) CC: Dr. Brittney Kothari MD ~ [facility] [employer] [facility] [employer] Work Phone: Reason for referral (narrative)* Consultation (Routine) - Authorized Specialty Diagnoses / Procedures Referred By Contac t Referred To Contact Primary Care Procedures Follow Up In Primary Care Kellie Kothariyared Alfredo DO [address] [place] [address] Referral ID Status Reason Start Date Expiration Date V isits Requested Visits Authorized [id number] Authorized 06/28/2023 12/25/2023 1 1 [facility] Work Phone: Reemjx for referral (narrative)* Consultation (Routine) - Authorized Specialty Diagnoses / Procedures Referred By Contac t Referred To Contact Nephrology Diagnoses Benign essential hypertension 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) Procedures Follow Up In Nephrology Johanna Garner APRN-CNP, APOLINAR [address] [place] [address] Referral ID Status Reason Start Date Expiration Date V isits Requested Visits Authorized [id number] Authorized 03/19/2024 03/19/2025 1 1 [facility] Work Phone: Reiwwe for referral (narrative)* Consultation (Routine) - Authorized Specialty Diagnoses / Procedures Referred By Contac t Referred To Contact Primary Care Procedures Follow Up In Primary Care Royal Brittneyyared Alfredo DO [address] [place] [address] Referral ID Status Reason Start Date Expiration Date V isits Requested Visits Authorized [id number] Authorized 06/26/2024 06/26/2025 1 1 [facility] Work Phone: Rewiqu for referral (narrative)* Consultation (Routine) - Authorized Specialty Diagnoses / Procedures Referred By Contac t Referred To Contact Primary Care Procedures Follow Up In Primary Care [place]Brittney DO [address] [address] Phone: tel: fax: Referral ID Status Reason Start Date Expiration Date V isits Requested Visits Authorized [id number] Authorized 12/27/2024 12/27/2025 1 1 [facility] Work Phone: Reason for visit Narrative* Cardiovascular (Routine) - Authorized Specialty Diagnoses / Procedures Referred By Contac t Referred To Contact Diagnoses Palpitations Procedures ECG 12 lead (Ancillary Performed) Royal Brittney Alfredo DO [address] [place] [address] Phone: tel: fax: Referral ID Status Reason Start Date Expiration Date V isits Requested Visits Authorized [id number] Authorized 07/01/2025 07/01/2026 1 1 [facility] Work Phone: Reason for visit Narrative* Auth/Cert Specialty Diagnoses / Procedures Referred By Contac t Referred To Contact Diagnoses Abnormal EKG Atrial fibrillation with RVR (Multi) Procedures Nba Torrez MD [address] [place] [id number] Phone: tel: fax: [facility] [address] [place] [address] Phone: tel: Referral ID Status Reason Start Date Expiration Date Visits Re quested Visits Authorized [id number] 1 1 [facility] Work Phone: Summary Purpose Family History No Family History Records FoundUnknown Family Member Name Dates Details Family history of thyroid di sease(V18.19, Z83.49) Comments:Other Status:Active Family history of cardiac di sorder(V17.49, Z82.49) Comments:Other Status:Active Family history of lung cance r(V16.1, Z80.1) Comments:Other Status:Active Family history of kidney dis ease(V18.69, Z84.1) Comments:Other Status:Active Family history of Primary ma lignant neoplasm of colon(153.9, C18.9) Comments:Other Status:Active Father Name Dates Details Family history of cardiac di sorder(V17.49, Z82.49) Status:Active Family history of malignant neoplasm(V16.9, Z80.9) Status:Active Sister Name Dates Details Family history of liver dise ase(V18.59, Z83.79) Status:Active Brother Name Dates Details Family history of malignant neoplasm(V16.9, Z80.9) Status:Active Family history of malignant neoplasm of colon(V16.0, Z80.0) Status:Active Family history of malignant neoplasm of skin(V16.8, Z80.8) Status:Active Unknown Family Member Name Dates Details Family history of thyroid di sease(V18.19, Z83.49) Comments:Other Status:Active Family history of cardiac di sorder(V17.49, Z82.49) Comments:Other Status:Active Family history of lung cance r(V16.1, Z80.1) Comments:Other Status:Active Family history of kidney dis ease(V18.69, Z84.1) Comments:Other Status:Active Family history of Primary ma lignant neoplasm of colon(153.9, C18.9) Comments:Other Status:Active Father Name Dates Details Family history of cardiac di sorder(V17.49, Z82.49) Status:Active Family history of malignant neoplasm(V16.9, Z80.9) Status:Active Sister Name Dates Details Family history of liver dise ase(V18.59, Z83.79) Status:Active Brother Name Dates Details Family history of malignant neoplasm(V16.9, Z80.9) Status:Active Family history of malignant neoplasm of colon(V16.0, Z80.0) Status:Active Family history of malignant neoplasm of skin(V16.8, Z80.8) Status:Active Unknown Family Member Name Dates Details Family history of thyroid di sease(V18.19, Z83.49) Comments:Other Status:Active Family history of cardiac di sorder(V17.49, Z82.49) Comments:Other Status:Active Family history of lung cance r(V16.1, Z80.1) Comments:Other Status:Active Family history of kidney dis ease(V18.69, Z84.1) Comments:Other Status:Active Family history of Primary ma lignant neoplasm of colon(153.9, C18.9) Comments:Other Status:Active Father Name Dates Details Family history of cardiac di sorder(V17.49, Z82.49) Status:Active Family history of malignant neoplasm(V16.9, Z80.9) Status:Active Sister Name Dates Details Family history of liver dise ase(V18.59, Z83.79) Status:Active Brother Name Dates Details Family history of malignant neoplasm(V16.9, Z80.9) Status:Active Family history of malignant neoplasm of colon(V16.0, Z80.0) Status:Active Family history of malignant neoplasm of skin(V16.8, Z80.8) Status:Active Unknown Family Member Name Dates Details Family history of thyroid di sease(V18.19, Z83.49) Comments:Other Status:Active Family history of cardiac di sorder(V17.49, Z82.49) Comments:Other Status:Active Family history of lung cance r(V16.1, Z80.1) Comments:Other Status:Active Family history of kidney dis ease(V18.69, Z84.1) Comments:Other Status:Active Family history of Primary ma lignant neoplasm of colon(153.9, C18.9) Comments:Other Status:Active Father Name Dates Details Family history of cardiac di sorder(V17.49, Z82.49) Status:Active Family history of malignant neoplasm(V16.9, Z80.9) Status:Active Sister Name Dates Details Family history of liver dise ase(V18.59, Z83.79) Status:Active Brother Name Dates Details Family history of malignant neoplasm(V16.9, Z80.9) Status:Active Family history of malignant neoplasm of colon(V16.0, Z80.0) Status:Active Family history of malignant neoplasm of skin(V16.8, Z80.8) Status:Active Unknown Family Member Name Dates Details Family history of thyroid di sease(V18.19, Z83.49) Comments:Other Status:Active Family history of cardiac di sorder(V17.49, Z82.49) Comments:Other Status:Active Family history of lung cance r(V16.1, Z80.1) Comments:Other Status:Active Family history of kidney dis ease(V18.69, Z84.1) Comments:Other Status:Active Family history of Primary ma lignant neoplasm of colon(153.9, C18.9) Comments:Other Status:Active Father Name Dates Details Family history of cardiac di sorder(V17.49, Z82.49) Status:Active Family history of malignant neoplasm(V16.9, Z80.9) Status:Active Sister Name Dates Details Family history of liver dise ase(V18.59, Z83.79) Status:Active Brother Name Dates Details Family history of malignant neoplasm(V16.9, Z80.9) Status:Active Family history of malignant neoplasm of colon(V16.0, Z80.0) Status:Active Family history of malignant neoplasm of skin(V16.8, Z80.8) Status:Active Unknown Family Member Name Dates Details Family history of thyroid di sease(V18.19, Z83.49) Comments:Other Status:Active Family history of cardiac di sorder(V17.49, Z82.49) Comments:Other Status:Active Family history of lung cance r(V16.1, Z80.1) Comments:Other Status:Active Family history of kidney dis ease(V18.69, Z84.1) Comments:Other Status:Active Family history of Primary ma lignant neoplasm of colon(153.9, C18.9) Comments:Other Status:Active Father Name Dates Details Family history of cardiac di sorder(V17.49, Z82.49) Status:Active Family history of malignant neoplasm(V16.9, Z80.9) Status:Active Sister Name Dates Details Family history of liver dise ase(V18.59, Z83.79) Status:Active Brother Name Dates Details Family history of malignant neoplasm(V16.9, Z80.9) Status:Active Family history of malignant neoplasm of colon(V16.0, Z80.0) Status:Active Family history of malignant neoplasm of skin(V16.8, Z80.8) Status:Active Unknown Family Member Name Dates Details Family history of thyroid di sease: Other(V18.19, Z83.49) Status:Active Family history of cardiac di sorder: Father, Other(V17.49, Z82.49) Status:Active Family history of malignant neoplasm: Father, Brother(V16.9, Z80.9) Status:Active Family history of liver dise ase: Sister(V18.59, Z83.79) Status:Active Family history of malignant neoplasm of colon: Brother(V16.0, Z80.0) Status:Active Family history of malignant neoplasm of skin: Brother(V16.8, Z80.8) Status:Active Family history of lung cance r: Other(V16.1, Z80.1) Status:Active Family history of kidney dis ease: Other(V18.69, Z84.1) Status:Active Primary malignant neoplasm o f colon: Other Status:Active Unknown Family Member Name Dates Details Family history of thyroid di sease: Other(V18.19, Z83.49) Status:Active Family history of cardiac di sorder: Father, Other(V17.49, Z82.49) Status:Active Family history of malignant neoplasm: Father, Brother(V16.9, Z80.9) Status:Active Family history of liver dise ase: Sister(V18.59, Z83.79) Status:Active Family history of malignant neoplasm of colon: Brother(V16.0, Z80.0) Status:Active Family history of malignant neoplasm of skin: Brother(V16.8, Z80.8) Status:Active Family history of lung cance r: Other(V16.1, Z80.1) Status:Active Family history of kidney dis ease: Other(V18.69, Z84.1) Status:Active Primary malignant neoplasm o f colon: Other Status:Active Unknown Family Member Name Dates Details Family history of thyroid di sease: Other(V18.19, Z83.49) Status:Active Family history of cardiac di sorder: Father, Other(V17.49, Z82.49) Status:Active Family history of malignant neoplasm: Father, Brother(V16.9, Z80.9) Status:Active Family history of liver dise ase: Sister(V18.59, Z83.79) Status:Active Family history of malignant neoplasm of colon: Brother(V16.0, Z80.0) Status:Active Family history of malignant neoplasm of skin: Brother(V16.8, Z80.8) Status:Active Family history of lung cance r: Other(V16.1, Z80.1) Status:Active Family history of kidney dis ease: Other(V18.69, Z84.1) Status:Active Primary malignant neoplasm o f colon: Other Status:Active Unknown Family Member Name Dates Details Family history of thyroid di sease: Other(V18.19, Z83.49) Status:Active Family history of cardiac di sorder: Father, Other(V17.49, Z82.49) Status:Active Family history of malignant neoplasm: Father, Brother(V16.9, Z80.9) Status:Active Family history of liver dise ase: Sister(V18.59, Z83.79) Status:Active Family history of malignant neoplasm of colon: Brother(V16.0, Z80.0) Status:Active Family history of malignant neoplasm of skin: Brother(V16.8, Z80.8) Status:Active Family history of lung cance r: Other(V16.1, Z80.1) Status:Active Family history of kidney dis ease: Other(V18.69, Z84.1) Status:Active Primary malignant neoplasm o f colon: Other Status:Active Unknown Family Member Name Dates Details Family history of thyroid di sease: Other(V18.19, Z83.49) Status:Active Family history of cardiac di sorder: Father, Other(V17.49, Z82.49) Status:Active Family history of malignant neoplasm: Father, Brother(V16.9, Z80.9) Status:Active Family history of liver dise ase: Sister(V18.59, Z83.79) Status:Active Family history of malignant neoplasm of colon: Brother(V16.0, Z80.0) Status:Active Family history of malignant neoplasm of skin: Brother(V16.8, Z80.8) Status:Active Family history of lung cance r: Other(V16.1, Z80.1) Status:Active Family history of kidney dis ease: Other(V18.69, Z84.1) Status:Active Primary malignant neoplasm o f colon: Other Status:Active Unknown Family Member Name Dates Details Family history of cardiac di sorder: Father, Other(V17.49, Z82.49) Status:Active Family history of malignant neoplasm: Father, Brother(V16.9, Z80.9) Status:Active Family history of liver dise ase: Sister(V18.59, Z83.79) Status:Active Family history of malignant neoplasm of colon: Brother(V16.0, Z80.0) Status:Active Family history of malignant neoplasm of skin: Brother(V16.8, Z80.8) Status:Active Family history of lung cance r: Other(V16.1, Z80.1) Status:Active Family history of kidney dis ease: Other(V18.69, Z84.1) Status:Active Primary malignant neoplasm o f colon: Other Status:Active Family history of thyroid di sease: Other(V18.19, Z83.49) Status:Active Unknown Family Member Name Dates Details Family history of thyroid di sease: Other(V18.19, Z83.49) Status:Active Family history of cardiac di sorder: Father, Other(V17.49, Z82.49) Status:Active Family history of malignant neoplasm: Father, Brother(V16.9, Z80.9) Status:Active Family history of liver dise ase: Sister(V18.59, Z83.79) Status:Active Family history of malignant neoplasm of colon: Brother(V16.0, Z80.0) Status:Active Family history of malignant neoplasm of skin: Brother(V16.8, Z80.8) Status:Active Family history of lung cance r: Other(V16.1, Z80.1) Status:Active Family history of kidney dis ease: Other(V18.69, Z84.1) Status:Active Primary malignant neoplasm o f colon: Other Status:Active Unknown Family Member Name Dates Details Family history of thyroid di sease: Other(V18.19, Z83.49) Status:Active Family history of cardiac di sorder: Father, Other(V17.49, Z82.49) Status:Active Family history of malignant neoplasm: Father, Brother(V16.9, Z80.9) Status:Active Family history of liver dise ase: Sister(V18.59, Z83.79) Status:Active Family history of malignant neoplasm of colon: Brother(V16.0, Z80.0) Status:Active Family history of malignant neoplasm of skin: Brother(V16.8, Z80.8) Status:Active Family history of lung cance r: Other(V16.1, Z80.1) Status:Active Family history of kidney dis ease: Other(V18.69, Z84.1) Status:Active Primary malignant neoplasm o f colon: Other Status:Active Unknown Family Member Name Dates Details Family history of thyroid di sease: Other(V18.19, Z83.49) Status:Active Family history of cardiac di sorder: Father, Other(V17.49, Z82.49) Status:Active Family history of malignant neoplasm: Father, Brother(V16.9, Z80.9) Status:Active Family history of liver dise ase: Sister(V18.59, Z83.79) Status:Active Family history of malignant neoplasm of colon: Brother(V16.0, Z80.0) Status:Active Family history of malignant neoplasm of skin: Brother(V16.8, Z80.8) Status:Active Family history of lung cance r: Other(V16.1, Z80.1) Status:Active Family history of kidney dis ease: Other(V18.69, Z84.1) Status:Active Primary malignant neoplasm o f colon: Other Status:Active Unknown Family Member Name Dates Details Family history of thyroid di sease: Other(V18.19, Z83.49) Status:Active Family history of cardiac di sorder: Father, Other(V17.49, Z82.49) Status:Active Family history of malignant neoplasm: Father, Brother(V16.9, Z80.9) Status:Active Family history of liver dise ase: Sister(V18.59, Z83.79) Status:Active Family history of malignant neoplasm of colon: Brother(V16.0, Z80.0) Status:Active Family history of malignant neoplasm of skin: Brother(V16.8, Z80.8) Status:Active Family history of lung cance r: Other(V16.1, Z80.1) Status:Active Family history of kidney dis ease: Other(V18.69, Z84.1) Status:Active Primary malignant neoplasm o f colon: Other Status:Active Unknown Family Member Name Dates Details Family history of thyroid di sease: Other(V18.19, Z83.49) Status:Active Family history of cardiac di sorder: Father, Other(V17.49, Z82.49) Status:Active Family history of malignant neoplasm: Father, Brother(V16.9, Z80.9) Status:Active Family history of liver dise ase: Sister(V18.59, Z83.79) Status:Active Family history of malignant neoplasm of colon: Brother(V16.0, Z80.0) Status:Active Family history of malignant neoplasm of skin: Brother(V16.8, Z80.8) Status:Active Family history of lung cance r: Other(V16.1, Z80.1) Status:Active Family history of kidney dis ease: Other(V18.69, Z84.1) Status:Active Primary malignant neoplasm o f colon: Other Status:Active Unknown Family Member Name Dates Details Family history of thyroid di sease: Other(V18.19, Z83.49) Status:Active Family history of cardiac di sorder: Father, Other(V17.49, Z82.49) Status:Active Family history of malignant neoplasm: Father, Brother(V16.9, Z80.9) Status:Active Family history of liver dise ase: Sister(V18.59, Z83.79) Status:Active Family history of malignant neoplasm of colon: Brother(V16.0, Z80.0) Status:Active Family history of malignant neoplasm of skin: Brother(V16.8, Z80.8) Status:Active Family history of lung cance r: Other(V16.1, Z80.1) Status:Active Family history of kidney dis ease: Other(V18.69, Z84.1) Status:Active Primary malignant neoplasm o f colon: Other Status:Active Unknown Family Member Name Dates Details Family history of thyroid di sease: Other(V18.19, Z83.49) Status:Active Family history of cardiac di sorder: Father, Other(V17.49, Z82.49) Status:Active Family history of malignant neoplasm: Father, Brother(V16.9, Z80.9) Status:Active Family history of liver dise ase: Sister(V18.59, Z83.79) Status:Active Family history of malignant neoplasm of colon: Brother(V16.0, Z80.0) Status:Active Family history of malignant neoplasm of skin: Brother(V16.8, Z80.8) Status:Active Family history of lung cance r: Other(V16.1, Z80.1) Status:Active Family history of kidney dis ease: Other(V18.69, Z84.1) Status:Active Primary malignant neoplasm o f colon: Other Status:Active Unknown Family Member Name Dates Details Family history of thyroid di sease: Other(V18.19, Z83.49) Status:Active Family history of cardiac di sorder: Father, Other(V17.49, Z82.49) Status:Active Family history of malignant neoplasm: Father, Brother(V16.9, Z80.9) Status:Active Family history of liver dise ase: Sister(V18.59, Z83.79) Status:Active Family history of malignant neoplasm of colon: Brother(V16.0, Z80.0) Status:Active Family history of malignant neoplasm of skin: Brother(V16.8, Z80.8) Status:Active Family history of lung cance r: Other(V16.1, Z80.1) Status:Active Family history of kidney dis ease: Other(V18.69, Z84.1) Status:Active Primary malignant neoplasm o f colon: Other Status:Active Unknown Family Member Name Dates Details Family history of thyroid di sease: Other(V18.19, Z83.49) Status:Active Family history of cardiac di sorder: Father, Other(V17.49, Z82.49) Status:Active Family history of malignant neoplasm: Father, Brother(V16.9, Z80.9) Status:Active Family history of liver dise ase: Sister(V18.59, Z83.79) Status:Active Family history of malignant neoplasm of colon: Brother(V16.0, Z80.0) Status:Active Family history of malignant neoplasm of skin: Brother(V16.8, Z80.8) Status:Active Family history of lung cance r: Other(V16.1, Z80.1) Status:Active Family history of kidney dis ease: Other(V18.69, Z84.1) Status:Active Primary malignant neoplasm o f colon: Other Status:Active Unknown Family Member Name Dates Details Family history of thyroid di sease: Other(V18.19, Z83.49) Status:Active Family history of cardiac di sorder: Father, Other(V17.49, Z82.49) Status:Active Family history of malignant neoplasm: Father, Brother(V16.9, Z80.9) Status:Active Family history of liver dise ase: Sister(V18.59, Z83.79) Status:Active Family history of malignant neoplasm of colon: Brother(V16.0, Z80.0) Status:Active Family history of malignant neoplasm of skin: Brother(V16.8, Z80.8) Status:Active Family history of lung cance r: Other(V16.1, Z80.1) Status:Active Family history of kidney dis ease: Other(V18.69, Z84.1) Status:Active Primary malignant neoplasm o f colon: Other Status:Active Unknown Family Member Name Dates Details Primary malignant neoplasm o f colon: Other Status:Active Family history of kidney dis ease: Other(V18.69, Z84.1) Status:Active Family history of lung cance r: Other(V16.1, Z80.1) Status:Active Family history of malignant neoplasm of skin: Brother(V16.8, Z80.8) Status:Active Family history of malignant neoplasm of colon: Brother(V16.0, Z80.0) Status:Active Family history of liver dise ase: Sister(V18.59, Z83.79) Status:Active Family history of malignant neoplasm: Father, Brother(V16.9, Z80.9) Status:Active Family history of cardiac di sorder: Father, Other(V17.49, Z82.49) Status:Active Family history of thyroid di sease: Other(V18.19, Z83.49) Status:Active Unknown Family Member Name Dates Details Family history of thyroid di sease: Other(V18.19, Z83.49) Status:Active Family history of cardiac di sorder: Father, Other(V17.49, Z82.49) Status:Active Family history of malignant neoplasm: Father, Brother(V16.9, Z80.9) Status:Active Family history of liver dise ase: Sister(V18.59, Z83.79) Status:Active Family history of malignant neoplasm of colon: Brother(V16.0, Z80.0) Status:Active Family history of malignant neoplasm of skin: Brother(V16.8, Z80.8) Status:Active Family history of lung cance r: Other(V16.1, Z80.1) Status:Active Family history of kidney dis ease: Other(V18.69, Z84.1) Status:Active Primary malignant neoplasm o f colon: Other Status:Active Unknown Family Member Name Dates Details Family history of thyroid di sease: Other(V18.19, Z83.49) Status:Active Family history of cardiac di sorder: Father, Other(V17.49, Z82.49) Status:Active Family history of malignant neoplasm: Father, Brother(V16.9, Z80.9) Status:Active Family history of liver dise ase: Sister(V18.59, Z83.79) Status:Active Family history of malignant neoplasm of colon: Brother(V16.0, Z80.0) Status:Active Family history of malignant neoplasm of skin: Brother(V16.8, Z80.8) Status:Active Family history of lung cance r: Other(V16.1, Z80.1) Status:Active Family history of kidney dis ease: Other(V18.69, Z84.1) Status:Active Primary malignant neoplasm o f colon: Other Status:Active Unknown Family Member Name Dates Details Family history of thyroid di sease: Other(V18.19, Z83.49) Status:Active Family history of cardiac di sorder: Father, Other(V17.49, Z82.49) Status:Active Family history of malignant neoplasm: Father, Brother(V16.9, Z80.9) Status:Active Family history of liver dise ase: Sister(V18.59, Z83.79) Status:Active Family history of malignant neoplasm of colon: Brother(V16.0, Z80.0) Status:Active Family history of malignant neoplasm of skin: Brother(V16.8, Z80.8) Status:Active Family history of lung cance r: Other(V16.1, Z80.1) Status:Active Family history of kidney dis ease: Other(V18.69, Z84.1) Status:Active Primary malignant neoplasm o f colon: Other Status:Active Unknown Family Member Name Dates Details Family history of thyroid di sease: Other(V18.19, Z83.49) Status:Active Family history of cardiac di sorder: Father, Other(V17.49, Z82.49) Status:Active Family history of malignant neoplasm: Father, Brother(V16.9, Z80.9) Status:Active Family history of liver dise ase: Sister(V18.59, Z83.79) Status:Active Family history of malignant neoplasm of colon: Brother(V16.0, Z80.0) Status:Active Family history of malignant neoplasm of skin: Brother(V16.8, Z80.8) Status:Active Family history of lung cance r: Other(V16.1, Z80.1) Status:Active Family history of kidney dis ease: Other(V18.69, Z84.1) Status:Active Primary malignant neoplasm o f colon: Other Status:Active Unknown Family Member Name Dates Details Family history of thyroid di sease: Other(V18.19, Z83.49) Status:Active Family history of cardiac di sorder: Father, Other(V17.49, Z82.49) Status:Active Family history of malignant neoplasm: Father, Brother(V16.9, Z80.9) Status:Active Family history of liver dise ase: Sister(V18.59, Z83.79) Status:Active Family history of malignant neoplasm of colon: Brother(V16.0, Z80.0) Status:Active Family history of malignant neoplasm of skin: Brother(V16.8, Z80.8) Status:Active Family history of lung cance r: Other(V16.1, Z80.1) Status:Active Family history of kidney dis ease: Other(V18.69, Z84.1) Status:Active Primary malignant neoplasm o f colon: Other Status:Active Unknown Family Member Name Dates Details Family history of thyroid di sease: Other(V18.19, Z83.49) Status:Active Family history of cardiac di sorder: Father, Other(V17.49, Z82.49) Status:Active Family history of malignant neoplasm: Father, Brother(V16.9, Z80.9) Status:Active Family history of liver dise ase: Sister(V18.59, Z83.79) Status:Active Family history of malignant neoplasm of colon: Brother(V16.0, Z80.0) Status:Active Family history of malignant neoplasm of skin: Brother(V16.8, Z80.8) Status:Active Family history of lung cance r: Other(V16.1, Z80.1) Status:Active Family history of kidney dis ease: Other(V18.69, Z84.1) Status:Active Primary malignant neoplasm o f colon: Other Status:Active Unknown Family Member Name Dates Details Family history of thyroid di sease: Other(V18.19, Z83.49) Status:Active Family history of cardiac di sorder: Father, Other(V17.49, Z82.49) Status:Active Family history of malignant neoplasm: Father, Brother(V16.9, Z80.9) Status:Active Family history of liver dise ase: Sister(V18.59, Z83.79) Status:Active Family history of malignant neoplasm of colon: Brother(V16.0, Z80.0) Status:Active Family history of malignant neoplasm of skin: Brother(V16.8, Z80.8) Status:Active Family history of lung cance r: Other(V16.1, Z80.1) Status:Active Family history of kidney dis ease: Other(V18.69, Z84.1) Status:Active Primary malignant neoplasm o f colon: Other Status:Active Relationship Condition Age at Onset Recorded Date/T juanito father Myocardial infarction Unknown brother Myocardial infarction Unknown Advance Directives No Advanced Directives Records FoundDocuments on File Type Date Recorded 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 wellness exam. This note was generated by using webtide software. It may contain errors in wording, punctuate, or spelling. * She is here today for her routine 6-month checkup and also to complete her annual Medicare wellnessvisit. She is looking well but she complains of having some significant pain in her left hip joint and also her left shoulder. She states she has had some chronic discomfort but this past summer it is gotten worse. She states she has good days and bad days. She denies any traumas and she is having no numbness, tingling, or weakness in the extremities. We discussed doing x-rays and we also talked about doing physical therapy. I told her that often times this leads to good results and they give exercises to continue long after the physical therapy sessions are complete. I told her if this does not help we would have her see orthopedics as the next step. We talked about degenerative joint disease. We also discussed how the weightbearing joints are affected the most and by gradually and healthily losing weight she may get continued relief. We talked about the challenges of weight loss especially as we get older. We also talked about the fact that she does have some mild swelling sometimesin her lower extremities. We decided not to increase her diuretic but instead have her work on may be lowering the salt in her diet. She will let me know if this is not effective. I am also pleased with her blood pressure today and she has been checking it at home. We also reviewed her laboratory test results and her blood glucose was raised at 111. Her hemoglobin A1c is 5.7. We talked about the notion of a prediabetic state and ways to patel off diabetes in the future. Her thyroid blood test came back fine. We will continue to monitor. 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 We also discussed fall prevention and luckily she has had no falls in the last 6 months. She also has grab bars in the bathroom. I will be giving her a check list of things she could do to reduce her risk of falls in the future. She also has received her Materna Covid vaccine. We talked about the importance of getting the flu vaccine this fall and we also talked about the shingles vaccine. She is by-pd-jzkxotru cancer screening and she is highly independent. Her memory is good and she does her own finances and manages her own medications. She also has advanced directives including a living will and power of immigration attorney for healthcare. * 1 YEAR FOLLOW-UP- SIADH/Hyponatremia, HTN, Edema * Most recent labs 12/22/2021 * Pt is here today for a 6 month check up, review labs. C/O chronic LB pain. This note was generated by using webtide software. It may contain errors in wording, punctuate, or spelling. * She is here today for her routine 6-month checkup. She is looking well and for the most part doing well with the exception of chronic low back pain. She states it feels like it is a little bit worse in recent times. We are reminded that she has been diagnosed with significant lumbar disc disease and is even had bulging disks and herniations in the past. She is also completed sessions of physical therapy back in December 2021 and even back in 2019. Unfortunately she indicates it was not all thathelpful. She was also going to the pain clinic and there was discussion about doing cortisone injections but she did not want to try that. She is wondering what she can do on her own at home. We had a discussion about the danger of NSAIDs as far as long-term use. We talked about topical liniments and we talked about trying a TENS unit. I told her that there would be nothing wrong with trying physical therapy again if she would like to try it and we could always have her go back to the pain clinic. I will make a list of options for her so that when she leaves here today she can consider all ofthem. We did conduct a full review of systems and we also went over the results of recent lab work.Overall I am pleased with her numbers. Her hemoglobin A1c was borderline elevated at 5.7. We just remind her to eat a healthy diet, stay physically active, and try to get his close to ideal body weight as possible. We are making no changes in therapy and we are giving refills today. If everything goes according to plan we will see her back in approximately 6 months for reevaluation. 1 YEAR FUV Chief Complaint and Reason for Visit Chief Complaint Admit Date AFIB, SOB, HI BP, LT HEADED August 132024 12:14pm INT LAB ORDER August 13, 2025 1:16pm Reason for Visit Admit Date Paroxysmal atrial fibrillation August 13, 2025 12:14pm Coronary artery disease August 13, 2025 12:14pm Dyslipidemia August 13, 2025 12:14pm Hypertension August 13, 2025 12:14pm Additional Source Comments INFORMATION SOURCE (unrecogn ized section and content) DATE CREATED AUTHOR 05/03/2018 [facility] DATE CREATED AUTHOR AUTHOR'S ORGANIZ ATION 05/18/2018 [facility] DATE CREATED AUTHOR AUTHOR'S ORGANIZ ATION 08/19/2019 [facility] DATE CREATED AUTHOR AUTHOR'S ORGANIZ ATION 06/27/2022 [facility] DATE CREATED AUTHOR AUTHOR'S ORGANIZ ATION 03/21/2023 [facility] DATE CREATED AUTHOR AUTHOR'S ORGANIZ ATION 06/24/2024 [facility] DATE CREATED AUTHOR AUTHOR'S ORGANIZ ATION 07/07/2025 [facility] DATE CREATED AUTHOR AUTHOR'S ORGANIZ ATION 07/19/2025 [facility] DATE CREATED AUTHOR AUTHOR'S ORGANIZ ATION 07/20/2025 [facility] DATE CREATED AUTHOR AUTHOR'S ORGANIZ ATION 07/31/2025 [facility] DATE CREATED AUTHOR AUTHOR'S ORGANIZ ATION 08/22/2025 [facility] Care Teams (unrecognized sec tion and content) On Site Wastewater [employer] Technician Relationship Specialty Start Date End Date Brittney Kothari DO [address] [facility] [place] [address] PCP - General 07/17/19 Brittney Kothari DO [address] [facility] [place] [address] PCP - MSSP ACO Attributed Provider 11/14/21 [employer] Technician Relationship Specialty Start Date End Date Brittney Kothari DO [address] [facility] [place] [address] PCP - General 07/17/19 Brittney Kothari, [address] [facility] [place], [place] [id number] PCP - MSSP ACO Attributed Provider 11/14/21 On Site [employer]water [employer] Technician Relationship Specialty Start Date End Date Brittney Kothari DO [address] [facility] [place] [phone] PCP - General 07/17/19 Brittney Kothari DO [address] [facility] [place] [phone] PCP - MSSP ACO Attributed Provider 11/14/21 On Site Wastewater Systems Technician Relationship Specialty Start Date End Date Brittney Kothari DO [address] [place] [phone] PCP - General 07/17/19 Brittney Kothari DO [address] [address] PCP - MSSP ACO Attributed Provider 11/14/21 On Site Wastewater Systems Technician Relationship Specialty Start Date End Date Brittney Kothari DO [address] [address] PCP - General 07/17/19 Brittney Kothari DO [address] [address] PCP - MSSP ACO Attributed Provider 11/14/21 On Site Wastewater Systems Technician Relationship Specialty Start Date End Date Brittney Kothari DO [address] [place] [address] PCP - General 07/17/19 Brittney Kothari DO [address] [place] [address] PCP - MSSP ACO Attributed Provider 11/14/21 On Site Wastewater Systems Technician Relationship Specialty Start Date End Date Brittney Kothari DO [address] [place] [address] PCP - General 07/17/19 Brittney Kothari DO [address] [place] [address] PCP - MSSP ACO Attributed Provider 11/14/21 On Site Wastewater Systems Technician Relationship Specialty Start Date End Date Brittney Kothari DO [address] [place] [address] PCP - General 07/17/19 Brittney Kothari DO [address] [place] [address] PCP - MSSP ACO Attributed Provider 11/14/21 On Site Wastewater Systems Technician Relationship Specialty Start Date End Date Brittney Kothari DO [address] [place] [address] PCP - General 07/17/19 Brittney Kothari DO [address] [place] [address] PCP - MSSP ACO Attributed Provider 11/14/21 On Site Wastewater Systems Technician Relationship Specialty Start Date End Date Brittney Kothari DO [address] [address] PCP - General 07/17/19 Brittney Kothari DO [address] [address] PCP - MSSP ACO Attributed Provider 11/14/21 Marilyn Garcia LPN Casting ChipperStudent Advisor 07/03/25 Team Status: Active Member Role/Relationship Status Dates Dr. Brittney Kothari MD Primary care physician Active Team Status: Inactive Member Role/Relationship Status Dates Dr. Brittney Kothari MD Primary care physician Active Start: August 13, 2025 End: August 13, 2025 Dr. Brittney Kothari MD Referring Provider Active Start: August 13, 2025 End: August 13, 2025 Dr. Dany Juarez MD Attending physician Active Start: August 13, 2025 End: August 13, 2025 Team Status: Active Member Role/Relationship Status Dates Dr. Brittney Kothari MD Primary care physician Active Start: August 13, 2025 Dr. Dany Juarez MD Attending physician Active Start: August 13, 2025 Dr. Dany Juarez MD Referring Provider Active Start: August 13, 2025 Reason for Visit (unrecogniz ed section and content) Reason Comments Follow-up 1 year ckReview labs 5/ Reason Comments Medicare Annual Wellness Visit Subsequen t Follow-up 6 MO FUV Specialty Diagnoses / Procedures Referred By Contac t Referred To Contact Primary Care Procedures Follow Up In Primary Care Brittney Kothari DO [address] [facility] [place] [address] Referral ID Status Reason Start Date Expiration Date V isits Requested Visits Authorized [id number] Authorized 12/27/2023 12/26/2024 1 1 Reason Comments Follow-up 6 MO CK Specialty Diagnoses / Procedures Referred By Contac t Referred To Contact Primary Care Procedures Follow Up In Primary Care Veronica Kotharijatin Alfredo DO Phone: tel: fax: Referral ID Status Reason Start Date Expiration Date V isits Requested Visits Authorized [id number] Authorized 06/26/2024 06/26/2025 1 1 Reason Comments Follow-up 1 year Review labs Specialty Diagnoses / Procedures Referred By Cecilio quinones Referred To Contact Primary Care Procedures Follow Up In Primary Care Brittney Kothari DO [address] [place] [address] Phone: tel: fax: Referral ID Status Reason Start Date Expiration Date V isits Requested Visits Authorized [id number] Authorized 12/27/2024 12/27/2025 1 1 Reason Comments Palpitations 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 Has felt palpitations transiently for a couple months but is worsening. No CP. No SOB. Transiently dizzy/lightheaded. Specialty Diagnoses / Procedures Referred By Cecilio quinones Referred To Contact Diagnoses Abnormal EKG Atrial fibrillation with RVR (Multi) [place] [address] [place] [id number] Phone: tel: fax: [facility] [address] [place] [phone] Phone: tel: Referral ID Status Reason Start Date Expiration Date Visits Re quested Visits Authorized [id number] 1 1 Reason Comments Follow-up HOSP FU AFIB Scheduled Active and Recently Administ ered Medications (unrecognized section and content) Medication Order 06/30/2025 07/01/2025 07/02/2025 apixaban (Eliquis) tablet 5 mg (COMPLETED) 5 mg, oral, Once, On Tue07/01/25 at 1020, For 1 dose 1032 (Given - Provider: Berkley Hughes RN) apixaban (Eliquis) tablet 5 mg (CANCELED) 5 mg, oral, 2 times daily, First dose (after last reorder) on Tue07/01/25 at 2100 2002 (Given - Provider: Tonia M Mila, RN) 0946 (Given - Provider: Johanna Daniels RN) atorvastatin (Lipitor) tablet 20 mg 20 mg, oral, Nightly, First dose on Tue07/01/25 at 2100 2001 (Given - Provider: Tonia Zaragoza RN) 2099 (Due) cholecalciferol (Vitamin D-3) tablet 75 mcg 75 mcg, oral, Daily, First dose on Tue07/01/25 at 1430 1447 (Not Given - Provider: Johanna Daniels RN - Reason: Other - Comment: pt took at home) 945 (Given - Provider: Johanna Daniels RN) dilTIAZem (Cardizem) injection 10 mg (COMPLETED) 10 mg, intravenous, Once, On Tue07/01/25 at 1020, For 1 dose 1036 (Given - Provider: Berkley Hughes RN) flecainide (Tambocor) tablet 50 mg 50 mg, oral, Every 12 hours scheduled, First dose on Tue07/02/25 at 1045 1233 (Given - Provid er: Johanna Daniels RN)2099 (Due) furosemide (Lasix) tablet 20 mg 20 mg, oral, Daily, First dose on Tue07/02/25 at 0900 0946 (Given - Provid er: Johanna Daniels RN) iohexol (OMNIPaque) 350 mg iodine/mL solution 70 mL (COMPLETED) 70 mL, intravenous, Once in imaging, Starting on Tue07/01/25 at 1259, For 1 dose 1324 (Given - Provider: Genoveva Bob) levothyroxine (Synthroid, Levoxyl) tablet 88 mcg 88 mcg, oral, Daily, First dose on Tue07/02/25 at 0600, Enteral feedings are held 1 hour pre and post dose., On hold since Tue07/01/2025 at 1412 until manually unheld 1412 (Held by provider - Provider: Nba Gomez MD - Reason: Other) 0600 (Dose Auto Held) losartan (Cozaar) tablet 100 mg 100 mg, oral, Daily, First dose on Tue07/01/25 at 1430 1447 (Not Given - Provider: Johanna Daniels RN - Reason: Other - Comment: pt took at home) 945 (Given - Provider: Johanna Daniels RN) metoprolol tartrate (Lopressor) tablet 100 mg 100 mg, oral, 2 times daily, First dose on Tue07/01/25 at 1230 1447 (Not Given - Provider: Johanna Daniels RN - Reason: Other - Comment: pt took home dose)2001 (Given - Provider: Tonia Zaragoza RN) 0946 (Given - Provider: Johanna Daniels RN)2100 (Due) NIFEdipine ER (Adalat CC) 24 hr tablet 60 mg 60 mg, oral, Daily, First dose on Tue07/02/25 at 0900, Give on an empty stomach. Do not crush, chew, or split. 0946 (Given - Provid er: Johanna Daniels RN) perflutren lipid microspheres (Definity) injection 2.5 mL of dilution (COMPLETED) 2.5 mL of dilution, intravenous, Once in imaging, Starting on Tue07/01/25 at 1450, For 1 dose, Contrast - for use by imaging provider only. Prior to administration, Definity product must be activated. First, bring vial to room temperature. Then, shake vial for 45 seconds. Do not use if the 45 second activation cycle has not been completed. Following activation, the product will appear as a milky white suspension and may be used immediately. If not used within 5 minutes of activation, re-suspend by inverting and shaking the vial for 10 seconds. Discard unused product. Administration: Dilute 1.3 mL of activated DEFINITY with 8.7 mL of normal saline in a 10 mL syringe. Inject 0.5 mL of diluted DEFINITY when notified the images/film are unclear to enhance view of Left Ventricular borders. Repeat 0.5 mL of DEFINITY until clear images are obtained, not to exceed 10 mLs. Once images are obtained or limit of medication is reached, flush line with 10 mL of Normal Saline. 1450 (Given - Provider: Malinda Villanueva RN - Comment: administered 2.5 ml of diluted definity per vp of technology instruction) polyethylene glycol (Glycolax, Miralax) packet 17 g 17 g, oral, Daily, First dose on Tue07/01/25 at 1445 1448 (Not Given - Provider: Johanna Daniels RN - Reason: Other - Comment: pt took at home) 09 (Given - Provider: Johanna Daniels RN) potassium chloride CR (Klor-Con M20) ER tablet 40 mEq (COMPLETED) 40 mEq, oral, Once, On Tue07/02/25 at 1145, For 1 dose, Best given with food and plenty of water to minimize gastric irritation. Do not crush or chew. 1233 (Given - Provid er: Johanna Daniels RN) sodium chloride 0.9 % bolus 500 mL (COMPLETED) 500 mL, intravenous, at 500 mL/hr, Administer over 1 Hours, Once, On Tue07/01/25 at 1250, For 1 dose 1258 (New Bag - Provider: Jeyson Milian, RN)1344 (Stopped - Provider: Johanna Daniels RN - Comment: not running when admitted to floor) warfarin (Coumadin) tablet 5 mg 5 mg, oral, Daily, First dose (after last modification) on Tue07/02/25 at 1400, For 3 days, Re-evaluate and re-order based on lab results. Enteral feedings are held 1 hour pre and post dose. For patients receiving warfarin via a feeding tube, hold enteral feeds for at least 1 hour before and 1 hour after warfarin administration. Flush the feeding tube with water before and after warfarin administration as well., Indication: Atrial fibrillation/flutter, History: New start 1414 (Given - Provid er: Johanna Daniels RN) PRN Medication Order 06/30/2025 07/01/2025 07/02/2025 acetaminophen (Tylenol) oral liquid 650 mg(Linked Group 1) 650 mg, nasogastric tube, Every 4 hours PRN, pain mild (1-3), first line, pain moderate (4-6), first line, headaches, fever (temp greater than 38.0 C), first line, Starting on Tue07/01/25 at 1416, Give oral liquid per feeding tube if present, or if patient prefers liquid over tablets. acetaminophen (Tylenol) suppository 650 mg(Linked Group 1) 650 mg, rectal, Every 4 hours PRN, pain mild (1-3), first line, pain moderate (4-6), first line, headaches, fever (temp greater than 38.0 C), first line, Starting on Tue07/01/25 at 1416, Give rectally if unable to administer by mouth or feeding tube., If ordered PRN for pain, nurse is permitted to administer this medication for higher pain scores based on patient preference? Yes acetaminophen (Tylenol) tablet 650 mg(Linked Group 1) 650 mg, oral, Every 4 hours PRN, pain mild (1-3), first line, pain moderate (4-6), first line, fever (temp greater than 38.0 C), first line, headaches, Starting on Tue07/01/25 at 1416, Administer tablet or oral liquid per patient preference., If ordered PRN for pain, nurse is permitted to administer this medication for higher pain scores based on patient preference? Yes melatonin tablet 5 mg 5 mg, oral, Nightly PRN, sleep, Starting on Tue07/01/25 at 1417 morphine injection 2 mg 2 mg, intravenous, Every 3 hours PRN, pain severe (7-10), first line, Starting on Tue07/01/25 at 1417 ondansetron (Zofran) injection 4 mg 4 mg, intravenous, Every 8 hours PRN, nausea/vomiting, first line, Starting on Tue07/01/25 at 1416, When administering via IV Push, administer over 3-5 minutes. Linked Groups Order Group 1: acetaminophen (Tylenol) tablet 650 mgJump to med 650 mg, oral, Every 4 hours PRN, pain mild (1-3), first line, pain moderate (4- 6), first line, fever (temp greater than 38.0 C), first line, headaches, Starting on Tue07/01/25 at 1416, Administer tablet or oral liquid per patient preference., If ordered PRN for pain, nurse is permitted to administer this medication for higher pain scores based on patient preference? Yes Or acetaminophen (Tylenol) oral liquid 650 mgJump to med 650 mg, nasogastric tube, Every 4 hours PRN, pain mild (1-3), first line, pain moderate (4-6), first line, headaches, fever (temp greater than 38.0 C), first line, Starting on Tue07/01/25 at 1416, Give oral liquid per feeding tube if present, or if patient prefers liquid over tablets. Or acetaminophen (Tylenol) suppository 650 mgJump to med 650 mg, rectal, Every 4 hours PRN, pain mild (1-3), first line, pain moderate (4-6), first line, headaches, fever (temp greater than 38.0 C), first line, Starting on Tue07/01/25 at 1416, Give rectally if unable to administer by mouth or feeding tube., If ordered PRN for pain, nurse is permitted to administer this medication for higher pain scores based on patient preference? Yes Goals (unrecognized section and content) Goals may be documented in a n alternate section FOR RECORDS PERTAINING TO PATIENTS WHO ARE OR HAVE BEEN ENROLLED IN A CHEMICAL DEPENDENCY/SUBSTANCEABUSE PROGRAM, SOME INFORMATION MAY BE OMITTED. This clinical summary was aggregated from multiple sources. Caution should be exercised in using it in the provision of clinical care. This summary normalizes information from multiple sources, and as a consequence, information in this document may materially change the coding, format and clinical context of patient data. In addition, data may be omitted in some cases. CLINICAL DECISIONS SHOULD BE BASED ON THE PRIMARY CLINICAL RECORDS. [employer] [facility]. provides no warranty or guarantee of the accuracy or completeness [phone] in this [id number]
--- OUTSIDE RECORDS SUMMARY | 2025-09-04 06:02 | XMS RPT_ITS | CCD ---
Author Organization [facility]iniSyn[facility] Care Team Providers Care Registered Nurse Ambulatory Name Role Phone FAITH MAYS Unavailable Unavailable YoungDc Unavailable Unavailable [place], Brittney Unavailable Unavailable [place], Brittney S Unavailable Unavailable Young Johanna Unavailable Unavailable [place], Brittney S Unavailable Unavailable Unavailable [place] DO, Brittney S Primary Care Provider [place] DO, Brittney S Unavailable [phone] ROYAL, BRITTNEY S Primary Care Unavailable ROYAL, BRITTNEY S Primary Care Unavailable ROYAL, BRITTNEY S Primary Care Unavailable [place] DO, Brittney S Primary Care Provider [place] DO, Brittney S Unavailable [phone] [place] DO, Brittney S Unavailable Marilyn Garcia LPN [...] JAIME, Dr. Lugo Primary Care Physician [phone] Dr. Brittney Kothari MD Referring Provider Larry [...] Start: 05-10-2022 take 2 tablets by mo [facility] once daily NIFEdipine ER 30 MG Oral Tablet Extended Release 24 Hour TAKE 2 TABLETS BY MOUTH DAILY Quantity: 180 Refills: 1 Ordered: 10-May-2023 Dc Garner DO Start : 10-May-2022 Active take 2 tablets by mo [facility] once daily NIFEdipine CC 30 mg 24 hr tablet Take 2 tablets (60 mg) by mouth once daily. 0 Active take 2 tablets by mo [facility] once daily NIFEdipine ER 30 MG Oral Tablet Extended Release 24 Hour TAKE 2 TABLET Daily Quantity: 180 Refills: 1 Ordered: 16-Nov-2021 Santhosh JIANG, INFORMATION SYSTEMS SECURITY DEVELOPER-MILEAGE CLERK, Johanna Active take 1 tablet by ele once daily NIFEdipine ER 30 MG Oral Tablet Extended Release 24 Hour TAKE 1 TABLET DAILY. Quantity: 90 Refills: 3 Santhosh JIANG, INFORMATION SYSTEMS SECURITY DEVELOPER-CHECKER STOCKER, Johanna Active 2 ml ondansetron 2 mg/ml injection (1 source) Serotonin-3 Receptor Antagonist Start: 07-01-2025 take 4 mg intravenously every eight hours as needed polyethylene glycol 3350 18266 mg powder for oral solution (1 source) [...] Quantity: 90 Refills: 3 Ordered: 08-Jan-2021 Brittney Kothari DO Start : 05-Oct-2019 Active 1000 ml [...] Coronary arteriosclerosis; Translations: [Atherosclerotic heart disease of algaaciq coronary artery without angina pectoris] Onset: 08-13-2025 [...] source) Long-term current use of anticoagulant; Translations: [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, [address] PT Coag (PPP) [Time] 23.1 s High 11.7-14.9 [facility] Comment on above: Performed By: #### L 434.7516 #### [facility] [address] [place], [address] Cardiology Visit Reporton Cardiology Visit Report [facility] [address] [place] [address] OFFICE VISIT Date of Service: 08/13/25 MR#: [id number] Acct: [id number] Name: DIANA ALMONTE Rep #: [id number] : 1945 Provider: Dr. Dany Juarez MD Age/Sex: 79/F Location: [facility] Status: Signed HPI HPI History of Present [...] Reasons: AFIB, SOB, HI BP, LT HEADED Infusion Pharmacist Required: No Accompanied by: Daughter Is patient [...] you fallen in the past year?: No [facility] Medical History (Updated 08/13/25 @ 13:04 by [...] physiological significanc (more content not included)... Normal [facility] International normalized rat io (INR) calculationOrdered By: Dany Juarez on 08-13-2025 INR Coag (Bld) [Relative time] 1.5 {INR} [facility] Prothrombin Time w/INRon INR Coag (PPP) [Relative time] 1.5 {INR} Normal [facility] Comment on above: Order Comment: Commsilvia nts: STANDING ORDER: Fax to 2140 Performed By: #### L 934.9205 #### [facility] [address] [place], [address] PT Coag (PPP) [Time] 18.8 s High 11.7-14.9 [facility] Comment on above: Order Comment: Comme nts: STANDING ORDER: Fax to 8673 Performed By: #### L 300.0291 #### [facility] [address] [place], [address] Prothrombin timeOrdered By: Dany Juarez on 08-13-2025 PT Coag (PPP) [Time] 18.8 s High 11.7-14.9 [facility] BASIC METABOLIC PANEL WITH A NION GAPon 07-18-2025 Calcium [Mass/Vol] 9.3 mg/dL Normal 8.6-10.4 [facility] Comment on above: Order Comment: FASTI NG:YES FASTING: YES Performed By: #### 9 1838 #### [facility] [place] [address] Engine Manager: Joe Braga MD Chloride [Moles/Vol] 100 mmol/L Normal 98-110 [facility] Comment on above: Order Comment: FASTI NG:YES FASTING: YES Performed By: #### 9 5668 #### [facility] [place] [address] Engine Manager: Joe Braga MD CO2 [Moles/Vol] 26 mmol/L Normal 20-32 [facility] Comment on above: Order Comment: FASTI NG:YES FASTING: YES Performed By: #### 9 1798 #### [facility] [place] [address] Engine Manager: Joe Braga MD Creatinine [Mass/Vol] 0.59 mg/dL Low 0.60-0.[address] [facility] [address] [facility] Comment on above: Order Comment: FASTI NG:YES FASTING: YES Performed By: #### 9 9678 #### [facility] [place] [address] Engine Manager: Joe Braga MD ELECTROLYTE BALANCE 9 mmol/L (calc) Normal 7-17 [facility] Comment on above: Order Comment: FASTI NG:YES FASTING: YES Performed By: #### 9 4658 #### [facility] [place] [address] Engine Manager: Joe Braga MD GFR/1.73 sq M.predicted among non-blacks MDRD (S/P/Bld) [Vol rate/Area] 91 mL/min/{1.73_m2} Normal > OR = 60 [facility] Comment on above: Order Comment: FASTI NG:YES FASTING: YES Performed By: #### 9 8321 #### [facility] [place] [address] Engine Manager: Joe Braga MD Glucose [Mass/Vol] 102 mg/dL High 65-99 [facility] Comment on above: Order Comment: FASTI NG:YES FASTING: YES Result Comment: Fasting reference interval For someone without known diabetes, a glucose value between 100 and 125 mg/dL is consistent with prediabetes and should be confirmed with a follow-up test. Performed By: #### 9 2498 #### [facility] [address], [address] [place] [address] Engine Manager: Joe Braga MD Potassium [Moles/Vol] 4.5 mmol/L Normal 3.5-5.3 [facility] Comment on above: Order Comment: FASTI NG:YES FASTING: YES Performed By: #### 9 6148 #### [facility] [place] [address] Engine Manager: Joe Braga MD Sodium [Moles/Vol] 135 mmol/L Normal 135-146 [facility] Comment on above: Order Comment: FASTI NG:YES FASTING: YES Performed By: #### 9 1118 #### [facility] [place] [address] Engine Manager: Joe Braga MD Urea nitrogen [Mass/Vol] 10 mg/dL Normal 7-25 [facility] Comment on above: Order Comment: FASTI NG:YES FASTING: YES Performed By: #### 9 4058 #### [facility] [place] [address] Engine Manager: Joe Braga MD Urea nitrogen/Creatinine [Mass ratio] 17 mg/mg Normal 6-22 [facility] Comment on above: Order Comment: FASTI NG:YES FASTING: YES Performed By: #### 9 7901 #### [facility] [place] [address] Engine Manager: Joe Braga MD Basic metabolic 2000 panelon 07-02-2025 Anion gap [Moles/Vol] 13 mmol/L 10 - 2 0 mmol/L [facility] Calcium [Mass/Vol] 8.9 mg/dL 8.6 - 10. 3 mg/dL [facility] Chloride [Moles/Vol] 101 mmol/L 98 - 10 7 mmol/L [facility] CO2 [Moles/Vol] 22 mmol/L 21 - 32 mmol/L [facility] Creatinine [Mass/Vol] 0.70 mg/dL 0.50 - 1.05 mg/dL [facility] GFR/1.73 sq M.predicted among non-blacks MDRD (S/P/Bld) [Vol rate/Area] 88 mL/min/{1.73_m2} - PINF [facility] Comment on above: Calculations of teresa mated GFR are performed using the 2020 CKD-EPI Study Refit equation without the race variable for the IDMS-Traceable creatinine methods. https://jasn.asnjournals.org/content/early//ASN.214377 1543 Glucose [Mass/Vol] 184 mg/dL High 74 - 99 mg/dL [facility] Interpretation and review of laboratory results Abnormal [facility] Potassium [Moles/Vol] 4.1 mmol/L 3.5 - 5.3 mmol/L [facility] Sodium [Moles/Vol] 132 mmol/L Low 136 - 145 mmol/L [facility] Urea nitrogen [Mass/Vol] 13 mg/dL 6 - 23 mg/dL [facility] Anion gap [Moles/Vol] 13 mmol/L Normal 10-20 [facility] Comment on above: Performed By: #### 5 7021-8 #### ABDI MIKE ([id number]) [facility] ([facility]) [facility] [place] [address] Calcium [Mass/Vol] 8.9 mg/dL Normal 8.6-10.3 [facility] Comment on above: Performed By: #### 5 7021-8 #### ABDI MIKE ([id number]) [facility] ([facility]) [facility] [place] [address] Chloride [Moles/Vol] 101 mmol/L Normal 98-107 [facility] Comment on above: Performed By: #### 5 7021-8 #### ABDI MIKE ([id number]) [facility] ([facility]) [address] [place] [address] CO2 [Moles/Vol] 22 mmol/L Normal 21-32 [facility] Comment on above: Performed By: #### 5 7021-8 #### ABDI MIKE ([id number]) [facility] ([facility]) [facility] [place] [address] Creatinine [Mass/Vol] 0.70 mg/dL Normal 0.50-1.05 [facility] Comment on above: Performed By: #### 5 7021-8 #### ABDI MIKE ([id number]) [facility] ([facility]) [address] [place] [address] Glomerular filtration rate 88 mL/min/1.73m*2 Normal >60 [facility] Comment on above: Result Comment: Calc ulations of estimated GFR are performed using the 2020 CKD-EPI Study Refit equation without the race variable for the IDMS-Traceable creatinine methods. https://jasn.asnjournals.org/content/early//ASN.158655 5476 Performed By: #### 5 7021-8 #### ABDI MIKE ([id number]) [facility] ([facility]) [address] [place] [address] Glucose [Mass/Vol] 184 mg/dL High 74-99 [facility] Comment on above: Performed By: #### 5 7021-8 #### ABDI MKIE ([id number]) [facility] ([facility]) [address] [place] [address] Potassium [Moles/Vol] 4.1 mmol/L Normal 3.5-5.3 [facility] Comment on above: Performed By: #### 5 7021-8 #### ABDI MIKE ([id number]) [facility] ([facility]) [facility] [place] [address] Sodium [Moles/Vol] 132 mmol/L Low 136-145 [facility] Comment on above: Performed By: #### 5 7021-8 #### ABDI MIKE ([id number]) [facility] ([facility]) [facility] [place] [address] Urea nitrogen [Mass/Vol] 13 mg/dL Normal 6-23 [facility] Comment on above: Performed By: #### 5 7021-8 #### PATTON CEE ([id number]) [facility] ([facility]) [facility] [place] [address] Anion gap [Moles/Vol] 12 mmol/L 10 - 2 0 mmol/L [facility] Calcium [Mass/Vol] 9.2 mg/dL 8.6 - 10. 3 mg/dL [facility] Chloride [Moles/Vol] 104 mmol/L 98 - 10 7 mmol/L [facility] CO2 [Moles/Vol] 24 mmol/L 21 - 32 mmol/L [facility] Creatinine [Mass/Vol] 0.71 mg/dL 0.50 - 1.05 mg/dL [facility] GFR/1.73 sq M.predicted among non-blacks MDRD (S/P/Bld) [Vol rate/Area] 86 mL/min/{1.73_m2} - PINF [facility] Comment on above: Calculations of teresa mated GFR are performed using the 2020 CKD-EPI Study Refit equation without the race variable for the IDMS-Traceable creatinine methods. https://jasn.asnjournals.org/content//ASN.096937 5467 Glucose [Mass/Vol] 110 mg/dL High 74 - 99 mg/dL [facility] Interpretation and review of laboratory results Abnormal [facility] Potassium [Moles/Vol] 3.4 mmol/L Low 3.5 - 5.3 mmol/L [facility] Sodium [Moles/Vol] 137 mmol/L 136 - 145 mmol/L [facility] Urea nitrogen [Mass/Vol] 12 mg/dL 6 - 23 mg/dL [facility] Anion gap [Moles/Vol] 12 mmol/L Normal 10-20 [facility] Comment on above: Performed By: #### 5 7021-8 #### ABDI MIKE ([id number]) [facility] ([facility]) [facility] [place] [address] Calcium [Mass/Vol] 9.2 mg/dL Normal 8.6-10.3 [facility] Comment on above: Performed By: #### 5 7021-8 #### ABDI MIKE ([id number]) [facility] ([facility]) [address] [place] [address] Chloride [Moles/Vol] 104 mmol/L Normal 98-107 [facility] Comment on above: Performed By: #### 5 7021-8 #### ABDI MIKE ([id number]) [facility] ([facility]) [address] [place] [address] CO2 [Moles/Vol] 24 mmol/L Normal 21-32 [facility] Comment on above: Performed By: #### 5 7021-8 #### ABDI MIKE ([id number]) [facility] ([facility]) [address] [place] [address] Creatinine [Mass/Vol] 0.71 mg/dL Normal 0.50-1.05 [facility] Comment on above: Performed By: #### 5 7021-8 #### ABDI MIKE ([id number]) [facility] ([facility]) [address] [place] [address] 94399 Glomerular filtration rate 86 mL/min/1.73m*2 Normal >60 [facility] Comment on above: Result Comment: Calc ulations of estimated GFR are performed using the 2020 CKD-EPI Study Refit equation without the race variable for the IDMS-Traceable creatinine methods. https://jasn.asnjournals.org/content//ASN.631018 9604 Performed By: #### 5 7021-8 #### ABDI MIKE ([id number]) [facility] ([facility]) [address] [place] [address] Glucose [Mass/Vol] 110 mg/dL High 74-99 [facility] Comment on above: Performed By: #### 5 7021-8 #### ABDI MIKE ([id number]) [facility] ([facility]) [facility] [place] [address] Potassium [Moles/Vol] 3.4 mmol/L Low 3.5-5.3 [facility] Comment on above: Performed By: #### 5 7021-8 #### ABDI MIKE ([id number]) [facility] ([facility]) [address] [place] [address] Sodium [Moles/Vol] 137 mmol/L Normal 136-145 [facility] Comment on above: Performed By: #### 5 7021-8 #### ABDI MIKE ([id number]) [facility] ([facility]) [address] [place] [address] Urea nitrogen [Mass/Vol] 12 mg/dL Normal 6-23 [facility] Comment on above: Performed By: #### 5 7021-8 #### ABDI MIKE ([id number]) [facility] ([facility]) [address] [place] [address] CBC panel Auto (Bld)on 07-02 Erythrocyte distribution width (RBC) [Ratio] 13.2 % 11.5 - 14.5 % [facility] Hematocrit (Bld) [Volume fraction] 36.4 % 36.0 - 46.0 % [facility] Hemoglobin (Bld) [Mass/Vol] 12.8 g/dL 12.0 - 16.0 g/dL [facility] Interpretation and review of laboratory results Abnormal [facility] MCH (RBC) [Entitic mass] 34.8 pg High 26.0 - 34.0 pg [facility] MCHC (RBC) [Mass/Vol] 35.2 g/dL 32.0 - 36.0 g/dL [facility] MCV (RBC) [Entitic vol] 99 fL 80 - 100 fL [facility] Nucleated RBC/100 WBC (Bld) [Ratio] 0.0 % [facility] Platelets (Bld) [#/Vol] 323 10*3/uL [facility] RBC (Bld) [#/Vol] 3.68 10*6/uL [facility] WBC (Bld) [#/Vol] 8.8 10*3/uL [facility] Erythrocyte distribution width (RBC) [Ratio] 13.2 % Normal 11.5-14.5 [facility] Comment on above: Performed By: #### 5 7021-8 #### ABDI MIKE ([id number]) [facility] ([facility]) [address] [place] [address] Hematocrit (Bld) [Volume fraction] 36.4 % Normal 36.0-46.0 [facility] Comment on above: Performed By: #### 5 7021-8 #### ABDI MIKE ([id number]) [facility] ([facility]) [address] [place] [address]63 Hemoglobin (Bld) [Mass/Vol] 12.8 g/dL Normal 12.0-16.0 [facility] Comment on above: Performed By: #### 5 7021-8 #### ABDI MIKE ([id number]) [facility] ([facility]) [address] [place] [address] 85007 MCH (RBC) [Entitic mass] 34.8 pg High 26.0-34.0 [facility] Comment on above: Performed By: #### 5 7021-8 #### ABDI MIKE ([id number]) [facility] ([facility]) [address] [place] [address] 88451 MCHC (RBC) [Mass/Vol] 35.2 g/dL Normal 32.0-36.0 [facility] Comment on above: Performed By: #### 5 7021-8 #### ABDI MIKE ([id number]) [facility] ([facility]) [address] [place] [address] 01264 MCV (RBC) [Entitic vol] 99 fL Normal 80-100 [facility] Comment on above: Performed By: #### 5 7021-8 #### ABDI MIKE ([id number]) [facility] ([facility]) [address] [place] [address] 87378 Nucleated RBC/100 WBC (Bld) [Ratio] 0.0 /100 WBCs Normal 0.0-0.0 [facility] Comment on above: Performed By: #### 5 7021-8 #### ABDI MIKE ([id number]) [facility] ([facility]) [address] [place] [address] 23645 Platelets (Bld) [#/Vol] 323 x10*3/uL Normal 150-450 [facility] Comment on above: Performed By: #### 5 7021-8 #### ABDI MIKE ([id number]) [facility] ([facility]) [address] [place] [address] 08854 RBC (Bld) [#/Vol] 3.68 x10*6/uL Low 4.00-5.20 [facility] Comment on above: Performed By: #### 5 7021-8 #### ABDI MIKE ([id number]) [facility] ([facility]) [address] [place] [address] 92204 WBC (Bld) [#/Vol] 8.8 x10*3/uL Normal 4.4-11.3 [facility] Comment on above: Performed By: #### 5 7021-8 #### ABDI MIKE ([id number]) [facility] ([facility]) [address] [place] [address] 86168 Coagulation tissue factor in ducedon 07-02-2025 PT Coag (PPP) [Time] 20.1 s High 9.8-12.4 [facility] Comment on above: Performed By: #### 5 7021-8 #### ABDI MIKE ([id number]) [facility] ([facility]) [address] [place] [address] 64533 ECG 12 Leadon 07-02-2025 Atrial Rate 64 BPM [facility] Work Phone: P [place] 38 degrees [facility] Work Phone: P Offset 211 ms [facility] Work Phone: [phone] P Onset 146 ms [facility] Work Phone: [phone] SC Interval 162 ms [facility] Work Phone: [phone] Q Onset 227 ms [facility] Work Phone: [phone] QRS Count 10 beats [facility] Work Phone: [phone] QRS Duration 86 ms [facility] Work Phone: [phone] QT Interval 378 ms [facility] Work Phone: [phone] QTC Calculation(Bazett) 389 ms [facility] Work Phone: [phone] QTC Fredericia 386 ms [facility] Work Phone: [phone] R [place] 107 degrees [facility] Work Phone: [phone] T [place] 48 degrees [facility] Work Phone: [phone] T Offset 416 ms [facility] Work Phone: [phone] Ventricular Rate 64 BPM [facility] Work Phone: [phone] Normal sinus rhythm Rightward axis Low voltage QRS Cannot rule out Anterior infarct , age undetermined Abnormal ECG Confirmed by Francis Martins ([id number]) on 07/02/2025 12:11:14 PM Francis Johnson MD - 07/02/2025 Normal sinus rhythm Rightward axis Low voltage QRS Cannot rule out Anterior infarct , age undetermined Abnormal ECG Confirmed by Francis Martins ([id number]) on 07/02/2025 12:11:14 PM [facility] Work Phone: [phone] [facility] Work Phone: [phone] ECG 12-LEADon 07-02-2025 ECG 12-LEAD Ventricular Rate 64 Atrial Rate 64 P-R Interval 162 QRS Duration 86 Q-T Interval 378 QTC Calculation(Bazett) 389 P [place] 38 R [place] 107 T [place] 48 QRS Count 10 Q Onset 227 P Onset 146 P Offset 211 T Offset 416 QTC Fredericia 386 Diagnosis Normal sinus rhythm Rightward axis Low voltage QRS Cannot rule out Anterior infarct , age undetermined Abnormal ECG Confirmed by Francis Martins ([id number]) on 07/02/2025 12:11:[address] [facility] Extra Urine Frank TubeOrdered By: Roney Howard on 07-02-2025 Extra Tube [facility] Work Phone: [facility] Work Phone: Magnesiumon 07-02-2025 Magnesium [Mass/Vol] 2.04 mg/dL 1.60 - 2.40 mg/dL [facility] Magnesium [Mass/Vol] 2.04 mg/dL Normal 1.60-2.40 [facility] Comment on above: Performed By: #### 5 7021-8 #### ABDI MIKE ([id number]) [facility] ([facility]) [address] [place] [address] 78772 Magnesium [Mass/Vol] 1.88 mg/dL 1.60 - 2.40 mg/dL [facility] Magnesium [Mass/Vol]on 07-02 Interpretation and review of laboratory results Normal [facility] Interpretation and review of laboratory results Normal [facility] PT Coag (PPP) [Time]on 07-02 INR Coag (PPP) [Relative time] 1.8 {INR} High 0.9 - 1.1 [facility] Interpretation and review of laboratory results Abnormal [facility] INR Coag (PPP) [Relative time] 1.8 High 0.9-1.1 [facility] Comment on above: Performed By: #### 5 7021-8 #### ABDI MIKE ([id number]) [facility] ([facility]) [address] [place] [address] 06855 Protime-INRon 07-02-2025 PT Coag (PPP) [Time] 20.1 s High [facility] SST TOPon 07-02-2025 Extra Tube Hold for add-ons. [facility] Work Phone: Comment on above: Auto resulted. [facility] Work Phone: Bacteriaon 07-01-2025 Bacteria identified Cx Nom (U) Test: Urine Culture Specimen Source: Clean Catch/Voided Specimen Type: Urine Specimen Date: 07/01/2025 1031 Result Date: 07/03/2025 1011 Result Status: Final result Abnormal: Yes Resulting Lab: [facility] [address] [place] [id number] CULTURE >=100,000 CFU/mL Escherichia coli (Abnormal) SUSCEPTIBILITY Escherichia coli METHOD MICROSCAN --- AMPICILLIN <=8.000 ug/ml Susceptible CEFAZOLIN <=2 ug/ml Susceptible CEFAZOLIN (UNCOMPLICATED UTIS ONLY) <=2 ug/ml Susceptible CIPROFLOXACIN <=0.250 ug/ml Susceptible GENTAMICIN <=2.000 ug/ml Susceptible LEVOFLOXACIN <=0.500 ug/ml Susceptible NITROFURANTOIN <=32 ug/ml Susceptible PIPERACILLIN/TAZOBACTAM <=8.000 ug/ml Susceptible TRIMETHOPRIM/SULFAMETHOXA ZOLE <=0.5/9.5 ug/ml Susceptible Abnormal [facility] Comment on above: Performed By: #### 5 7021-8 #### PATTON CEE ([id number]) [facility] ([facility]) [address] [place] [address] CBC W Auto Differential pane l (Bld)on 07-01-2025 Basophils (Bld) [#/Vol] 0.05 10*3/uL [facility] Basophils/100 WBC (Bld) 0.5 % 0.0 - 2.0 % [facility] Eosinophils (Bld) [#/Vol] 0.09 10*3/uL [facility] Eosinophils/100 WBC (Bld) 1.0 % 0.0 - 6.0 % [facility] Erythrocyte distribution width (RBC) [Ratio] 12.9 % 11.5 - 14.5 % [facility] Hematocrit (Bld) [Volume fraction] 40.5 % 36.0 - 46.0 % [facility] Hemoglobin (Bld) [Mass/Vol] 13.7 g/dL 12.0 - 16.0 g/dL [facility] Immature granulocytes (Bld) [#/Vol] 0.04 10*3/uL [facility] [facility] Immature granulocytes/100 WBC (Bld) 0.4 % 0.0 - 0.9 % [facility] Comment on above: Immature Granulocyte Count (IG) includes promyelocytes, myelocytes and metamyelocytes but does not include bands. Percent differential counts (%) should be interpreted in the context of the absolute cell counts (cells/UL). Interpretation and review of laboratory results Abnormal [facility] Lymphocytes (Bld) [#/Vol] 1.99 10*3/uL [facility] Lymphocytes/100 WBC (Bld) 21.8 % 13.0 - 44.0 % [facility] MCH (RBC) [Entitic mass] 31.7 pg 26.0 - 34.0 pg [facility] MCHC (RBC) [Mass/Vol] 33.8 g/dL 32.0 - 36.0 g/dL [facility] MCV (RBC) [Entitic vol] 94 fL 80 - 100 fL [facility] Monocytes (Bld) [#/Vol] 0.73 10*3/uL [facility] Monocytes/100 WBC (Bld) 8.0 % 2.0 - 10.0 % [facility] Neutrophils (Bld) [#/Vol] 6.22 10*3/uL High [facility] Comment on above: Percent differential counts (%) should be interpreted in the context of the absolute cell counts (cells/uL). Neutrophils/100 WBC (Bld) 68.3 % 40.0 - 80.0 % [facility] Nucleated RBC/100 WBC (Bld) [Ratio] 0.0 % [facility] Platelets (Bld) [#/Vol] 366 10*3/uL [facility] RBC (Bld) [#/Vol] 4.32 10*6/uL [facility] WBC (Bld) [#/Vol] 9.1 10*3/uL [facility] Basophils (Bld) [#/Vol] 0.05 x10*3/uL Normal 0.00-0.10 [facility] Comment on above: Performed By: #### 5 7021-8 #### ABDI MIKE ([id number]) [facility] ([facility]) [address] [place] [address] 67739 Basophils/100 WBC (Bld) 0.5 % Normal 0.0-2.0 [facility] Comment on above: Performed By: #### 7021-8 #### ABDI MIKE ([id number]) [facility] ([facility]) [address] [place] [address] 45191 Eosinophils (Bld) [#/Vol] 0.09 x10*3/uL Normal 0.00-0.40 [facility] Comment on above: Performed By: #### 7021-8 #### ABDI MIKE ([id number]) [facility] ([facility]) [address] [place] [address] 12513 Eosinophils/100 WBC (Bld) 1.0 % Normal 0.0-6.0 [facility] Comment on above: Performed By: #### 5 7021-8 #### ABDI MIKE ([id number]) [facility] ([facility]) [address] [place] [address] 86629 Erythrocyte distribution width (RBC) [Ratio] 12.9 % Normal 11.5-14.5 [facility] Comment on above: Performed By: #### 7021-8 #### ABDI MIKE ([id number]) [facility] ([facility]) [address] [place] [address] 13654 Hematocrit (Bld) [Volume fraction] 40.5 % Normal 36.0-46.0 [facility] Comment on above: Performed By: #### 5 7021-8 #### ABDI MIKE ([id number]) [facility] ([facility]) [facility] [place] [address] Hemoglobin (Bld) [Mass/Vol] 13.7 g/dL Normal 12.0-16.0 [facility] Comment on above: Performed By: #### 5 7021-8 #### ABDI MIKE ([id number]) [facility] ([facility]) [address] [place] [address] 23866 Immature granulocytes (Bld) [#/Vol] 0.04 x10*3/uL Normal 0.00-0.50 [facility] Comment on above: Performed By: #### 5 7021-8 #### ABDI MIKE ([id number]) [facility] ([facility]) [address] [place] [address] 99374 Immature granulocytes/100 WBC (Bld) 0.4 % Normal 0.0-0.9 [facility] Comment on above: Result Comment: Megan ture Granulocyte Count (IG) includes promyelocytes, myelocytes and metamyelocytes but does not include bands. Percent differential counts (%) should be interpreted in the context of the absolute cell counts (cells/UL). Performed By: #### 5 7021-8 #### ABDI MIKE ([id number]) [facility] ([facility]) [address] [place] [address] 71238 Lymphocytes (Bld) [#/Vol] 1.99 x10*3/uL Normal 0.80-3.00 [facility] Comment on above: Performed By: #### 5 7021-8 #### ABDI MIKE ([id number]) [facility] ([facility]) [address] [place] [address] 07895 Lymphocytes/100 WBC (Bld) 21.8 % Normal 13.0-44.0 [facility] Comment on above: Performed By: #### 5 7021-8 #### ABDI MIKE ([id number]) [facility] ([facility]) [address] [place] [address] 03653 MCH (RBC) [Entitic mass] 31.7 pg Normal 26.0-34.0 [facility] Comment on above: Performed By: #### 5 7021-8 #### ABDI MIKE ([id number]) [facility] ([facility]) [address] [place] [address] 95146 MCHC (RBC) [Mass/Vol] 33.8 g/dL Normal 32.0-36.0 [facility] Comment on above: Performed By: #### 5 7021-8 #### ABDI MIKE ([id number]) [facility] ([facility]) [address] [place] [address] 42563 MCV (RBC) [Entitic vol] 94 fL Normal 80-100 [facility] Comment on above: Performed By: #### 5 7021-8 #### ABDI MIKE ([id number]) [facility] ([facility]) [address] [place] [address] 18444 Monocytes (Bld) [#/Vol] 0.73 x10*3/uL Normal 0.05-0.80 [facility] Comment on above: Performed By: #### 5 7021-8 #### ABDI MIKE ([id number]) [facility] ([facility]) [address] [place] [address] 13409 Monocytes/100 WBC (Bld) 8.0 % Normal 2.0-10.0 [facility] Comment on above: Performed By: #### 5 7021-8 #### ABDI MIKE ([id number]) [facility] ([facility]) [address] [place] [address] 44160 Neutrophils (Bld) [#/Vol] 6.22 x10*3/uL High 1.60-5.50 [facility] Comment on above: Result Comment: Perc ent differential counts (%) should be interpreted in the context of the absolute cell counts (cells/uL). Performed By: #### 5 7021-8 #### ABDI MIKE ([id number]) [facility] ([facility]) [address] [place] [address] 63685 Neutrophils/100 WBC (Bld) 68.3 % Normal 40.0-80.0 [facility] Comment on above: Performed By: #### 5 7021-8 #### ABDI MIKE ([id number]) [facility] ([facility]) [address] [place] [address] 95776 Nucleated RBC/100 WBC (Bld) [Ratio] 0.0 /100 WBCs Normal 0.0-0.0 [facility] Comment on above: Performed By: #### 5 7021-8 #### ABDI MIKE ([id number]) [facility] ([facility]) [address] [place] [address] 69210 Platelets (Bld) [#/Vol] 366 x10*3/uL Normal 150-450 [facility] Comment on above: Performed By: #### 5 7021-8 #### ABDI MIKE ([id number]) [facility] ([facility]) [address] [place] [address] 64026 RBC (Bld) [#/Vol] 4.32 x10*6/uL Normal 4.00-5.20 [facility] Comment on above: Performed By: #### 5 7021-8 #### ABDI MIKE ([id number]) [facility] ([facility]) [address] [place] [address] 18484 WBC (Bld) [#/Vol] 9.1 x10*3/uL Normal 4.4-11.3 [facility] Comment on above: Performed By: #### 5 7021-8 #### ABDI MIKE ([id number]) [facility] ([facility]) [address] [place] [address] PRE WATCHMAN FULL CONTRAS Ton 07-01-2025 CT PRE WATCHMAN FULL CONTRAST Interpreted By: Tameka Mckeon and Amoah Joseph STUDY: CT PRE WATCHMAN FULL CONTRAST; 07/01/2025 1:34 pm INDICATION: Signs/Symptoms:AFib RVR - rule out thrombus. COMPARISON: CT abdomen and pelvis done on 07/25/2019, CT cardiac scoring done on 01/01/2019. ACCESSION NUMBER(S): [id number] ORDERING CLINICIAN: FRANCIS ZAMBRANO TECHNIQUE: Using multi-detector [...] Tameka Mckeon 07/08/2025 1:30 AM Dictation workstation: [id number] [facility] Comprehensive metabolic 2000 panelon 07-01-2025 Albumin BCP dye [Mass/Vol] 4.7 g/dL 3.4 - 5.0 g/dL [facility] ALP [Catalytic activity/Vol] 74 U/L 33 - 136 U/L [facility] ALT With P-5'-P [Catalytic activity/Vol] 16 U/L 7 - 45 U/L [facility] Comment on above: Patients treated wit h Sulfasalazine may generate falsely decreased results for ALT. Anion gap [Moles/Vol] 14 mmol/L 10 - 2 0 mmol/L [facility] AST With P-5'-P [Catalytic activity/Vol] 18 U/L 9 - 39 U/L [facility] Bilirubin [Mass/Vol] 0.7 mg/dL 0.0 - 1 .2 mg/dL [facility] Calcium [Mass/Vol] 9.9 mg/dL 8.6 - 10. 3 mg/dL [facility] Chloride [Moles/Vol] 99 mmol/L 98 - 10 7 mmol/L [facility] CO2 [Moles/Vol] 25 mmol/L 21 - 32 mmol/L [facility] Creatinine [Mass/Vol] 0.69 mg/dL 0.50 - 1.05 mg/dL [facility] GFR/1.73 sq M.predicted among non-blacks MDRD (S/P/Bld) [Vol rate/Area] 88 mL/min/{1.73_m2} - PINF [facility] Comment on above: Calculations of teresa mated GFR are performed using the 2020 CKD-EPI Study Refit equation without the race variable for the IDMS-Traceable creatinine methods. https://jasn.asnjournals.org/content//ASN.805296 4020 Glucose [Mass/Vol] 186 mg/dL High 74 - 99 mg/dL [facility] Potassium [Moles/Vol] 3.7 mmol/L 3.5 - 5.3 mmol/L [facility] Protein [Mass/Vol] 7.9 g/dL 6.4 - 8.2 g/dL [facility] Sodium [Moles/Vol] 134 mmol/L Low 136 - 145 mmol/L [facility] Urea nitrogen [Mass/Vol] 10 mg/dL 6 - 23 mg/dL [facility] Albumin BCP dye [Mass/Vol] 4.7 g/dL Normal 3.4-5.0 [facility] Comment on above: Performed By: #### 2 4323-8 #### ABDI MIEK ([id number]) [facility] ([facility]) [address] [place] [address] ALP [Catalytic activity/Vol] 74 U/L Normal 33-136 [facility] Comment on above: Performed By: #### 2 4323-8 #### ABDI MIKE ([id number]) [facility] ([facility]) [address] [place] [address] 90780 ALT With P-5'-P [Catalytic activity/Vol] 16 U/L Normal 7-45 [facility] Comment on above: Result Comment: Suzi ents treated with Sulfasalazine may generate falsely decreased results for ALT. Performed By: #### 2 4323-8 #### ABDI MIKE ([id number]) [facility] ([facility]) [address] [place] [address] 17189 Anion gap [Moles/Vol] 14 mmol/L Normal 10-20 [facility] Comment on above: Performed By: #### 2 4323-8 #### ABDI MIKE ([id number]) [facility] ([facility]) [address] [place] [address] 19624 AST With P-5'-P [Catalytic activity/Vol] 18 U/L Normal 9-39 [facility] Comment on above: Performed By: #### 2 4323-8 #### ABDI MIKE ([id number]) [facility] ([facility]) [address] [place] [address] 33554 Bilirubin [Mass/Vol] 0.7 mg/dL Normal 0.0-1.2 [facility] Comment on above: Performed By: #### 2 4323-8 #### ABDI MIKE ([id number]) [facility] ([facility]) [address] [place] [address] 14987 Calcium [Mass/Vol] 9.9 mg/dL Normal 8.6-10.3 [facility] Comment on above: Performed By: #### 2 4323-8 #### ABDI MIKE ([id number]) [facility] ([facility]) [address] [place] [address] 30082 Chloride [Moles/Vol] 99 mmol/L Normal 98-107 [facility] Comment on above: Performed By: #### 2 4323-8 #### ABDI MIKE ([id number]) [facility] ([facility]) [address] [place] [address] 17356 CO2 [Moles/Vol] 25 mmol/L Normal 21-32 [facility] Comment on above: Performed By: #### 2 4323-8 #### ABDI MIKE ([id number]) [facility] ([facility]) [address] [place] [address] 02630 Creatinine [Mass/Vol] 0.69 mg/dL Normal 0.50-1.05 [facility] Comment on above: Performed By: #### 2 4323-8 #### ABDI MIKE ([id number]) [facility] ([facility]) [address] [place] [address] 58471 Glomerular filtration rate 88 mL/min/1.73m*2 Normal >60 [facility] Comment on above: Result Comment: Calc ulations of estimated GFR are performed using the 2020 CKD-EPI Study Refit equation without the race variable for the IDMS-Traceable creatinine methods. https://jasn.asnjournals.org/content/early/ASN.766115 6975 Performed By: #### 2 4323-8 #### ABDI MIKE ([id number]) [facility] ([facility]) [address] [place] [address] Glucose [Mass/Vol] 186 mg/dL High 74-99 [facility] Comment on above: Performed By: #### 2 4323-8 #### ABDI MIKE ([id number]) [facility] ([facility]) [address] [place] [address] 76642 Potassium [Moles/Vol] 3.7 mmol/L Normal 3.5-5.3 [facility] Comment on above: Performed By: #### 2 4323-8 #### ABDI MIKE ([id number]) [facility] ([facility]) [address] [place] [address] 55991 Protein [Mass/Vol] 7.9 g/dL Normal 6.4-8.2 [facility] Comment on above: Performed By: #### 2 4323-8 #### ABDI MIKE ([id number]) [facility] ([facility]) [address] [place] [address] 17751 Sodium [Moles/Vol] 134 mmol/L Low 136-145 [facility] Comment on above: Performed By: #### 2 4323-8 #### ABDI MIKE ([id number]) [facility] ([facility]) [address] [place] [address] 18607 Urea nitrogen [Mass/Vol] 10 mg/dL Normal 6-23 [facility] Comment on above: Performed By: #### 2 4323-8 #### ABDI MIKE ([id number]) [facility] ([facility]) [address] [place] [address] 16099 D-Dimer, VTE Exclusionon Fibrin D-dimer FEU (PPP) [Mass/Vol] 698 High [facility] ECG 12-LEADon 07-01-2025 ECG 12-LEAD Ventricular Rate 123 QRS Duration 80 Q-T Interval 316 QTC Calculation(Bazett) 452 R [place] -21 T [place] 159 QRS Count 19 Q Onset 219 [...] Wheat ([id number]) on 07/05/2025 3:05:[address] [facility] ECG 12-LEAD Ventricular Rate 107 QRS Duration 86 Q-T Interval 322 QTC Calculation(Bazett) 429 R [place] -28 T [place] 79 QRS Count 18 Q Onset 216 [...] Martins ([id number]) on 07/02/2025 10:28:[address] [facility] Fibrin D-dimeron 07-01-2025 Fibrin D-dimer FEU (PPP) [Mass/Vol] 698 ng/mL FEU High <=500 [facility] Comment on above: Order Comment: The V TE Exclusion D-Dimer assay is reported in ng/mL Fibrinogen Equivalent Units (FEU). Per building dismantler's instructions for use, a value of less [...] By: #### 4 8065-7 #### PATTON CEE ([id number]) [facility] ([facility]) [address] [place] [address] Fibrin D-dimer FEU (PPP) [Ma ss/Vol]on 07-01-2025 The VTE Exclusion D- Dimer assay is reported in ng/mL Fibrinogen Equivalent Units (FEU). Per building dismantler's instructions for use, a value of less [...] assessment model for DVT or PE exclusion.) [facility] Lactateon 07-01-2025 Lactate [Moles/Vol] 1.3 mmol/L 0.4 - 2. 0 mmol/L [facility] Lactate [Moles/Vol] 1.3 mmol/L Normal 0.4-2.0 [facility] Comment on above: Order Comment: Venip uncture immediately after or during the administration of Metamizole may lead to falsely low results. Testing should be performed immediately prior to Metamizole dosing. Performed By: #### 5 7021-8 #### ABDI MIKE ([id number]) [facility] ([facility]) [address] [place] [address] 23067 Lactate [Moles/Vol] 2.2 mmol/L High 0.4 - 2. 0 mmol/L [facility] Lactate [Moles/Vol] 2.2 mmol/L High 0.4-2.0 [facility] Comment on above: Order Comment: Venip uncture immediately after or during the administration of Metamizole may lead to falsely low results. Testing should be performed immediately prior to Metamizole dosing. Performed By: #### 2 524-7 #### ABDI MIKE ([id number]) [facility] ([facility]) [address] [place] [address] 72709 Lactate [Moles/Vol]on 2024 Interpretation and review of laboratory results Normal [facility] Venipuncture immedia tely after or during the administration of Metamizole may lead to falsely low results. Testing should be performed immediately prior to Metamizole dosing. [facility] Interpretation and review of laboratory results Abnormal [facility] Venipuncture immedia tely after or during the administration of Metamizole may lead to falsely low results. Testing should be performed immediately prior to Metamizole dosing. [facility] Magnesiumon 07-01-2025 Magnesium [Mass/Vol] 1.88 mg/dL Normal 1.60-2.40 [facility] Comment on above: Performed By: #### 5 7021-8 #### PATTON CEE ([id number]) [facility] ([facility]) [address] [place] [address] No Panel Informationon 07-01 Interpretation and review of laboratory results Abnormal [facility] Interpretation and review of laboratory results Abnormal [facility] TRANSTHORACIC ECHO (TTE) COM PLETEon 07-01-2025 TRANSTHORACIC ECHO ([place]) [place] [address] ext-[id number], TRANSTHORACIC ECHOCARDIOGRAM REPORT Patient Name: DIANA Wheeler Physician: [id number] Thony Waite MD Study Date: 07/01/2025 Ordering Provider: [id number] FRANCIS ZAMBRANO MRN/PID: [id number] Fellow: Nurse: Date of /Age: 11 1945 / 79 years Whipped Topping Mixer: Roman Fishman RDCS Gender Assigned at F Additional Staff: : Height: 152.40 cm Admit Date: Weight: 72.58 kg Admission Status: Inpatient - Routine BSA / BMI: 1.70 m2 / 31.25 Department Location: [address]-ICU kg/m2 Blood Pressure: 130 /84 mmHg Study Type: TRANSTHORACIC ECHO (TTE) COMPLETE Diagnosis/ICD: Paroxysmal atrial fibrillation-I48.0 CPT Codes: Echo Complete w Full Doppler-05832 Study Detail: The following Echo studies were [...] LA Area A2C: 10.5 cm2 LA Major [place] A4C: 5.1 cm LA Major [place] A2C: 4.5 cm LA Volume Index: 16.2 [...] 2.23 cm2 (2.5-4.5cm2) AoV Dimensionless Index: 0.79 [id number] Thony Waite MD Electronically signed on 07/01/2025 at 4:03:44 PM Final Normal [facility] TSH Qnon 07-01-2025 Interpretation and review of laboratory results Normal [facility] TSH testing is perfo rmed using different testing methodology at [facility] than at other system [facility]. Direct result comparisons should only be made within the same method. [facility] Thyroid Stimulating Hormoneo n 07-01-2025 TSH Qn 1.25 m[IU]/L [facility] Thyrotropinon 07-01-2025 TSH Qn 1.25 m[IU]/L Normal 0.44-3.98 [facility] Comment on above: Order Comment: TSH t esting is performed using different testing methodology at [facility] than at other system [facility]. Direct result comparisons should only be made within the same method. Performed By: #### 3 016-3 #### PATTON CEE ([id number]) [facility] ([facility]) [address] [place] [address] Tropinin I.cardiac panel Hig h sensitivity methodon [...] performed using a different testing methodology at [facility] than at other [facility]. Direct result comparisons should only be made within the same method. [facility] Interpretation and review of laboratory results Normal [facility] Less than 99th perce ntile of [...] performed using a different testing methodology at [facility] than at other [facility]. Direct result comparisons should only be made within the same method. [facility] Troponin I, High Sensitivity , Initialon 07-01-2025 Tropinin I.cardiac panel High sensitivity method 7 ng/L 0 - 13 ng/L [facility] Troponin I.cardiac panelon 0 07-01-2025 Tropinin I.cardiac panel High sensitivity method 6 ng/L Normal 0-13 [facility] Comment on above: Order Comment: Less than [...] performed using a different testing methodology at [facility] than at other [facility]. Direct result comparisons should only be made within the same method. Performed By: #### 8 9577-1 #### PATTON CEE ([id number]) [facility] ([facility]) [address] [place], [place] [address] Tropinin I.cardiac panel High sensitivity method 7 ng/L Normal 0-13 [facility] Comment on above: Order Comment: Less than [...] performed using a different testing methodology at [facility] than at other [facility]. Direct result comparisons should only be made within the same method. Performed By: #### 8 9577-1 #### PATTON CEE ([id number]) [facility] ([facility]) [address] [place], [place] [address] Troponin, High Sensitivity, 1 Houron 07-01-2025 Tropinin I.cardiac panel High sensitivity method 6 ng/L 0 - 13 ng/L [facility] US Heart TransthoracicOrdere d By: Thony Waite on 07-01-2025 Aortic Valve Area by Continuity of Peak Velocity 2.23 cm2 [facility] Work Phone: [phone] Aortic Valve Area by Continuity of VTI 2.25 cm2 [facility] Work Phone: [phone] AV mn grad 2 mmHg [facility] Work Phone: [phone] AV pk grad 4 mmHg [facility] Work Phone: [phone] AV pk lauren 1.02 m/s [facility] Work Phone: [phone] LA vol index A/L 14.0 ml/m2 [facility] Work Phone: [phone] LV A4C EF 60.8 [facility] Work Phone: [phone] LV Biplane EF 55 % [facility] Work Phone: [phone] LV EF 65 % [facility] Work Phone: [phone] LVIDd 3.96 cm [facility] Work Phone: [phone] LVOT diam 1.90 cm [facility] Work Phone: [phone] [facility] Work Phone: [phone] [place] [address] ext-2528, TRANSTHORACIC ECHOCARDIOGRAM REPORT Patient Name: DIANA Wheeler Physician: [id number] Thony Waite MD Study Date: 07/01/2025 Ordering Provider: [id number] FRANCIS ZAMBRANO MRN/PID: [id number] Fellow: Nurse: Date of /Age: 11 1945 / 79 years Whipped Topping Mixer: Roman Fishman RDCS Gender Assigned at F Additional Staff: : Height: 152.40 cm Admit Date: Weight: 72.58 kg Admission Status: Inpatient - Routine BSA / BMI: 1.70 m2 / 31.25 Department Location: [address] kg/m2 Blood Pressure: 130 /84 mmHg Study Type: TRANSTHORACIC ECHO (TTE) COMPLETE Diagnosis/ICD: Paroxysmal atrial fibrillation-I48.0 CPT Codes: Echo Complete w Full Doppler-91315 Study Detail: The following Echo studies were [...] LA Area A2C: 10.5 cm2 LA [place] A4C: 5.1 cm LA [place] A2C: 4.5 cm LA Volume Index: 16.2 [...] 2.23 cm2 (2.5-4.5cm2) AoV Dimensionless Index: 0.79 [id number] Thony Waite MD Electronically signed on 07/01/2025 at 4:03:44 PM Final Thony Reinoso MD - 07/01/2025 [place] [address] ext-[id number], TRANSTHORACIC ECHOCARDIOGRAM REPORT Patient Name: DIANA Wheeler Physician: [id number] Thony Waite MD Study Date: 07/01/2025 Ordering Provider: [id number] FRANCIS KENDRICKN/PID: [id number] Fellow: Nurse: Date of /Age: 11 1945 / 79 years Whipped Topping Mixer: Roman Fishman RDCS Gender Assigned at F Additional Staff: : Height: 152.40 cm Admit Date: Weight: 72.58 kg Admission Status: Inpatient - Routine BSA / BMI: 1.70 m2 / 31.25 [address] Blood Pressure: 130 /84 mmHg Study Type: TRANSTHORACIC ECHO (TTE) COMPLETE Diagnosis/ICD: Paroxysmal atrial fibrillation-I48.0 CPT Codes: Echo Complete w Full Doppler-67931 Study Detail: The following Echo studies were [...] [place] Area A2C: 10.5 cm2 [place] A4C: 5.1 cm [place] A2C: 4.5 cm [place] Volume Index: 16.2 [...] 2.23 cm2 (2.5-4.5cm2) AoV Dimensionless Index: 0.79 [id number] Thony Waite MD Electronically signed on 07/01/2025 at 4:03:44 PM Final [facility] Work Phone: Urinalysis complete W Reflex Culture panel (U)on 07-01-2025 Appearance (U) Clear Clear [facility] Bilirubin (U) [Mass/Vol] Negative NEGATIVE mg/dL [facility] Color (U) Colorless Abnormal Light-Yellow , Yellow, Dark-Yellow [facility] Glucose Auto test strip (U) [Mass/Vol] Normal Normal mg/dL [facility] Ketones (U) [Mass/Vol] Negative NEGATIVE mg/dL [facility] Leukocyte esterase Auto test strip Ql (U) 250 Yancy/uL Abnormal NEGATIVE [facility] Nitrite Auto test strip Ql (U) Negative NEGATIVE [facility] pH (U) 6.5 [pH] 5.0, 5.5, 6.0, 6.5, 7.0, 7.5, 8.0 [facility] Protein (U) [Mass/Vol] Negative NEGATIVE, 10 (TRACE), 20 (TRACE) mg/dL [facility] RBC (U) [#/Vol] 0.03 (TRACE) Abnormal NEGATIVE mg/dL [facility] Specific gravity (U) [Rel density] 1.007 1.005 - 1.035 [facility] Urobilinogen (U) [Mass/Vol] Normal Normal mg/dL [facility] Appearance (U) Clear Normal Clear [facility] Comment on above: Performed By: #### 5 8077-9 #### ABDI MIKE ([id number]) [facility] ([facility]) [address] [place] [address] Bilirubin (U) [Mass/Vol] Negative Normal NEGATIVE [facility] Comment on above: Performed By: ###Fred 5 8077-9 #### ABDI MIKE ([id number]) [facility] ([facility]) [address] [place] [address] Color (U) Colorless Normal Light-Yellow , Yellow, Dark-Yellow [facility] Comment on above: Performed By: #### 5 8077-9 #### ABDI MIKE ([id number]) [facility] ([facility]) [address] [place] [address] Glucose Auto test strip (U) [Mass/Vol] Normal Normal Normal [facility] Comment on above: Performed By: #### 5 8077-9 #### ABDI MIKE ([id number]) [facility] ([facility]) [address] [place] [address] Ketones (U) [Mass/Vol] Negative Normal NEGATIVE [facility] Comment on above: Performed By: #### 5 8077-9 #### ABDI MIKE ([id number]) [facility] ([facility]) [address] [place] [address] Leukocyte esterase Auto test strip Ql (U) 250 Yancy/uL Abnormal NEGATIVE [facility] Comment on above: Performed By: #### 5 8077-9 #### ABDI MIKE ([id number]) [facility] ([facility]) [address] [place] [address] Nitrite Auto test strip Ql (U) Negative Normal NEGATIVE [facility] Comment on above: Performed By: #### 5 8077-9 #### ABDI MIKE ([id number]) [facility] ([facility]) [address] [place] [address] pH (U) 6.5 [pH] Normal 5.0, 5.5, 6.0, 6.5, 7.0, 7.5, 8.0 [facility] Comment on above: Performed By: #### 5 8077-9 #### ABDI MIKE ([id number]) [facility] ([facility]) [address] [place] [address] Protein (U) [Mass/Vol] Negative Normal NEGATIVE, 10 (TRACE), 20 (TRACE) [facility] Comment on above: Performed By: #### 5 8077-9 #### ABDI MIKE ([id number]) [facility] ([facility]) [address] [place] [address]55[address] RBC (U) [#/Vol] 0.03 (TRACE) Abnormal NEGATIVE [facility] Comment on above: Performed By: #### 5 8077-9 #### ABDI MIKE ([id number]) [facility] ([facility]) [address] [place] [address] Specific gravity (U) [Rel density] 1.007 Normal 1.005-1.035 [facility] Comment on above: Performed By: #### 5 8077-9 #### ABDI MIKE ([id number]) [facility] ([facility]) [address] [place] [address] Urobilinogen (U) [Mass/Vol] Normal Normal Normal [facility] Comment on above: Performed By: #### 5 8077-9 #### ABDI MIKE ([id number]) [facility] ([facility]) [address] [place] [address] Urinalysis microscopic panel Auto Ql (U)on 07-01-2025 Bacteria Auto (Urine sed) [#/Area] 1+ Abnormal NONE SEEN /HPF [facility] Hyaline casts Auto (Urine sed) [#/Area] 1+ Abnormal NONE /LPF [facility] RBC Auto (Urine sed) [#/Area] 3-5 NONE, 1-2, 3-5 /HPF [facility] WBC Auto (Urine sed) [#/Area] 1-5 1-5, NONE /HPF [facility] Bacteria Auto (Urine sed) [#/Area] 1+ /HPF Abnormal NONE SEEN [facility] Comment on above: Performed By: #### 5 3315-8 #### ABDI MIKE ([id number]) [facility] ([facility]) [address] [place] [address] Hyaline casts Auto (Urine sed) [#/Area] 1+ /LPF Abnormal NONE [facility] Comment on above: Performed By: #### 5 3315-8 #### ABDI MIKE ([id number]) [facility] ([facility]) [address] [place] [address] RBC Auto (Urine sed) [#/Area] 3-5 Normal NONE, 1-2, 3-5 [facility] Comment on above: Performed By: #### 5 3315-8 #### PATTON CEE ([id number]) [facility] ([facility]) [facility] [place] [address] WBC Auto (Urine sed) [#/Area] 1-5 Normal 1-5, NONE [facility] Comment on above: Performed By: #### 5 3315-8 #### PATTON ROBYNANGEL ([id number]) [facility] ([facility]) [address] [place], [place] [address] XR CHEST 1 VIEWon 07-01-2025 XR CHEST 1 VIEW Interpreted By: Odin Agarwal, STUDY: XR CHEST 1 VIEW; 07/01/2025 10:30 am INDICATION: Signs/Symptoms:Palpitatio ns. COMPARISON: CT scan abdomen and pelvis from 07/25/2019. Chest x-ray from 02/08/2012. ACCESSION NUMBER(S): [id number] ORDERING CLINICIAN: ALEXANDER CUMMINGS TECHNIQUE: Single AP portable view of the chest was obtained. FINDINGS: MEDIASTINUM/ LUNGS/ BERYL: Mild cardiomegaly, currently without vascular congestion, or pleural effusion. No abnormal opacity in either lung worrisome for tumor or pneumonia. No pneumothorax. No tracheal deviation. No abnormal hilar fullness or gross mass on either side. BONES: No lytic or blastic destructive bone lesion. There is xplo-sc-kebrfgad disc space narrowing and endplate osteophytosis throughout the thoracic spine. UPPER ABDOMEN: Grossly intact. IMPRESSION: Thoracic spine DJD as described. Mild cardiomegaly. Currently without radiographic evidence of CHF or pneumonia. MACRO: None Signed by: Odin Neri 07/01/2025 10:34 AM Dictation workstation: [id number] Normal [facility] XR Chest Single viewon 07-01 Thoracic spine DJD a s described. Mild cardiomegaly. Currently without radiographic evidence of CHF or pneumonia. MACRO: None Signed by: Odin Neri 07/01/2025 10:34 AM Dictation workstation: [id number] MMODAL Interpreted By: Odin Agarwal, STUDY: XR CHEST 1 VIEW; 07/01/2025 10:30 am INDICATION: Signs/Symptoms:Palpitatio ns. COMPARISON: CT scan abdomen and pelvis from 07/25/2019. Chest x-ray from 02/08/2012. ACCESSION NUMBER(S): [id number] ORDERING CLINICIAN: ALEXANDER CUMMINGS TECHNIQUE: Single AP portable view of the chest was obtained. FINDINGS: MEDIASTINUM/ LUNGS/ BERYL: Mild cardiomegaly, currently without vascular congestion, or pleural effusion. No abnormal opacity in either lung worrisome for tumor or pneumonia. No pneumothorax. No tracheal deviation. No abnormal hilar fullness or gross mass on either side. BONES: No lytic or blastic destructive bone lesion. There is fdut-pb-lssjredh disc space narrowing and endplate osteophytosis throughout the thoracic spine. UPPER ABDOMEN: Grossly intact. MMODAL Odin Neri MD - 07/01/2025 Interpreted By: Odin Neri, STUDY: XR CHEST 1 VIEW; 07/01/2025 10:30 am INDICATION: Signs/Symptoms:Palpitatio ns. COMPARISON: CT scan abdomen and pelvis from 07/25/2019. Chest x-ray from 02/08/2012. ACCESSION NUMBER(S): [id number] ORDERING CLINICIAN: ALEXANDER CUMMINGS TECHNIQUE: Single AP portable view of the chest was obtained. FINDINGS: MEDIASTINUM/ LUNGS/ BERYL: Mild cardiomegaly, currently without vascular congestion, or pleural effusion. No abnormal opacity in either lung worrisome for tumor or pneumonia. No pneumothorax. No tracheal deviation. No abnormal hilar fullness or gross mass on either side. BONES: No lytic or blastic destructive bone lesion. There is zuus-tq-yedejhxn disc space narrowing and endplate osteophytosis throughout the thoracic spine. UPPER ABDOMEN: Grossly intact. IMPRESSION: Thoracic spine DJD as described. Mild cardiomegaly. Currently without radiographic evidence of CHF or pneumonia. MACRO: None Signed by: Odin Neri 07/01/2025 10:34 AM Dictation workstation: [id number] [facility] Work Phone: Radiology Study observation (narrative) [facility] Work Phone: XR Chest Single viewOrdered By: Odin Neri on 07-01-2025 [facility] Work Phone: TSHon 06-28-2025 TSH Qn 1.15 m[IU]/L Normal 0.40-4.50 [facility] Comment on above: Order Comment: FASTI NG:NO FASTING: NO Performed By: #### 8 99 #### [facility] of [address], [address] [place] [address] Engine Manager: Joe Braga MD BASIC METABOLIC PANEL WITH A NION GAPon 06-21-2025 BUN/CREATININE RATIO SEE NOTE: Normal 6-22 [facility] Comment on above: Result Comment: Not Reported: BUN and Creatinine are within reference range. Performed By: #### 1 6802, 32118, 7600 #### [facility] [address], [address] [place] [address] Engine Manager: Joe Braga MD Calcium [Mass/Vol] 10.1 mg/dL Normal 8.6-10.4 [facility] Comment on above: Performed By: #### 1 6802, 48318, 7600 #### [facility] of [address], [address] [place] [address] Engine Manager: Joe Braga MD Chloride [Moles/Vol] 99 mmol/L Normal 98-110 [facility] Comment on above: Performed By: #### 1 6802, 03867, 7600 #### [facility] [place] [address] Engine Manager: Joe Braga MD CO2 [Moles/Vol] 26 mmol/L Normal 20-32 [facility] Comment on above: Performed By: #### 1 6802, 34782, 7600 #### [facility] of [address], [address] [place] [address] Engine Manager: Joe Braga MD Creatinine [Mass/Vol] 0.67 mg/dL Normal 0.60-0.[address] [facility] [address] [facility] Comment on above: Performed By: #### 1 6802, 07614, 7600 #### [facility] [address], [address] [place] [address] Engine Manager: Joe Braga MD ELECTROLYTE BALANCE 11 mmol/L (calc) Normal 7-17 [facility] Comment on above: Performed By: #### 1 6802, 59152, 7600 #### [facility] [place] [address] Engine Manager: Joe Braga MD GFR/1.73 sq M.predicted among non-blacks MDRD (S/P/Bld) [Vol rate/Area] 88 mL/min/{1.73_m2} Normal > OR = 60 [facility] Comment on above: Performed By: #### 1 680, 03605, 7600 #### [facility] [place] [address] Engine Manager: Joe Braga MD Glucose [Mass/Vol] 108 mg/dL High 65-99 [facility] Comment on above: Result Comment: Fasting reference interval For someone without known diabetes, a glucose value between 100 and 125 mg/dL is consistent with prediabetes and should be confirmed with a follow-up test. Performed By: #### 1 680, 48174, 7600 #### [facility] [address], [address] [place] [address] Engine Manager: Joe Braga MD Potassium [Moles/Vol] 4.5 mmol/L Normal 3.5-5.[address] [facility] Comment on above: Performed By: #### 1 680, 54749, 7600 #### [facility] [place] [address] Engine Manager: Joe Braga MD Sodium [Moles/Vol] 136 mmol/L Normal 135-146 [facility] Comment on above: Performed By: #### 1 6802, 93439, 7600 #### [facility] [place] [address] Engine Manager: Joe Braga MD Urea nitrogen [Mass/Vol] 11 mg/dL Normal 7-25 [facility] Comment on above: Performed By: #### 1 6802, 74496, 7600 #### [facility] [address], [address] [place] [address] Engine Manager: Joe Braga MD HEMOGLOBIN A1c WITH eAGon eAG (mmol/L) 6.6 mmol/L Normal [facility] Comment on above: Performed By: #### 1 6802, 02428, 7600 #### [facility] [address], [address] [place] [address] Engine Manager: Joe Braga MD HbA1c (Bld) [Mass [...] for children. Performed By: #### 1 6802, 18786, 7600 #### [facility] [address], [address] [place] [address] Engine Manager: Joe Braga MD Magnesium [Mass/Vol] 120 mg/dL Normal [facility] Comment on above: Performed By: #### 1 6802, 89731, 7600 #### [facility] [place] [address] Engine Manager: Joe Braga MD LIPID PANEL, STANDARD Cholesterol [Mass/Vol] 199 mg/dL Normal <200 [facility] Comment on above: Order Comment: FASTI NG:YES FASTING: YES Performed By: #### 1 6802, 57186, 7600 #### [facility] [address], [address] [place] [address] Engine Manager: Joe Braga MD Cholesterol in HDL [Mass/Vol] 66 mg/dL Normal > OR = 50 [facility] Comment on above: Order Comment: FASTI NG:YES FASTING: YES Performed By: #### 1 6802, 35155, 7600 #### [facility] [address], [address] [place] [address] Engine Manager: Joe Braga MD Cholesterol in LDL [...] LDL-C. Dexter CHÁVEZ et al. OSCAR. 2013;310(19): 8700-8562 (http://education.Snippets.Healthrageous/faq/PGG572) Performed By: #### 1 6802, 91788, 7600 #### [facility] [address], [address] [place] [address] Engine Manager: Joe Braga MD Cholesterol.total/Cho lesterol in HDL [Mass ratio] 3.0 {ratio} Normal <5.0 [facility] Comment on above: Order Comment: FASTI NG:YES FASTING: YES Performed By: #### 1 6802, 43190, 7600 #### [facility] [address], [address] [place] [address] Engine Manager: Joe Braga MD NON HDL CHOLESTEROL 133 mg/dL (calc) High <130 [facility] Comment on above: Order Comment: FASTI NG:YES FASTING: YES Result Comment: For patients with diabetes plus 1 major ASCVD risk factor, treating to a non-HDL-C goal of <100 mg/dL (LDL-C of <70 mg/dL) is considered a therapeutic option. Performed By: #### 1 6802, 74568, 7600 #### [facility] [address], [address] [place] [address] Engine Manager: Joe Braga MD Triglyceride [Mass/Vol] 103 mg/dL Normal <150 [facility] Comment on above: Order Comment: FASTI NG:YES FASTING: YES Performed By: #### 1 1612, 47469, 1320 #### [facility] [address], [address] [place] [address] Engine Manager: Joe Braga MD BASIC METABOLIC PANEL WITH A CORNELIUS GAPon 03-12-2025 BUN/CREATININE RATIO SEE NOTE: Normal - [facility] Comment on above: Order Comment: FASTI NG:YES FASTING: YES Result Comment: Not Reported: BUN and Creatinine are within reference range. Performed By: #### 9 4590 #### [facility] [place] [address] Engine Manager: Joe Braga MD Calcium [Mass/Vol] 9.8 mg/dL Normal 8.6-10.4 [facility] Comment on above: Order Comment: FASTI NG:YES FASTING: YES Performed By: #### 9 0178 #### [facility] [address], [address] [place] [address] Engine Manager: Joe Braga MD Chloride [Moles/Vol] 99 mmol/L Normal 98-110 [facility] Comment on above: Order Comment: FASTI NG:YES FASTING: YES Performed By: #### 9 8648 #### [facility] [place] [address] Engine Manager: Joe Braga MD CO2 [Moles/Vol] 23 mmol/L Normal 20-32 [facility] Comment on above: Order Comment: FASTI NG:YES FASTING: YES Performed By: #### 9 1256 #### [facility] [place] [address] Engine Manager: Joe Braga MD Creatinine [Mass/Vol] 0.78 mg/dL Normal 0.60-0.[address] [facility] [address] [facility] Comment on above: Order Comment: FASTI NG:YES FASTING: YES Performed By: #### 9 0294 #### [facility] [address] [place] [address] Engine Manager: Joe Braga MD ELECTROLYTE BALANCE 15 mmol/L (calc) Normal 7-17 [facility] Comment on above: Order Comment: FASTI NG:YES FASTING: YES Performed By: #### 9 9158 #### [facility] [address], [address] [place] [address] Engine Manager: Joe Braga MD GFR/1.73 sq M.predicted among non-blacks MDRD (S/P/Bld) [Vol rate/Area] 77 mL/min/{1.73_m2} Normal > OR = 60 [facility] Comment on above: Order Comment: FASTI NG:YES FASTING: YES Performed By: #### 9 8048 #### [facility] [address], [address] [place] [address] Engine Manager: Joe Braga MD Glucose [Mass/Vol] 131 mg/dL High 65-99 [facility] Comment on above: Order Comment: FASTI NG:YES FASTING: YES Result Comment: Fasting reference interval For someone without known diabetes, a glucose value >125 mg/dL indicates that they may have diabetes and this should be confirmed with a follow-up test. Performed By: #### 9 0978 #### [facility] [address], [address] [place] [address] Engine Manager: Joe Braga MD Potassium [Moles/Vol] 4.7 mmol/L Normal 3.5-5.[address] [facility] Comment on above: Order Comment: FASTI NG:YES FASTING: YES Performed By: #### 9 9488 #### [facility] [address], [address] [place] [address] Engine Manager: Joe Braga MD Sodium [Moles/Vol] 137 mmol/L Normal 135-146 [facility] Comment on above: Order Comment: FASTI NG:YES FASTING: YES Performed By: #### 9 7448 #### [facility] [address], [address] [place] [address] Engine Manager: Joe Braga MD Urea nitrogen [Mass/Vol] 12 mg/dL Normal 7-25 [facility] Comment on above: Order Comment: FASTI NG:YES FASTING: YES Performed By: #### 9 2498 #### [facility] [place] [address] Engine Manager: Joe Braga MD BASIC METABOLIC PANEL WITH A CORNELIUS COYNEon 12-18-2024 BUN/CREATININE RATIO SEE NOTE: Normal 6-22 [facility] Comment on above: Order Comment: FASTI NG:YES FASTING: YES Result Comment: Not Reported: BUN and Creatinine are within reference range. Performed By: #### 1 6802, 71785, 71825, 899 #### [facility] [address], [address] [place] [address] Engine Manager: Joe Braga MD Calcium [Mass/Vol] 9.9 mg/dL Normal 8.6-10.4 [facility] Comment on above: Order Comment: FASTI NG:YES FASTING: YES Performed By: #### 1 6802, 17618, 56507, 899 #### [facility] [address], [address] [place] [address] Engine Manager: Joe Braga MD Chloride [Moles/Vol] 100 mmol/L Normal 98-110 [facility] Comment on above: Order Comment: FASTI NG:YES FASTING: YES Performed By: #### 1 6802, 56938, 50781, 899 #### [facility] [place] [address] Engine Manager: Joe Braga MD CO2 [Moles/Vol] 28 mmol/L Normal 20-32 [facility] Comment on above: Order Comment: FASTI NG:YES FASTING: YES Performed By: #### 1 6802, 62991, 56139, 899 #### [facility] [place] [address] Engine Manager: Joe Braga MD Creatinine [Mass/Vol] 0.64 mg/dL Normal 0.60-0.95 [facility] Comment on above: Order Comment: FASTI NG:YES FASTING: YES Performed By: #### 1 6802, 90420, 81545, 899 #### [facility] [address], [address] [place] [address] Engine Manager: Joe Braga MD ELECTROLYTE BALANCE 8 mmol/L (calc) Normal 7-17 [facility] Comment on above: Order Comment: FASTI NG:YES FASTING: YES Performed By: #### 1 6802, 96693, 08513, 899 #### [facility] [address], [address] [place] [address] Engine Manager: Joe Braga MD GFR/1.73 sq M.predicted among non-blacks MDRD (S/P/Bld) [Vol rate/Area] 89 mL/min/{1.73_m2} Normal > OR = 60 [facility] Comment on above: Order Comment: FASTI NG:YES FASTING: YES Performed By: #### 1 6802, 00364, 43612, 899 #### [facility] [address], [address] [place] [address] Engine Manager: Joe Braga MD Glucose [Mass/Vol] 114 mg/dL High 65-99 [facility] Comment on above: Order Comment: FASTI NG:YES FASTING: YES Result Comment: Fasting reference interval For someone without known diabetes, a glucose value between 100 and 125 mg/dL is consistent with prediabetes and should be confirmed with a follow-up test. Performed By: #### 1 6802, 57637, 57068, 899 #### [facility] [address], [address] [place] [address] Engine Manager: Joe Braga MD Potassium [Moles/Vol] 4.1 mmol/L Normal 3.5-5.[address] [facility] Comment on above: Order Comment: FASTI NG:YES FASTING: YES Performed By: #### 1 6802, 65690, 54396, 899 #### [facility] [address], [address] [place] [address] Engine Manager: Joe Braga MD Sodium [Moles/Vol] 136 mmol/L Normal 135-146 [facility] Comment on above: Order Comment: FASTI NG:YES FASTING: YES Performed By: #### 1 6802, 09719, 23627, 899 #### [facility] [address], [address] [place] [address] Engine Manager: Joe Braga MD Urea nitrogen [Mass/Vol] 8 mg/dL Normal 7-25 [facility] Comment on above: Order Comment: FASTI NG:YES FASTING: YES Performed By: #### 1 6802, 38903, 62538, 899 #### [facility] [address], [address] [place] [address] Engine Manager: Joe Braga MD HEMOGLOBIN A1c WITH eAGon eAG (mmol/L) 6.8 mmol/L Normal [facility] Comment on above: Performed By: #### 1 6802, 69435, 07414, 899 #### [facility] [address], [address] [place] [address] Engine Manager: Joe Braga MD HEMOGLOBIN A1c 5.9 [...] for children. Performed By: #### 1 6802, 23581, 89386, 899 #### [facility] [address], [address] [place] [address] Engine Manager: Joe Braga MD Magnesium [Mass/Vol] 123 mg/dL Normal [facility]ues [facility] Comment on above: Performed By: #### 1 6802, 86897, 08682, 899 #### [facility] [address] [place] [address] [address], [address] Engine Manager: Joe Braga MD TSHon 12-18-2024 TSH Qn 1.60 m[IU]/L Normal 0.40-4.50 [facility] Comment on above: Performed By: #### 1 6802, 45100, 63735, 899 #### [facility] [address], [address] [place] [address] Engine Manager: Joe Braga MD VITAMIN D,25-OH,TOTAL,IAon 0 [...] D, (D2,D3), LC/MS/MS is recommended: order code 59643 (patients >2yrs). See Note 1 Note 1 For additional information, please refer to http://education.Precog/faq/PYZ545 (This link is being provided for informational/ educational purposes only.) Performed By: #### 1 6802, 35510, 00059, 899 #### [facility] [address], [address] [place] [address] Engine Manager: Joe Braga MD Basic metabolic 2000 panelon 06-18-2024 Anion gap [Moles/Vol] 13 mmol/L Normal 10-20 [facility] Comment on above: Performed By: #### 2 4321-2 #### ABDI MIKE ([id number]) [facility] ([facility]) [address] [place] [address] Calcium [Mass/Vol] 9.7 mg/dL Normal 8.6-10.3 [facility] Comment on above: Performed By: #### 2 4321-2 #### ABDI MIKE ([id number]) [facility] ([facility]) [facility] [place] [address] Chloride [Moles/Vol] 98 mmol/L Normal 98-107 [facility] Comment on above: Performed By: #### 2 4321-2 #### ABDI MIKE ([id number]) [facility] ([facility]) [facility] [place] [address] CO2 [Moles/Vol] 28 mmol/L Normal 21-32 [facility] Comment on above: Performed By: #### 2 4321-2 #### ABDI MIKE ([id number]) [facility] ([facility]) [address] [place] [address] 36152 Creatinine [Mass/Vol] 0.67 mg/dL Normal 0.50-1.05 [facility] Comment on above: Performed By: #### 2 4320-2 #### ABDI MIKE ([id number]) [facility] ([facility]) [address] [place] [address] 97701 Glomerular filtration rate/1.73 sq M.predicted 89 mL/min/1.73m*2 Normal >60 [facility] Comment on above: Result Comment: Calc ulations of estimated GFR are performed using the 2020 CKD-EPI Study Refit equation without the race variable for the IDMS-Traceable creatinine methods. https://jasn.asnjournals.org/content//ASN.822377 2988 Performed By: #### 2 4321-2 #### ABDI MIKE ([id number]) [facility] ([facility]) [address] [place] [address] 03064 Glucose [Mass/Vol] 107 mg/dL High 74-99 [facility] Comment on above: Performed By: #### 2 4321-2 #### ABDI MIKE ([id number]) [facility] ([facility]) [address] [place] [address] 94503 Potassium [Moles/Vol] 4.4 mmol/L Normal 3.5-5.3 [facility] Comment on above: Performed By: #### 2 4321-2 #### ABDI MIKE ([id number]) [facility] ([facility]) [address] [place] [address] 54415 Sodium [Moles/Vol] 135 mmol/L Low 136-145 [facility] Comment on above: Performed By: #### 2 4321-2 #### ABDI MIKE ([id number]) [facility] ([facility]) [address] [place] [address] 48691 Urea nitrogen [Mass/Vol] 8 mg/dL Normal 6-23 [facility] Comment on above: Performed By: #### 2 4321-2 #### ABDI MIKE ([id number]) [facility] ([facility]) [address] [place] [address] 10269 HbA1c (Bld) [Mass fraction]o n 06-18-2024 Average glucose Estimated from glycated hemoglobin (Bld) [Mass/Vol] 111 mg/dL Normal Not Established [facility] Comment on above: Order Comment: Diagn osis of Diabetes-Adults Non-Diabetic: < or = 5.6% Increased risk for developing diabetes: 5.7-6.4% Diagnostic of diabetes: > or = 6.5% Performed By: #### 4 548-4 #### KETURAH Jimenez ([id number]) [facility] ([facility]) [address] [place], [place] [id number] Hemoglobin A1c/Hemoglobin.to divine 06-18-2024 HbA1c (Bld) [Mass fraction] 5.5 % Normal see below [facility] Comment on above: Order Comment: Diagn osis of Diabetes-Adults Non-Diabetic: < or = 5.6% Increased risk for developing diabetes: 5.7-6.4% Diagnostic of diabetes: > or = 6.5% Performed By: #### 4 548-4 #### KETURAH Jimenez ([id number]) [facility] ([facility]) [address] [place] [address] 17372 Lipid 1996 panelon Cholesterol [Mass/Vol] 189 mg/dL Normal 0-199 [facility] Comment on above: Result Comment: [...] dosing. Performed By: #### 2 4331-1 #### ADBI MIKE ([id number]) [facility] ([facility]) [address] [place] [address] 52382 Cholesterol in HDL [Mass/Vol] 67.0 mg/dL Normal [facility] Comment on above: Result Comment: Age Very Low Low Normal High 0-19 Y < 35 < 40 40-45 ---- 20-24 Y ---- < 40 >45 ---- >24 Y ---- < 40 40-60 >60 Performed By: #### 2 4331-1 #### ABDI MIKE ([id number]) [facility] ([facility]) [address] [place] [address] 22099 Cholesterol in LDL [Mass/Vol] 97 mg/dL Normal <=99 [facility] Comment on above: Result Comment: Near Borderline AGE Desirable Optimal High High Very High 0-19 Y 0 - 109 --- 110-129 >/= 130 ---- 20-24 Y 0 - 119 --- 120-159 >/= 160 ---- >24 Y 0 - 99 100-129 130-159 160-189 >/=190 Performed By: #### 2 4331-1 #### ABDI MIKE ([id number]) [facility] ([facility]) [address] [place] [address] 13409 Cholesterol in VLDL [Mass/Vol] 25 mg/dL Normal 0-40 [facility] Comment on above: Performed By: #### 2 4331-1 #### ABDI MIKE ([id number]) [facility] ([facility]) [facility] [place] [address] CHOLESTEROL/HDL RATIO 2.8 Normal [facility] Comment on above: Result Comment: Ref Values Desirable < 3.4 High Risk > 5.0 Performed By: #### 2 4331-1 #### ABDI MIKE ([id number]) [facility] ([facility]) [address] [place] [address] 94669 NON HDL CHOLESTEROL 122 mg/dL Normal 0-149 [facility] Comment on above: Result Comment: Age Desirable Borderline High High Very High 0-19 Y 0 - 119 120 - 144 >/= 145 >/= 160 20-24 Y 0 - 149 150 - 189 >/= 190 ---- >24 Y 30 mg/dL above LDL Cholesterol goal Performed By: #### 2 4331-1 #### ABDI MIKE ([id number]) [facility] ([facility]) [address] [place] [address] 68914 Triglyceride [Mass/Vol] 127 mg/dL Normal 0-149 [facility] Comment on above: Result Comment: [...] By: #### 2 4331-1 #### ABDI MIKE ([id number]) [facility] ([facility]) [address] [place] [address] 67438 Thyrotropinon 06-18-2024 TSH Qn 5.41 m[IU]/L High 0.44-3.98 [facility] Comment on above: Order Comment: TSH t esting is performed using different testing methodology at [facility] than at other [facility]. Direct result comparisons should only be made within the same method. Performed By: #### 3 016-3 #### ABDI MIKE ([id number]) [facility] ([facility]) [address] [place] [address] Comprehensive metabolic 2000 panelon 03-15-2024 Albumin BCP dye [Mass/Vol] 4.4 g/dL Normal 3.4-5.0 [facility] Comment on above: Performed By: #### 2 4323-8 #### ABDI MIKE ([id number]) [facility] ([facility]) [address] [place] [address] ALP [Catalytic activity/Vol] 72 U/L Normal 33-136 [facility] Comment on above: Performed By: #### 2 4323-8 #### ABDI MIKE ([id number]) [facility] ([facility]) [address] [place] [address] ALT With P-5'-P [Catalytic activity/Vol] 16 U/L Normal 7-45 [facility] Comment on above: Result Comment: Suzi ents treated with Sulfasalazine may generate falsely decreased results for ALT. Performed By: #### 2 4323-8 #### ABDI MIKE ([id number]) [facility] ([facility]) [address] [place] [address] 78446 Anion gap [Moles/Vol] 11 mmol/L Normal 10-20 [facility] Comment on above: Performed By: #### 2 4323-8 #### ABDI MIKE ([id number]) [facility] ([facility]) [address] [place] [address] 05331 AST With P-5'-P [Catalytic activity/Vol] 19 U/L Normal 9-39 [facility] Comment on above: Performed By: #### 2 4323-8 #### ABDI MIKE ([id number]) [facility] ([facility]) [address] [place] [address] Bilirubin [Mass/Vol] 0.7 mg/dL Normal 0.0-1.2 [facility] Comment on above: Performed By: #### 2 4323-8 #### ABDI MIKE ([id number]) [facility] ([facility]) [facility] [place] [address] Calcium [Mass/Vol] 9.8 mg/dL Normal 8.6-10.3 [facility] Comment on above: Performed By: #### 2 4323-8 #### ABDI MIKE ([id number]) [facility] ([facility]) [address] [place] [address] 55172 Chloride [Moles/Vol] 99 mmol/L Normal 98-107 [facility] Comment on above: Performed By: #### 2 4323-8 #### ABDI MIKE ([id number]) [facility] ([facility]) [address] [place] [address] 39467 CO2 [Moles/Vol] 28 mmol/L Normal 21-32 [facility] Comment on above: Performed By: #### 2 4323-8 #### ABDI MIKE ([id number]) [facility] ([facility]) [address] [place] [address] 57830 Creatinine [Mass/Vol] 0.64 mg/dL Normal 0.50-1.05 [facility] Comment on above: Performed By: #### 2 4323-8 #### ABDI MIKE ([id number]) [facility] ([facility]) [address] [place] [address] 35273 Glomerular filtration rate/1.73 sq M.predicted 90 mL/min/1.73m*2 Normal >60 [facility] Comment on above: Result Comment: Calc ulations of estimated GFR are performed using the 2020 CKD-EPI Study Refit equation without the race variable for the IDMS-Traceable creatinine methods. https://jasn.asnjournals.org/content/early//ASN.474350 8496 Performed By: #### 2 4323-8 #### ABDI MIKE ([id number]) [facility] ([facility]) [address] [place] [address] 27412 Glucose [Mass/Vol] 106 mg/dL High 74-99 [facility] Comment on above: Performed By: #### 2 4323-8 #### ABDI MIKE ([id number]) [facility] ([facility]) [address] [place] [address] 89299 Potassium [Moles/Vol] 4.2 mmol/L Normal 3.5-5.3 [facility] Comment on above: Performed By: #### 2 4322-8 #### ABDI MIKE ([id number]) [facility] ([facility]) [address] [place] [address] 93039 Protein [Mass/Vol] 7.3 g/dL Normal 6.4-8.2 [facility] Comment on above: Performed By: #### 2 3-8 #### ABDI MIKE ([id number]) [facility] ([facility]) [address] [place] [address] 68877 Sodium [Moles/Vol] 134 mmol/L Low 136-145 [facility] Comment on above: Performed By: #### 2 4322-8 #### ABDI MIKE ([id number]) [facility] ([facility]) [address] [place] [address] 40807 Urea nitrogen [Mass/Vol] 10 mg/dL Normal 6-23 [facility] Comment on above: Performed By: #### 2 4322-8 #### ABDI MIKE ([id number]) [facility] ([facility]) [address] [place] [address] 78507 Basic metabolic 2000 panelon 12-20-2023 Anion gap [Moles/Vol] 12 mmol/L Normal 10-20 [facility] Comment on above: Performed By: #### 2 1-2 #### ABDI MIKE ([id number]) [facility] ([facility]) [address] [place] [address] 40029 Calcium [Mass/Vol] 9.8 mg/dL Normal 8.6-10.3 [facility] Comment on above: Performed By: #### 2 1-2 #### ABDI MIKE ([id number]) [facility] ([facility]) [address] [place] [address] 38151 Chloride [Moles/Vol] 99 mmol/L Normal 98-107 [facility] Comment on above: Performed By: #### 2 4321-2 #### ABDI MIKE ([id number]) [facility] ([facility]) [address] [place] [address] 99785 CO2 [Moles/Vol] 30 mmol/L Normal 21-32 [facility] Comment on above: Performed By: #### 2 4321-2 #### ABDI MIKE ([id number]) [facility] ([facility]) [address] [place] [address] 72528 Creatinine [Mass/Vol] 0.72 mg/dL Normal 0.50-1.05 [facility] Comment on above: Performed By: #### 2 4321-2 #### ABDI MIKE ([id number]) [facility] ([facility]) [address] [place] [address] 48729 Glomerular filtration rate/1.73 sq M.predicted 85 mL/min/1.73m*2 Normal >60 [facility] Comment on above: Result Comment: Calc ulations of estimated GFR are performed using the 2020 CKD-EPI Study Refit equation without the race variable for the IDMS-Traceable creatinine methods. https://jasn.asnjournals.org/content//ASN.925380 2196 Performed By: #### 2 4321-2 #### ABDI MIKE ([id number]) [facility] ([facility]) [address] [place] [address] 83269 Glucose [Mass/Vol] 119 mg/dL High 74-99 [facility] Comment on above: Performed By: #### 2 4321-2 #### ABDI MIKE ([id number]) [facility] ([facility]) [address] [place] [address] 06177 Potassium [Moles/Vol] 4.1 mmol/L Normal 3.5-5.3 [facility] Comment on above: Performed By: #### 2 4321-2 #### ABDI MIKE ([id number]) [facility] ([facility]) [address] [place] [address] 53215 Sodium [Moles/Vol] 137 mmol/L Normal 136-145 [facility] Comment on above: Performed By: #### 2 4321-2 #### ABDI MIKE ([id number]) [facility] ([facility]) [facility] [place] [address] Urea nitrogen [Mass/Vol] 10 mg/dL Normal 6-23 [facility] Comment on above: Performed By: #### 2 4321-2 #### ABDI MIKE ([id number]) [facility] ([facility]) [address] [place] [address] 00127 HbA1c (Bld) [Mass fraction]o n 12-20-2023 Average glucose Estimated from glycated hemoglobin (Bld) [Mass/Vol] 114 mg/dL Normal Not Established [facility] Comment on above: Order Comment: Diagn osis of Diabetes-Adults Non-Diabetic: < or = 5.6% Increased risk for developing diabetes: 5.7-6.4% Diagnostic of diabetes: > or = 6.5% Monitoring of Diabetes Age (y)....................... Therapeutic Goal (%) Adults: >18.........................<7.0 Pediatrics: 13-18...................<7.5 Pediatrics: 7-12....................<8.0 Pediatrics: 0-6..................... 7.5-8.5 [employer]. Diabetes Care 33(S1), Nov 2009 Performed By: #### 4 548-4 #### ABDI MIKE ([id number]) [facility] ([facility]) [address] [place] [address] 60234 Hemoglobin A1c/Hemoglobin.to divine 12-20-2023 HbA1c (Bld) [Mass fraction] 5.6 % Normal see below [facility] Comment on above: Order Comment: Diagn osis of Diabetes-Adults Non-Diabetic: < or = 5.6% Increased risk for developing diabetes: 5.7-6.4% Diagnostic of diabetes: > or = 6.5% Monitoring of Diabetes Age (y)....................... Therapeutic Goal (%) Adults: >18.........................<7.0 Pediatrics: 13-18...................<7.5 Pediatrics: 7-12....................<8.0 Pediatrics: 0-6..................... 7.5-8.5 [employer]. Diabetes Care 33(S1), Nov 2009 Performed By: #### 4 548-4 #### ABDI MIKE ([id number]) [facility] ([facility]) [facility] [place] [address] Thyrotropinon 12-20-2023 TSH Qn 5.78 m[IU]/L High 0.44-3.98 [facility] Comment on above: Order Comment: TSH t esting is performed using different testing methodology at [facility] than at other [facility]. Direct result comparisons should only be made within the same method. Performed By: #### 3 016-3 #### ABDI MIKE ([id number]) [facility] ([facility]) [facility] [place] [address] Established Visit (Nephrolog y)on 03-18-2023 Established Visit [...] lung c (more content not included)... Normal [facility] - Chemistry and C hemistry - challengeon 03-10-2023 Anion gap [Moles/Vol] 11 mmol/L 10 - 20 [facility]- Nephrolog [place] [address] DO Work Phone: [phone] Calcium [Mass/Vol] 9.3 mg/dL 8.6 - 10.3 [facility]ep [facility] [place] [address] DO Work Phone: Chloride [Moles/Vol] 96 mmol/L below low threshold 98 - 107 -[facility]ph[facility] [place] [address] DO Work Phone: CO2 [Moles/Vol] 29 mmol/L 21 - 32 [facility]-Nephro log [place] [address] DO Work Phone: Creatinine [Mass/Vol] 0.66 mg/dL See Below [facility] [place] [address] DO Work Phone: Comment on above: Reference Range: 0.5 0 - 1.05 Glucose [Mass/Vol] 109 mg/dL above high threshold 74 - 99 -[facility] [place] [address] DO Work Phone: Potassium [Moles/Vol] 4.1 mmol/L 3.5 - 5.3 - [facility] [place] [address] DO Work Phone: Sodium [Moles/Vol] 132 mmol/L below low threshold 136 - 145 -[facility] [place] [address] DO Work Phone: Urea nitrogen [Mass/Vol] 10 mg/dL 6 - [facility]-Neph[facility] Yuri 3 DO Work Phone: No Panel Informationon 03-10 89 {mL/min/1.73m2} >90 [facility]ep [facility]rolog [facility] Yuri 3 DO Work Phone: Comment on above: CALCULATIONS OF TERESA MATED GFR ARE PERFORMED USING THE 2020 CKD-EPI STUDY REFIT EQUATION WITHOUT THE RACE VARIABLE FOR THE IDMS-TRACEABLE CREATININE METHODS.https://jasn.asnjournals.org/content/early// N.8216830461 Office Visiton 12-28-2022 Follow-up visit Diagnoses/Problems Benign [...] objects and so forth. We also discussed vuay-fcu-cucagdf options and I will list these for you here a. You can try topical liniments such as IcyHot or Bengay or a cream called capsaicin. Please follow the directions b. Because Voltaren gel is an NSAID you do have to exercise caution with its use and please follow the directions on the box c. You can take Tylenol hycu-xdp-cqgmkdp as directed but do not exceed 3000 [...] pain. This note was generated by using Plum software. It may contain errors in wording, [...] (M47.816) Restles (more content not included)... Normal [employer] Tobacco Screening.on 023 Fall risk assessment a) No falls within the last year [facility] [employer] Phone: Tobacco use status CP b) No [facility] Phone: Hemoglobin A1Con 12-20-2022 Glucose [Mass/Vol] 117 mg/dL [facility] [employer] Phone: HbA1c (Bld) [Mass fraction] 5.7 % Abnormal [facility] Awareness Card Phone: Comment on above: Diagnosis of Diabete s-Adults Non-Diabetic: < or = 5.6% Increased risk for developing diabetes: 5.7-6.4% Diagnostic of diabetes: > or = 6.5%. Monitoring of Diabetes Age (y) Therapeutic Goal (%) Adults: >18 <7.0 Pediatrics: 13-18 <7.5 7-12 <8.0 0- 6 7.5-8.5 [employer]. Diabetes Care 33(S1), Nov 2009. Laboratory - Chemistry and C hemistry - challengeon 12-20-2022 Anion gap [Moles/Vol] 11 mmol/L 10 - 20 [facility]: Calcium [Mass/Vol] 10.0 mg/dL 8.6 - 10.3 [facility]: Chloride [Moles/Vol] 96 mmol/L below low threshold 98 - 107 [facility]: CO2 [Moles/Vol] 30 mmol/L 21 - 32 [facility] Work Phone: Creatinine [Mass/Vol] 0.70 mg/dL See Below [facility]: Comment on above: Reference Range: 0.5 0 - 1.05 Glucose [Mass/Vol] 113 mg/dL above high threshold 74 - 99 [facility] Phone: Potassium [Moles/Vol] 3.7 mmol/L 3.5 - 5.3 [facility] Work Phone: Sodium [Moles/Vol] 133 mmol/L below low threshold 136 - 145 [facility] [employer] [facility] Work Phone: Urea nitrogen [Mass/Vol] 9 mg/dL 6 - 23 [facility] [employer] [facility] Work Phone: No Panel Informationon 12-20 88 {mL/min/1.73m2} >90 [facility] [employer] Work Phone: Comment on above: CALCULATIONS OF TERESA MATED GFR ARE PERFORMED USING THE 2020 CKD-EPI STUDY REFIT EQUATION WITHOUT THE RACE VARIABLE FOR THE IDMS-TRACEABLE CREATININE METHODS.https://jasn.asnjournals.org/content/early/ N.8974105168 TSH - Thyroid Stimulating Ho kodi, Serumon 12-20-2022 TSH Qn 3.50 m[IU]/L See Below [facility] [employer] [facility] Work Phone: Comment on above: Reference Range: 0.4 4 - 3.98 TSH testing is performed using different testing methodology at [facility] than at other [facility]. Direct result comparisons should only be made within the same method. Medicare Annual Wellness Vis iton 06-29-2022 Medicare Annual Wellness Visit *Chief Complaint Pt is here today for a 6 month check up, she is also due for her [facility] wellness exam. Review labs. This note was generated by using Plum software. It may contain errors in wording, [...] including a living will and power of regulatory attorney for healthcare. She has no signs [...] polypectomy His (more content not included)... Normal [employer] DIGITAL MAMM SCREENING W/ TO Par[place] 06-25-2022 DIGITAL MAMM SCREENING W/ GENARO Patient Name: DIANA ALMONTE STUDY: DIGITAL MAMM SCREENING W/ GENARO; 06/25/2022 10:56 am ACCESSION NUMBER(S): [id number] ORDERING CLINICIAN: BRITTNEY KOTHARI INDICATION: Screening. COMPARISON: 06/20/2018, 06/24/2020 FINDINGS: 2D and tomosynthesis images were reviewed at 1 mm slice thickness. There are areas of scattered fibroglandular tissue. No suspicious masses or calcifications are identified. CAD was utilized. IMPRESSION: No mammographic evidence of malignancy. BI-RADS CATEGORY: Category: 1 - Negative. Recommendation: 1 Year Screening. For any future breast imaging appointments, please call [phone]). Electronically signed by: JALYN TOWNSEND MD [facility] Mamm - Screening Mammogram w / Tomosynthesison 06-25-2022 MG Breast Screening Normal [facility] Phone: Hemoglobin A1Con 06-22-2022 Glucose [Mass/Vol] 114 mg/dL [facility] Phone: HbA1c (Bld) [Mass fraction] 5.6 % [facility] Phone: Comment on above: Diagnosis of Diabete s-Adults Non-Diabetic: < or = 5.6% Increased risk for developing diabetes: 5.7-6.4% Diagnostic of diabetes: > or = 6.5%. Monitoring of Diabetes Age (y) Therapeutic Goal (%) Adults: >18 <7.0 Pediatrics: 13-18 <7.5 7-12 <8.0 0- 6 7.5-8.5 [employer]. Diabetes Care 33(S1), Nov 2009. Laboratory - Chemistry and C hemistry - challengeon 06-22-2022 Anion gap [Moles/Vol] 12 mmol/L 10 - 20 [facility] Phone: Calcium [Mass/Vol] 9.6 mg/dL 8.6 - 10.3 [facility] Work Phone: Chloride [Moles/Vol] 97 mmol/L below low threshold 98 - 107 [facility] Phone: CO2 [Moles/Vol] 27 mmol/L 21 - 32 [facility] Phone: Creatinine [Mass/Vol] 0.72 mg/dL See Below [employer] [place] [employer] [facility] Phone: Comment on above: Reference Range: 0.5 0 - 1.05 Glucose [Mass/Vol] 107 mg/dL above high threshold 74 - 99 [facility] [place] [employer] [facility] Phone: Potassium [Moles/Vol] 4.0 mmol/L 3.5 - 5.3 [employer] Phone: Sodium [Moles/Vol] 132 mmol/L below low threshold 136 - 145 [facility] Phone: Urea nitrogen [Mass/Vol] 8 mg/dL 6 - 23 [facility] [place] [employer] [facility] Phone: Lipid Panelon 06-22-2022 Cholesterol [Mass/Vol] 179 mg/dL 0 - 199 [facility] Phone: Comment on above: . AGE DESIRABLE [...] dosing. Cholesterol in HDL [Mass/Vol] 67.0 mg/dL [facility] Phone: Comment on above: . AGE VERY LOW LOW N ORMAL HIGH 0-19 Y < 35 < 40 40-45 ---- 20- 24 Y ---- < 40 >45 ---- >24 Y ---- < 40 40-60 >60. Cholesterol in LDL [Mass/Vol] 93 mg/dL 0 - 99 [facility] [place] Phone: Comment on above: . NEAR BORD AGE FREDERICK RABLE OPTIMAL HIGH HIGH VERY HIGH 0-19 Y 0 - 109 --- 110-129 >/= 130 ---- 20-24 Y 0 - 119 --- 120-159 >/= 160 ---- >24 Y 0 - 99 100-129 130-159 160-189 >/=190. Cholesterol.total/Cho lesterol in HDL [Mass ratio] 2.7 {ratio} [facility] [place] Phone: Comment on above: REF VALUESDESIRABLE < 3.4HIGH RISK > 5.0 Triglyceride [Mass/Vol] 96 mg/dL 0 - 149 [employer] [facility] Phone: Comment on above: . AGE DESIRABLE [...] Lipid Panel 19 mg/dL 0 - 40 [facility] Phone: No Panel Informationon 06-22 86 {mL/min/1.73m2} >90 [facility] DDV[facility] Phone: Comment on above: CALCULATIONS OF TERESA MATED GFR ARE PERFORMED USING THE 2020 CKD-EPI STUDY REFIT EQUATION WITHOUT THE RACE VARIABLE FOR THE IDMS-TRACEABLE CREATININE METHODS.https://jasn.asnjournals.org/content// N.1714101458 TSH - Thyroid Stimulating Ho rmone, Serumon 08-09-2022 TSH Qn 6.72 m[IU]/L above high threshold See Below [facility] Work Phone: Comment on above: Reference Range: 0.4 4 - 3.98 TSH testing is performed using different testing methodology at [facility] than at other [facility]. Direct result comparisons should only be made within the same method. Tobacco Screening.on 022 Fall risk assessment a) No falls within the last year -Nephrolog [facility] Yuri 3 DO Work Phone: Tobacco use status CPHS b) No [facility] Yuri 3 DO Work Phone: Hemoglobin A1Con 12-22-2021 Glucose [Mass/Vol] 123 mg/dL [facility] Work Phone: HbA1c (Bld) [Mass fraction] 5.9 % Abnormal [facility] Work Phone: Comment on above: Diagnosis of Diabete s-Adults Non-Diabetic: < or = 5.6% Increased risk for developing diabetes: 5.7-6.4% Diagnostic of diabetes: > or = 6.5%. Monitoring of Diabetes Age (y) Therapeutic Goal (%) Adults: >18 <7.0 Pediatrics: 13-18 <7.5 7-12 <8.0 0- 6 7.5-8.5 [employer]. Diabetes Care 33(S1), Nov 2009. Laboratory - Chemistry and C hemistry - challengeon 12-22-2021 Anion gap [Moles/Vol] 10 mmol/L 10 - 20 [facility] Work Phone: Calcium [Mass/Vol] 9.4 mg/dL 8.6 - 10.3 [facility] Work Phone: Chloride [Moles/Vol] 98 mmol/L 98 - 107 [facility] Work Phone: CO2 [Moles/Vol] 30 mmol/L 21 - 32 [facility] Phone: Creatinine [Mass/Vol] 0.64 mg/dL See Below [facility] Phone: Comment on above: Reference Range: 0.5 0 - 1.05 Glucose [Mass/Vol] 111 mg/dL above high threshold 74 - 99 [facility] Phone: Potassium [Moles/Vol] 4.0 mmol/L 3.5 - 5.3 [facility] Phone: Sodium [Moles/Vol] 134 mmol/L below low threshold 136 - 145 [facility] [employer] Card Phone: Urea nitrogen [Mass/Vol] 8 mg/dL 6 - 23 [facility] Card Phone: No Panel Informationon 12-22 >90 >90 [facility] Phone: Comment on above: CALCULATIONS OF TERESA MATED GFR ARE PERFORMED USING THE 2020 CKD-EPI STUDY REFIT EQUATION WITHOUT THE RACE VARIABLE FOR THE IDMS-TRACEABLE CREATININE METHODS.https://jasn.asnjournals.org/content// N.7628627334 Radiologyon 06-23-2021 XR Shoulder 2 Views Please click on the link to view the study images Normal [facility] Card Phone: XR Shoulder 2 Views Normal [facility]: XR Pelvis and Hip - left 2 Views Normal [facility] Card Phone: XR Pelvis and Hip - left 2 Views Please click on the link to view the study images Normal [facility] Card Phone: Tobacco Screening.on 021 Fall risk assessment a) No falls within the last year [facility] Work Phone: Tobacco use status CPHS b) No [facility] [employer] Work Phone: Hemoglobin A1Con 06-16-2021 Glucose [Mass/Vol] 117 mg/dL [facility] [employer] Work Phone: HbA1c (Bld) [Mass fraction] 5.7 % [facility] [employer] Work Phone: Comment on above: Diagnosis of Diabete s-Adults Non-Diabetic: < or = 5.6% Increased risk for developing diabetes: 5.7-6.4% Diagnostic of diabetes: > or = 6.5%. Monitoring of Diabetes Age (y) Therapeutic Goal (%) Adults: >18 <7.0 Pediatrics: 13-18 <7.5 7-12 <8.0 0- 6 7.5-8.5 [employer]. Diabetes Care 33(S1), Nov 2009. Laboratory - Chemistry and C hemistry - challengeon 06-16-2021 Anion gap [Moles/Vol] 12 mmol/L 10 - 20 [facility] Work Phone: Calcium [Mass/Vol] 9.8 mg/dL 8.6 - 10.3 [facility] Work Phone: Chloride [Moles/Vol] 100 mmol/L 98 - 107 [facility] [employer] Work Phone: CO2 [Moles/Vol] 28 mmol/L 21 - 32 [facility] Work Phone: Creatinine [Mass/Vol] 0.64 mg/dL See Below [facility] Card Phone: Comment on above: Reference Range: 0.5 0 - 1.05 Glucose [Mass/Vol] 111 mg/dL above high threshold 74 - 99 [facility] Work Phone: Potassium [Moles/Vol] 4.3 mmol/L 3.5 - 5.3 [facility] [employer] Work Phone: Sodium [Moles/Vol] 136 mmol/L 136 - 145 [facility] Hollywood[facility] Phone: Urea nitrogen [Mass/Vol] 9 mg/dL 6 - 23 [facility] Phone: No Panel Informationon 06-16 >60 >60 [facility] Phone: Comment on above: CALCULATIONS OF TERESA MATED GFR ARE PERFORMED USING THE MDRD STUDY EQUATION FOR THE IDMS-TRACEABLE CREATININE METHODS. CLIN CHEM 2007;53:766-72 TSH - Thyroid Stimulating Ho kodi Serumon 06-16-2021 TSH Qn 2.98 m[IU]/L See Below [facility] Phone: Comment on above: Reference Range: 0.4 4 - 3.98 TSH testing is performed using different testing methodology at [facility] than at other [facility]. Direct result comparisons should only be made within the same method. Hemoglobin A1Con 12-17-2020 HbA1c (Bld) [Mass fraction] 117 {MG/DL} [facility] Phone: HbA1c (Bld) [Mass fraction] 5.7 % [facility] Phone: Comment on above: Diagnosis of Diabete s-Adults Non-Diabetic: < or = 5.6% Increased risk for developing diabetes: 5.7-6.4% Diagnostic of diabetes: > or = 6.5%. Monitoring of Diabetes Age (y) Therapeutic Goal (%) Adults: >18 <7.0 Pediatrics: 13-18 <7.5 7-12 <8.0 0- 6 7.5-8.5 [employer]. Diabetes Care 33(S1), Nov 2009. Lipid Panelon 12-17-2020 Cholesterol [Mass/Vol] 172 mg/dL 0 - 199 [facility] Phone: Comment on above: . AGE DESIRABLE [...] dosing. Cholesterol in HDL [Mass/Vol] 65.0 mg/dL [employer] Phone: Comment on above: . AGE VERY LOW LOW N ORMAL HIGH 0-19 Y < 35 < 40 40-45 ---- 20- 24 Y ---- < 40 >45 ---- >24 Y ---- < 40 40-60 >60. Cholesterol in LDL [Mass/Vol] 86 mg/dL 0 - 99 [employer] Phone: Comment on above: . NEAR BORD AGE FREDERICK RABLE OPTIMAL HIGH HIGH VERY HIGH 0-19 Y 0 - 109 --- 110-129 >/= 130 ---- 20-24 Y 0 - 119 --- 120-159 >/= 160 ---- >24 Y 0 - 99 100-129 130-159 160-189 >/=190. Cholesterol.total/Cho lesterol in HDL [Mass ratio] 2.6 {ratio} [employer] Phone: Comment on above: REF VALUESDESIRABLE < 3.4HIGH RISK > 5.0 Triglyceride [Mass/Vol] 106 mg/dL 0 - 149 [employer] Phone: Comment on above: . AGE DESIRABLE [...] Lipid Panel 21 mg/dL 0 - 40 [facility] Card Phone: Metabolic Panelon 12-17-2020 Anion gap [Moles/Vol] 10 mmol/L 10 - 20 [facility] Card Phone: Calcium [Mass/Vol] 9.8 mg/dL 8.6 - 10.3 [facility] [employer] Work Phone: Chloride [Moles/Vol] 98 mmol/L 98 - 107 [facility] [employer] Work Phone: CO2 [Moles/Vol] 30 mmol/L 21 - 32 [facility] Card Phone: Creatinine [Mass/Vol] 0.68 mg/dL See Below [facility] [employer] Phone: Comment on above: Reference Range: 0.5 0 - 1.05 Glucose [Mass/Vol] 111 mg/dL above high threshold 74 - 99 [facility] Card Phone: Potassium [Moles/Vol] 4.3 mmol/L 3.5 - 5.3 [facility] Card Phone: Sodium [Moles/Vol] 134 mmol/L below low threshold 136 - 145 [facility] Card Phone: Urea nitrogen [Mass/Vol] 11 mg/dL 6 - 23 [facility] Card Phone: Otheron 12-17-2020 >60 >60 [facility] Card Phone: Comment on above: CALCULATIONS OF TERESA MATED GFR ARE PERFORMED USING THE MDRD STUDY EQUATION FOR THE IDMS-TRACEABLE CREATININE METHODS. CLIN CHEM 2007;53:766-72 Hemoglobin A1Con 10-28-2020 HbA1c (Bld) [Mass fraction] 5.6 % [facility] Card Phone: Comment on above: Diagnosis of Diabete s-Adults Non-Diabetic: < or = 5.6% Increased risk for developing diabetes: 5.7-6.4% Diagnostic of diabetes: > or = 6.5%. Monitoring of Diabetes Age (y) Therapeutic Goal (%) Adults: >18 <7.0 Pediatrics: 13-18 <7.5 7-12 <8.0 0- 6 7.5-8.5 [employer]. Diabetes Care 33(S1), Nov 2009. HbA1c (Bld) [Mass fraction] 114 {MG/DL} [facility] Card Phone: Metabolic Panelon 10-28-2020 Anion gap [Moles/Vol] 13 mmol/L 10 - 20 [facility] Phone: Calcium [Mass/Vol] 9.7 mg/dL 8.6 - 10.3 [facility] Phone: Chloride [Moles/Vol] 99 mmol/L 98 - 107 [facility] Phone: CO2 [Moles/Vol] 29 mmol/L 21 - 32 [facility] Card Phone: Creatinine [Mass/Vol] 0.68 mg/dL See Below [facility] Card Phone: Comment on above: Reference Range: 0.5 0 - 1.05 Glucose [Mass/Vol] 129 mg/dL above high threshold 74 - 99 [facility] Card Phone: Potassium [Moles/Vol] 4.0 mmol/L 3.5 - 5.3 [facility] Card Phone: Sodium [Moles/Vol] 137 mmol/L 136 - 145 [facility] Work Phone: Urea nitrogen [Mass/Vol] 10 mg/dL 6 - 23 [facility] Work Phone: Otheron 10-28-2020 >60 >60 [facility] [employer] Work Phone: Comment on above: CALCULATIONS OF TERESA MATED GFR ARE PERFORMED USING THE MDRD STUDY EQUATION FOR THE IDMS-TRACEABLE CREATININE METHODS. CLIN CHEM 2007;53:766-72 Mamm - Screening Mammogram w / Tomosynthesison 06-24-2020 MG Breast screening Interpreted by: SASCHA CRANDALL06/25/20 09:41MRN: [id number] Name: DIANA ALMONTE STUDY:Digital mammography screening with [...] signed by: SASCHA CRANDALL 06/25/20 09:41 Normal [facility] [email or web address] Work Phone: Metabolic Panelon 06-24-2020 Anion gap [Moles/Vol] 11 mmol/L 10 - 20 [facility] Work Phone: Calcium [Mass/Vol] 10.0 mg/dL 8.6 - 10.3 [facility] Work Phone: Chloride [Moles/Vol] 98 mmol/L 98 - 107 [facility] Work Phone: CO2 [Moles/Vol] 29 mmol/L 21 - 32 [facility] Work Phone: Creatinine [Mass/Vol] 0.69 mg/dL See Below [facility] Work Phone: Comment on above: Reference Range: 0.5 0 - 1.05 Glucose [Mass/Vol] 119 mg/dL above high threshold 74 - 99 [facility] Work Phone: Potassium [Moles/Vol] 4.1 mmol/L 3.5 - 5.3 [facility] Work Phone: Sodium [Moles/Vol] 134 mmol/L below low threshold 136 - 145 [facility] Work Phone: Urea nitrogen [Mass/Vol] 10 mg/dL 6 - 23 [facility] Work Phone: Otheron 06-24-2020 >60 >60 [facility] Work Phone: Comment on above: CALCULATIONS OF TERESA MATED GFR ARE PERFORMED USING THE MDRD STUDY EQUATION FOR THE IDMS-TRACEABLE CREATININE METHODS. CLIN CHEM 2007;53:766-72 Vitamin D 25-Hydroxyon 06-24 Calcidiol [Mass/Vol] 76 ng/mL [facility] Work Phone: Comment on above: .DEFICIENCY: < 20 NG /MLINSUFFICIENCY: 20-29 NG/MLSUFFICIENCY: 30-100 NG/MLTHIS ASSAY ACCURATELY QUANTIFIES THE SUM OFVITAMIN D3, 25-HYDROXY AND VIT D2,25-HYDROXY. BMPon 08-06-2019 Anion gap [Moles/Vol] 13 mmol/L Normal 10-[address] [facility] Comment on above: Performed By: #### 2 [id number] ####FERMÍN [address] [place] [address] Calcium [Mass/Vol] 9.9 mg/dL Normal 8.6-10.3 [facility] Comment on above: Performed By: #### 2 [id number] ####[facility] Jjkdghar[address] [place] [address] Chloride [Moles/Vol] 100 mmol/L Normal 98-107 [facility] Comment on above: Performed By: #### 2 [id number] ####[facility] Smcisyqc[address]87 [place] [address] CO2 [Moles/Vol] 26.0 mmol/L Normal 21.0-32.0 [facility] Comment on above: Performed By: #### 2 [id number] ####[facility] [address] [place] [address] Creatinine [Mass/Vol] 0.8 mg/dL Normal 0.5-1.[address] [facility] Comment on above: Performed By: #### 2 [id number] ####[facility] [address] [place] [address] Glucose [Mass/Vol] 123 mg/dL High 70-99 [facility] Comment on above: Performed By: #### 2 [id number] ####[facility] Oninxutp[address] [place] [address] Potassium [Moles/Vol] 3.9 mmol/L Normal 3.5-5.[address] [facility] Comment on above: Performed By: #### 2 [id number] ####[facility] Amdzombh[address] [place] [address] Sodium [Moles/Vol] 135 mmol/L Low 136-145 [facility] Comment on above: Performed By: #### 2 [id number] ####FERMÍN [address]osfthja[address] [place] [address] Urea nitrogen [Mass/Vol] 17 mg/dL Normal 6-23 [facility] Comment on above: Performed By: #### 2 [id number] ####[facility] [address]fm[address] [place] [address] Urea nitrogen/Creatinine [Mass ratio] 21.2 ratio Normal 5.4-30.0 [facility] Comment on above: Performed By: #### 2 [id number] ####[facility] [address]qtmsvv43[address] [place] [address] eGFRon 08-06-2019 GFR/1.73 sq M predicted among non-blacks MDRD (S/P/Bld) [Vol rate/Area] mL/min/{1.73_m2} Normal [facility] Comment on above: Order Comment: Order added by Discern Expert. Performed By: #### 1 [id number] ####FERMÍN OrcEmso[address] [place] [address] BMPon 07-28-2019 Anion gap [Moles/Vol] 11 mmol/L Normal 10-[address] [facility] Comment on above: Performed By: #### 2 [id number] ####FERMÍN ZpeDwsm[address] [place] [address] Calcium [Mass/Vol] 9.3 mg/dL Normal 8.6-10.3 [facility] Comment on above: Performed By: #### 2 [id number] ####FERMÍN PodPdjw9767 [place] [address] Chloride [Moles/Vol] 97 mmol/L Low 98-107 [facility] Comment on above: Performed By: #### 2 [id number] ####FERMÍN NoeDnsv4727 [place] [address] CO2 [Moles/Vol] 29.0 mmol/L Normal 21.0-32.0 [facility] Comment on above: Performed By: #### 2 [id number] ####FERMÍN [address]ivh[address] [place] [address] Creatinine [Mass/Vol] 0.6 mg/dL Normal 0.5-1.[address] [facility] Comment on above: Performed By: #### 2 [id number] ####FERMÍNMaria M FungRehDrld[address]22 [place] [address] Glucose [Mass/Vol] 105 mg/dL High 70-99 [facility] Comment on above: Performed By: #### 2 [id number] ####FERMÍN HyuZunt[address] [place] [address] Potassium [Moles/Vol] 3.5 mmol/L Normal 3.5-5.[address] [facility] Comment on above: Performed By: #### 2 [id number] ####FERMÍNMaria M FungYcdAzpc6553 [place] [address] Sodium [Moles/Vol] 133 mmol/L Low 136-145 [facility] Comment on above: Performed By: #### 2 [id number] ####FERMÍN FungSvsTelg59[address] [place] [address] Urea nitrogen [Mass/Vol] 9 mg/dL Normal 6-23 [facility] Comment on above: Performed By: #### 2 [id number] ####FERMÍN RppMzev8611 [place] [address] Urea nitrogen/Creatinine [Mass ratio] 15.0 ratio Normal 5.4-30.0 [facility] Comment on above: Performed By: #### 2 [id number] ####FERMÍN NtkBzfi60[address] [place] [address] Osmolalityon 07-28-2019 Osmolality [Osmolality] 260 mOsm/kg Low 280-301 [facility] Comment on above: Result Comment: Perf ormed At: [facility] [id number] Mauri Tompkins MD Ph:[phone] Performed By: #### 2 [id number] ####FERMÍN Send Outs [address] [place] [address] U Osmolalityon 07-28-2019 U Osmolality 450 mOsm/kg Normal [facility] Comment on above: Result Comment: 24 h r : 300 - 900 Random: 50 - 1400 After 12hr fluid restriction: >850 Performed At: [facility] [id number] Mauri Tompkins MD Ph:[phone] Performed By: #### 2 [id number] ####FERMÍN [employer] Outs [address]or[address] [place] [address] eGFRon 07-28-2019 GFR/1.73 sq M predicted among non-blacks MDRD (S/P/Bld) [Vol rate/Area] mL/min/{1.73_m2} Normal [facility] Comment on above: Order Comment: Order added by Discern Expert. Performed By: #### 1 [id number] ####FERMÍN [address]jx[address] [place] [address] BMPon 07-27-2019 Anion gap [Moles/Vol] 10 mmol/L Normal 10-[address] [facility] Comment on above: Performed By: #### 3 [id number] #### FERMÍN Chemistry Manual [address] [place] [address] Calcium [Mass/Vol] 9.1 mg/dL Normal 8.6-10.3 [facility] Comment on above: Performed By: #### 3 [id number] #### FERMÍN Chemistry Manual [address] [place] [address] Chloride [Moles/Vol] 96 mmol/L Low 98-107 [facility] Comment on above: Performed By: #### 3 [id number] #### FERMÍN Chemistry Manual [address] [place] [address] CO2 [Moles/Vol] 29.0 mmol/L Normal 21.0-32.0 [facility] Comment on above: Performed By: #### 3 [id number] #### FERMÍN Chemistry Manual Subsection [facility] [place] [address] Creatinine [Mass/Vol] 0.6 mg/dL Normal 0.5-1.[address] [facility] Comment on above: Performed By: #### 3 [id number] #### FERMÍN Chemistry Manual Subsection [facility] [place] [address] Glucose [Mass/Vol] 94 mg/dL Normal 70-99 [facility] Comment on above: Performed By: #### 3 [id number] #### FERMÍN Chemistry Manual Subsection [facility] [place] [address] Potassium [Moles/Vol] 4.0 mmol/L Normal 3.5-5.[address] [facility] Comment on above: Performed By: #### 3 [id number] #### FERMÍN Chemistry Manual Subsection [facility] [place] [address] Sodium [Moles/Vol] 131 mmol/L Low 136-145 [facility] Comment on above: Performed By: #### 3 [id number] #### FERMÍN Chemistry Manual Subsection [facility] [place] [address] Urea nitrogen [Mass/Vol] 9 mg/dL Normal 6-23 [facility] Comment on above: Performed By: #### 3 [id number] #### FERMÍN Chemistry Manual Subsection [facility] [place] [address] Urea nitrogen/Creatinine [Mass ratio] 15.0 ratio Normal 5.4-30.0 [facility] Comment on above: Performed By: #### 3 [id number] #### FERMÍN Chemistry Manual [address] [place] [address] C Urineon 07-27-2019 C Urine Final Report: [...] >8 R Vanc : 1 S Normal [facility] Comment on above: Performed By: #### 3 [id number] #### FERMÍN Chemistry Manual Subsection [facility] [place] [address] MRI Spine Lumbar w/o Contras ton 07-27-2019 MRI Spine Lumbar w/o Contrast Exam Date/Time: 07/26/2019 18:53 EDT Reason for Exam: Pain Report STUDY: MRI Spine Lumbar w/o Contrast; 07/26/2019 6:53 pm INDICATION: Pain. COMPARISON: None. ACCESSION NUMBER(S): [id number] ORDERING CLINICIAN: Nawaf Villareal TECHNIQUE: The lumbar [...] right at T12/L1 The examination was interpreted [facility] FINAL REPORT Dictated: 07/27/2019 8:49 am Martin Garrido MD Signed (Electronic Signature): 07/27/2019 8:49 am Signed by: Martin Garrido MD Technologist: MAVIS Normal [facility] Magnesiumon 07-27-2019 Magnesium [Mass/Vol] 1.7 mg/dL Normal 1.6-2.4 [facility] Comment on above: Performed By: #### 2 [id number] ####FERMÍN [address] [place] [id number] eGFRon 07-27-2019 GFR/1.73 sq M predicted among non-blacks MDRD (S/P/Bld) [Vol rate/Area] mL/min/{1.73_m2} Normal [facility] Comment on above: Order Comment: Order added by Discern Expert. Performed By: #### 3 [id number] #### FERMÍN Chemistry Manual [address] [place] [address] BMPon 07-26-2019 Anion gap [Moles/Vol] 12 mmol/L Normal 10-[address] [facility] Comment on above: Performed By: #### 3 [id number] #### FERMÍN Chemistry Manual [address] [place] [address] Calcium [Mass/Vol] 8.5 mg/dL Low 8.6-10.3 [facility] Comment on above: Performed By: #### 3 [id number] #### FERMÍN Chemistry Manual [address] [place] [address] Chloride [Moles/Vol] 90 mmol/L Low 98-107 [facility] Comment on above: Performed By: #### 3 [id number] #### FERMÍN Chemistry Manual Subsection [facility] [place] [address] CO2 [Moles/Vol] 25.0 mmol/L Normal 21.0-32.0 [facility] Comment on above: Performed By: #### 3 [id number] #### FERMÍN Chemistry Manual Subsection [facility] [place] [address] Creatinine [Mass/Vol] 0.6 mg/dL Normal 0.5-1.[address] [facility] Comment on above: Performed By: #### 3 [id number] #### FERMÍN Chemistry Manual Subsection [facility] [place] [address] Glucose [Mass/Vol] 97 mg/dL Normal 70-99 [facility] Comment on above: Performed By: #### 3 [id number] #### FERMÍN Chemistry Manual Subsection [facility] [place] [address] Potassium [Moles/Vol] 3.1 mmol/L Low 3.5-5.[address] [facility] Comment on above: Performed By: #### 3 [id number] #### FERMÍN Chemistry Manual Subsection [address] [place] [address] Sodium [Moles/Vol] 124 mmol/L Low 136-145 [facility] Comment on above: Performed By: #### 3 [id number] #### FERMÍN Chemistry Manual Subsection [facility] [place] [address] Urea nitrogen [Mass/Vol] 8 mg/dL Normal 6-23 [facility] Comment on above: Performed By: #### 3 [id number] #### FERMÍN Chemistry Manual Subsection [address] [place] [address] Urea nitrogen/Creatinine [Mass ratio] 13.3 ratio Normal 5.4-30.0 [facility] Comment on above: Performed By: #### 3 [id number] #### FERMÍN Chemistry Manual Subsection [facility] [place] [address] Anion gap [Moles/Vol] 13 mmol/L Normal 10-[address] [facility] Comment on above: Performed By: #### 3 [id number] #### FERMÍN Chemistry Manual Subsection [facility] [place] [address] Calcium [Mass/Vol] 8.4 mg/dL Low 8.6-10.3 [facility] Comment on above: Performed By: #### 3 [id number] #### FERMÍN Chemistry Manual Subsection [facility] [place] [address] Chloride [Moles/Vol] 90 mmol/L Low 98-107 [facility] Comment on above: Performed By: #### 3 [id number] #### FERMÍN Chemistry Manual Subsection [facility] [place] [address] CO2 [Moles/Vol] 25.0 mmol/L Normal 21.0-32.0 [facility] Comment on above: Performed By: #### 3 [id number] #### FERMÍN Chemistry Manual Subsection [address] [place] [address] Creatinine [Mass/Vol] 0.6 mg/dL Normal 0.5-1.[address] [facility] Comment on above: Performed By: #### 3 [id number] #### FERMÍN Chemistry Manual Subsection [address] [place] [address] Glucose [Mass/Vol] 132 mg/dL High 70-99 [facility] Comment on above: Performed By: #### 3 [id number] #### FERMÍN Chemistry Manual Subsection [facility] [place] [address] Potassium [Moles/Vol] 3.2 mmol/L Low 3.5-5.[address] [facility] Comment on above: Performed By: #### 3 [id number] #### FERMÍN Chemistry Manual Subsection [address] [place] [address] Sodium [Moles/Vol] 124 mmol/L Low 136-145 [facility] Comment on above: Performed By: #### 3 [id number] #### FERMÍN Chemistry Manual Subsection [address] [place] [address] Urea nitrogen [Mass/Vol] 7 mg/dL Normal 6-23 [facility] Comment on above: Performed By: #### 3 [id number] #### FERMÍN Chemistry Manual Subsection [address] [place] [address] Urea nitrogen/Creatinine [Mass ratio] 11.7 ratio Normal 5.4-30.0 [facility] Comment on above: Performed By: #### 3 [id number] #### FERMÍN Chemistry Manual Subsection [facility] [place] [address] Free T4on 07-26-2019 Free T4 [Mass/Vol] 0.85 ng/dL Normal 0.58-1.64 [facility] Comment on above: Order Comment: Pleas e use previous blood sample if applicable Performed By: #### 3 [id number] #### FERMÍN Chemistry Manual Subsection [facility] [place] [address] TSHon 07-26-2019 TSH Qn 8.63 mcIU/mL High 0.30-5.60 [facility] Comment on above: Order Comment: Pleas e use previous blood sample if applicable Performed By: #### 3 [id number] #### FERMÍN Chemistry Manual Subsection [address] [place] [address] U Sodiumon 07-26-2019 Sodium [Moles/Vol] 107 mmol/L Normal [facility] Comment on above: Performed By: #### 1 [id number] #### FERMÍN RemChem [address] [place] [address] US Pelvis Non-OB Completeon 07-26-2019 US Pelvis Non-OB Complete Exam Date/Time: 07/26/2019 08:37 EDT Reason for Exam: Abnormal CT Report STUDY: US Pelvis Non-OB Complete; 07/26/2019 8:37 am INDICATION: Abnormal CT. Uterine and ovarian masses seen on CT scan. COMPARISON: CT 07/25/2019 ACCESSION NUMBER(S): [id number] ORDERING CLINICIAN: Nawaf Villareal TECHNIQUE: Multiple multiplanar [...] Signed by: Blanca Burger MD Technologist: CHARLI [facility] US Transvaginal Non-OBon US Transvaginal Non-OB Exam Date/Time: 07/26/2019 08:37 EDT Reason for Exam: Abnormal CT Report STUDY: US Pelvis Non-OB Complete; 07/26/2019 8:37 am INDICATION: Abnormal CT. Uterine and ovarian masses seen on CT scan. COMPARISON: CT 07/25/2019 ACCESSION NUMBER(S): [id number] ORDERING CLINICIAN: Nawaf Villareal TECHNIQUE: Multiple multiplanar [...] by: Blanca Burger MD Technologist: BS Normal [facility] eGFRon 07-26-2019 GFR/1.73 sq M predicted among non-blacks MDRD (S/P/Bld) [Vol rate/Area] mL/min/{1.73_m2} Normal [facility] Comment on above: Order Comment: Order added by Discern Expert. Performed By: #### 3 [id number] #### FERMÍN Chemistry Manual Subsection [facility] [place] [address] GFR/1.73 sq M predicted among non-blacks MDRD (S/P/Bld) [Vol rate/Area] mL/min/{1.73_m2} Normal [facility] Comment on above: Order Comment: Order added by Discern Expert. Performed By: #### 3 [id number] #### FERMÍN Chemistry Manual Subsection [address] [place] [address] Auto Diffon 07-25-2019 Basophils (Bld) [#/Vol] 0.0 E3/mcL Normal 0.0-0.2 [facility] Comment on above: Order Comment: Order added by Discern Expert. Performed By: #### 1 [id number] #### FERMÍN RemChem [address] [place] [address] Basophils/100 WBC (Bld) 0.4 % Normal 0.0-2.0 [facility] Comment on above: Order Comment: Order added by Discern Expert. Performed By: #### 1 [id number] #### FERMÍN FungChem [address] [place] [address] Eos Absolute 0.0 E3/mcL Normal 0.0-0.7 [facility] Comment on above: Order Comment: Order added by Discern Expert. Performed By: #### 1 [id number] #### [facility] [address] [place] [address] Eosinophils/100 WBC (Bld) 0.2 % Normal 0.0-11.0 [facility] Comment on above: Order Comment: Order added by Lilliana Expert. Performed By: #### 1 [id number] #### FERMÍN [address] [address] Lymphocytes (Bld) [#/Vol] 1.3 E3/mcL Normal 1.2-3.4 [facility] Comment on above: Order Comment: Order added by Lilliana Expert. Performed By: #### 1 [id number] #### FERMÍN Fung[address] [address] Lymphocytes/100 WBC (Bld) 13.4 % Low 20.0-55.0 [facility] Comment on above: Order Comment: Order added by Lilliana Expert. Performed By: #### 1 [id number] #### FERMÍN Rem[address] [address] [place] Absolute 0.4 E3/mcL Normal 0.0-0.7 [facility] Comment on above: Order Comment: Order added by Discern Expert. Performed By: #### 1 [id number] #### FERMÍN Rem[address] [address] Monocytes/100 WBC (Bld) 4.1 % Normal 0.0-10.0 [facility] Comment on above: Order Comment: Order added by Lilliana Expert. Performed By: #### 1 [id number] #### FERMÍN RemChem [address] [place] [address] Neutro Absolute 8.0 E3/mcL High 1.4-6.5 [facility] Comment on above: Order Comment: Order added by Discern Expert. Performed By: #### 1 [id number] #### FERMÍN RemChem [address] [place] [address] Neutro Auto 81.9 % High 37.0-75.0 [facility] Comment on above: Order Comment: Order added by Discern Expert. Performed By: #### 1 [id number] #### FERMÍN FungChem [address] [place] [address] CBC w/ Auto Diffon 9 Erythrocyte distribution width (RBC) [Ratio] 13.7 % Normal 11.5-14.5 [facility] Comment on above: Performed By: #### 1 [id number] #### FERMÍN FungChem [facility] [place] [address] Hematocrit (Bld) [Volume fraction] 37.6 % Normal 36.0-48.0 [facility] Comment on above: Performed By: #### 1 [id number] #### FERMÍN AntonietaChem [facility] [place] [address] Hemoglobin (Bld) [Mass/Vol] 13.0 g/dL Normal 12.0-16.0 [facility] Comment on above: Performed By: #### 1 [id number] #### FERMÍN [employer] [address] [place] [address] MCH (RBC) [Entitic mass] 32.5 pg High 27.0-31.0 [facility] Comment on above: Performed By: #### 1 [id number] #### FERMÍN AntonietaChem [facility] [place] [address] MCHC (RBC) [Mass/Vol] 34.6 g/dL Normal 33.0-37.[address] [facility] Comment on above: Performed By: #### 1 [id number] #### FERMÍN RemChem [address] [place] [address] MCV (RBC) [Entitic vol] 93.8 fL Normal 78.0-100.0 [facility] Comment on above: Performed By: #### 1 [id number] #### FERMÍN Rem[employer] [address] [place] [address] Platelet mean volume (Bld) [Entitic vol] 6.9 fL Low 7.4-11.0 [facility] Comment on above: Performed By: #### 1 [id number] #### FERMÍN Patterson [facility] [place] [address] Platelets (Bld) [#/Vol] 321 E3/mcL Normal 130-400 [facility] Comment on above: Performed By: #### 1 [id number] #### FERMÍN Patterson [facility] [place] [address] RBC (Bld) [#/Vol] 4.01 E6/mcL Normal 3.90-5.40 [facility] Comment on above: Performed By: #### 1 [id number] #### FERMÍN Patterson [facility] [place] [address] WBC (Bld) [#/Vol] 9.8 E3/mcL Normal 3.6-11.[address] [facility] Comment on above: Performed By: #### 1 [id number] #### FERMÍN FungAccelalox [facility] [place] [address] CMPon 07-25-2019 Albumin [Mass/Vol] 4.5 g/dL Normal 3.4-5.0 [facility] Comment on above: Performed By: #### 1 [id number] #### FERMÍN Patterson [address] [place] [address] Albumin/Globulin [Mass ratio] 1.4 {ratio} Normal 1.1-1.9 [facility] Comment on above: Performed By: #### 1 [id number] #### FERMÍN Patterson [facility] [place] [address] Alk Phos 60 Int._Unit/L Normal 33-136 [facility] Comment on above: Performed By: #### 1 [id number] #### FERMÍN FungChem [facility] [place] [address] ALT [Catalytic activity/Vol] 17 Int._Unit/L Normal 7-45 [facility] Comment on above: Performed By: #### 1 [id number] #### FERMÍN Patterson [facility] [place] [address] Anion gap [Moles/Vol] 13 mmol/L Normal 10-[address] [facility] Comment on above: Performed By: #### 1 [id number] #### FERMÍNMaria M FungAccelalox [facility] [place] [address] AST [Catalytic activity/Vol] 18 Int._Unit/L Normal 9-39 [facility] Comment on above: Performed By: #### 1 [id number] #### FERMÍN RemChem [address] [place] [address] Bili Total 0.93 mg/dL Normal 0.00-1.20 [facility] Comment on above: Performed By: #### 1 [id number] #### FERMÍN RemChem [address] [place] [address] Calcium [Mass/Vol] 9.5 mg/dL Normal 8.6-10.3 [facility] Comment on above: Performed By: #### 1 [id number] #### FERMÍN RemAccelalox [address] [place] [address] Chloride [Moles/Vol] 87 mmol/L Low 98-107 [facility] Comment on above: Performed By: #### 1 [id number] #### FERMÍN RemChem [address] [place] [address] CO2 [Moles/Vol] 27.0 mmol/L Normal 21.0-32.0 [facility] Comment on above: Performed By: #### 1 [id number] #### FERMÍN RemChem [address] [place] [address] Creatinine [Mass/Vol] 0.6 mg/dL Normal 0.5-1.[address] [facility] Comment on above: Performed By: #### 1 [id number] #### FERMÍN RemChem [address] [place] [address] Globulin (S) [Mass/Vol] 3.0 g/dL Normal 2.0-4.0 [facility] Comment on above: Performed By: #### 1 [id number] #### FERMÍN RemChem [address] [place] [address] Glucose [Mass/Vol] 148 mg/dL High 70-99 [facility] Comment on above: Performed By: #### 1 [id number] #### FERMÍN RemChem [address] [place] [address] Potassium [Moles/Vol] 3.2 mmol/L Low 3.5-5.[address] [facility] Comment on above: Performed By: #### 1 [id number] #### FERMÍN RemChem [address] [place] [address] Protein [Mass/Vol] 7.7 g/dL Normal 6.4-8.2 [facility] Comment on above: Performed By: #### 1 [id number] #### FERMÍN FungChem [address] [place] [address] Sodium [Moles/Vol] 124 mmol/L Low 136-145 [facility] Comment on above: Performed By: #### 1 [id number] #### FERMÍN RemChem [address] [place] [address] Urea nitrogen [Mass/Vol] 8 mg/dL Normal 6-23 [facility] Comment on above: Performed By: #### 1 [id number] #### FERMÍN RemChem [address] [place] [address] Urea nitrogen/Creatinine [Mass ratio] 13.3 ratio Normal 5.4-30.0 [facility] Comment on above: Performed By: #### 1 [id number] #### FERMÍN FungAccelalox [facility] [place] [address] CT Abdomen/Pelvis w/ Contras ton 07-25-2019 CT Abdomen/Pelvis w/ Contrast Exam Date/Time: 07/25/2019 13:30 EDT Reason for Exam: Pain Report STUDY: CT Abdomen/Pelvis w/ Contrast; 07/25/2019 1:30 pm INDICATION: Pain. Intermittent right flank pain x5 months. COMPARISON: 08/24/2013 ACCESSION NUMBER(S): [id number] ORDERING CLINICIAN: Palomo Garcia TECHNIQUE: CT of [...] by: Anita Cobos MD Technologist: SLB Normal [facility] Lipase Levelon 07-25-2019 Lipase Lvl 11 Int._Unit/L Normal - [facility] Comment on above: Performed By: #### 1 [id number] #### FERMÍN RemChem [address] [place] [id number] UA Completeon 07-25-2019 Color (U) Yellow Normal Yellow [facility] Comment on above: Performed By: #### 1 [id number] #### FERMÍN RemChem [address] [place] [address] Glucose (U) [Mass/Vol] Negative Normal Negative [facility] Comment on above: Performed By: #### 1 [id number] #### FERMÍN Rem[employer] [address] [place] [address] Ketones Ql (U) Trace Normal [facility] Comment on above: Performed By: #### 1 [id number] #### FERMÍN Rem[employer] [address] [place] [id number] RBC (U) [#/Vol] 5-10 Abnormal 0-3 [facility] Comment on above: Performed By: #### 1 [id number] #### FERMÍN RemChem [address] [place] [address] UA Blood 1+ Abnormal Negative [facility] Comment on above: Performed By: #### 1 [id number] #### FERMÍN Rem[employer] [address] [place] [address] UA Clarity Clear Normal Clear [facility] Comment on above: Performed By: #### 1 [id number] #### FERMÍN Rem[employer] [address] [place] [address] UA Leuk Est Negative Normal Negative [facility] Comment on above: Performed By: #### 1 [id number] #### FERMÍN Rem[employer] [address] [place] [address] UA Mucous Trace Abnormal Trace [facility] Comment on above: Performed By: #### 1 [id number] #### FERMÍN [employer] [address] [place] [address] UA Nitrite Negative Normal Negative [facility] Comment on above: Performed By: #### 1 [id number] #### FERMÍN [employer] [address] [place] [address] UA pH 7.0 Normal 4.6-8.0 [facility] Comment on above: Performed By: #### 1 [id number] #### FERMÍN Rem[employer] [address] [place] [address] UA Protein Negative Normal Negative [facility] Comment on above: Performed By: #### 1 [id number] #### FERMÍN [employer] [address] [place] [address] UA Spec Grav 1.011 Normal 1.003-1.030 [facility] Comment on above: Performed By: #### 1 [id number] #### FERMÍN RemChem [address] [place] [address] UA Squam Epithelial 0-5 Normal 0-5 [facility] Comment on above: Performed By: #### 1 [id number] #### FERMÍN RemChem [address] [place] [address] UA Urobilinogen Negative Normal [facility] Comment on above: Result Comment: Due to a manufacturing issue, low positive urobilinogen results may be fasely positive. Correlate with urine bilirubin and additional clinical/laboratory findings to assess the risk of hemolytic anemia or liver disease. If clinically indicated, repeat testing with an alternate method is available by contacting the laboratory within 24 hours. Performed By: #### 1 [id number] #### FERMÍN RemAccelalox [address] [place] [address] UA WBC 0-5 Normal 0-5 [facility] Comment on above: Performed By: #### 1 [id number] #### FERMÍN RemChem [address] [place] [address] Urobilinogen Qn (U) Negative Normal Negative [facility] Comment on above: Performed By: #### 1 [id number] #### FERMÍN RemAccelalox [facility] [place] [address] Uric Acidon 07-25-2019 Urate [Mass/Vol] 3.1 mg/dL Normal 2.3-6.7 [facility] Comment on above: Order Comment: Order added by Discern Expert. Performed By: #### 1 [id number] #### FERMÍN [place] [address] [place] [address] eGFRon 07-25-2019 GFR/1.73 sq M predicted among non-blacks MDRD (S/P/Bld) [Vol rate/Area] mL/min/{1.73_m2} Normal [facility] Comment on above: Order Comment: Order added by Discern Expert. Performed By: #### 1 [id number] #### FERMÍN RemAccelalox [address] [place] [address] BMPon 07-04-2019 Anion gap [Moles/Vol] 10 mmol/L Normal 10-[address] [facility] Comment on above: Performed By: #### 2 [id number] #### FERMÍN [employer] [address] [place] [address] Calcium [Mass/Vol] 9.7 mg/dL Normal 8.6-10.3 [facility] Comment on above: Performed By: #### 2 [id number] #### FERMÍN [employer] [address] [place] [address] Chloride [Moles/Vol] 96 mmol/L Low 98-107 [facility] Comment on above: Performed By: #### 2 [id number] #### FERMÍN [employer] [address] [place] [address] CO2 [Moles/Vol] 30.0 mmol/L Normal 21.0-32.0 [facility] Comment on above: Performed By: #### 2 [id number] #### FERMÍN [employer] [address] [place] [address] Creatinine [Mass/Vol] 0.7 mg/dL Normal 0.5-1.[address] [facility] Comment on above: Performed By: #### 2 [id number] #### FERMÍN [employer] [address] [place] [address] Glucose [Mass/Vol] 107 mg/dL High 70-99 [facility] Comment on above: Performed By: #### 2 155691 #### FERMÍN [employer] [address] [place] [address] Potassium [Moles/Vol] 4.3 mmol/L Normal 3.5-5.[address] [facility] Comment on above: Performed By: #### 2 [id number] #### FERMÍN [employer] [address] [place] [address] Sodium [Moles/Vol] 132 mmol/L Low 136-145 [facility] Comment on above: Performed By: #### 2 [id number] #### FERMÍN [employer] [address] [place] [address] Urea nitrogen [Mass/Vol] 11 mg/dL Normal 6-23 [facility] Comment on above: Performed By: #### 2 [id number] #### FERMÍN [employer] [address] [place] [address] Urea nitrogen/Creatinine [Mass ratio] 15.7 ratio Normal 5.4-30.0 [facility] Comment on above: Performed By: #### 2 [id number] #### FERMÍN [employer] [address] [place] [address] [id number] 07-04-2019 HbA1c (Bld) [Mass fraction] 5.6 % Normal 4.0-6.3 [facility] Comment on above: Performed By: #### 1 [id number] #### FERMÍN [employer] [address] [place] [address] Lipid Profileon 07-04-2019 Cholesterol [Mass/Vol] 173 mg/dL Normal 0-199 [facility] Comment on above: Result Comment: TOTA L CHOLEESTEROL: <200 NORMAL 200 - 239 BORDERLINE HIGH >240 HIGH Performed By: #### 3 [id number] #### FERMÍN [employer] [address] [place] [address] Cholesterol in HDL [Mass/Vol] 66 mg/dL High 40-60 [facility] Comment on above: Performed By: #### 3 [id number] #### FERMÍN [employer] [address] [place] [address] Cholesterol in LDL [Mass/Vol] 93 mg/dL Normal 0-130 [facility] Comment on above: Result Comment: <100 OPTIMAL 100-129 NEAR / ABOVE OPTIMAL 130-159 BORDERLINE HIGH 160-189 HIGH >190 VERY HIGH CALC LDL NOT VALID WHEN TRIGLYCERIDE IS >400 MG/DL Performed By: #### 3 [id number] #### FERMÍN [employer] [address] [place] [address] Cholesterol in VLDL [Mass/Vol] 14 mg/dL Normal 0-40 [facility] Comment on above: Performed By: #### 3 [id number] #### FERMÍN [employer] [address] [place] [address] Triglyceride [Mass/Vol] 69 mg/dL Normal 0-149 [facility] Comment on above: Result Comment: AGE DESIRABLE BORDERLINE HIGH 91 D - 9 Y 0 - 74 75 - 99 > 100 10 - 19 Y 0 - 89 90 - 129 > 130 20 -24 Y 0 - 114 115 - 149 > 150 > 25 0 - 149 150 - 199 200 - 499 Performed By: #### 3 [id number] #### FERMÍN [employer] [address] [place] [address] eGFRon 07-04-2019 GFR/1.73 sq M predicted among non-blacks MDRD (S/P/Bld) [Vol rate/Area] mL/min/{1.73_m2} Normal [facility] Comment on above: Order Comment: Order added by Discern Expert. Performed By: #### 1 [id number] #### FERMÍN [employer] [address] [place] [address] Auto Diffon 01-01-2019 Basophils (Bld) [#/Vol] 0.1 E3/mcL Normal 0.0-0.2 [facility] Comment on above: Order Comment: Order Added by Discern Expert. Performed By: #### 2 [id number] #### FERMÍN RemHemo [address] [place] [address] Basophils/100 WBC (Bld) 0.6 % Normal 0.0-2.0 [facility] Comment on above: Order Comment: Order Added by Discern Expert. Performed By: #### 2 [id number] #### FERMÍN RemHemo [address] [place] [address] Eos Absolute 0.1 E3/mcL Normal 0.0-0.7 [facility] Comment on above: Order Comment: Order Added by Discern Expert. Performed By: #### 2 [id number] #### FERMÍN RemHemo [address] [place] [address] Eosinophils/100 WBC (Bld) 1.5 % Normal 0.0-11.0 [facility] Comment on above: Order Comment: Order Added by Discern Expert. Performed By: #### 2 559808 #### FERMÍN RemHemo [address] [place] [address] Lymphocytes (Bld) [#/Vol] 2.1 E3/mcL Normal 1.2-3.4 [facility] Comment on above: Order Comment: Order Added by Discern Expert. Performed By: #### 2 072610 #### FERMÍN RemHemo [address] [place] [address] Lymphocytes/100 WBC (Bld) 21.5 % Normal 20.0-55.0 [facility] Comment on above: Order Comment: Order Added by Discern Expert. Performed By: #### 2 933021 #### FERMÍN RemHemo [address] [place] [address] [place] Absolute 0.9 E3/mcL High 0.0-0.7 [facility] Comment on above: Order Comment: Order Added by Discern Expert. Performed By: #### 2 710513 #### FERMÍN RemHemo [address] [place] [address] Monocytes/100 WBC (Bld) 9.8 % Normal 0.0-10.0 [facility] Comment on above: Order Comment: Order Added by Discern Expert. Performed By: #### 2 [id number] #### FERMÍN Burriso [address] [place] [id number] Neutro Absolute 6.4 E3/mcL Normal 1.4-6.5 [facility] Comment on above: Order Comment: Order Added by Discern Expert. Performed By: #### 2 [id number] #### FERMÍN Burriso [address] [place], [place] [address] Neutro Auto 66.6 % Normal 37.0-75.0 [facility] Comment on above: Order Comment: Order Added by Discern Expert. Performed By: #### 2 [id number] #### FERMÍN Burriso [address] [place], [place] [address] CBC w/ Auto Diffon 9 Erythrocyte distribution width (RBC) [Ratio] 14.0 % Normal 11.5-14.5 [facility] Comment on above: Performed By: #### 2 958331 #### FERMÍN Burriso [address] [place], [place] [address] Hematocrit (Bld) [Volume fraction] 38.1 % Normal 36.0-48.0 [facility] Comment on above: Performed By: #### 2 097954 #### FERMÍN Burriso [address] [place] [address] Hemoglobin (Bld) [Mass/Vol] 12.8 g/dL Normal 12.0-16.0 [facility] Comment on above: Performed By: #### 2 553959 #### FERMÍN FungHemo [facility] [place] [id number] MCH (RBC) [Entitic mass] 32.3 pg High 27.0-31.0 [facility] Comment on above: Performed By: #### 2 679872 #### FERMÍN FugnHemo [address] [place], [place] [address] MCHC (RBC) [Mass/Vol] 33.5 g/dL Normal 33.0-37.[address] [facility] Comment on above: Performed By: #### 2 127246 #### FERMÍN FungHemo [address] [place], [place] [address] MCV (RBC) [Entitic vol] 96.3 fL Normal 78.0-100.0 [facility] Comment on above: Performed By: #### 2 308445 #### FERMÍN RemHemo [facility] [place] [address] Platelet mean volume (Bld) [Entitic vol] 8.1 fL Normal 7.4-11.0 [facility] Comment on above: Performed By: #### 2 166566 #### FERMÍN RemHemo [facility] [place] [address] Platelets (Bld) [#/Vol] 290 E3/mcL Normal 130-400 [facility] Comment on above: Performed By: #### 2 760413 #### FERMÍN RemHemo [facility] [place] [address] RBC (Bld) [#/Vol] 3.96 E6/mcL Normal 3.90-5.40 [facility] Comment on above: Performed By: #### 2 275278 #### FERMÍN RemHemo [facility] [place] [address] WBC (Bld) [#/Vol] 9.6 E3/mcL Normal 3.6-11.[address] [facility] Comment on above: Performed By: #### 2 218534 #### FERMÍN RemHemo [facility] [place] [address] TSHon 01-01-2019 TSH Qn 4.38 mcIU/mL Normal 0.30-5.60 [facility] Comment on above: Performed By: #### 2 403053 #### FERMÍN Datalink [facility] [place] [address] CT Coronary Artery Calcium S core - SCREEon 12-22-2018 Calcium [Mass/Vol] Exam Date/Time: 12/22/2018 08:50 EST Reason for Exam: SCREENING FOR HEART DISEASE HTN HYPERGLYCEMIA PALPITATIONS;Screening Report STUDY: CT Coronary Artery Calcium Score - SCREE; 12/22/2018 8:50 am INDICATION: Screening. COMPARISON: None. ACCESSION NUMBER(S): [id number] ORDERING CLINICIAN: Brittney Kothari TECHNIQUE: Using prospective [...] coronary heart disease events. According to the [employer] Clinical Expert Consensus [...] modify other non-lipid coronary risk factors. Reference: [place] P et al. Circulation. 2007; 115:402-426 FINAL REPORT Dictated: 12/22/2018 10:28 am Sascha Crandall MD Signed (Electronic Signature): 12/22/2018 10:28 am Signed by: Sascha Crandall MD Technologist: MM Normal [facility] BMPon 11-27-2018 Anion gap [Moles/Vol] 11 mmol/L Normal 10-[address] [facility] Comment on above: Performed By: #### 2 900472 #### FERMÍN [employer] [address] [place] [address] Calcium [Mass/Vol] 10.0 mg/dL Normal 8.6-10.3 [facility] Comment on above: Performed By: #### 2 490440 #### FERMÍN [employer] [address] [place] [address] Chloride [Moles/Vol] 97 mmol/L Low 98-107 [facility] Comment on above: Performed By: #### 2 567894 #### FERMÍN [employer] [address] [place] [address] CO2 [Moles/Vol] 29.0 mmol/L Normal 21.0-32.0 [facility] Comment on above: Performed By: #### 2 385731 #### FERMÍN [employer] [address] [place] [address] Creatinine [Mass/Vol] 0.6 mg/dL Normal 0.5-1.[address] [facility] Comment on above: Performed By: #### 2 402470 #### FERMÍN [employer] [address] [place] [address] Glucose [Mass/Vol] 108 mg/dL High 70-99 [facility] Comment on above: Performed By: #### 2 113800 #### FERMÍN [employer] [address] [place] [address] Potassium [Moles/Vol] 3.8 mmol/L Normal 3.5-5.[address] [facility] Comment on above: Performed By: #### 2 976312 #### FERMÍN [employer] [address] [place] [address] 232[address] Sodium [Moles/Vol] 133 mmol/L Low 136-145 [facility] Comment on above: Performed By: #### 2 446892 #### FERMÍN [employer] [address] [place] [address] Urea nitrogen [Mass/Vol] 14 mg/dL Normal 6-23 [facility] Comment on above: Performed By: #### 2 901605 #### FERMÍN [employer] [address] [place] [address] Urea nitrogen/Creatinine [Mass ratio] 23.3 ratio Normal 5.4-30.0 [facility] Comment on above: Performed By: #### 2 242293 #### FERMÍN [employer] [address] [place] [address] [id number] 11-27-2018 HbA1c (Bld) [Mass fraction] 5.6 % Normal 4.0-6.3 [facility] Comment on above: Performed By: #### 3 [id number] #### FERMÍN Chemistry Manual Subsection [address] [place] [address] eGFRon 11-27-2018 GFR/1.73 sq M predicted among non-blacks MDRD (S/P/Bld) [Vol rate/Area] mL/min/{1.73_m2} Normal [facility] Comment on above: Order Comment: Order added by Discern Expert. Performed By: #### 1 [id number] #### FERMÍN [employer] [address] [place] [address] ED NOTEon 02-05-2018 ED NOTE HNO ID: [id number] Author: Karen (Rn) GABRIELLA Sheikh Service: Emergency Medicine Author Type: Registered Nurse Type: ED Notes Filed: 02/04/2018 10:58 PM Note Text: D/C to home with daughter, instructed to follow up as directed and return prn Normal [facility] ED NOTE HNO ID: [id number] Author: Karen (Rn) GABRIELLA Sheikh Service: Emergency Medicine Author Type: Registered Nurse Type: ED Notes Filed: 02/04/2018 10:50 PM Note Text: Sling and swath applied to right upper extremity, MSP's intact post application [facility] ED PROV NOTEon 02-05-2018 ED PROV NOTE HNO ID: [id number] thor: HUSSEIN Manleyervice: Emergency MedicineAuthor Type: PhysicianType: ED Provider NotesFiled: 02/04/2018 10:38 PMNote Text:ED Provider NotePatient Name: Diana LongoRN: [id number] DATE: 02/04/18HistoryPatient presents with:Pain (Shoulder Pain)Patient is a 72 year old female presenting with fall.History provided by: Relative and patientLanguage razor grinder used: NoFallLocation: Right shoulder injuryQuality: Stumbled and fellSeverity: SevereOnset quality: SuddenDuration: just 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 [facility] ED NOTE HNO ID: [id number] Author: Johanna Gutierrez RN Service: Emergency Medicine Author Type: Registered Nurse Type: ED Notes Filed: 02/04/2018 9:47 PM Note Text: Ice re-applied to right shoulder. Awaiting Xray report. [facility] ED NOTE HNO ID: [id number] Author: Johanna Gutierrez RN Service: Emergency Medicine Author Type: Registered Nurse Type: ED Notes Filed: 02/04/2018 9:21 PM Note Text: Patient returned to the Emergency Department. [facility] ED NOTE HNO ID: [id number] Author: Johanna Gutierrez RN Service: Emergency Medicine Author Type: Registered Nurse Type: ED Notes Filed: 02/04/2018 9:22 PM Note Text: Patient transported to xray with Tech. 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 [facility] Vital Signs Date Time Vital Sign Value Performing Clinician Facility 08-13-2025 12:32-0400 Body height 149.[address] Brittney Kothari MD Work Phone: [facility] 08-13-2025 12:32-0400 Body mass index (BMI) [Ratio] 32.1 kg/m2 Dr. Brittney Kothari MD Work Phone: [facility] 08-13-2025 12:32-0400 Body weight 72.[address] Brittney Kothari MD Work Phone: [facility] 08-13-2025 12:32-0400 Diastolic blood pressure 83 mm[Hg] Dr. Brittney Kothari MD Work Phone: [facility] 08-13-2025 12:32-0400 Heart rate 54 /min Dr. Brittney Kothari MD Work Phone: [facility] 08-13-2025 12:32-0400 Respiratory rate 16 /min Dr. Brittney Kothari MD Work Phone: [facility] 08-13-2025 12:32-0400 Systolic blood pressure 130 mm[Hg] Dr. Brittney Kothari MD Work Phone: [facility] 07-16-2025 16:46-0400 Diastolic blood pressure 72 mm[Hg] Brittney Kothari DO Work Phone: [facility] 07-16-2025 16:46-0400 Systolic blood pressure 138 mm[Hg] Brittney Miami DO Work Phone: [facility] 07-16-2025 16:24-0400 Body height 149.9 cm Brittney Miami DO Work Phone: [facility] 07-16-2025 16:24-0400 Body mass index (BMI) [Ratio] 32.26 kg/m2 Brittney Miami DO Work Phone: [facility] 07-16-2025 16:24-0400 Body weight 72.48 kg Brittney Miami DO Work Phone: [facility] 07-16-2025 16:24-0400 Heart rate 84 /min Brittney Miami DO Work Phone: [facility] 07-16-2025 16:24-0400 SaO2% (BldA) [Mass fraction] 94 % Brittney Miami DO Work Phone: [facility] 07-02-2025 16:00-0400 Diastolic blood pressure 66 mm[Hg] Alexander Sherersen DO Work Phone: [facility] 07-02-2025 16:00-0400 Heart rate 53 /min Alexander Sherersen DO Work Phone: [facility] 07-02-2025 16:00-0400 Respiratory rate 13 /min Alexander Sherersen DO Work Phone: [facility] 07-02-2025 16:00-0400 SaO2% (BldA) [Mass fraction] 98 % Alexander Sherersen DO Work Phone: [facility] 07-02-2025 16:00-0400 Systolic blood pressure 105 mm[Hg] Alexander Sherersen DO Work Phone: [facility] 07-02-2025 15:00-0400 Body temperature 97.3 [degF] Alexander Sherersen DO Work Phone: [facility] 07-01-2025 13:52-0400 Body height 149.9 cm Alexander Cummings DO Work Phone: [facility] 07-01-2025 13:52-0400 Body mass index (BMI) [Ratio] 29.42 kg/m2 Alexander Cummings DO Work Phone: [facility] 07-01-2025 13:52-0400 Body weight 66.1 kg Alexander Cummings DO Work Phone: [facility] 06-27-2025 10:12-0400 Body height 149.9 cm Brittney Miami DO Work Phone: [facility] 06-27-2025 10:12-0400 Body mass index (BMI) [Ratio] 31.94 kg/m2 Brittney Miami DO Work Phone: [facility] 06-27-2025 10:12-0400 Body weight 71.76 kg Brittney Miami DO Work Phone: [facility] 06-27-2025 10:12-0400 Diastolic blood pressure 74 mm[Hg] Brittney Miami DO Work Phone: [facility] 06-27-2025 10:12-0400 Heart rate 55 /min Brittney Miami DO Work Phone: [facility] 06-27-2025 10:12-0400 SaO2% (BldA) [Mass fraction] 95 % Brittney Miami DO Work Phone: [facility] 06-27-2025 10:12-0400 Systolic blood pressure 130 mm[Hg] Brittney Miami DO Work Phone: [facility] 03-20-2025 10:50-0400 Body height 149.9 cm Johanna KOVACS DNP Work Phone: [facility] 03-20-2025 10:50-0400 Body mass index (BMI) [Ratio] 32.19 kg/m2 Johanna KOVACS DNP Work Phone: [facility] 03-20-2025 10:50-0400 Body weight 72.3 kg Johanna Garner INFORMATION SYSTEMS SECURITY DEVELOPER-MILEAGE CLERK, DNP Work Phone: [facility] 03-20-2025 10:50-0400 Diastolic blood pressure 68 mm[Hg] Johanna Garner INFORMATION SYSTEMS SECURITY DEVELOPER-MILEAGE CLERK, DNP Work Phone: [facility] 03-20-2025 10:50-0400 Heart rate 64 /min Johanna Garner INFORMATION SYSTEMS SECURITY DEVELOPER-MILEAGE CLERK, DNP Work Phone: [facility] 03-20-2025 10:50-0400 Systolic blood pressure 114 mm[Hg] Johanna Garner INFORMATION SYSTEMS SECURITY DEVELOPER-MILEAGE CLERK, DNP Work Phone: [facility] 12-27-2024 09:58-0500 Body height 149.9 cm Brittney Miami DO Work Phone: [facility] 12-27-2024 09:58-0500 Body mass index (BMI) [Ratio] 32.02 kg/m2 Brittney Miami DO Work Phone: [facility] 12-27-2024 09:58-0500 Body weight 71.94 kg Britteny Miami DO Work Phone: [facility] 12-27-2024 09:58-0500 Diastolic blood pressure 78 mm[Hg] Brittney Miami DO Work Phone: [facility] 12-27-2024 09:58-0500 Heart rate 65 /min Brittney Miami DO Work Phone: [facility] 12-27-2024 09:58-0500 SaO2% (BldA) [Mass fraction] 98 % Brittney Miami DO Work Phone: [facility] 12-27-2024 09:58-0500 Systolic blood pressure 126 mm[Hg] Brittney Miami DO Work Phone: [facility] 06-26-2024 11:05-0400 Body height 149.9 cm Brittney Miami DO Work Phone: [facility] 06-26-2024 11:05-0400 Body mass index (BMI) [Ratio] 32.52 kg/m2 Brittney Miami DO Work Phone: [facility] 06-26-2024 11:05-0400 Body weight 73.03 kg Brittney Miami DO Work Phone: [facility] 06-26-2024 11:05-0400 Diastolic blood pressure 80 mm[Hg] Brittney Miami DO Work Phone: [facility] 06-26-2024 11:05-0400 Heart rate 56 /min Brittney Miami DO Work Phone: [facility] 06-26-2024 11:05-0400 SaO2% (BldA) [Mass fraction] 98 % Brittney Miami DO Work Phone: [facility] 06-26-2024 11:05-0400 Systolic blood pressure 126 mm[Hg] Brittney Miami DO Work Phone: [facility] 03-19-2024 10:11-0400 Body height 149.9 cm Johanna Garner INFORMATION SYSTEMS SECURITY DEVELOPER-MILEAGE CLERK, DNP Work Phone: [facility] 03-19-2024 10:11-0400 Body mass index (BMI) [Ratio] 33.33 kg/m2 Johanna Garner INFORMATION SYSTEMS SECURITY DEVELOPER-MILEAGE CLERK, DNP Work Phone: [facility] 03-19-2024 10:11-0400 Body weight 74.84 kg Johanna Garner INFORMATION SYSTEMS SECURITY DEVELOPER-MILEAGE CLERK, DNP Work Phone: [facility] 03-19-2024 10:11-0400 Diastolic blood pressure 70 mm[Hg] Johanna Garner INFORMATION SYSTEMS SECURITY DEVELOPER-ELIOT, DNP Work Phone: [facility] 03-19-2024 10:11-0400 Heart rate 57 /min Johanna Garner APRN-ELIOT, DNP Work Phone: [facility] 03-19-2024 10:11-0400 Systolic blood pressure 122 mm[Hg] Johanna Young INFORMATION SYSTEMS SECURITY DEVELOPER-MILEAGE CLERK, DNP Work Phone: [facility] 06-28-2023 11:00-0400 Body height 149.9 cm Brittney Miami DO Work Phone: [facility] 06-28-2023 11:00-0400 Body mass index (BMI) [Ratio] 32.46 kg/m2 Brittney Miami DO Work Phone: [facility] 06-28-2023 11:00-0400 Body weight 72.89 kg Brittney Miami DO Work Phone: [facility] 06-28-2023 11:00-0400 Diastolic blood pressure 78 mm[Hg] Brittney Miami DO Work Phone: [facility] 06-28-2023 11:00-0400 Heart rate 56 /min Brittney Miami DO Work Phone: [facility] 06-28-2023 11:00-0400 SaO2% (BldA) [Mass fraction] 97 % Brittney Miami DO Work Phone: [facility] 06-28-2023 11:00-0400 Systolic blood pressure 126 mm[Hg] Brittney Miami DO Work Phone: [facility] 03-18-2023 10:24-0400 Body height 149.86 cm Brittney S Miami Work Phone: [facility] Yuri 3 DO Work Phone: 03-18-2023 10:24-0400 Body mass index (BMI) [Ratio] 32.6 kg/m2 Brittney S [place] Work Phone: [facility] Yuri 3 DO Work Phone: 03-18-2023 10:24-0400 Body surface area Derived from formula 1.68 m2 Brittney S [place] Work Phone: [facility]-Npnhivifju-XLFW[facility] Yuri 3 DO Work Phone: 03-18-2023 10:24-0400 Body weight 73.21 kg Brittney S Miami Work Phone: [facility] 3 DO Work Phone: 03-18-2023 10:24-0400 Diastolic blood pressure 78 mm[Hg] Brittney S Miami Work Phone: [facility] 3 DO Work Phone: 03-18-2023 10:24-0400 Heart rate 80 /min Brittney S Miami Work Phone: [facility] 3 DO Work Phone: 03-18-2023 10:24-0400 Systolic blood pressure 130 mm[Hg] Brittney S Miami Work Phone: [facility] 3 DO Work Phone: 12-28-2022 10:56-0500 Body height 149.86 cm Brittney S Miami Work Phone: [facility] Work Phone: 12-28-2022 10:56-0500 Body mass index (BMI) [Ratio] 32.11 kg/m2 Brittney S Miami Work Phone: [facility] Work Phone: 12-28-2022 10:56-0500 Body surface area Derived from formula 1.67 m2 Brittney S Miami Work Phone: [facility] Work Phone: 12-28-2022 10:56-0500 Body weight 72.12 kg Brittney S [place] Work Phone: [facility] Work Phone: 12-28-2022 10:56-0500 Diastolic blood pressure 76 mm[Hg] Brittney Kothari Work Phone: [facility] Work Phone: 12-28-2022 10:56-0500 Heart rate 71 /min Brittney Kothari Work Phone: [facility] Work Phone: 12-28-2022 10:56-0500 SaO2% (BldA) [Mass fraction] 99 % Brittney Alfredo Miami Work Phone: [facility] Work Phone: 12-28-2022 10:56-0500 Systolic blood pressure 128 mm[Hg] Brittney Alfredo [place] Work Phone: [facility] Work Phone: 03-19-2022 09:55-0400 Body height 149.86 cm Brittney Alfredo [place] Work Phone: [facility] 3 DO Work Phone: 03-19-2022 09:55-0400 Body mass index (BMI) [Ratio] 31.71 kg/m2 Brittney Kothari Work Phone: [facility] 3 DO Work Phone: 03-19-2022 09:55-0400 Body surface area Derived from formula 1.66 m2 Brittney Alfredo [place] Work Phone: [facility] 3 DO Work Phone: 03-19-2022 09:55-0400 Body weight 71.22 kg Brittney Kothari Work Phone: [facility] 3 DO Work Phone: 03-19-2022 09:55-0400 Diastolic blood pressure 77 mm[Hg] Brittney Alfredo [place] Work Phone: [facility]cv[facility]uri 3 DO Work Phone: 03-19-2022 09:55-0400 Heart rate 59 /min Brittney Alfredo [place] Work Phone: [facility] Yuri 3 DO Work Phone: 03-19-2022 09:55-0400 Systolic blood pressure 151 mm[Hg] Brittney Alfredo [place] Work Phone: BG[facility]Apmcogxkni[facility] Yuri 3 DO Work Phone: 06-23-2021 11:16-0400 Body height 149.86 cm Brittney Alfredo [place] Work Phone: [facility] Work Phone: 06-23-2021 11:16-0400 Body mass index (BMI) [Ratio] 32.11 kg/m2 Brittney Alfredo [place] Work Phone: [facility] Work Phone: 06-23-2021 11:16-0400 Body surface area Derived from formula 1.67 m2 Brittney Alfredo [place] Work Phone: [facility] Work Phone: 06-23-2021 11:16-0400 Body temperature 98.6 [degF] Brittney Alfredo [place] Work Phone: [facility] Work Phone: 06-23-2021 11:16-0400 Body weight 72.12 kg Brittney Alfredo [place] Work Phone: [facility] Work Phone: 06-23-2021 11:16-0400 Diastolic blood pressure 78 mm[Hg] Brittney Alfredo [place] Work Phone: [facility] Work Phone: 06-23-2021 11:16-0400 Heart rate 71 /min Brittney Kothari Work Phone: [facility] Work Phone: 06-23-2021 11:16-0400 SaO2% (BldA) [Mass fraction] 97 % Brittney Kothari Work Phone: [facility] Work Phone: 06-23-2021 11:16-0400 Systolic blood pressure 118 mm[Hg] Brittney Kothari Work Phone: [facility] Work Phone: 12-23-2020 13:17-0500 BMI (Body Mass Index) 31.39 kg/m2 Johanna Garner [facility] Work Phone: 12-23-2020 13:17-0500 Body Temperature 96.9 [degF] Johanna Garner [facility] Work Phone: 12-23-2020 13:17-0500 Body weight 70.51 kg Johanna Garner [facility] Work Phone: 12-23-2020 13:17-0500 BP Diastolic 70 mm[Hg] Johanna Garner [facility] Work Phone: 12-23-2020 13:17-0500 BP Systolic 132 mm[Hg] Johanna Garner [facility] Work Phone: 12-23-2020 13:17-0500 BSA (Body Surface Area) 1.66 m2 Johanna Garner [facility] Work Phone: 12-23-2020 13:17-0500 Height 149.86 cm Johanna Garner [facility] Work Phone: 12-23-2020 13:17-0500 Pulse (Heart Rate) 70 /min Johanna Garner [facility] Work Phone: 12-23-2020 13:17-0500 Pulse Oximetry 97 % Johanna Garner [facility] Work Phone: 11-19-2020 13:27-0500 BMI (Body Mass Index) 31.33 kg/m2 Johanna Garner [facility] Work Phone: 11-19-2020 13:27-0500 Body Temperature 95.7 [degF] Johanna Garner [facility] Work Phone: 11-19-2020 13:27-0500 Body weight 70.36 kg Johanna Garner [facility] Work Phone: 11-19-2020 13:27-0500 BP Diastolic 82 mm[Hg] Johanna Garner [facility] Work Phone: Comment on above: Location: LUE; Position: Sitting 11-19-2020 13:27-0500 BP Systolic 146 mm[Hg] Johanna Garner [facility] Work Phone: Comment on above: Location: LUE; Position: Sitting 11-19-2020 13:27-0500 BSA (Body Surface Area) 1.66 m2 Johanna Garner [facility] Work Phone: 11-19-2020 13:27-0500 Height 149.86 cm Johanna Garner [facility] Work Phone: 11-19-2020 13:27-0500 Pulse (Heart Rate) 68 /min Johanna Garner [facility] Work Phone: 07-01-2020 12:50-0400 BMI (Body Mass Index) 30.11 kg/m2 Dc Garner [facility] Work Phone: 07-01-2020 12:50-0400 Body Temperature 97.1 [degF] Dc Garner [facility] Work Phone: Comment on above: Method: Temporal 07-01-2020 12:50-0400 Body weight 67.61 kg Dc Garner [facility] Work Phone: 07-01-2020 12:50-0400 BP Diastolic 80 mm[Hg] Dc Garner [facility] Work Phone: 07-01-2020 12:50-0400 BP Systolic 122 mm[Hg] Dc Garner [facility] Work Phone: 07-01-2020 12:50-0400 BSA (Body Surface Area) 1.63 m2 Dc Garner [facility] Work Phone: 07-01-2020 12:50-0400 Height 149.86 cm Dc Garner [facility] Work Phone: 07-01-2020 12:50-0400 Pulse (Heart Rate) 68 /min Dc Garner [facility] Work Phone: 07-01-2020 12:50-0400 Pulse Oximetry 97 % Dc Garner [facility] Work Phone: Comment on above: Source: RA Encounters Encounter Date Encounter Type Care Provider Facility [facility]: [facility] Start: 08-20-2025 ambulatory Dany Larry Facility:[facility] Start: 08-13-[address] Dany Juarez MD -Laboratory Work Phone: Start: 08-13-2025 ambulatory Dany Larry Facility:[facility] Start: 08-13-2025 End: 08-13-[address] Dany Juarez MD -[facility] Work Phone: Start: 08-13-2025 End: 08-13-[address] Brittney Kothari MD Work Phone: -[facility] Start: 07-30-2025 End: 07-30-2025 ambulatory [facility] Start: 07-16-2025 End: 07-16-2025 Transitional care manage srvc 14 day discharge Brittney Kothari DO Work Phone: [facility] Comment on above: Hyponatremia (Primar y Dx); Hyperglycemia; Atrial fibrillation with RVR (Multi); Paroxysmal atrial fibrillation (Multi) Start: 07-16-2025 End: 07-16-2025 ambulatory [facility] Start: 07-10-2025 End: 07-10-2025 ambulatory [facility] Start: 07-08-2025 End: 07-08-2025 ambulatory [facility] Start: 07-05-2025 End: 07-05-2025 ambulatory [facility] Start: 07-02-2025 End: 07-02-2025 [facility] Comment on above: Paroxysmal atrial fi brillation (Multi) Start: 07-02-2025 End: 07-02-2025 ambulatory [facility] Start: 07-01-2025 End: 07-02-2025 Evaluation and management of inpatient Alexander Cummings DO Work Phone: [facility] Comment on above: Atrial fibrillation with RVR (Multi) (Primary Dx); Abnormal EKG; Paroxysmal atrial fibrillation (Multi) Start: 07-01-2025 End: 07-01-2025 Subsequent hospital visit by physician Ray Gongv[facility] Comment on above: Palpitations Start: 07-01-2025 End: 07-02-2025 ambulatory [facility] Start: 07-01-2025 End: 07-01-2025 ambulatory [facility] Start: 06-27-2025 End: 06-27-2025 Office outpatient visit 25 minutes Brittney Alfredo [place] DO Work Phone: [facility] Comment on above: Medicare annual well ness visit, subsequent (Primary Dx); Palpitations; Other constipation; Essential (primary) hypertension; Secondary hypothyroidism; Hypertension, unspecified type; Mixed hyperlipidemia; Vitamin D deficiency; Hyperglycemia Start: 06-27-2025 End: 07-16-2025 Patient encounter procedure [email or web address] Work Phone: [facility] Work Phone: Start: 06-27-2025 End: 06-27-2025 ambulatory [facility] Start: 06-27-2025 End: 06-27-2025 Encounter for general adult medical examination without abnormal findings [facility] Start: 03-20-2025 End: 03-20-2025 Office outpatient visit 15 minutes Johanna Garner APRN-MILEAGE CLERK, [facility] Work Phone: [facility] Comment on above: 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); Essential (primary) hypertension; Mixed hyperlipidemia Start: 03-20-2025 End: 03-20-2025 ambulatory JOHANNA M [facility] Start: 12-27-2024 End: 12-27-2024 Office outpatient visit 25 minutes [email or web address] Work Phone: [facility] Comment on above: Hyperglycemia (Prima ry Dx); Essential (primary) hypertension; Secondary hypothyroidism; Hypertension, unspecified type; Mixed hyperlipidemia; Chronic midline low back pain without sciatica Start: 12-27-2024 End: 12-27-2024 ambulatory [facility] Start: 06-26-2024 End: 06-26-2024 Office outpatient visit 25 minutes [email or web address] Work Phone: [facility] Comment on above: Medicare annual well ness visit, subsequent (Primary Dx); Essential (primary) hypertension; Hypertension, unspecified type; Mixed hyperlipidemia; Benign essential hypertension; Hyperglycemia; Secondary hypothyroidism; 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); Vitamin D deficiency; Impacted cerumen of right ear Start: 06-26-2024 End: 06-26-2024 Patient encounter procedure [email or web address] Work Phone: [facility] Work Phone: Start: 06-18-2024 End: 06-18-2024 ambulatory BRITTNEY Juni [facility] Start: 03-19-2024 End: 03-19-2024 Office outpatient visit 15 minutes Johanan Garner APRN-MILEAGE CLERK, [facility] Work Phone: [facility] Comment on above: Benign essential hyp ertension (Primary Dx); 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) Start: 03-15-2024 End: 03-15-2024 ambulatory [facility] Start: 12-20-2023 End: 12-20-2023 ambulatory [facility] Start: 06-28-2023 End: 06-28-2023 Office outpatient visit 25 minutes Brittney S [place] DO Work Phone: [facility] Comment on above: Healthcare hattie ce (Primary Dx); Hyperglycemia; SIADH (syndrome of inappropriate ADH production) (CMS/HCC); Benign essential hypertension; Mixed hyperlipidemia; Secondary hypothyroidism; Medicare annual wellness visit, subsequent Start: 06-28-2023 End: 12-27-2024 Patient encounter procedure Brittney Alfredo [place] DO Work Phone: [facility] Work Phone: Start: 06-28-2023 End: 06-28-2023 Patient encounter status Brittnye S [place] DO Work Phone: [facility] Work Phone: Start: 05-09-2023 AUDIT Brittney Alfredo Geronimo al Work Phone: [facility] 3 DO Work Phone: Start: 03-18-2023 Office outpatient vi sit 15 minutes Brittney S [place] Work Phone: YK[facility]amxfivfpt-EXVW[facility] 3 DO Work Phone: Start: 03-10-2023 Chart Update Brittney S Geronimo al Work Phone: [facility] 3 DO Work Phone: Start: 12-28-2022 Office outpatient vi sit 25 minutes Brittney Kothari Work Phone: [facility] Work Phone: Start: 12-20-2022 Chart Update Brittney Melton al Work Phone: [facility] Work Phone: Start: 12-06-2022 Rx Renewal Brittney Kaury al Work Phone: [facility] Work Phone: Start: 11-22-2022 AUDIT Brittney Kaury al Work Phone: [facility] 3 DO Work Phone: Start: 10-27-2022 Rx Renewal Brittney Melton al Work Phone: [facility] 3 DO Work Phone: Start: 06-29-2022 EPV, Provider: Brittney Kothari, Status: Pen, Time: 11:00 AM Brittney Kothari Work Phone: [facility] Work Phone: Start: 06-28-2022 Rx Renewal Brittney Kaury al Work Phone: [facility] Work Phone: Start: 06-27-2022 Chart Update Brittney Alfredo Geronimo al Work Phone: [facility] Work Phone: Start: 06-22-2022 Chart Update Brittney Alfredo Geronimo al Work Phone: [facility] Work Phone: Start: 06-01-2022 Rx Renewal Brittney Alfredo Geronimo al Work Phone: [facility] Work Phone: Start: 05-10-2022 Rx Renewal Brittney Alfredo Geronimo al Work Phone: [facility] 3 DO Work Phone: Start: 04-14-2022 Telephone encounter Brittney Alfredo [place] Work Phone: [facility] 3 DO Work Phone: Start: 03-19-2022 Office outpatient vi sit 15 minutes Brittney Kothari Work Phone: [facility] 3 DO Work Phone: Start: 12-22-2021 Chart Update Brittney S Geronimo al Work Phone: [facility] Work Phone: Start: 12-08-2021 Rx Renewal Brittney Alfredo Geronimo al Work Phone: [facility] Work Phone: Start: 11-17-2021 AUDIT Brittney S Geronimo al Work Phone: [facility] 3 DO Work Phone: Start: 11-16-2021 AUDIT Brittney S Geronimo al Work Phone: [facility] 3 DO Work Phone: Start: 11-03-2021 Rx Renewal Brittney S Geronimo al Work Phone: [facility]uri 3 DO Work Phone: Start: 07-23-2021 Rx Renewal Brittney S Geronimo al Work Phone: -[facility] Work Phone: Start: 07-02-2021 Chart Update Brittney Melton al Work Phone: -[facility] Work Phone: Start: 06-23-2021 Office outpatient vi sit 25 minutes Brittney Alfredo Work Phone: -[facility] Work Phone: Start: 06-16-2021 Chart Update Brittney Melton al Work Phone: -[facility] Work Phone: Start: 05-19-2021 AUDIT Brittney Melton al Work Phone: [facility] DO Work Phone: Start: 12-23-2020 Patient encounter procedure Johanna Garner -[facility] Work Phone: Start: 11-19-2020 Patient encounter procedure Johanna Garner -[facility] Work Phone: Start: 07-01-2020 Patient encounter procedure Dc Garner -[facility] Work Phone: Start: 05-06-2020 Patient encounter procedure Dc Garner -[facility] Work Phone: Start: 03-18-2020 Patient encounter procedure Dc Garner MP[facility] Work Phone: Start: 02-22-2020 Patient encounter procedure Dc Garner [facility] Work Phone: Start: 02-04-2020 Patient encounter procedure Dc Garner -[facility] Work Phone: Start: 01-01-2020 Patient encounter procedure Dc Garner [facility] Work Phone: Start: 11-05-2019 Patient encounter procedure Dc Garner [facility] Work Phone: Start: 10-18-2019 Patient encounter procedure Dc Garner [facility] Work Phone: Start: 09-14-2019 Patient encounter procedure Dc Garner [facility] Work Phone: Start: 09-12-2019 Patient encounter procedure Dc Garner [facility] Work Phone: Start: 09-10-2019 Patient encounter procedure Dc Garner [facility] Work Phone: Start: 09-05-2019 Patient encounter procedure Dc Garner [facility] Work Phone: Start: 09-03-2019 Patient encounter procedure Dc Garner [facility] Work Phone: Start: 08-29-2019 Patient encounter procedure Dc Garner [facility] Work Phone: Start: 08-27-2019 Patient encounter procedure Dc Garner [facility] Work Phone: Start: 08-24-2019 Patient encounter procedure Dc Garner [facility] Work Phone: Start: 02-04-2018 Emergency department patient visit [facility] Patient encounter procedure Brittney Kothari Work Phone: [facility] DO Work Phone: Procedures [...] contrast ev al cardiac structure&morph Francis Brennon Zambarno MD Work Phone: Start: 07-01-2025 EXTRA TUBES [...] complete W Reflex Culture panel - Urine Alexander Cummings DO Work Phone: Start: 07-01-2025 Urinalysis [...] 12 lds trcg only w/o i&r Brittney Kothrai DO Work Phone: Start: 07-01-2025 Thyrotropin [Units/v olume] in Serum or Plasma [employer] Start: 06-20-2025 Lipid 1996 panel - S lucretia or Plasma Brittney [place] DO Work Phone: Start: 12-17-2024 Thyrotropin [Units/v olume] in Serum or Plasma Brittney [place] DO Work Phone: Start: 06-18-2024 Lipid 1996 panel - S lucretia or Plasma Brittney [place] DO Work Phone: Start: 06-18-2024 Thyrotropin [Units/v olume] in Serum or Plasma Brittney [place] DO Work Phone: Start: 03-15-2024 Comprehensive metabo lic 2000 panel - Serum or Plasma BRITTNEY ROYAL Start: 12-20-2023 Basic metabolic 1999 panel - Serum or Plasma BRITTNEY ROYAL Start: 12-20-2023 Hemoglobin A1c/Hemoglobin.total in Blood BRITTNEY ROYAL Start: 12-20-2023 Thyrotropin [Units/v olume] in Serum or Plasma Johanna Garner INFORMATION SYSTEMS SECURITY DEVELOPER-MILEAGE CLERK, DNP Work Phone: Start: 06-21-2023 Lipid 1996 panel - S lucretia or Plasma Brittney [place] DO Work Phone: Start: 12-20-2022 Thyrotropin [Units/v olume] in Serum or Plasma Brittney [place] DO Work Phone: Start: 12-23-2020 Assay of [...] Author Start: 06-20-2030 Lipid panel Lipid Panel [facility] Start: 06-18-2029 Lipid panel Lipid Panel [facility] Start: 06-21-2028 Lipid panel Lipid Panel [facility] Start: 07-02-2026 Diabetes mellitus screening Diabetes Screening [facility] Start: 07-01-2026 Diabetes mellitus screening Diabetes Screening [facility] Start: 07-01-2026 Thyroid stimulating hormone measurement TSH Level [facility] Start: 06-28-2026 Medicare Annual Wellness Visit Medicare Annual Wellness Visit (AWV) [facility] Start: 06-20-2026 Hemoglobin A1c measurement Diabetes: Hemoglobin A1C [facility] Start: 03-20-2026 End: 03-20-2026 Basic metabolic 2000 panel - Serum or Plasma Basic metabolic panel Lab Routine 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) Expected: 03/20/2026 (Approximate), Expires: 03/20/2026 [facility] Service Area Work Phone: Comment on above: Expected: 03/20/2026 (Approximate), Expires: 03/20/2026 Start: 03-20-2026 End: 03-20-2026 Patient encounter procedure 03/20/2026 11:00 AM EDT Office Visit [facility] Medical Office Building [address] [place] [phone] Johanna Garner, INFORMATION SYSTEMS SECURITY DEVELOPER-MILEAGE CLERK, DNP [address] [facility] [address] [place] [id number] [facility] Start: 12-28-2025 End: 06-27-2026 25-hydroxyvitamin D3 [Mass/volume] in Serum or Plasma Vitamin D 25-Hydroxy,Total (for eval of Vitamin D levels) Lab Routine Vitamin D deficiency Expected: 12/28/2025 (Approximate), Expires: 06/27/2026 [facility] Work Phone: Comment on above: Expected: 12/28/2025 (Approximate), Expires: 06/27/2026 Start: 12-28-2025 End: 06-27-2026 Basic metabolic 2000 panel - Serum or Plasma Basic Metabolic Panel Lab Routine Essential (primary) hypertension Expected: 12/28/2025 (Approximate), Expires: 06/27/2026 [facility] Work Phone: Comment on above: Expected: 12/28/2025 (Approximate), Expires: 06/27/2026 Start: 12-28-2025 End: 06-27-2026 Hemoglobin A1c/Hemoglobin.total in Blood Hemoglobin A1C Lab Routine Hyperglycemia Expected: 12/28/2025 (Approximate), Expires: 06/27/2026 [facility] Work Phone: Comment on above: Expected: 12/28/2025 (Approximate), Expires: 06/27/2026 Start: 12-26-2025 End: 12-26-2025 Patient encounter procedure 12/26/2025 11:20 AM EST Office Visit [facility] [address] [place] [phone] Brittney Kothari DO [address] [place] [address] [facility] Start: 12-17-2025 Thyroid stimulating hormone measurement TSH Level [facility] Start: 08-13-2025 End: 08-13-2025 Evaluation of diagnostic study results [facility] Start: 07-30-2025 End: 07-30-2025 Anticoagulant drug monitoring 07/30/2025 2:45 PM EDT Anticoagulation - Warfarin Visit [facility] [address] [facility] [address] [place] [address] [facility] Start: 07-16-2025 End: 07-16-2026 Basic metabolic 2000 panel - Serum or Plasma Basic Metabolic Panel Lab Routine Hyponatremia Expected: 07/16/2025 (Approximate), Expires: 07/16/2026 [facility] Service Area Work Phone: Comment on above: Expected: 07/16/2025 (Approximate), Expires: 07/16/2026 Start: 07-15-2025 COVID-19 Vaccine ( season) COVID-19 Vaccine ( season) [facility] Start: 07-15-2025 Influenza vaccination Influenza Vacc ine (#1) [facility] Start: 07-05-2025 End: 07-05-2025 Anticoagulant drug monitoring 07/05/2025 1:30 PM EDT Anticoagulation - Warfarin Visit [facility] [address] [facility] [address] [place] [address] [facility] Start: 07-02-2025 End: 07-02-2026 Holter monitor study [facility] Service Area Work Phone: Comment on above: Expected: 07/02/2025 , Expires: 07/02/2026 Once for 1 Occurrenc es starting 07/02/2025 until 07/02/2025 Start: 06-27-2025 End: 08-27-2025 Holter monitor study Holter Or Event Signal Technician Cardiac Services Routine Palpitations Expected: 06/27/2025 (Approximate), Expires: 08/27/2025 [facility] Service Area Work Phone: Comment on above: Expected: 06/27/2025 (Approximate), Expires: 08/27/2025 Start: 06-27-2025 Medicare Annual Wellness Visit Medicare Annual Wellness Visit (AWV) [facility] Start: 06-27-2025 End: 06-27-2026 Thyrotropin [Units/volume] in Serum or Plasma TSH Lab Routine Secondary hypothyroidism Expected: 06/27/2025 (Approximate), Expires: 06/27/2026 [facility] Work Phone: Comment on above: Expected: 06/27/2025 (Approximate), Expires: 06/27/2026 Start: 06-27-2025 End: 06-27-2025 Patient encounter procedure 06/27/2025 10:20 AM EDT Office Visit [facility] [address] [facility] [address] [place] [phone] Brittney Kothari DO [address] [facility] [address] [place] [address] [facility] Start: 06-26-2025 End: 12-27-2025 Basic metabolic 2000 panel - Serum or Plasma Basic Metabolic Panel Lab Routine Essential (primary) hypertension Expected: 06/26/2025 (Approximate), Expires: 12/27/2025 [facility] Service Area Work Phone: Comment on above: Expected: 06/26/2025 (Approximate), Expires: 12/27/2025 Start: 06-26-2025 End: 12-27-2025 Hemoglobin A1c/Hemoglobin.total in Blood Hemoglobin A1C Lab Routine Hyperglycemia Expected: 06/26/2025 (Approximate), Expires: 12/27/2025 [facility] Work Phone: Comment on above: Expected: 06/26/2025 (Approximate), Expires: 12/27/2025 Start: 06-26-2025 End: 12-27-2025 Lipid 1996 panel - Serum or Plasma Lipid Panel Lab Routine Mixed hyperlipidemia Expected: 06/26/2025 (Approximate), Expires: 12/27/2025 [facility] Work Phone: Comment on above: Expected: 06/26/2025 (Approximate), Expires: 12/27/2025 Start: 06-18-2025 Thyroid stimulating hormone measurement TSH Level [facility] Start: 04-01-2025 End: 09-19-2025 Basic metabolic 2000 panel - Serum or Plasma Basic metabolic panel Lab Routine Benign essential hypertension 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) Expected: 04/01/2025 (Approximate), Expires: 09/19/2025 [facility] Area Work Phone: Comment on above: Expected: 04/01/2025 (Approximate), Expires: 09/19/2025 Start: 03-19-2025 End: 03-19-2025 Patient encounter procedure 03/19/2025 10:00 AM EDT Office Visit [facility] Medical Office Building [address] [place] [phone] Johanna Garner, INFORMATION SYSTEMS SECURITY DEVELOPER-MILEAGE CLERK, DNP [address] [place] [address] [facility] Start: 12-27-2024 End: 06-26-2025 25-hydroxyvitamin D3 [Mass/volume] in Serum or Plasma Vitamin D 25-Hydroxy,Total (for eval of Vitamin D levels) Lab Routine Vitamin D deficiency Expected: 12/27/2024 (Approximate), Expires: 06/26/2025 [facility] Work Phone: Comment on above: Expected: [...] Routine Hyperglycemia Expected: 12/27/2024 (Approximate), Expires: 06/26/2025 [facility] Work Phone: Comment on above: Expected: 12/27/2024 (Approximate), Expires: 06/26/2025 Start: 12-27-2024 End: 06-26-2025 Thyrotropin [Units/volume] in Serum or Plasma TSH Lab Routine Secondary hypothyroidism Expected: 12/27/2024 (Approximate), Expires: 06/26/2025 [facility] Work Phone: Comment on above: Expected: 12/27/2024 (Approximate), Expires: 06/26/2025 Start: 12-20-2024 Thyroid stimulating hormone measurement TSH Level [facility] Start: 11-06-2024 COVID-19 Vaccine ( season) COVID-19 Vaccine ( season) [facility] Start: 07-15-2024 Influenza vaccination Influenza Vacc ine (#1) [facility] Start: 06-29-2024 Medicare Annual Wellness Visit Medicare Annual Wellness Visit (AWV) [facility] Start: 06-26-2024 End: 06-26-2024 Patient encounter procedure 06/26/2024 11:00 AM EDT Office Visit [facility] [address] [place] [phone] Brittney Kothari, DO [address] [facility] Medical Office [place], [place] [phone] [facility] Start: 03-19-2024 FUV, Provider: Johanna Garner, Status: Pen, Time: 10:15 AM FUV, Provider: Johanna Garner, Status: Pen, Time: 10:15 AM [facility] 3 DO Work Phone: Start: 12-29-2023 End: 06-28-2024 Basic metabolic 2000 panel - Serum or Plasma Basic Metabolic Panel Lab Routine SIADH (syndrome of inappropriate ADH production) ([facility]) Expected: 12/29/2023 (Approximate), Expires: 06/28/2024 [facility] Work Phone: Comment on above: Expected: 12/29/2023 (Approximate), Expires: 06/28/2024 Start: 12-29-2023 End: 06-28-2024 Hemoglobin A1c/Hemoglobin.total in Blood Hemoglobin A1C Lab Routine Hyperglycemia Expected: 12/29/2023 (Approximate), Expires: 06/28/2024 [facility] Work Phone: Comment on above: Expected: 12/29/2023 (Approximate), Expires: 06/28/2024 Start: 12-29-2023 End: 06-28-2024 Thyrotropin [Units/volume] in Serum or Plasma TSH Lab Routine Secondary hypothyroidism Expected: 12/29/2023 (Approximate), Expires: 06/28/2024 [facility] Service Area Work Phone: Comment on above: Expected: 12/29/2023 (Approximate), Expires: 06/28/2024 Start: 12-27-2023 End: 12-27-2023 Patient encounter procedure 12/27/2023 11:00 AM EST Office Visit [facility] [address] [place] [phone] Brittney Kothari S, DO [address] [facility] [place] [address] [facility] Start: 12-20-2023 Thyroid stimulating hormone measurement TSH Level [facility] Start: 12-15-2023 COVID-19 Vaccine ( season) COVID-19 Vaccine () [facility] Start: 07-15-2023 Influenza vaccination Influenza Vacc ine (#1) [facility] Start: 06-30-2023 Medicare Annual Wellness Visit Medicare Annual Wellness Visit (AWV) [facility] Start: 06-28-2023 EPV, Provider: Brittney Kothari, Status: Pen, Time: 11:00 AM EPV, Provider: Brittney Kothari, Status: Pen, Time: 11:00 AM [facility] Work Phone: Start: 03-18-2023 FUV, Provider: Johanna Garner, Status: Pen, Time: 10:30 AM FUV, Provider: Johanna Garner, Status: Pen, Time: 10:30 AM [facility] 3 DO Work Phone: Start: 12-28-2022 EPV, Provider: Brittney Kohtari, Status: Pen, Time: 11:00 AM EPV, Provider: Brittney Kothari, Status: Pen, Time: 11:00 AM [facility] 3 DO Work Phone: Start: 09-30-2022 COVID-19 Vaccine (5 - Booster for Moderna series) COVID-19 Vaccine (5 - Booster for Moderna series) [facility] Start: 06-29-2022 EPV, Provider: Brittney Kothari, Status: Pen, Time: 11:00 AM EPV, Provider: Brittney Kothari, Status: Pen, Time: 11:00 AM [facility] 3 DO Work Phone: Start: 03-19-2022 FUV, Provider: Johanna Garner, Status: Pen, Time: 10:00 AM FUV, Provider: Johanna Garner, Status: Pen, Time: 10:00 AM [facility] 3 DO Work Phone: Start: 12-29-2021 EPV, Provider: Brittney Kothari, Status: Pen, Time: 11:20 AM EPV, Provider: Brittney Kothari, Status: Pen, Time: 11:20 AM [facility] Work Phone: Start: 06-23-2021 EPV, Provider: Brittney Kothari, Status: Pen, Time: 11:20 AM EPV, Provider: Brittney Kothari, Status: Pen, Time: 11:20 AM [facility] 3 DO Work Phone: Start: 01-01-2021 Basic metabolic 1998 panel - Serum or Plasma Basic Metabolic Panel [facility] Work Phone: Start: 01-01-2021 HbA1c (Bld) [Mass fraction] Hemoglobin A1C [facility] Work Phone: Start: 01-01-2021 Lipid panel Lipid Panel [facility] Work Phone: Start: 2019 RSV High Risk: (Elderly (60+) or Population) (1 - 1-dose 75+ series) RSV High Risk: (Elderly (60+) or Population) (1 - 1-dose 75+ series) [facility] Start: 2009 Screening for osteoporosis Bone Density Scan [facility] Start: 2004 RSV patient s and/or patients aged 60+ years (1 - 1-dose 60+ series) RSV patients and/or patients aged 60+ years (1 - 1-dose 60+ series) [facility] Start: 1994 Zoster Vaccines (1 o f 2) Zoster Vaccines (1 of 2) [facility] Start: 1966 DTaP/Tdap/Td Vaccine s (1 - Tdap) DTaP/Tdap/Td Vaccines (1 - Tdap) [facility] Start: 1962 Hepatitis C screening Hepatitis C [facility] Start: 1944 Screening for osteoporosis Bone Density Scan [facility] Bacteria identified in Urine by Culture Urine Culture Microbiology STAT 07/01/2025 10:31 AM EDT [facility] Work Phone: Cardioversion electi ve arrhythmia external CARDIOVERSION, EXTERNAL Atrial fibrillation with RVR (Multi) Virtual [facility] Cardiac Mold Cutting Machine Operator CT pre watchman full contrast CT pre watchman full contrast Imaging STAT 07/01/2025 1:34 PM EDT [facility] Work Phone: ECG 12 lead (Ancilla ry Performed) [facility] Work Phone: Electrocardiogram, 12-lead PRN ACS symptoms Electrocardiogram, 12-lead PRN ACS symptoms ECG Routine As needed until discontinued starting 07/01/2025 [facility] Work Phone: Comment on above: As needed until disc ontinued starting 07/01/2025 End: 07-01-2025 Incentive spirometry Instruct Incentive spirometry Instruct Respiratory Care Routine Once for 1 Occurrences starting 07/01/2025 until 07/01/2025 [facility] Work Phone: Comment on above: Once for 1 Occurrenc es starting 07/01/2025 until 07/01/2025 NM Heart Views W stress and W radionuclide IV [facility] DDVTECH [facility] Work Phone: NEGATED: Highlighted row has been ruled out! Planned Goals not documented [facility] Work Phone: Immunizations Immunization Date Immunization Notes Care Provider Ariela rendon 09-11-2024 Moderna SARS-CoV-2 Booster Brittney [place] DO Work Phone: [facility] Work Phone: 09-05-2024 influenza, seasonal, injectable Brittney [place] DO Work Phone: [facility] Work Phone: 09-05-2024 influenza virus vacc ine, unspecified formulation Brittney [place] DO Work Phone: [facility] Work Phone: 10-20-2023 Moderna SARS-CoV-2 Booster Johanna Garner INFORMATION SYSTEMS SECURITY DEVELOPER-MILEAGE CLERK, DNP Work Phone: [facility] 09-16-2023 Flu vaccine, quadrivalent, high-dose, preservative free, age 65y+ (FLUZONE) Johanna Garner INFORMATION SYSTEMS SECURITY DEVELOPER-MILEAGE CLERK, DNP Work Phone: [facility] 09-16-2023 influenza virus vacc ine, unspecified formulation Brittney [place] DO Work Phone: [facility] Work Phone: 06-28-2023 Pneumococcal conjuga te vaccine, 20-valent, adult (PREVNAR 20) [employer] DO Work Phone: [facility] Work Phone: 08-24-2022 Fluzone High-Dose Quadrivalent 0.7 ML Intramuscular Suspension Prefilled Syringe [employer] Work Phone: PQ-Rqnhofigmk-QSIFormerly [facility] 3 DO Work Phone: Comment on above: Series: 08-24-2022 influenza virus vacc ine, unspecified formulation Brittney [place] DO Work Phone: [facility] Work Phone: 08-05-2022 Moderna COVID-19 Biv al Booster 50 MCG/0.5ML Intramuscular Suspension Brittney S [place] Work Phone: [facility] Work Phone: 02-12-2022 Moderna COVID-19 Vac cine 100 MCG/0.5ML Intramuscular Suspension Brittney S [place] Work Phone: [facility]dbkhrwopc[facility] Yuri 3 DO Work Phone: 09-09-2021 Moderna COVID-19 Vac cine 100 MCG/0.5ML Intramuscular Suspension Brittney S [place] Work Phone: YQ-Xnbspvwwxm-Y[facility]NP[facility] Yuri 3 DO Work Phone: 07-30-2021 influenza, injectabl e, quadrivalent, contains preservative Brittney S [place] Work Phone: OJ-Soskzzjtpl-CFHP[facility] Yuri 3 DO Work Phone: Comment on above: Series: 02-09-2021 Moderna COVID-19 Vac cine 100 MCG/0.5ML Intramuscular Suspension Brittney S [place] Work Phone: [facility] 01-12-2021 Moderna COVID-19 Vac cine 100 MCG/0.5ML Intramuscular Suspension Brittney S [place] Work Phone: [facility] 07-29-2020 influenza, high dose seasonal, preservative-free Dc Garner [facility] Work Phone: Comment on above: Series: 08-06-2019 influenza, high dose seasonal, preservative-free; Translations: [Influenza, high dose seasonal, preservative-free] Dc Garner [facility] Work Phone: Comment on above: Series: 07-24-2018 influenza, high dose seasonal, preservative-free; Translations: [Influenza, high dose seasonal, preservative-free] Dc Garner [facility] Work Phone: Comment on above: Series: 07-19-2017 influenza, high dose seasonal, preservative-free Brittney S [place] Work Phone: [facility] Work Phone: 07-08-2016 influenza, high dose seasonal, preservative-free Brittney S [place] Work Phone: [facility] Work Phone: 09-24-2015 pneumococcal conjuga te vaccine, 13 valent Brittney S [place] Work Phone: FR-Qykawbulep-[facility]PV[facility] Y[facility] 3 DO Work Phone: Comment on above: Series: 09-14-2015 pneumococcal conjuga te vaccine, 13 valnikita Garner [facility] Work Phone: 09-13-2012 pneumococcal polysaccharide vaccine, 23 valnikita Garner [facility] Work Phone: Comment on above: Series: 09-19-2007 influenza virus vacc ine, whole virus Brittney Alfredo [place] Work Phone: [facility] Work Phone: Payers Date Payer Category Payer Self-pay 2011 Medicare [id number] 2011 Medicare [id number] 1944 Unknown [id number] 2.16.8 [id number] 1944 Unknown [id number] 2.16.8 [id number] 1944 Unknown [id number] 2.16.8 [id number] 1944 Unknown [id number] 2.16. [id number] 1944 Unknown [id number] 2.16. [id number] 1944 Unknown [id number] 2.16. 840.1.446519.3.579.2.124 1944 Unknown [id number] 2.16. 840.1.817896.3.579.2.1244 1944 Unknown [id number] 2.16.8 40.1.635323.3.579.2.124 1944 Unknown [id number] 2.16.8 40.1.114189.3.579.2.1243 1944 Unknown [id number] 2.16.8 40.1.802943.3.579.2.1243 1944 Unknown [id number] 2.16.8 40.1.619158.3.579.2.1243 1944 Unknown [id number] 2.16.8 40.1.061744.3.579.2.1243 1944 Unknown [id number] 2.16.8 40.1.218323.3.579.2.124 1944 Unknown [id number] 2.16.8 40.1.559779.3.579.2.1243 1944 Unknown [id number] 2.16.8 40.1.382729.3.579.2.1243 1944 Unknown [id number] 2.16.8 40.1.906660.3.579.2.1243 Unknown Unknown [id number] 2.16.8 40.1.382717.3.579.2.462 Unknown [id number] 2.16.8 40.1.978472.3.579.2.462 Unknown [id number] 2.16.8 40.1.265517.3.579.2.462 Unknown [id number] 2.16.8 40.1.816113.3.579.2.462 Social History Date Type Detail Facility Assertion Tobacco smoking consumption unknown (finding) [facility] Work Phone: Start: 12-27-2023 End: 07-01-2025 No illicit drug use No illicit drug use [facility] Yuri 3 [facility] Work Phone: Start: 06-28-2023 End: 08-13-2025 Tobacco smoking status NHIS Never smoked tobacco [facility] Work Phone: Start: 06-28-2023 Tobacco use and exposure Smokeless tobacco non-user [facility] Work Phone: Start: 06-28-2023 End: 07-02-2025 Alcohol intake Ex-drinker (finding) [facility] Work Phone: Start: 1945 [facility] Start: 12-27-2023 End: 07-01-2025 Gender identity Not on file [facility] Work Phone: Start: 06-18-2023 End: 03-20-2025 Exposure to SARS-CoV-2 (event) Not sure [facility] Start: 10-09-2022 Sex Female [facility] Within the last year , have you been afraid of your partner or ex-partner? No [facility] Work Phone: How often to you hav e a drink containing alcohol? Never [facility] Work Phone: (I/We) worried whedanielle er (my/our) food would run out before (I/we) got money to buy more. Never true [facility] Work Phone: Start: 1945 Sex Assigned At Female W [facility] Functional Status Date Assessment Result Facility 07-16-2025 Patient Health Questionnaire 2 item (PHQ-2) [Reported] [facility] Work Phone: 07-01-2025 Total score [AUDIT-C] 0 07/01/20 25 1:45 PM EDT Johanna Daniels, GABRIELLA [facility] Work Phone: 07-01-2025 Patient Health Questionnaire 2 item (PHQ-2) [Reported] [facility] Work Phone: 07-01-2025 [place] - suicide severity rating scale screener - recent [C-SSRS] [facility] Work Phone: 06-27-2025 Patient Health Questionnaire 2 item (PHQ-2) [Reported] [facility] Work Phone: [facility] Work Phone: NEGATED: Highlighted row Functional performance Functional status health issues are not documented Disease [facility] Work Phone: Mental Status Date Assessment Result Facility NEGATED: Highlighted row Cognitive function [Interpretation] Cognitive status health issues are not documented Disease [facility] Work Phone: Clinical Notes 12-15-2021 to 08-13-2025 Assessment & Plan Note - Brittney Kothari DO - 07/16/2025 4:51 PM EDTAssessment & Plan Note - Brittney Kothari DO - 07/16/2025 4:51 PM EDTBrittney Kothari DO - 07/16/2025 4:20 PM EDT Note Date & Type Note Facility 08-13-2025 Progress note [facility] 07-16-2025 Evaluation + Plan note Associated Problem(s): Hyperglycemia - Her most recent hemoglobin A1c was satisfactory and we will monitor periodically [facility] Work Phone: 07-16-2025 Evaluation + Plan note Associated Problem(s): Hyponatremia - She will go back to the lab tomorrow for a sodium check and we will contact her with the results [facility] Work Phone: 07-16-2025 Evaluation + Plan note Associated Problem(s): Atrial fibrillation with RVR (Multi) - Newly diagnosed with her recent hospitalization from July 01 through the -She will be following up with transport specialist in [place] on the of this month -Her medication regimen will remain the same for now and she will call with any questions or concerns between now and her cardiology visit [facility] Work Phone: 07-16-2025 Miscellaneous Notes Associated [...] the -She will be following up with transport specialist in [place] on the of this month -Her medication regimen will remain the same for now and she will call with any questions or concerns between now and her cardiology visit documented in this encounter [facility] Work Phone: 07-16-2025 History of Present [...] actually has an appointment to see a manager laboratory in [place], Dr. Rolly Juarez. This provider will be [...] the -She will be following up with transport specialist in [place] on the of this month -Her medication [...] as previously planned documented in this encounter [facility] Work Phone: 07-16-2025 Instructions Brittney Kothari [...] as previously planned documented in this encounter [facility] Work Phone: 07-02-2025 Hospital course Narrative [...] dyslipidemia, and hypothyroidism who was presented to [facility] with c/o Intermittent palpitations (approximately 2 episodes [...] Center 12/26/2025 11:20 AM Brittney Kothari, DO [id number] [facility] 03/20/2026 11:00 AM Johanna Garner, INFORMATION SYSTEMS SECURITY DEVELOPER-MILEAGE CLERK, DNP [id number] [facility] Heide Barber MD documented in this encounter [facility] Work Phone: 07-02-2025 network architect manager Note Cardiology Patient back to sinus rhythm. No prior history of coronary artery disease, normal echocardiogram. Mg 2.04. Case discussed with Dr. Sin, due to multiple episodes of Afib overnight, we will start her on Flecainide 50mg BID. Follow up in Cardiology clinic in 1 week with new EKG for follow up. [facility] Work Phone: 07-02-2025 Miscellaneous Notes Cardiology [...] the following goals. documented in this encounter [facility] Work Phone: 07-02-2025 History of Present illness Narrative 07/02/25 1451 Discharge Planning Living Arrangements Alone Support Systems [...] were you homeless or living in a prison (including now)? N Transportation Needs In the [...] PCP is Dr. Kothari. Preferred pharmacy is [facility] in [place]. Denies any difficulty obtaining/affording medications. She is independent at home with ADL's and drives self. She has a cane at home but does not currently use. [facility] per nursing. Discharge plan is return [...] LDL-C. Dexter CHÁVEZ et al. OSCAR. 2013;310(19): 2517-5926 (http://education.SmartKickz.com/faq/LTS964) 06/18/2024 09:49 AM 97 <=99 mg/dL Final [...] restless leg syndrome. She presented to ED [facility] on 07/01/2025 complaining of palpitations. She endorsed [...] # New Onset Atrial Fibrillation - Elevated [id number] score which implies higher risk for thromboembolic [...] dilTIAZem 5-15 mg/hr documented in this encounter [facility] Work Phone: 07-01-2025 Plan of care [...] and maintenance of device (specify) Outcome: Progressing [facility] 07-01-2025 Plan of care note Problem: Pain [...] did make progress toward the following goals. [facility] Work Phone: 07-01-2025 History and physical [...] once daily at bedtime. 100 tablet 1 [facility] Work Phone: 07-01-2025 History and physical [...] 100 tablet 1 documented in this encounter [facility] Work Phone: 07-01-2025 Consult note Associated [...] restless leg syndrome. She presented to ED [facility] on 07/01/2025 complaining of palpitations. She endorsed [...] of LDL-C. Dexter CHÁVEZ et al. OSCAR. 2013;310(59): 4835-7246 (http://Scoopshot.LogMeIn/faq/YGX581) LDL Calculated Date/Time Value Ref Range Status [...] restless leg syndrome. She presented to ED [facility] on 07/01/2025 complaining of palpitations. She endorsed [...] # New Onset Atrial Fibrillation - Elevated [id number] score which implies higher risk for thromboembolic [...] family history on file. [2] [3] [4] [facility] Work Phone: 07-01-2025 Consult note Associated [...] restless leg syndrome. She presented to ED [facility] on 07/01/2025 complaining of palpitations. She endorsed [...] LDL-C. Dexter CHÁVEZ et al. OSCAR. 2013;310(19): 2080-6838 (http://education.LogMeIn/faq/URU988) LDL Calculated Date/Time Value Ref Range Status [...] restless leg syndrome. She presented to ED [facility] on 07/01/2025 complaining of palpitations. She endorsed [...] # New Onset Atrial Fibrillation - Elevated [id number] score which implies higher risk for thromboembolic [...] [2] [3] [4] documented in this encounter [facility] Work Phone: 07-01-2025 Physician Emergency department [...] drugs or marijuana. 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 Constitutional: General: She is awake. Appearance: Normal appearance. She is normal weight. HENT: Head: Normocephalic and atraumatic. Right Ear: External ear normal. Decreased hearing noted. Left Ear: External ear normal. Decreased hearing noted. Nose: Nose normal. No congestion or rhinorrhea. Mouth/Throat: Lips: Baring. Mouth: Mucous membranes are moist. Pharynx: Oropharynx [...] in ng/mL Fibrinogen Equivalent Units (FEU). Per building dismantler's instructions for use, a value of less [...] Urine Colorless (*) Appearance, Urine Clear Specific [place], Urine 1.007 pH, Urine 6.5 Protein, Urine [...] is performed using different testing methodology at [facility] than at other [facility]. Direct result comparisons should only be [...] performed using a different testing methodology at [facility] than at other [facility]. Direct result comparisons should only be [...] performed using a different testing methodology at [facility] than at other [facility]. Direct result comparisons should only be [...] Abnormality Status --------- ------ Troponin I, High Sensiti...[[id number]] Normal Final result Troponin, High Sensitivi...[[id number]] Normal Final result Please view results for these tests on the individual orders. URINALYSIS WITH REFLEX CULTURE AND MICROSCOPIC Narrative: The following orders were created for panel order Urinalysis with Reflex Culture and Microscopic. Procedure Abnormality Status --------- ------ Urinalysis with Reflex C...[[id number]] Abnormal Final result Extra Urine Frank Tube[[id number]] In process Please view results for these [...] atelectatic changes noted MACRO: None Dictation workstation: [id number] XR chest 1 view Final Result Thoracic spine DJD as described. Mild cardiomegaly. Currently without radiographic evidence of CHF or pneumonia. MACRO: None Signed by: Odin Neri 07/01/2025 10:34 AM Dictation workstation: [id number] Procedures Medical Decision Making The patient is [...] atrial fibrillation. I talked to Dr. Zambrano overcaster and he wanted the patient admitted to [...] 80 ms. The QTc is 452 ms [place] is -21 degrees. Diagnoses as of 07/02/25718 Atrial fibrillation with RVR (Multi) Alexander Cummings DO 07/02/25718 [facility] Work Phone: 07-01-2025 Emergency department Note [...] drugs or marijuana. 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 Constitutional: General: She is awake. Appearance: Normal appearance. She is normal weight. HENT: Head: Normocephalic and atraumatic. Right Ear: External ear normal. Decreased hearing noted. Left Ear: External ear normal. Decreased hearing noted. Nose: Nose normal. No congestion or rhinorrhea. Mouth/Throat: Lips: Baring. Mouth: Mucous membranes are moist. Pharynx: Oropharynx [...] in ng/mL Fibrinogen Equivalent Units (FEU). Per building dismantler's instructions for use, a value of less [...] Urine Colorless (*) Appearance, Urine Clear Specific [place], Urine 1.007 pH, Urine 6.5 Protein, Urine [...] is performed using different testing methodology at [facility] than at other [facility]. Direct result comparisons should only be [...] performed using a different testing methodology at [facility] than at other [facility]. Direct result comparisons should only be [...] performed using a different testing methodology at [facility] than at other [facility]. Direct result comparisons should only be [...] Abnormality Status --------- ------ Troponin I, High Sensiti...[[id number]] Normal Final result Troponin, High Sensitivi...[[id number]] Normal Final result Please view results for these tests on the individual orders. URINALYSIS WITH REFLEX CULTURE AND MICROSCOPIC Narrative: The following orders were created for panel order Urinalysis with Reflex Culture and Microscopic. Procedure Abnormality Status --------- ------ Urinalysis with Reflex C...[[id number]] Abnormal Final result Extra Urine Frank Tube[[id number]] In process Please view results for these [...] atelectatic changes noted MACRO: None Dictation workstation: [id number] XR chest 1 view Final Result Thoracic spine DJD as described. Mild cardiomegaly. Currently without radiographic evidence of CHF or pneumonia. MACRO: None Signed by: Odin Neri 07/01/2025 10:34 AM Dictation workstation: [id number] Procedures Medical Decision Making The patient is [...] atrial fibrillation. I talked to Dr. Zambrano overcaster and he wanted the patient admitted to [...] 80 ms. The QTc is 452 ms [place] is -21 degrees. Diagnoses as of 07/02/25718 Atrial fibrillation with RVR (Multi) Alexander Cummings DO 07/02/25718 documented in this encounter [facility] Work Phone: 07-01-2025 Nurse Note Patient [...] placed on upon discharge from the ER. [facility] 07-01-2025 Nurse Note Patient arrived for [...] from the ER. documented in this encounter [facility] Work Phone: 06-27-2025 Evaluation + Plan note Associated Problem(s): Palpitations - Because of the nature of her palpitations I will have her wear a 2-week Holter monitor and I have agreed to contact her when the results return -I will also have her get a thyroid blood test today Orders: Holter Or Event Signal Technician; Future [facility] Work Phone: 06-27-2025 Evaluation + Plan note Associated Problem(s): Mixed hyperlipidemia - We discussed cholesterol and I will give her a handout that goes over cholesterol diet. -I am switching her simvastatin to atorvastatin Orders: atorvastatin (Lipitor) 20 mg tablet; Take 1 tablet (20 mg) by mouth once daily. [facility] Work Phone: 06-27-2025 Evaluation + Plan [...] mouth once daily. Basic Metabolic Panel; Future [facility] Work Phone: 06-27-2025 Evaluation + Plan note Associated Problem(s): Vitamin D deficiency - She continues to take vitamin D supplementation and we will check a vitamin D level just prior to her next follow-up visit Orders: Vitamin D 25-Hydroxy,Total (for eval of Vitamin D levels); Future [facility] Work Phone: 06-27-2025 Evaluation + Plan [...] 60 minutes prior to breakfast TSH; Future [facility] Work Phone: 06-27-2025 Evaluation + Plan [...] to set you up to wear a threat monitoring analyst for 2 weeks. The idea is that [...] constipation. I recommend that you purchase an kenz-dlz-fmcqgrt fiber supplement such as Metamucil. You can [...] If it is too expensive please call [facility] Work Phone: 06-27-2025 Evaluation + Plan note Associated Problem(s): Other constipation - For her constipation I am recommending fiber therapy with plenty of water and she will call if this is not effective [facility] Work Phone: 06-27-2025 Evaluation + Plan note Associated Problem(s): Medicare annual wellness visit, subsequent - We discussed fall prevention -We discussed the importance of healthy diet and exercise -She has completed her advance directives [facility] Work Phone: 06-27-2025 History of Present [...] can last 1/2-hour. We discussed doing a threat monitoring analyst to make sure that nothing of a [...] blood test today Orders: Holter Or Event Signal Technician; Future Other constipation - For her constipation [...] to set you up to wear a threat monitoring analyst for 2 weeks. The idea is that [...] constipation. I recommend that you purchase an awrw-lxz-sbdnvto fiber supplement such as Metamucil. You can [...] expensive please call documented in this encounter [facility] Work Phone: 06-27-2025 Instructions Brittney Kothari DO - 06/27/2025 10:20 AM EDT Patient instructions As we discussed because of your heart palpitations I am asking the staff to set you up to wear a threat monitoring analyst for 2 weeks. The idea is that [...] constipation. I recommend that you purchase an isbf-cqb-wrpnpuh fiber supplement such as Metamucil. You can [...] expensive please call documented in this encounter [facility] Work Phone: 06-27-2025 Miscellaneous Notes Associated Problem(s): Palpitations - Because of the nature of her palpitations I will have her wear a 2-week Holter monitor and I have agreed to contact her when the results return -I will also have her get a thyroid blood test today Orders: Holter Or Event Signal Technician; Future Associated Problem(s): Mixed hyperlipidemia - We [...] to set you up to wear a threat monitoring analyst for 2 weeks. The idea is that [...] constipation. I recommend that you purchase an ncrh-qha-cskatxp fiber supplement such as Metamucil. You can [...] her advance directives documented in this encounter [facility] Work Phone: 03-20-2025 Evaluation + Plan note Associated Problem(s): Essential (primary) hypertension Blood pressure is stable on nifedipine, losartan, metoprolol [facility] Work Phone: 03-20-2025 Evaluation + Plan note Associated Problem(s): 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) At this time her sodium level is stable at 137, no changes at this time [facility] Work Phone: 03-20-2025 Miscellaneous Notes Associated Problem(s): Essential (primary) hypertension Blood pressure is stable on nifedipine, losartan, metoprolol Associated Problem(s): 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) At this time her sodium level is stable at 137, no changes at this time documented in this encounter [facility] Work Phone: 03-20-2025 History of Present [...] 03/20/25 10:52 AM documented in this encounter [facility] Work Phone: 12-27-2024 Evaluation + Plan note Associated Problem(s): Chronic low back pain -We discussed her low back pain and she will let us know if she decides to go back to the pain clinic [facility] Work Phone: 12-27-2024 Evaluation + Plan note Associated Problem(s): Secondary hypothyroidism -Her TSH was perfect this time and we will check it again in 1 year [facility] Work Phone: 12-27-2024 Miscellaneous Notes Associated [...] current antihypertensive regimen documented in this encounter [facility] Work Phone: 12-27-2024 Evaluation + Plan note Associated Problem(s): Hyperglycemia -Her hemoglobin A1c came back at 5.9 -We discussed the importance of eating a healthy diet and regular exercise [facility] Work Phone: 12-27-2024 Evaluation + Plan note Associated Problem(s): Mixed hyperlipidemia -We will check cholesterol just prior to her next follow-up visit [facility] Work Phone: 12-27-2024 Evaluation + Plan note Associated Problem(s): Essential (primary) hypertension -Blood pressure remains under excellent control and we will continue with her current antihypertensive regimen [facility] Work Phone: 12-27-2024 History of Present [...] very infrequent. We discussed possibly doing a threat monitoring analyst especially if it becomes more of an [...] Brittney Kothari DO documented in this encounter [facility] Work Phone: 12-27-2024 Instructions Brittney Kothari [...] to that visit documented in this encounter [facility] Work Phone: 06-26-2024 Evaluation + Plan note Associated Problem(s): Medicare annual wellness visit, subsequent -We discussed fall prevention and I will give her a handout that goes over ways to reduce her risk of falls -We discussed the importance of exercise -We discussed providing a copy of her advance directives [facility] Work Phone: 06-26-2024 Evaluation + Plan note Associated Problem(s): 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) -Sodium level is 1 point and we will continue to monitor -She knows to watch her water intake and to call with any unusual symptoms [facility] Work Phone: 06-26-2024 Evaluation + Plan note Associated Problem(s): Secondary hypothyroidism -We are increasing her thyroid medication to 88 mcg daily and we will recheck a TSH just prior to her next follow-up visit [facility] Work Phone: 06-26-2024 Miscellaneous Notes Associated [...] current antihypertensive regimen documented in this encounter [facility] Work Phone: 06-26-2024 Evaluation + Plan note Associated Problem(s): Hyperglycemia -Her hemoglobin A1c was satisfactory at 5.5 and we will continue to monitor -I also remind her to try to exercise regularly and watch her diet closely [facility] Work Phone: 06-26-2024 Evaluation + Plan note Associated Problem(s): Impacted cerumen of right ear -She will arrange to come back another day to have her ear flushed [facility] Work Phone: 06-26-2024 Evaluation + Plan note Associated Problem(s): Mixed hyperlipidemia -Her cholesterol from bile is excellent and we will check it once a year per Medicare protocol [facility] Work Phone: 06-26-2024 Evaluation + Plan note Associated Problem(s): Essential (primary) hypertension -Her blood pressure control is excellent so we will continue with her current antihypertensive regimen [facility] Work Phone: 06-26-2024 History of Present [...] 5 days a week. We discussed joining [employer]. We also discussed providing a copy of [...] General Brittney Kothari DO as PCP - [facility] Attributed Provider Review of Systems Constitutional: [...] 100 mg tablet documented in this encounter [facility] Work Phone: 06-26-2024 Instructions Brittney Kothari [...] of your living will and power of regulatory attorney for healthcare Please remember that we changed the dose of your thyroid and now you will be taking an 88 mcg dose. If everything goes according to plan we will see you back in 6 months for another checkup and please remember to get fasting lab work done prior to that visit documented in this encounter [facility] Work Phone: 03-19-2024 Evaluation + Plan [...] salt intake, does have good protein intake [facility] Work Phone: 03-19-2024 Evaluation + Plan note Associated Problem(s): Benign essential hypertension Blood pressure is currently well-controlled on losartan, nifedipine, metoprolol [facility] Work Phone: 03-19-2024 Miscellaneous Notes Associated Problem(s): [...] losartan, nifedipine, metoprolol documented in this encounter [facility] Work Phone: 03-19-2024 History of Present [...] 03/19/24 10:18 AM documented in this encounter [facility] Work Phone: 06-28-2023 Evaluation + Plan note Associated Problem(s): Hyperglycemia -Her most recent hemoglobin A1c was 5.6. -We will continue to monitor -We encourage her to eat a healthy diet, exercise regularly, and try to get his close to ideal body weight as [facility] Work Phone: 06-28-2023 Evaluation + Plan note Associated Problem(s): Secondary hypothyroidism -We will check a TSH just prior to next follow-up visit -She will continue with levothyroxine 75 mcg daily T [facility] Work Phone: 06-28-2023 Evaluation + Plan note Associated Problem(s): SIADH (syndrome of inappropriate ADH production) ([facility]) -It has been extremely stable and her sodium is at 135 [facility] Work Phone: 06-28-2023 Miscellaneous Notes Associated [...] Problem(s): SIADH (syndrome of inappropriate ADH production) ([facility]) -It has been extremely stable and her [...] mg twice daily documented in this encounter [facility] Work Phone: 06-28-2023 Evaluation + Plan note Associated Problem(s): Mixed hyperlipidemia -Her cholesterol profile is excellent and we will continue to check it once a year per Medicare protocol -She will remain on simvastatin 20 mg daily [facility] Work Phone: 06-28-2023 Evaluation + Plan note Associated Problem(s): Benign essential hypertension -Blood pressure is currently well controlled -She will continue with nifedipine CC 30 mg twice daily -Losartan 100 mg daily -Metoprolol tartrate 100 mg twice daily [facility] Work Phone: 06-28-2023 History of Present illness Narrative Pt is here today for a 6 month check up, she is also due for a [facility] wellness exam. Review labs. Subjective Reason for [...] General Brittney Kothari DO as PCP - [facility] Attributed Provider Objective Vitals: BP 126/78 [...] daily SIADH (syndrome of inappropriate ADH production) ([facility]) Current Assessment & Plan -It has been [...] subsequent - Primary documented in this encounter [facility] Work Phone: 06-28-2023 Instructions Brittney Kothari [...] to that visit documented in this encounter [facility] Work Phone: 12-15-2021 History of Present [...] the office have been less than 130/80 [facility] Yuri 3 [facility] Work Phone: Evaluation note Diagnosis Healthcare maintenance- Primary Hyperglycemia Other abnormal glucose SIADH (syndrome of inappropriate ADH production) ([facility]) Other disorders of neurohypophysis Benign essential hypertension Essential hypertension, benign Mixed hyperlipidemia Secondary hypothyroidism Other specified acquired hypothyroidism Medicare annual wellness visit, subsequent documented in this encounter [facility] Work Phone: Evaluation note* Diagnosis Benign essential hypertension- Primary Essential hypertension, benign 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 documented in this encounter [facility] Work Phone: Evaluation note* Diagnosis Healthcare [...] ear Impacted cerumen documented in this encounter [facility] Work Phone: Evaluation note* Diagnosis Healthcare [...] pain without sciatica documented in this encounter [facility] Work Phone: Evaluation note* Diagnosis Healthcare [...] hypertension Mixed hyperlipidemia documented in this encounter [facility] Work Phone: Evaluation note* Diagnosis Healthcare [...] Other abnormal glucose documented in this encounter [facility] Work Phone: Evaluation note* Diagnosis Healthcare [...] abnormal glucose Palpitations documented in this encounter [facility] Work Phone: Evaluation note* Diagnosis Healthcare [...] (Multi) Atrial fibrillation documented in this encounter [facility] Work Phone: Evaluation note* Diagnosis Healthcare [...] (Multi) Atrial fibrillation documented in this encounter [facility] Work Phone: Evaluation note* Diagnosis Healthcare [...] (Multi) Atrial fibrillation documented in this encounter [facility] Work Phone: Evaluation note* Diagnosis Onset Date Resolution Status Admit Date Paroxysmal atrial fibrillation acute August 13, 2025 12:14pm Coronary artery disease chronic S eptember 2024 12:14pm Dyslipidemia chronic August 132024 12:14pm Hypertension chronic August 132024 12:14pm [facility] Work Phone: History of Present [...] has living will. Patient has healthcare POA. [facility] Work Phone: History of Present illness Narrative* [...] has had no confusion lightheadedness or dizziness [facility]-Brtxtenjjc-KXM [place] Yuri 3 DO Work Phone: Hospital Discharge instructionsAmbulatory Orders* Electrophysiology Location: None Selected [facility] Work Phone: Progress note Author Dany Juarez [facility] Note Date/Time August 13, 2025 1:04pm [facility] [address] [place] [address] OFFICE VISIT Date of Service: 08/13/25 MR#: [id number] Acct: [id number] Name: DIANA ALMONTE Rep #: [id number] : 1945 Provider: Dr. Carter Juarez MD Age/Sex: 79/F Location: [facility] Status: Signed HPI HPI History of Present [...] Reasons: AFIB, SOB, HI BP, LT HEADED Infusion Pharmacist Required: No Accompanied by: Daughter Is patient [...] applicable) CC: Dr. Brittney Kothari MD ~ [place] [email or web address] Work Phone: Reason for referral (narrative)* Consultation (Routine) - Authorized Specialty Diagnoses / Procedures Referred By Contac t Referred To Contact Primary Care Procedures Follow Up In Primary Care Kellie Kothariyared Alfredo DO [address] [place] [address] Referral ID Status Reason Start Date Expiration Date V isits Requested Visits Authorized [id number] Authorized 06/28/2023 12/25/2023 1 1 [facility] Work Phone: Rescbz for referral (narrative)* Consultation (Routine) - Authorized Specialty Diagnoses / Procedures Referred By Contac t Referred To Contact Nephrology Diagnoses Benign essential hypertension 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) Procedures Follow Up In Nephrology Johanna Garner APRN-CNP, APOLINAR [address] [place] [address] Referral ID Status Reason Start Date Expiration Date V isits Requested Visits Authorized [id number] Authorized 03/19/2024 03/19/2025 1 1 [facility] Work Phone: Revquu for referral (narrative)* Consultation (Routine) - Authorized Specialty Diagnoses / Procedures Referred By Contac t Referred To Contact Primary Care Procedures Follow Up In Primary Care Royal Brittneyyared Alfredo DO [address] [place] [address] Referral ID Status Reason Start Date Expiration Date V isits Requested Visits Authorized [id number] Authorized 06/26/2024 06/26/2025 1 1 [facility] Work Phone: Reyywa for referral (narrative)* Consultation (Routine) - Authorized Specialty Diagnoses / Procedures Referred By Contac t Referred To Contact Primary Care Procedures Follow Up In Primary Care MiamiBrittney DO [address] [address] Phone: tel: fax: Referral ID Status Reason Start Date Expiration Date V isits Requested Visits Authorized [id number] Authorized 12/27/2024 12/27/2025 1 1 [facility] Work Phone: Reason for visit Narrative* Cardiovascular (Routine) - Authorized Specialty Diagnoses / Procedures Referred By Contac t Referred To Contact Diagnoses Palpitations Procedures ECG 12 lead (Ancillary Performed) Royal Brittney Alfredo DO [address] [place] [address] Phone: tel: fax: Referral ID Status Reason Start Date Expiration Date V isits Requested Visits Authorized [id number] Authorized 07/01/2025 07/01/2026 1 1 [facility] Work Phone: Reason for visit Narrative* Auth/Cert Specialty Diagnoses / Procedures Referred By Contac t Referred To Contact Diagnoses Abnormal EKG Atrial fibrillation with RVR (Multi) Procedures Nba Torrez MD [address] [place] [address] Phone: tel: fax: [facility] [address] [place] [address] Phone: tel: Referral ID Status Reason Start Date Expiration Date Visits Re quested Visits Authorized [id number] 1 1 [facility] Work Phone: Summary Purpose Family History [...] FoundDocuments on File Type Date Recorded Patient Center Consultant Expl anation Living Will 06/29/2024 [place] WILL DECLARATION Date Activated Date Inactivated Comments 07/01/2025 2:20 PM Question Answer Comments Plan of Care: Code Status Discussion Completed Decision Maker: Patient Documents on File Type Date Recorded Patient Center Consultant Expl anation Living Will 06/29/2024 [place] WILL DECLARATION Date Activated Date Inactivated Comments 07/01/2025 2:20 PM Question Answer Comments Plan of Care: Code Status Discussion Completed Decision Maker: Patient Chief Complaint * Pt is here today for a 6 month check up as well as her [facility] wellness exam. This note was generated by using Plum software. It may contain errors in wording, [...] talked about the shingles vaccine. She is jl-un-[id number] cancer screening and she is highly independent. Her memory is good and she does her own finances and manages her own medications. She also has advanced directives including a living will and power of regulatory attorney for healthcare. * 1 YEAR FOLLOW-UP- SIADH/Hyponatremia, HTN, Edema * Most recent labs 12/22/2021 * Pt is here today for a 6 month check up, review labs. C/O chronic LB pain. This note was generated by using Plum software. It may contain errors in wording, [...] section and content) DATE CREATED AUTHOR 05/03/2018 [facility] DATE CREATED AUTHOR AUTHOR'S ORGANIZ ATION 05/18/2018 [facility] DATE CREATED AUTHOR AUTHOR'S ORGANIZ ATION 08/19/2019 [facility] DATE CREATED AUTHOR AUTHOR'S ORGANIZ ATION 06/27/2022 [facility] DATE CREATED AUTHOR AUTHOR'S ORGANIZ ATION 03/21/2023 [facility] DATE CREATED AUTHOR AUTHOR'S ORGANIZ ATION 06/24/2024 [facility] DATE CREATED AUTHOR AUTHOR'S ORGANIZ ATION 07/07/2025 [facility] DATE CREATED AUTHOR AUTHOR'S ORGANIZ ATION 07/19/2025 [facility] DATE CREATED AUTHOR AUTHOR'S ORGANIZ ATION 07/20/2025 [facility] DATE CREATED AUTHOR AUTHOR'S ORGANIZ ATION 07/31/2025 [facility] DATE CREATED AUTHOR AUTHOR'S ORGANIZ ATION 08/22/2025 [facility] Care Teams (unrecognized sec tion and content) Registered Nurse Ambulatory Relationship Specialty Start Date End Date Brittney Kothari DO [address] [facility] [place] [address] PCP - General 07/17/19 Brittney Kothari DO [address] [facility] [place] [address] PCP - [facility]CO Attributed Provider 11/14/21 Registered Nurse Ambulatory Relationship Specialty Start Date End Date Brittney Kothari DO [address] [facility] [place] [address] PCP - General 07/17/19 Brittney Kothari, [address] [facility] [place], [place] [id number] PCP - MSSP ACO Attributed Provider 11/14/21 Registered Nurse Ambulatory Relationship Specialty Start Date End Date Brittney Kothari DO [address] [facility] [place] [id number] PCP - General 07/17/19 Brittney Kothari DO [address] [facility] [place] [id number] PCP - MSSP ACO Attributed Provider 11/14/21 Registered Nurse Ambulatory Relationship Specialty Start Date End Date Brittney Kothari DO [address] [place] [id number] PCP - General 07/17/19 Brittney Kothari DO [address] [address] PCP - MSSP ACO Attributed Provider 11/14/21 Registered Nurse Ambulatory Relationship Specialty Start Date End Date Brittney Kothari DO [address] [address] PCP - General 07/17/19 Brittney Kothari DO [address] [address] PCP - MSSP ACO Attributed Provider 11/14/21 Registered Nurse Ambulatory Relationship Specialty Start Date End Date Brittney Kothari DO [address] [place] [address] PCP - General 07/17/19 Brittney Kothari DO [address] [place] [address] PCP - MSSP ACO Attributed Provider 11/14/21 Registered Nurse Ambulatory Relationship Specialty Start Date End Date Brittney Kothari DO [address] [place] [address] PCP - General 07/17/19 Brittney Kothari DO [address] [place] [address] PCP - MSSP ACO Attributed Provider 11/14/21 Registered Nurse Ambulatory Relationship Specialty Start Date End Date Brittney Kothari DO [address] [place] [address] PCP - General 07/17/19 Brittney Kothari DO [address] [place] [address] PCP - MSSP ACO Attributed Provider 11/14/21 Registered Nurse Ambulatory Relationship Specialty Start Date End Date Brittney Kothari DO [address] [place] [address] PCP - General 07/17/19 Brittney Kothari DO [address] [place] [address] PCP - MSSP ACO Attributed Provider 11/14/21 Registered Nurse Ambulatory Relationship Specialty Start Date End Date Brittney Kothari DO [address] [address] PCP - General 07/17/19 Brittney Kothari DO [address] [address] PCP - MSSP ACO Attributed Provider 11/14/21 Marilyn Garcia LPN [employer]ig[employer] Pegger[employer] Stick Man 07/03/25 Team Status: Active Member Role/Relationship Status [...] Primary Care Brittney Kothari DO [address] [facility] [place] [address] Referral ID Status Reason Start Date Expiration Date V isits Requested Visits Authorized [id number] Authorized 12/27/2023 12/26/2024 1 1 Reason Comments Follow-up 6 MO CK Specialty Diagnoses / Procedures Referred By Contac t Referred To Contact Primary Care Procedures Follow Up In Primary Care Veronica Kotharijatin Alfredo DO Phone: tel: fax: Referral ID Status Reason Start Date Expiration Date V isits Requested Visits Authorized [id number] Authorized 06/26/2024 06/26/2025 1 1 Reason Comments Follow-up 1 year Review labs Specialty Diagnoses / Procedures Referred By Cecilio quinones Referred To Contact Primary Care Procedures Follow Up In Primary Care Brittney Kothari DO [address] [place] [address] Phone: tel: fax: Referral ID Status Reason Start Date Expiration Date V isits Requested Visits Authorized [id number] Authorized 12/27/2024 12/27/2025 1 1 Reason Comments Palpitations 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 Has felt palpitations transiently for a couple months but is worsening. No CP. No SOB. Transiently dizzy/lightheaded. Specialty Diagnoses / Procedures Referred By Cecilio quinones Referred To Contact Diagnoses Abnormal EKG Atrial fibrillation with RVR (Multi) [place] [address] [place] [address] Phone: tel: fax: [facility] [address] [place] [phone] Phone: tel: Referral ID Status Reason Start Date Expiration Date Visits Re quested Visits Authorized [id number] 1 1 Reason Comments Follow-up HOSP FU [...] administered 2.5 ml of diluted definity per is technician instruction) polyethylene glycol (Glycolax, Miralax) packet 17 [...] BE BASED ON THE PRIMARY CLINICAL RECORDS. [facility]. provides no warranty or guarantee of the accuracy or completeness of information in this document.
--- NOTE | 2025-09-04 09:49 | STRESSREP ---
Stress Test Report Date: 09/04/2025 Procedure: Pharmacologic stress nuclear imaging study Indications: CAD Consent: Per the patient Procedure: The patient underwent pharmacologic (Regadenoson 0.4mg ) evaluation with a peak heart rate of 83 beats per minute (59%predicted maximal heart rate) and a peak blood pressure of 148/92 mmHg. The baseline ECG demonstrated sinus rhythm. The peak pharmacologic ECG did not show any ischemic changes. There were no cardiac dysrhythmias pretest, during pharmacologic infusion, or recovery. There was no complaint of chest discomfort during pharmacologic infusion or recovery. The patient was injected with 11.9 millicuries of technetium 99m Cardiolite and subsequently rest SPECT Cardiolite nuclear imaging was obtained in the horizontal long, vertical long, and short axis views. The patient underwent pharmacologic (Regadenoson) evaluation. The patient was injected with 33.6 millicuries of technetium 99m Cardiolite and subsequently stress SPECT Cardiolite nuclear imaging was obtained in the horizontal long, vertical long, and short axis views. A gated Cardiolite study at peak stress was obtained. The examination was stopped secondary to completion of protocol. Rest and stress SPECT Cardiolite nuclear imaging status post realignment, normalization, and attenuation correction demonstrate no fixed or reversible perfusion defects. There is end systolic thickening and brightening. The gated Cardiolite study demonstrates myocardial thickening and inward wall motion. The reported LVEF is 82%. Impression: 1. Pharmacologic (Regadenoson) evaluation 2. Peak pharmacologic ECG with no ischemic changes. 3. There were no cardiac dysrhythmias pretest, during pharmacologic infusion, or recovery. 5. Rest and stress SPECT Cardiolite nuclear imaging demonstrate relative uniform tracer uptake and myocardial perfusion appearing within normal limits. 6. The gated Cardiolite study reports an LVEF of 82%. This note was generated with [employer] software. It may contain incorrect words, spelling, and punctuation that were not noted in checking the note before signing.
== END | disposition home or self-care (01) ==
PROVIDERS: PCP Internal Medicine; Referring Provider Internal Medicine Cardiovascular Disease; Visit Provider Internal Medicine Cardiovascular Disease
DX: I48.0 Paroxysmal atrial fibrillation (principal); I25.10 Atherosclerotic heart disease of native coronary artery without angina pectoris; I10 Essential (primary) hypertension; E78.5 Hyperlipidemia, unspecified; R00.2 Palpitations
CPT/HCPCS: 78452; 93017; A9500; A4216; J2785

== ENCOUNTER 2025-09-24 12:18 | Outpatient (RCR) | payer MEDICARE, SELFPAY ==
[2025-09-24 12:34] LABS: INR Fingerstick 2.6
== END 2025-10-13 18:00 | disposition home or self-care (01) ==
LOC: LAB 12:18
PROVIDERS: PCP Internal Medicine; Referring Provider Internal Medicine Cardiovascular Disease; Visit Provider Internal Medicine Cardiovascular Disease
DX: I48.0 Paroxysmal atrial fibrillation (principal); Z79.01 Long term (current) use of anticoagulants
CPT/HCPCS: 36416; 85610

== ENCOUNTER 2025-10-22 10:08 | Outpatient (RCR) | payer MEDICARE, SELFPAY ==
[2025-10-22 10:19] LABS: INR Fingerstick 2.3
== END 2025-10-22 18:00 | disposition home or self-care (01) ==
LOC: LAB 10:08
PROVIDERS: PCP Internal Medicine; Referring Provider Internal Medicine Cardiovascular Disease; Visit Provider Internal Medicine Cardiovascular Disease
DX: I48.0 Paroxysmal atrial fibrillation (principal); Z79.01 Long term (current) use of anticoagulants
CPT/HCPCS: 36416; 85610